=== PATIENT | female | born 1960 | race African-American/Black ===

== ENCOUNTER 2016-10-04 14:42 | Inpatient (IN) | payer MEDICARE, MEDICAID ==
--- NOTE | 2016-10-04 15:28 | ER Document Report ---
ED General - General Stated Complaint: ALTERED MENTAL STATUS Time Seen by Provider: 10/04/16 15:26 Mode of Arrival: Medic Information source: Emergency Med Personnel, [facility] Records Notes: This is a 56-year-old female with a history of CVA, obstructive sleep apnea, diabetes, rheumatoid arthritis, diabetes, CHF acute kidney injury, rhabdomyolysis. The patient is brought into the emergency room by EMS because of an altered mental status for 2 hours. EMS reports that home health was at the house and that said that the patient was at her baseline until approximately 2 hours ago when she became lethargic. EMS states that the patient is actually improved somewhat during transport from when they saw the patient. TRAVEL OUTSIDE OF THE [place] IN LAST 30 DAYS: No - HPI Onset: Just prior to arrival Onset/Duration: Sudden Quality of pain: No pain Severity: None Pain Level: Denies Associated symptoms: Nausea, Vomiting Exacerbated by: Denies Relieved by: Denies Similar symptoms previously: Yes Recently seen / treated by doctor: No - Related Data Allergies/Adverse Reactions: ibuprofen [Ibuprofen] Allergy (Severe, Verified 04/24/16 14:54) Chest pain Past Medical History - General Information source: Transfer Record - Social History Smoking Status: Never Smoker Cigarette use (# per day): No Chew tobacco use (# tins/day): No Frequency of alcohol use: None Drug Abuse: None Lives with: Alone Family History: DM, Hypertension Patient has suicidal ideation: No Patient has homicidal ideation: No - Past Medical History Cardiac Medical History: Reports: Hx Hypercholesterolemia, Hx Hypertension, Hx Heart Murmur Denies: Hx Atrial Fibrillation, Hx Congestive Heart Failure, Hx Coronary Artery Disease, Hx Heart Attack, Hx Peripheral Vascular Disease, Hx Pulmonary Embolism Pulmonary Medical History: Reports: Hx Asthma, Hx Bronchitis, Hx Pneumonia, Hx Sleep Apnea Denies: Hx COPD, Hx Respiratory Failure, Hx Tuberculosis Neurological Medical History: Reports: Hx Cerebrovascular Accident - 2004. Denies: Hx Seizures Endocrine Medical History: Reports: Hx Diabetes Mellitus Type 2. Denies: Hx Graves' Disease, Hx Hyperthyroidism, Hx Hypothyroidism Malignancy Medical History: Denies: Hx Leukemia, Hx Lung Cancer GI Medical History: Reports: Hx Crohn's Disease, Hx Hiatal Hernia. Denies: Hx Gastroesophageal Reflux Disease, Hx Irritable Bowel, Hx Liver Failure, Hx Ulcer Musculoskeltal Medical History: Reports Hx Arthritis, Reports Hx Fibromyalgia, Denies Hx Multiple Sclerosis, Denies Hx Muscular Dystrophy Psychiatric Medical History: Reports: Hx Depression Denies: Hx Bipolar Disorder, Hx Dementia, Hx Post Traumatic Stress Disorder, Hx Schizophrenia Traumatic Medical History: Denies: Hx Fractures Infectious Medical History: Denies: Hx HIV Past Surgical History: Reports: Hx Section, Hx Hysterectomy. Denies: Hx Appendectomy, Hx Bowel Surgery, Hx Cholecystectomy, Hx Colostomy, Hx Coronary Artery Bypass Graft, Hx Gastric Bypass Surgery, Hx Herniorrhaphy, Hx Mastectomy, Hx Pacemaker, Hx Tonsillectomy, Hx Tubal Ligation - Immunizations Immunizations up to date: Yes Hx Diphtheria, Pertussis, Tetanus Vaccination: Yes Hx Pneumococcal Vaccination: 01/25/08 Review of Systems - Review of Systems Constitutional: denies: Chills, Fever EENT: No symptoms reported Cardiovascular: No symptoms reported Respiratory: No symptoms reported Gastrointestinal: No symptoms reported Genitourinary: No symptoms reported Female Genitourinary: No symptoms reported Musculoskeletal: No symptoms reported Skin: No symptoms reported Hematologic/Lymphatic: No symptoms reported Neurological/Psychological: See HPI Physical Exam - Vital signs Vitals: BP 156/108 H 10/04/16 14:55 Notes: Physical exam: GENERAL: 56-year-old female lying in stretcher, appears lethargic but arousable and answering questions. Blood pressure is 158/90, pulse is 109, O2 sat is 100 % on room air, respiratory rate is 19, rectal temperature is 99.8 HEAD: Atraumatic, normocephalic. EYES: Pupils equal round and reactive to light, extraocular movements intact, sclera anicteric, conjunctiva are normal. ENT: TMs normal, nares patent, oropharynx clear without exudates. Moist mucous membranes. NECK: Normal range of motion, supple without lymphadenopathy or JVD. LUNGS: Breath sounds clear to auscultation bilaterally and equal. No wheezes rales or rhonchi. HEART: Regular rate and rhythm without murmurs, rubs or gallops. ABDOMEN: Soft, normoactive bowel sounds. No tenderness to palpation. No guarding, no rebound. No masses appreciated. Back: Clear Rectal: Brown stool, sent for study EXTREMITIES: Normal range of motion, no pitting or edema. No clubbing or cyanosis. NEUROLOGICAL: Cranial nerves II through XII grossly intact. Normal speech, moving all extremities, 2 superficial bruises on the left mid tibia. No evidence of cellulitis. PSYCH: Normal mood, normal affect. SKIN: Warm, Dry, normal turgor, no rashes or lesions noted. Course - Re-evaluation Re-evalutation: 10/04/16 18:00 Called to see patient because of worsening mental status. Patient's heart rate noted to be 145. His appear to be sinus tach on monitor. Recheck rectal temperature and is 101.2. Chest x-ray is clear, O2 sat is 100% on room air, UA is negative. 10/04/16 22:27 Note: This is a 56-year-old female with a complicated medical history who is immunosuppressed because of her medicines for rheumatoid arthritis (methotrexate , prednisone) who was brought to the emergency room with acute mental status changes. The patient was known to be tachycardic and her heart rate went up as much is 145 and was in sinus at that time. She did become febrile in the emergency room with a rectal temperature of 101.2 she wasn't cephalopathic. CT of the head was clear, chest x-ray was clear, urine analysis was negative. She did have some lesions on her lower extremities that were marked so that it take could be followed clinically for any expansion. The patient does have a history of falling, so these may just be bruises. CT of the abdomen showed no acute process. A spinal tap was performed because of concerns for meningitis and is thus far looks negative for infection. Blood cultures, urine cultures and spinal fluid cultures have been sent. Patient has been given IV fluids, IV antibiotics and antiemetics. Her mental status has improved somewhat but she is not fully at baseline. At this point, there is no obvious source of infection. She does meet criteria for SIRS. She does not meet establish criteria for sepsis at this point. 10/04/16 22:31 10/05/16 00:02 - Vital Signs Vital signs: Temp Pulse Resp BP Pulse Ox 14 133/87 H 100 10/04/16 23:00 10/04/16 22:31 10/04/16 23:00 - Laboratory Result Diagrams: 10/04/16 17:18 10/04/16 17:18 Laboratory results interpreted by me: 10/04/16 10/04/16 10/04/16 16:27 17:18 17:18 WBC 10.6 H MCV 75 L MCH 24.1 L RDW 17.7 H BUN 4 L Glucose 174 H POC Glucose Calcium 10.4 H Direct Bilirubin 0.6 H Total Protein 8.6 H Urine Protein 100 H Urine Ketones 80 H CSF Glucose 10/04/16 10/04/16 17:39 19:05 WBC MCV MCH RDW BUN Glucose POC Glucose 192 H Calcium Direct Bilirubin Total Protein Urine Protein Urine Ketones CSF Glucose 111 H - Diagnostic Test Radiology reviewed: Image reviewed, Reports reviewed - CT of the head shows no acute process. Chest x-ray shows no infiltrates. CT of the abdomen shows no acute process. - EKG Interpretation by Mo Rate: Tachycardia - EKG shows sinus tachycardia with a ventricular rate of 114, no acute ST-T wave changes Procedures - Lumbar Puncture Lumbar puncture Time completed: 20:30 Consent obtained: No - procedure was done emergently to rule out meningitis Lumbar puncture pre-procedure: Chloraprep applied Patient position: Sitting Needle size: 20 Lumbar puncture location: L4-5 Anesthetic type: 1% Lidocaine mL's of anesthetic: 4 Amount/type of drainage: 4 mL Number of attempts: 3 Complications: No Notes: Note: Given the patient's acute encephalopathy (Marked mental status changes), fever and tachycardia and lack of obvious source of infection (i.e. no pneumonia , UTI); the spinal tap was done emergently (i.e. Without written informed consent). The patient was agreeable at the time for the procedure. The fluid looks clear which is good. It is been sent for study. Critical Care Note - Critical Care Note Total time excluding time spent on procedures (mins): 90 Discharge - Discharge Clinical Impression: acute encephalopathy, SIRS, vomiting Condition: Stable Disposition: ADMITTED INPATIENT Admitting Provider: Hospitalist - Dr. Pierce Unit Admitted: Telemetry
[2016-10-04 16:47] LABS: APPEARANCE,URINE SLIGHTLY-CLOUDY; BILIRUBIN,URINE NEGATIVE (NEGATIVE); GLUCOSE, URINE NEGATIVE (NEGATIVE); KETONES,URINE 80 mg/dL (NEGATIVE); LEUKOCYTE ESTERASE,URINE NEGATIVE (NEGATIVE); NITRITE,URINE NEGATIVE (NEGATIVE); PROTEIN,URINE 100 mg/dL (NEGATIVE); URINE SPECIFIC GRAVITY 1.019; UROBILINOGEN,URINE NEGATIVE mg/dL (<2.0)
[2016-10-04 17:24] LABS: ABSOLUTE BASOPHILS # (AUTO) 0.1 10^3/uL (0.0-0.2); ABSOLUTE LYMPHOCYTES (AUTO) 2.3 10^3/uL (0.5-4.7); ABSOLUTE MONOCYTES (AUTO) 1.3 10^3/uL (0.1-1.4); BASOPHILS % (AUTO) 0.6 % (0-2); HEMATOCRIT 39.2 % (36.0-47.0); HEMOGLOBIN 12.5 g/dL (12.0-15.5); HGB HCT DIFFERENCE -1.7; MEAN CORPUSCULAR HEMOGLOBIN 24.1 pg (27.0-33.4); MEAN CORPUSCULAR VOLUME 75 fl (80-97); MONOCYTES % (AUTO) 11.8 % (3-13); RED BLOOD COUNT 5.21 10^6/uL (3.72-5.28); RED CELL DISTRIBUTION WIDTH 17.7 % (11.5-14.0); SEGMENTED NEUTROPHILS % (AUTO) 65.6 % (42-78); WHITE BLOOD COUNT 10.6 10^3/uL (4.0-10.5)
[2016-10-04] MEDS ORDERED: LORAZEPAM INJ 2 MG/1 ML VIAL IV ONE (17:33)
[2016-10-04] MEDS ORDERED: LORAZEPAM INJ 2 MG/1 ML VIAL ONE ×2 (17:36→18:43)
[2016-10-04] MEDS ORDERED: NORMAL SALINE 500 ML IV PRN (17:38)
[2016-10-04 17:45] LABS: ALANINE AMINOTRANSFERASE 30 U/L (9-52); ALBUMIN 4.6 g/dL (3.5-5.0); ALKALINE PHOSPHATASE 83 U/L (38-126); ANION GAP 18 (5-19); ASPARTATE AMINO TRANSFERASE 17 U/L (14-36); BILIRUBIN,DIRECT 0.6 mg/dL (0.0-0.4); BLOOD UREA NITROGEN 4 mg/dL (7-20); CALCIUM 10.4 mg/dL (8.4-10.2); CARBON DIOXIDE 24 mmol/L (22-30); CHLORIDE 102 mmol/L (98-107); CREATINE KINASE 54 U/L (30-135); CREATININE RESULT 0.74 mg/dL (0.52-1.25); GLUCOSE 174 mg/dL (75-110); POTASSIUM 3.6 mmol/L (3.6-5.0); SODIUM 143.7 mmol/L (137-145); TOTAL PROTEIN 8.6 g/dL (6.3-8.2)
[2016-10-04 17:56] LABS: CREATINE KINASE MB 0.28 ng/mL (<4.55)
[2016-10-04 17:58] LABS: TROPONIN I 0.043 ng/mL
[2016-10-04] MEDS ORDERED: ACETAMINOPHEN 650 MG SUPP.RECT PR ONE (17:59)
[2016-10-04] MEDS ORDERED: VANCOMYCIN HCL INJ 1000 MG VIAL IV ONE (18:00)
[2016-10-04] MEDS ORDERED: CEFTRIAXONE 2 GM/D5W RTU 50 ML IV ONE (18:00)
[2016-10-04 19:53] LABS: APPEARANCE TUBE 1 CLEAR
[2016-10-04 19:54] LABS: APPEARANCE ALL TUBES CLEAR; APPEARANCE TUBE 2 CLEAR; APPEARANCE TUBE 3 CLEAR; GLUCOSE,CSF 111 mg/dL (40-70)
[2016-10-04 19:55] LABS: RBC DILUENT USED NONE USED; RBC DILUTION FACTOR 1; RBC SIDE 1 98; RBC SIDE 2 88
[2016-10-04 19:57] LABS: TOTAL RBC SQUARES COUNTED 225
[2016-10-04 19:59] LABS: WHITE BLOOD CELL,CSF 4 /uL (0-5)
[2016-10-04 20:00] LABS: APPEARANCE ALL TUBES CLEAR; APPEARANCE TUBE 1 CLEAR; APPEARANCE TUBE 2 CLEAR; APPEARANCE TUBE 3 CLEAR
[2016-10-04 20:01] LABS: RBC DILUENT USED NONE USED; RBC DILUTION FACTOR 1; RBC SIDE 1 0; RBC SIDE 2 0; TOTAL RBC SQUARES COUNTED 225
[2016-10-04 20:02] LABS: WHITE BLOOD CELL,CSF 4 /uL (0-5)
[2016-10-04 21:53] LABS: URINE BARBITURATES SCREEN NEGATIVE; URINE METHADONE SCREEN NEGATIVE; URINE OPIATES LOW UNCONFIRMED POSITIVE; URINE PHENCYCLIDINE SCREEN NEGATIVE
[2016-10-04] MEDS ORDERED: ONDANSETRON HCL INJ/PF 4 MG/2 ML SDV IV ONE (22:04)
[2016-10-05] MEDS: MAGNESIUM SULFATE/D5W 1 GM/100 ML RTUPB IV SCH ×2 (02:39→04:09)
[2016-10-05] MEDS ORDERED: MAGNESIUM SULFATE/D5W 1 GM/100 ML RTUPB IV ONE (02:40)
[2016-10-05] MEDS ORDERED: OXYCODONE-ACETAMINOPHEN 5-325 MG TABLET PO ONE (05:01)
[2016-10-05] MEDS ORDERED: MONTELUKAST SODIUM 10 MG TABLET PO SCH (08:00)
[2016-10-05] MEDS ORDERED: PREDNISONE 5 MG TABLET PO SCH (08:00)
[2016-10-05] MEDS ORDERED: PREDNISONE 10 MG TABLET PO ONE (09:00)
[2016-10-05] MEDS ORDERED: AMLODIPINE BESYLATE 10 MG TABLET PO SCH (10:00)
[2016-10-05] MEDS: SILVER SULFADIAZINE 1% CREAM 25 GM TP SCH ×3 (10:00→19:57)
[2016-10-05] MEDS: FOLIC ACID 1 MG TABLET PO SCH (11:12)
[2016-10-05] MEDS: FUROSEMIDE 80 MG TABLET PO SCH (11:13)
[2016-10-05] MEDS: ASPIRIN 325 MG TABLET PO SCH (11:14)
[2016-10-05] MEDS: AMLODIPINE BESYLATE 5 MG TABLET PO SCH (11:14)
[2016-10-05] MEDS: CELECOXIB 200 MG CAPSULE PO SCH ×2 (11:14→18:12)
[2016-10-05] MEDS: PHENYTOIN SODIUM EXTENDED 100 MG CAPSULE PO SCH ×2 (11:15→22:25)
[2016-10-05] MEDS: SPIRONOLACTONE 25 MG TABLET PO SCH (11:15)
[2016-10-05] MEDS: LISINOPRIL 5 MG TABLET PO SCH (11:15)
[2016-10-05] MEDS: PREGABALIN 75 MG CAPSULE PO SCH ×2 (11:15→22:25)
[2016-10-05] MEDS: POTASSIUM CHLORIDE 10 MEQ TABLET.SA PO SCH (11:16)
[2016-10-05] MEDS: CLOPIDOGREL BISULFATE 75 MG TABLET PO SCH (11:16)
[2016-10-05] MEDS: PRENATAL VITAMIN W-O CA NO5/FE FUMARATE/FA CAPSULE PO SCH (11:16)
[2016-10-05] MEDS: DULOXETINE HCL 30 MG CAPSULE.DR PO SCH ×2 (11:16→22:26)
[2016-10-05] MEDS: DICYCLOMINE HCL 20 MG TABLET PO SCH ×3 (11:17→18:00)
[2016-10-05] MEDS: IPRATROPIUM/ALBUTEROL 120 PUFF/4 GM MDI IH SCH ×2 (12:00→18:14)
--- NOTE | 2016-10-05 12:16 | PDOC PROGRESS REPORT ---
Subjective Progress Note for:: 10/05/16 Subjective:: Patient seen on morning rounds. She is presently sitting in bedside chair. She states her stomach doesn't feel well. She states she's been nauseated since yesterday. She denies any vomiting, she has had several episodes of diarrhea. She denies any recent antibiotic use at home. She states she has no other family members were sick at the present time. She denies any significant abdominal pain at the present time. She denies any chest pain, shortness breath or dyspnea. She has had a low-grade fever on and off. She is back to her baseline mental status. Rest of review systems is negative. Physical Exam Vital Signs: Temp Pulse Resp BP Pulse Ox 99.3 F 136 H 26 H 157/86 H 97 10/05/16 07:53 10/05/16 07:53 10/05/16 07:53 10/05/16 07:53 10/05/16 07:53 Intake & Output 10/04/16 10/05/16 10/06/16 06:59 06:59 06:59 Intake Total 170 Balance 170 Weight 137.6 kg General appearance: PRESENT: no acute distress, morbidly obese, well-developed, well-nourished Head exam: PRESENT: atraumatic, normocephalic Eye exam: PRESENT: conjunctiva pink, EOMI, PERRLA. ABSENT: scleral icterus Ear exam: PRESENT: normal external ear exam Neck exam: ABSENT: carotid bruit, JVD, lymphadenopathy, thyromegaly Respiratory exam: PRESENT: clear to auscultation chen. ABSENT: rales, rhonchi, wheezes Cardiovascular exam: PRESENT: RRR. ABSENT: diastolic murmur, rubs, systolic murmur Vascular exam: PRESENT: normal capillary refill GI/Abdominal exam: PRESENT: normal bowel sounds, soft. ABSENT: distended, guarding, mass, organolmegaly, rebound, tenderness Rectal exam: PRESENT: deferred Extremities exam: PRESENT: full ROM. ABSENT: calf tenderness, clubbing, pedal edema Musculoskeletal exam: PRESENT: full ROM, normal inspection, tenderness Neurological exam: PRESENT: alert, awake, oriented to person, oriented to place , oriented to time, oriented to situation, CN II-XII grossly intact. ABSENT: motor sensory deficit Psychiatric exam: PRESENT: appropriate affect, normal mood. ABSENT: homicidal ideation, suicidal ideation Skin exam: PRESENT: dry, intact, warm. ABSENT: cyanosis, rash Results Impressions: Head CT 10/04/16 00:00 IMPRESSION: NORMAL BRAIN CT WITHOUT CONTRAST. Chest X-Ray 10/04/16 15:37 IMPRESSION: NO ACUTE RADIOGRAPHIC FINDING IN THE CHEST. Abdomen/Pelvis CT 10/04/16 21:06 IMPRESSION: NO ACUTE FINDINGS WITHIN THE ABDOMEN OR PELVIS. NO SIGNIFICANT CHANGE FROM PRIOR STUDY. Assessment & Plan - Diagnosis (1) Encephalopathy acute Is this a current diagnosis for this admission?: YesPlan: Since resolved. He PE secondary to infectious process versus chronic use of opioid analgesics (3) Chronic prescription opiate use Is this a current diagnosis for this admission?: YesPlan: Continue pain management prescribed analgesic dose (4) Diabetes mellitus Qualifiers: Diabetes mellitus type: type 2 Diabetes mellitus complication status: with unspecified complications Diabetes mellitus prison insulin use: unspecified adjunct faculty for medical terminology insulin use status Qualified Code(s): E11.8 - Type 2 diabetes mellitus with unspecified complications; Z79.4 - skilled nursing (current) use of insulin (5) Morbid obesity with BMI of 50.0-59.9, adult Is this a current diagnosis for this admission?: YesPlan: Counseled (6) BRAN (obstructive sleep apnea) Is this a current diagnosis for this admission?: YesPlan: CPAP at night - Time Time Spent with patient: 25-34 minutes Critical Time spent with patient: 15-24 minutes Medications reviewed and adjusted accordingly: Yes Anticipated discharge: Home with Homehealth Within: within 24 hours - Inpatient Certification Based on my medical assessment, after consideration of the patient's comorbidities, presenting symptoms, or acuity I expect that the services needed warrant INPATIENT care.: Yes I certify that my determination is in accordance with my understanding of Medicare's requirements for reasonable and necessary INPATIENT services [42 CFR 412.3e].: Yes
--- NOTE | 2016-10-05 13:19 | EKG REPORT ---
SEVERITY:- ABNORMAL ECG - SINUS TACHYCARDIA PROBABLE POSTERIOR INFARCT BORDERLINE PROLONGED QT INTERVAL : Confirmed by: Cullen Fritz 05-Oct-2016 13:18:29
[2016-10-05] MEDS: METFORMIN HCL 500 MG TABLET PO SCH (18:11)
[2016-10-05] MEDS: ATORVASTATIN CALCIUM 20 MG TABLET PO SCH (18:12)
[2016-10-05] MEDS: CETIRIZINE 10 MG TABLET PO SCH (18:12)
[2016-10-05] MEDS: MONTELUKAST SODIUM 10 MG TABLET PO SCH (18:12)
[2016-10-05] MEDS: FAMOTIDINE 20 MG TABLET PO SCH (22:25)
[2016-10-05] MEDS: METOPROLOL TARTRATE 25 MG TABLET PO SCH (22:25)
[2016-10-06] MEDS: IPRATROPIUM/ALBUTEROL 120 PUFF/4 GM MDI IH SCH ×5 (01:26→23:16)
[2016-10-06] MEDS: PRENATAL VITAMIN W-O CA NO5/FE FUMARATE/FA CAPSULE PO SCH (09:07)
[2016-10-06] MEDS: CLOPIDOGREL BISULFATE 75 MG TABLET PO SCH (09:09)
[2016-10-06] MEDS: PREGABALIN 75 MG CAPSULE PO SCH ×2 (09:10→23:16)
[2016-10-06] MEDS: PHENYTOIN SODIUM EXTENDED 100 MG CAPSULE PO SCH ×3 (09:10→23:16)
[2016-10-06] MEDS: METFORMIN HCL 500 MG TABLET PO SCH ×2 (09:10→17:27)
[2016-10-06] MEDS: FOLIC ACID 1 MG TABLET PO SCH (09:10)
[2016-10-06] MEDS: ASPIRIN 325 MG TABLET PO SCH (09:10)
[2016-10-06] MEDS: CELECOXIB 200 MG CAPSULE PO SCH (09:10)
[2016-10-06] MEDS: POTASSIUM CHLORIDE 10 MEQ TABLET.SA PO SCH (09:11)
[2016-10-06] MEDS: DULOXETINE HCL 30 MG CAPSULE.DR PO SCH ×2 (09:11→23:15)
[2016-10-06] MEDS: PREDNISONE 10 MG TABLET PO SCH (09:11)
[2016-10-06] MEDS: LISINOPRIL 5 MG TABLET PO SCH (09:12)
[2016-10-06] MEDS: SPIRONOLACTONE 25 MG TABLET PO SCH (09:12)
[2016-10-06] MEDS: DICYCLOMINE HCL 20 MG TABLET PO SCH ×3 (09:13→17:28)
[2016-10-06] MEDS: METOPROLOL TARTRATE 25 MG TABLET PO SCH (09:22)
[2016-10-06] MEDS: SILVER SULFADIAZINE 1% CREAM 25 GM TP SCH ×3 (09:24→17:23)
[2016-10-06] MEDS ORDERED: ALBUTEROL SULFATE HFA (90 MCG/PUFF) 8 GM MDI (1 MDI/ER DISP) IH PRN (09:27)
[2016-10-06] MEDS: FUROSEMIDE 80 MG TABLET PO SCH (09:27)
[2016-10-06] MEDS ORDERED: DIGOXIN INJ 0.5 MG/2 ML AMPULE IV ONE (10:00)
[2016-10-06] MEDS ORDERED: ACETAMINOPHEN 325 MG TABLET PO PRN (10:57)
[2016-10-06] MEDS ORDERED: METOPROLOL TARTRATE 25 MG TABLET PO SCH (11:18)
[2016-10-06] MEDS: ONDANSETRON HCL INJ/PF 4 MG/2 ML SDV IV PRN (11:32)
[2016-10-06] MEDS ORDERED: METOPROLOL TARTRATE 25 MG TABLET PO ONE (12:00)
--- NOTE | 2016-10-06 13:32 | PDOC PROGRESS REPORT ---
Subjective Progress Note for:: 10/06/16 Subjective:: Patient seen on morning rounds. She is sitting on the side of the bed eating breakfast. She states her stomach doesn't feel well. She states she's been nauseated since yesterday. She denies any vomiting, she states she has had several episodes of diarrhea. She denies any recent antibiotic use at home. She states she has no other family members were sick at the present time. She denies any significant abdominal pain at the present time. She denies any chest pain, shortness breath or dyspnea. She has had a low-grade fever on and off. Her heart rate has been elevated this morning in the 140's with systolic blood pressure in the 90's. She states she just does not feel well. She is back to her baseline mental status. Rest of review systems is negative. Physical Exam Vital Signs: Temp Pulse Resp BP Pulse Ox 99.4 F 132 H 18 142/86 H 96 10/06/16 03:49 10/06/16 11:51 10/06/16 11:51 10/06/16 11:51 10/06/16 11:51 Intake & Output 10/05/16 10/06/16 10/07/16 06:59 06:59 06:59 Intake Total 170 491 Output Total 630 Balance 170 -139 Weight 137.6 kg Results Impressions: Head CT 10/04/16 00:00 IMPRESSION: NORMAL BRAIN CT WITHOUT CONTRAST. Chest X-Ray 10/04/16 15:37 IMPRESSION: NO ACUTE RADIOGRAPHIC FINDING IN THE CHEST. Abdomen/Pelvis CT 10/04/16 21:06 IMPRESSION: NO ACUTE FINDINGS WITHIN THE ABDOMEN OR PELVIS. NO SIGNIFICANT CHANGE FROM PRIOR STUDY. Assessment & Plan - Diagnosis (1) SIRS (systemic inflammatory response syndrome) Is this a current diagnosis for this admission?: YesPlan: No obvious source of infection, may be viral gastroenteritis (2) Tachycardia Plan: Patient has been borderline hypotensive, blood pressure medications have been held or given in a reduced dosage, most likely secondary to dehydration from diarrhea. Gently rehydrating with IV fluids. Will check stool for Cdiff and other organisms. Patient given digoxin 0.5 mg IV and fluid bolus. Will hold other BP med but give metoprolol. (3) Encephalopathy acute Is this a current diagnosis for this admission?: YesPlan: Since resolved. This may be secondary to infectious process versus chronic use of opioid analgesics (4) Nausea Is this a current diagnosis for this admission?: YesPlan: Improved since yesterday, (5) Chronic prescription opiate use Is this a current diagnosis for this admission?: YesPlan: Continue pain management prescribed analgesic dose (6) Diabetes mellitus Qualifiers: Diabetes mellitus type: type 2 Diabetes mellitus complication status: with unspecified complications Diabetes mellitus technician terminal and repeater insulin use: unspecified custodial insulin use status Qualified Code(s): E11.8 - Type 2 diabetes mellitus with unspecified complications; 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 Is this a current diagnosis for this admission?: YesPlan: Continue current home medication and sliding scale coverage (7) Morbid obesity with BMI of 50.0-59.9, adult Is this a current diagnosis for this admission?: YesPlan: Counseled (8) BRAN (obstructive sleep apnea) Is this a current diagnosis for this admission?: YesPlan: CPAP at night (9) Diarrhea Qualifiers: Diarrhea type: unspecified type Qualified Code(s): R19.7 - Diarrhea , unspecified Is this a current diagnosis for this admission?: YesPlan: Will send stool for cdiff and culture - Time Time Spent with patient: 25-34 minutes Smoking Cessation Education: 3 to 10 minutes Medications reviewed and adjusted accordingly: Yes Anticipated discharge: Home with Homehealth
[2016-10-06] MEDS: CETIRIZINE 10 MG TABLET PO SCH (17:28)
[2016-10-06] MEDS: ATORVASTATIN CALCIUM 20 MG TABLET PO SCH (17:28)
[2016-10-06] MEDS: MONTELUKAST SODIUM 10 MG TABLET PO SCH (17:28)
[2016-10-06] MEDS: KETOROLAC TROMETHAMINE 10 MG TABLET PO PRN (17:29)
[2016-10-06] MEDS ORDERED: METOPROLOL TARTRATE 50 MG TABLET PO SCH (22:00)
[2016-10-06] MEDS: METOPROLOL SUCCINATE 50 MG TAB.SR.24H PO SCH (23:15)
[2016-10-06] MEDS: FAMOTIDINE 20 MG TABLET PO SCH (23:16)
[2016-10-07] MEDS: PHENYTOIN SODIUM EXTENDED 100 MG CAPSULE PO SCH ×3 (05:38→22:10)
[2016-10-07] MEDS: KETOROLAC TROMETHAMINE 10 MG TABLET PO PRN ×2 (05:38→20:05)
[2016-10-07] MEDS: IPRATROPIUM/ALBUTEROL 120 PUFF/4 GM MDI IH SCH ×3 (05:39→18:11)
[2016-10-07] MEDS: PRENATAL VITAMIN W-O CA NO5/FE FUMARATE/FA CAPSULE PO SCH (10:40)
[2016-10-07] MEDS: POTASSIUM CHLORIDE 10 MEQ TABLET.SA PO SCH (10:40)
[2016-10-07] MEDS: PREGABALIN 75 MG CAPSULE PO SCH ×2 (10:41→22:11)
[2016-10-07] MEDS: DULOXETINE HCL 30 MG CAPSULE.DR PO SCH ×2 (10:41→22:11)
[2016-10-07] MEDS: ASPIRIN 325 MG TABLET PO SCH (10:41)
[2016-10-07] MEDS: FOLIC ACID 1 MG TABLET PO SCH (10:41)
[2016-10-07] MEDS: METFORMIN HCL 500 MG TABLET PO SCH ×2 (10:41→15:33)
[2016-10-07] MEDS: CLOPIDOGREL BISULFATE 75 MG TABLET PO SCH (10:41)
[2016-10-07] MEDS: SPIRONOLACTONE 25 MG TABLET PO SCH (10:42)
[2016-10-07] MEDS: METOPROLOL SUCCINATE 50 MG TAB.SR.24H PO SCH ×2 (10:43→22:10)
[2016-10-07] MEDS: AMLODIPINE BESYLATE 5 MG TABLET PO SCH (10:43)
[2016-10-07] MEDS: FUROSEMIDE 80 MG TABLET PO SCH (10:44)
[2016-10-07] MEDS: PREDNISONE 10 MG TABLET PO SCH (10:44)
[2016-10-07] MEDS: DICYCLOMINE HCL 20 MG TABLET PO SCH ×3 (10:46→18:00)
[2016-10-07] MEDS: SILVER SULFADIAZINE 1% CREAM 25 GM TP SCH ×3 (10:46→18:00)
--- NOTE | 2016-10-07 13:42 | PDOC PROGRESS REPORT ---
Subjective Progress Note for:: 10/07/16 Subjective:: Patient seen on morning rounds. She is sitting in bedside chair eating breakfast. Her daughter is at the bedside as well. She states she feels better than she did yesterday. She's had no further nausea or vomiting. She has had 3 episodes of diarrhea. She has had no further tachycardia or hypotension. She states she does not think she is able to go home with home health. She thinks she needs to go to rehabilitation for further physical therapy. Rest of review systems is negative. Physical Exam Vital Signs: Temp Pulse Resp BP Pulse Ox 99.1 F 89 19 121/64 98 10/07/16 04:01 10/07/16 04:01 10/07/16 04:01 10/07/16 04:01 10/07/16 04:01 Intake & Output 10/06/16 10/07/16 10/08/16 06:59 06:59 06:59 Intake Total 1235 Balance 1235 General appearance: PRESENT: no acute distress, morbidly obese, well-developed, well-nourished Head exam: PRESENT: atraumatic, normocephalic Eye exam: PRESENT: conjunctiva pink, EOMI, PERRLA. ABSENT: scleral icterus Ear exam: PRESENT: normal external ear exam Mouth exam: PRESENT: moist, tongue midline Neck exam: ABSENT: carotid bruit, JVD, lymphadenopathy, thyromegaly Respiratory exam: PRESENT: clear to auscultation chen. ABSENT: rales, rhonchi, wheezes Cardiovascular exam: PRESENT: RRR. ABSENT: diastolic murmur, rubs, systolic murmur Pulses: PRESENT: normal dorsalis pedis pul Vascular exam: PRESENT: normal capillary refill GI/Abdominal exam: PRESENT: normal bowel sounds, soft. ABSENT: distended, guarding, mass, organolmegaly, rebound, tenderness Rectal exam: PRESENT: deferred Extremities exam: PRESENT: full ROM. ABSENT: calf tenderness, clubbing, pedal edema Musculoskeletal exam: PRESENT: ambulatory, full ROM, normal inspection Neurological exam: PRESENT: alert, awake, oriented to person, oriented to place , oriented to time, oriented to situation, CN II-XII grossly intact. ABSENT: motor sensory deficit Psychiatric exam: PRESENT: flat affect Skin exam: PRESENT: abrasion Results Impressions: Head CT 10/04/16 00:00 IMPRESSION: NORMAL BRAIN CT WITHOUT CONTRAST. Chest X-Ray 10/04/16 15:37 IMPRESSION: NO ACUTE RADIOGRAPHIC FINDING IN THE CHEST. Abdomen/Pelvis CT 10/04/16 21:06 IMPRESSION: NO ACUTE FINDINGS WITHIN THE ABDOMEN OR PELVIS. NO SIGNIFICANT CHANGE FROM PRIOR STUDY. Assessment & Plan - Diagnosis (1) SIRS (systemic inflammatory response syndrome) Is this a current diagnosis for this admission?: YesPlan: Tachycardia, low grade fever and hypotension likely secondary to viral gastroenteritis (2) Tachycardia Plan: Resolved (3) Encephalopathy acute Is this a current diagnosis for this admission?: YesPlan: Resolved (4) Nausea Is this a current diagnosis for this admission?: YesPlan: Resolved (5) Chronic prescription opiate use Is this a current diagnosis for this admission?: YesPlan: Continue pain management prescribed analgesic dose (6) Diabetes mellitus Qualifiers: Diabetes mellitus type: type 2 Diabetes mellitus complication status: with unspecified complications Diabetes mellitus [facility] insulin use: unspecified adjunct faculty for medical terminology insulin use status Qualified Code(s): E11.8 - Type 2 diabetes mellitus with unspecified complications; 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.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 (current) use of insulin Is this a current diagnosis for this admission?: YesPlan: Continue current home medication and sliding scale coverage (7) Morbid obesity with BMI of 50.0-59.9, adult Is this a current diagnosis for this admission?: YesPlan: Counseled (8) BRAN (obstructive sleep apnea) Is this a current diagnosis for this admission?: YesPlan: CPAP at night (9) Diarrhea Qualifiers: Diarrhea type: unspecified type Qualified Code(s): R19.7 - Diarrhea , unspecified Is this a current diagnosis for this admission?: YesPlan: Will send stool for cdiff and culture - Time Time Spent with patient: 25-34 minutes Critical Time spent with patient: 15-24 minutes Medications reviewed and adjusted accordingly: Yes Anticipated discharge: Home with Homehealth, Acute Rehab - Inpatient Certification Based on my medical assessment, after consideration of the patient's comorbidities, presenting symptoms, or acuity I expect that the services needed warrant INPATIENT care.: Yes
[2016-10-07] MEDS: ONDANSETRON HCL INJ/PF 4 MG/2 ML SDV IV PRN (17:59)
[2016-10-07] MEDS: CETIRIZINE 10 MG TABLET PO SCH (17:59)
[2016-10-07] MEDS: MONTELUKAST SODIUM 10 MG TABLET PO SCH (18:00)
[2016-10-07] MEDS: ATORVASTATIN CALCIUM 20 MG TABLET PO SCH (18:00)
[2016-10-07] MEDS: ALBUTEROL SULFATE HFA (90 MCG/PUFF) 200 PUFF/8.5 GM MDI IH PRN (18:06)
[2016-10-07] MEDS ORDERED: PROMETHAZINE HCL 25 MG SUPP.RECT PR PRN (20:16)
[2016-10-07] MEDS: FAMOTIDINE 20 MG TABLET PO SCH (22:11)
--- NOTE | 2016-10-07 23:55 | EKG REPORT ---
SEVERITY:- NORMAL ECG - SINUS RHYTHM : Confirmed by: Cullen Fritz 07-Oct-2016 23:54:34
[2016-10-08] MEDS: PHENYTOIN SODIUM EXTENDED 100 MG CAPSULE PO SCH ×3 (05:13→23:00)
[2016-10-08] MEDS: IPRATROPIUM/ALBUTEROL 120 PUFF/4 GM MDI IH SCH ×4 (05:14→23:18)
[2016-10-08] MEDS: PREDNISONE 10 MG TABLET PO SCH (09:27)
[2016-10-08] MEDS: CLOPIDOGREL BISULFATE 75 MG TABLET PO SCH (09:28)
[2016-10-08] MEDS: PRENATAL VITAMIN W-O CA NO5/FE FUMARATE/FA CAPSULE PO SCH (09:28)
[2016-10-08] MEDS: POTASSIUM CHLORIDE 10 MEQ TABLET.SA PO SCH (09:28)
[2016-10-08] MEDS: FUROSEMIDE 80 MG TABLET PO SCH (09:28)
[2016-10-08] MEDS: METOPROLOL SUCCINATE 50 MG TAB.SR.24H PO SCH ×2 (09:28→23:00)
[2016-10-08] MEDS: AMLODIPINE BESYLATE 5 MG TABLET PO SCH (09:28)
[2016-10-08] MEDS: DULOXETINE HCL 30 MG CAPSULE.DR PO SCH ×2 (09:28→22:59)
[2016-10-08] MEDS: METFORMIN HCL 500 MG TABLET PO SCH ×2 (09:28→17:31)
[2016-10-08] MEDS: PREGABALIN 75 MG CAPSULE PO SCH ×2 (09:28→23:00)
[2016-10-08] MEDS: ASPIRIN 325 MG TABLET PO SCH (09:28)
[2016-10-08] MEDS: FOLIC ACID 1 MG TABLET PO SCH (09:28)
[2016-10-08] MEDS: SPIRONOLACTONE 25 MG TABLET PO SCH (09:29)
[2016-10-08] MEDS: LISINOPRIL 5 MG TABLET PO SCH (09:29)
[2016-10-08] MEDS: SILVER SULFADIAZINE 1% CREAM 25 GM TP SCH ×3 (10:22→17:20)
[2016-10-08] MEDS ORDERED: TIZANIDINE HCL 4 MG TABLET PO PRN (10:30)
[2016-10-08] MEDS ORDERED: DICYCLOMINE HCL 20 MG TABLET PO PRN (10:40)
[2016-10-08] MEDS ORDERED: CLOPIDOGREL BISULFATE 75 MG TABLET PO ONE (11:00)
[2016-10-08] MEDS ORDERED: AMLODIPINE BESYLATE 10 MG TABLET PO ONE (11:00)
[2016-10-08] MEDS ORDERED: CETIRIZINE 10 MG TABLET PO ONE (11:00)
[2016-10-08] MEDS ORDERED: FOLIC ACID 1 MG TABLET PO ONE (11:15)
[2016-10-08] MEDS ORDERED: LISINOPRIL 5 MG TABLET PO ONE (11:30)
[2016-10-08] MEDS ORDERED: SPIRONOLACTONE 25 MG TABLET PO ONE (11:30)
[2016-10-08] MEDS ORDERED: FUROSEMIDE 80 MG TABLET PO ONE (12:00)
[2016-10-08] MEDS ORDERED: ERGOCALCIFEROL (VITAMIN D2) 50000 UNIT (1.25 MG) CAPSULE PO ONE (12:00)
--- NOTE | 2016-10-08 14:56 | PDOC PROGRESS REPORT ---
Subjective Progress Note for:: 10/08/16 Subjective:: The patient was seen earlier today on rounds. The patient states that she has had some pain chest pain. The patient admits to waking up short of breath. The patient denies any nausea, vomiting, diarrhea, , dizziness, heart palpitations, fevers, or chills. The patient has remained afebrile. Blood pressures have been in a good range. When prompted the patient voices no other concerns at this time. Review of systems: The rest of the review of systems is negative. Physical Exam Vital Signs: Temp Pulse Resp BP Pulse Ox 98.1 F 88 19 138/77 H 94 10/08/16 11:07 10/08/16 11:07 10/08/16 11:07 10/08/16 11:07 10/08/16 11:07 Intake & Output 10/06/16 10/07/16 10/08/16 23:59 23:59 23:59 Intake Total 1010 705 720 Output Total 200 Balance 1010 705 520 General appearance: PRESENT: no acute distress, cooperative, morbidly obese, well-developed Head exam: PRESENT: atraumatic, normocephalic Eye exam: PRESENT: conjunctiva pink, EOMI, PERRLA. ABSENT: scleral icterus Ear exam: PRESENT: normal external ear exam Mouth exam: PRESENT: moist, tongue midline Neck exam: ABSENT: carotid bruit, JVD, lymphadenopathy, thyromegaly Respiratory exam: PRESENT: clear to auscultation chen. ABSENT: rales, rhonchi, wheezes Cardiovascular exam: PRESENT: RRR. ABSENT: diastolic murmur, rubs, systolic murmur Pulses: PRESENT: normal dorsalis pedis pul Vascular exam: PRESENT: normal capillary refill GI/Abdominal exam: PRESENT: normal bowel sounds, soft. ABSENT: distended, guarding, mass, organolmegaly, rebound, tenderness Rectal exam: PRESENT: deferred Extremities exam: PRESENT: full ROM. ABSENT: calf tenderness, clubbing, pedal edema Neurological exam: PRESENT: alert, awake, oriented to person, oriented to place , oriented to time, oriented to situation, CN II-XII grossly intact. ABSENT: motor sensory deficit Psychiatric exam: PRESENT: appropriate affect, normal mood. ABSENT: homicidal ideation, suicidal ideation Skin exam: PRESENT: dry, intact, warm. ABSENT: cyanosis, rash Results Laboratory Results: 10/07/16 10/08/16 10/08/16 20:45 03:10 09:26 Troponin I 0.022 0.023 0.017 Labs- Last Values WBC 10.6 10^3/uL (4.0-10.5) H 10/04/16 17:18 RBC 5.21 10^6/uL (3.72-5.28) 10/04/16 17:18 Hgb 12.5 g/dL (12.0-15.5) 10/04/16 17:18 Hct 39.2 % (36.0-47.0) 10/04/16 17:18 MCV 75 fl (80-97) L 10/04/16 17:18 MCH 24.1 pg (27.0-33.4) L 10/04/16 17:18 MCHC 32.0 g/dL (32.0-36.0) 10/04/16 17:18 RDW 17.7 % (11.5-14.0) H 10/04/16 17:18 Plt Count 277 10^3/uL (150-450) 10/04/16 17:18 Seg Neutrophils % 65.6 % (42-78) 10/04/16 17:18 Lymphocytes % 22.0 % (13-45) 10/04/16 17:18 Monocytes % 11.8 % (3-13) 10/04/16 17:18 Eosinophils % 0.0 % (0-6) 10/04/16 17:18 Basophils % 0.6 % (0-2) 10/04/16 17:18 Absolute Neutrophils 7.0 10^3/uL (1.7-8.2) 10/04/16 17:18 Absolute Lymphocytes 2.3 10^3/uL (0.5-4.7) 10/04/16 17:18 Absolute Monocytes 1.3 10^3/uL (0.1-1.4) 10/04/16 17:18 Absolute Eosinophils 0.0 10^3/uL (0.0-0.6) 10/04/16 17:18 Absolute Basophils 0.1 10^3/uL (0.0-0.2) 10/04/16 17:18 ESR 20 mm/hr (0-30) 10/05/16 05:35 Sodium 143.7 mmol/L (137-145) 10/04/16 17:18 Potassium 3.6 mmol/L (3.6-5.0) 10/04/16 17:18 Chloride 102 mmol/L (98-107) 10/04/16 17:18 Carbon Dioxide 24 mmol/L (22-30) 10/04/16 17:18 Anion Gap 18 (5-19) 10/04/16 17:18 BUN 4 mg/dL (7-20) L 10/04/16 17:18 Creatinine 0.74 mg/dL (0.52-1.25) 10/04/16 17:18 Est GFR ( Amer) > 60 (>60) 10/04/16 17:18 Est GFR (Non-Af Amer) > 60 (>60) 10/04/16 17:18 Glucose 174 mg/dL (75-110) H 10/04/16 17:18 POC Glucose 192 mg/dL (70-110) H 10/04/16 17:39 Calcium 10.4 mg/dL (8.4-10.2) H 10/04/16 17:18 Magnesium 1.7 mg/dL (1.6-2.3) 10/04/16 19:36 Total Bilirubin 1.0 mg/dL (0.2-1.3) 10/04/16 17:18 Direct Bilirubin 0.6 mg/dL (0.0-0.4) H 10/04/16 17:18 Indirect Bilirubin Not Reportable 10/04/16 17:18 Neonat Total Bilirubin Not Reportable 10/04/16 17:18 AST 17 U/L (14-36) 10/04/16 17:18 ALT 30 U/L (9-52) 10/04/16 17:18 Alkaline Phosphatase 83 U/L (38-126) 10/04/16 17:18 Creatine Kinase 54 U/L (30-135) 10/04/16 17:18 CK-MB (CK-2) 0.28 ng/mL (<4.55) 10/04/16 17:18 Troponin I 0.017 ng/mL 10/08/16 09:26 Total Protein 8.6 g/dL (6.3-8.2) H 10/04/16 17:18 Albumin 4.6 g/dL (3.5-5.0) 10/04/16 17:18 TSH 0.48 uIU/mL (0.47-4.68) 10/04/16 19:36 Urine Color YELLOW 10/04/16 16:27 Urine Appearance SLIGHTLY-CLOUDY 10/04/16 16:27 Urine pH 5.0 (5.0-9.0) 10/04/16 16:27 Ur Specific Cornell 1.019 10/04/16 16:27 Urine Protein 100 mg/dL (NEGATIVE) H 10/04/16 16:27 Urine Glucose (UA) NEGATIVE mg/dL (NEGATIVE) 10/04/16 16:27 Urine Ketones 80 mg/dL (NEGATIVE) H 10/04/16 16:27 Urine Blood NEGATIVE (NEGATIVE) 10/04/16 16:27 Urine Nitrite NEGATIVE (NEGATIVE) 10/04/16 16:27 Urine Bilirubin NEGATIVE (NEGATIVE) 10/04/16 16:27 Urine Urobilinogen NEGATIVE mg/dL (<2.0) 10/04/16 16:27 Ur Leukocyte Esterase NEGATIVE (NEGATIVE) 10/04/16 16:27 Urine WBC (Auto) 2 /HPF 10/04/16 16:27 Squamous Epi Cells Auto 1 /HPF 10/04/16 16:27 Urine Mucus (Auto) RARE /LPF 10/04/16 16:27 Urine Ascorbic Acid NEGATIVE (NEGATIVE) 10/04/16 16:27 Fluid Tube Number 4 10/04/16 19:05 CSF Volume 4.5 CC 10/04/16 19:05 CSF Appearance CLEAR 10/04/16 19:05 CSF Color COLORLESS 10/04/16 19:05 CSF WBC 4 /uL (0-5) 10/04/16 19:05 CSF RBC 0 /uL (0-800) 10/04/16 19:05 CSF Color (1) COLORLESS 10/04/16 19:05 CSF Appearance (1) CLEAR 10/04/16 19:05 CSF Color (2) COLORLESS 10/04/16 19:05 CSF Appearance (2) CLEAR 10/04/16 19:05 CSF Color (3) COLORLESS 10/04/16 19:05 CSF Appearance (3) CLEAR 10/04/16 19:05 CSF Color (4) COLORLESS 10/04/16 19:05 CSF Appearance (4) CLEAR 10/04/16 19:05 CSF Glucose 111 mg/dL (40-70) H 10/04/16 19:05 CSF Total Protein 49 mg/dL (12-60) 10/04/16 19:05 Stool Occult Blood NEGATIVE (NEGATIVE) 10/04/16 15:55 Urine Opiates Screen UNCONFIRMED POSITIVE 10/04/16 16:27 Urine Methadone Screen NEGATIVE 10/04/16 16:27 Ur Barbiturates Screen NEGATIVE 10/04/16 16:27 Phenytoin < 3.0 ug/mL (10.0-20.0) L 10/05/16 05:35 Ur Phencyclidine Scrn NEGATIVE 10/04/16 16:27 Ur Amphetamines Screen NEGATIVE 10/04/16 16:27 U Benzodiazepines Scrn NEGATIVE 10/04/16 16:27 Urine Cocaine Screen NEGATIVE 10/04/16 16:27 U Marijuana (THC) Screen NEGATIVE 10/04/16 16:27 C. difficile Tox (PCR) NEGATIVE (NEGATIVE) 10/06/16 23:25 Impressions: Head CT 10/04/16 00:00 IMPRESSION: NORMAL BRAIN CT WITHOUT CONTRAST. Chest X-Ray 10/04/16 15:37 IMPRESSION: NO ACUTE RADIOGRAPHIC FINDING IN THE CHEST. Abdomen/Pelvis CT 10/04/16 21:06 IMPRESSION: NO ACUTE FINDINGS WITHIN THE ABDOMEN OR PELVIS. NO SIGNIFICANT CHANGE FROM PRIOR STUDY. Assessment & Plan - Diagnosis (1) Chest pain Is this a current diagnosis for this admission?: YesPlan: The patient is chest pain. Will obtain lipids and serial cardiac enzymes. Will repeat EKG. Given the patient's morbid obesity and previous history will consult Dr. Fritz with cardiology for evaluation. (2) Viral gastroenteritis Is this a current diagnosis for this admission?: YesPlan: Resolved (3) SIRS (systemic inflammatory response syndrome) Is this a current diagnosis for this admission?: YesPlan: Secondary to the above this is resolved (4) Sinus tachycardia Is this a current diagnosis for this admission?: YesPlan: Secondary to the above this is resolved (5) Encephalopathy acute Is this a current diagnosis for this admission?: YesPlan: Resolved (6) Morbid obesity with BMI of 50.0-59.9, adult Is this a current diagnosis for this admission?: Yes (7) BRAN (obstructive sleep apnea) Is this a current diagnosis for this admission?: Yes (8) Opiate dependence, continuous Is this a current diagnosis for this admission?: Yes (9) Polypharmacy Is this a current diagnosis for this admission?: Yes - Time Time Spent with patient: on this visit including assessment, plan, physical examination, specialty collaboration, and patient education is 35 minutes. Time Spent with patient: 35 or more minutes Medications reviewed and adjusted accordingly: Yes Anticipated discharge: SNF Within: when bed available
[2016-10-08 15:09] LABS: CHOLESTEROL 196.43 mg/dL (0-200); Direct HDL 36 mg/dL (>40); TRIGLYCERIDES 246 mg/dL (<150)
[2016-10-08 15:20] LABS: DIRECT LDL 112 mg/dL (<100)
[2016-10-08 15:21] LABS: VLDL CHOLESTEROL 49.2 mg/dL (10-31)
[2016-10-08] MEDS: MONTELUKAST SODIUM 10 MG TABLET PO SCH (17:30)
[2016-10-08] MEDS: ATORVASTATIN CALCIUM 20 MG TABLET PO SCH (17:31)
[2016-10-08] MEDS: FAMOTIDINE 20 MG TABLET PO SCH (23:00)
[2016-10-09] MEDS: MORPHINE SULFATE SR 100 MG TABLET PO PRN (01:55)
[2016-10-09] MEDS: PHENYTOIN SODIUM EXTENDED 100 MG CAPSULE PO SCH ×3 (06:00→22:38)
[2016-10-09] MEDS: IPRATROPIUM/ALBUTEROL 120 PUFF/4 GM MDI IH SCH ×3 (06:00→18:00)
[2016-10-09] MEDS: PREDNISONE 10 MG TABLET PO SCH (08:00)
[2016-10-09] MEDS: FUROSEMIDE 80 MG TABLET PO SCH (08:00)
[2016-10-09] MEDS: METFORMIN HCL 500 MG TABLET PO SCH ×2 (08:00→16:00)
[2016-10-09] MEDS: DULOXETINE HCL 30 MG CAPSULE.DR PO SCH ×2 (10:00→22:39)
[2016-10-09] MEDS: SILVER SULFADIAZINE 1% CREAM 25 GM TP SCH ×3 (10:00→18:00)
[2016-10-09] MEDS: CETIRIZINE 10 MG TABLET PO SCH (10:00)
[2016-10-09] MEDS ORDERED: AMLODIPINE BESYLATE 10 MG TABLET PO SCH (10:00)
[2016-10-09] MEDS: PRENATAL VITAMIN W-O CA NO5/FE FUMARATE/FA CAPSULE PO SCH (10:00)
[2016-10-09] MEDS: METOPROLOL SUCCINATE 50 MG TAB.SR.24H PO SCH ×2 (10:00→22:38)
[2016-10-09] MEDS: PREGABALIN 75 MG CAPSULE PO SCH ×2 (10:00→22:38)
[2016-10-09] MEDS: CLOPIDOGREL BISULFATE 75 MG TABLET PO SCH (10:00)
[2016-10-09] MEDS: FOLIC ACID 1 MG TABLET PO SCH (10:00)
[2016-10-09] MEDS: LISINOPRIL 5 MG TABLET PO SCH (10:00)
[2016-10-09] MEDS: POTASSIUM CHLORIDE 10 MEQ TABLET.SA PO SCH (10:00)
[2016-10-09] MEDS: ASPIRIN 325 MG TABLET PO SCH (10:00)
[2016-10-09] MEDS: VERAPAMIL HCL 120 MG TABLET PO SCH (10:00)
[2016-10-09] MEDS: SPIRONOLACTONE 25 MG TABLET PO SCH (10:00)
--- NOTE | 2016-10-09 16:38 | PROGRESS NOTE E ---
Progress Note NAME: BERT MOE : 1960 AGE: 56Y DATE: 10/09/2016 ROOM: 429 SUBJECTIVE: The patient is lying in bed. She has completed the first part of her stress test. The patient denies any vomiting, although she does admit to nausea. She denies any shortness of breath, no dizziness. The patient did have a recurrent episode of chest pain and, therefore, cardiology was consulted on the patient and has been ordered the Cardiolite stress test. The patient does have a bed offer at [facility] and does not voice any other concerns at this time. REVIEW OF SYSTEMS: Rest of review of systems is negative. MEDICATIONS: Medications have been reviewed. OBJECTIVE: GENERAL: The patient is a 56-year-old female who is awake and alert. She is oriented to person, place, time and situation. She is verbal and conversational and does to appear to be in any acute distress. VITAL SIGNS: Temperature is 98.2, pulse 91, respirations 17, blood pressure 121/76, oxygen saturation is 96% on room air. SKIN: Pale and dry. No rashes, not diaphoretic. HEENT: Pupils are equal, round, reactive to light and accommodation. Conjunctivae pink. NECK: There is no JVD. CARDIOVASCULAR: Heart is regular. There is no murmur or rub. CHEST: Diminished but clear, symmetrical. It is tender to palpation over the sternum. ABDOMEN: Obese, soft. Bowel sounds are present. EXTREMITIES: No clubbing, cyanosis or edema. PSYCHIATRIC: Appropriate affect. Pleasant mood. NEUROLOGIC: Intact. DIAGNOSTIC DATA: Lab values are as follows: Sodium is 141.9, potassium 4.65, glucose 99, carbon dioxide 36, BUN 35, creatinine 1.0. IMPRESSION AND PLAN: 1. CHEST PAIN. This may be secondary to the patient's underlying chronic pain. Regardless, the patient is awaiting Cardiolite stress test. Do appreciate cardiology's input on this. Will continue to monitor. 2. ACUTE GASTROENTERITIS. Overall this appears improved. 3. SIRS SECONDARY TO THE ABOVE. Overall this is improved. Tachycardia has resolved. 4. OPIATE DEPENDENCY, CONTINUOUS. Will continue the patient's home medications as well as cathartics. 5. MORBID OBESITY. Do appreciate Dr. Fritz's input with this. DISPOSITION: The patient is a FULL CODE. Pending the patient's symptomatology and diagnostic findings, will re-evaluate in the a.m. for possible discharge. Time spent on this followup including assessment, plan, physical examination, patient education, and specialty collaboration is 35 minutes. DICTATING PHYSICIAN: OMAR MARTINEZ NP [id number] PHY#: [id number] [id number] JOB#: [id number] ACCT: [id number] cc: >
[2016-10-09] MEDS: ATORVASTATIN CALCIUM 20 MG TABLET PO SCH (18:00)
[2016-10-09] MEDS: MONTELUKAST SODIUM 10 MG TABLET PO SCH (18:00)
[2016-10-09] MEDS ORDERED: REGADENOSON INJ 0.4 MG/5 ML DISP.SYRIN IV ONE (19:18)
[2016-10-09] MEDS ORDERED: AMINOPHYLLINE INJ/PF 250 MG/10 ML SDV IV ONE (19:18)
--- NOTE | 2016-10-09 20:36 | XCELERA REPORT ---
[address] [address] Transthoracic Echocardiogram Report Name: BERT MOE Age: 56 yrs Gender: Female : 1960 Patient Status: Inpatient Patient Location: 4S\S\429\S\A Study Date: 10/09/2016 02:04 PM Height: 61 in Weight: 303 lb BSA: 2.3 m2 Procedure: A complete two-dimensional transthoracic echocardiogram was performed (2D, M-mode, spectral and color flow Doppler). The study was technically difficult with many images being suboptimal in quality. Reason For Study: chest pain Ordering Physician: CULLEN PATRICIA Performed By: Fadumo Lutz Interpretation Summary The left ventricular ejection fraction is normal. There is mild concentric left ventricular hypertrophy. The left ventricle is grossly normal size. Doppler measurements suggest impaired left ventricular relaxation, which is associated with grade I/IV or mild diastolic dysfunction Wall motion cannot be accurately commented on, but no definite regional wall motion abnormalities noted. The right ventricular systolic function is normal. The left atrial size is normal. The right atrium is normal in size There is no mitral valve stenosis. There is a trace amount of mitral regurgitation There is no aortic valve stenosis No aortic regurgitation is present. There is a trace or physiologic amount of tricuspid regurgitation Tricuspid regurgitation jet envelope not well defined to measure RV systolic pressure accurately. The aortic root is not well visualized but is probably normal size. The inferior vena cava appeared normal and decreased > 50% with respiration (RAP 5-10 mmHg) There is no pericardial effusion. MMode/2D Measurements \T\ Calculations RVDd: 2.6 cm LVIDd: 4.4 cm FS: 28.8 % Ao root diam: 3.2 cm IVSd: 1.2 cm LVIDs: 3.2 cm EDV(Teich): 89.3 ml LVPWd: 1.2 cm ESV(Teich): 39.6 ml Ao root area: 8.0 cm2 EF(Teich): 55.6 % LA dimension: 3.6 cm LVOT diam: 2.2 cm LVOT area: 3.7 cm2 Doppler Measurements \T\ Calculations MV E max andres: MV P1/2t max andres: Ao V2 max: LV V1 max P.0 cm/sec 77.5 cm/sec 149.0 cm/sec 5.1 mmHg MV A max andres: MV P1/2t: 41.2 msec Ao max PG: LV V1 max: 98.2 cm/sec MVA(P1/2t): 5.3 cm2 8.9 mmHg 113.0 cm/sec MV E/A: 0.78 MV dec slope: SOCO(V,D): 2.8 cm2 550.5 cm/sec2 PA V2 max: TR max andres: 109.1 cm/sec 195.5 cm/sec PA max PG: TR max P.3 mmHg 4.8 mmHg Left Ventricle The left ventricle is grossly normal size. There is mild concentric left ventricular hypertrophy. The left ventricular ejection fraction is normal. Doppler measurements suggest impaired left ventricular relaxation, which is associated with grade I/IV or mild diastolic dysfunction. Wall motion cannot be accurately commented on, but no definite regional wall motion abnormalities noted. Right Ventricle The right ventricle is grossly normal size. There is normal right ventricular wall thickness. The right ventricular systolic function is normal. Atria The right atrium is normal in size. The left atrial size is normal. Interarterial septum not well visualized and not well dopplered. Cannot comment on ASD/PFO presence. Mitral Valve The mitral valve leaflets are sclerotic, but show no functional abnormalities. There is no mitral valve stenosis. There is a trace amount of mitral regurgitation. Aortic Valve The aortic valve is not well visualized secondary to technical limitations. There is no aortic valve stenosis. No aortic regurgitation is present. Tricuspid Valve The tricuspid valve is not well visualized, but is grossly normal. There is no tricuspid stenosis. There is a trace or physiologic amount of tricuspid regurgitation. Tricuspid regurgitation jet envelope not well defined to measure RV systolic pressure accurately. Pulmonic Valve The pulmonic valve is not well visualized. Great Vessels The aortic root is not well visualized but is probably normal size. The inferior vena cava appeared normal and decreased > 50% with respiration (RAP 5-10 mmHg). Effusions There is no pericardial effusion. : CULLEN PATRICIA > Cullen Patricia
[2016-10-09] MEDS: FAMOTIDINE 20 MG TABLET PO SCH (22:38)
[2016-10-09] MEDS: AMLODIPINE BESYLATE 10 MG TABLET PO SCH (22:39)
--- NOTE | 2016-10-09 22:58 | PDOC CONSULTATION ---
Consultation Consult Date: 10/08/16 Attending physician:: OMAR MARTINEZ Consult reason:: Chest pain History of Present Illness Admission Date/PCP: 10/06/16 13:22 DIANA NICHOLS PA-C Patient complains of: Chest pain History of Present Illness: BERT MOE is a 56 year old female with a complex past medical history including lupus, rheumatoid arthritis, congestive heart failure, diabetes, Morbid obesity, diabetes, hypertension, dyslipidemia, opiate dependent chronic pain, recurrent falls and medication misuse resulting in rhabdomyolysis and renal failure. Patient was brought to the emergency room after 2 hours of altered mental status noted by home health radiology practitioner assistant. In the emergency room she was oriented only 1, with fever, hypertension and tachycardia. She otherwise has an unremarkable workup including CT of the head, abdomen and pelvis, chest x-ray and lumbar puncture. Subsequently patient complained of chest pain. In the left significant cardiac risk factors, I was asked to evaluate chest pain. Patient gives history of sleep apnea on CPAP therapy. Past Medical History Cardiac Medical History: Reports: Hyperlipidema, Hypertension, Heart Murmur Denies: Atrial Fibrillation, Congestive Heart Failure, Coronary Artery Disease, Myocardial Infarction, Peripheral Vascular Disease, Pulmonary Embolism Pulmonary Medical History: Reports: Asthma, Bronchitis, Pneumonia, Sleep Apnea Denies: Chronic Obstructive Pulmonary Disease (COPD), Respiratory Failure, Tuberculosis Neurological Medical History: Denies: Seizures Endocrine Medical History: Reports: Diabetes Mellitus Type 2, Obesity - BMI 57 Denies: Hyperthyroidism, Hypothyroidism Malignancy Medical History: Denies: Leukemia, Lung Cancer GI Medical History: Reports: Crohn's Disease, Hiatal Hernia Denies: Gastroesophageal Reflux Disease Musculoskeltal Medical History: Reports: Arthritis, Fibromyalgia Psychiatric Medical History: Reports: Depression, Personality Disorder Denies: Bipolar Disorder, Dementia, Post Traumatic Stress Disorder Hematology: Reports: Anemia Denies: Hemophilia, Sickle Cell Disease Infectious Medical History: Denies: HIV Past Surgical History Past Surgical History: Reports: Section, Hysterectomy Denies: Amputation, Appendectomy, Cholecystectomy, Colostomy, Coronary Artery Bypass Graft, Gastric Bypass Surgery, Herniorrhaphy, Mastectomy, Pacemaker, Tonsillectomy, Tubal Ligation Social History Information Source: Patient Lives with: Alone Smoking Status: Never Smoker Frequency of Alcohol Use: None Hx Recreational Drug Use: No Drugs: None Hx Prescription Drug Abuse: Yes - April 2016 - Advance Directive Resuscitation Status: Full Code Family History Family History: CAD, DM, Hypertension Parental Family History Reviewed: Yes Children Family History Reviewed: Yes Sibling(s) Family History Reviewed.: Yes Medication/Allergy Home Medications: Albuterol Sulfate [Ventolin Hfa] 2 puff IH Q4 PRN 10/05/16 Amlodipine Besylate [Norvasc 10 mg Tablet] 10 mg PO DAILY 10/05/16 Atorvastatin Calcium [Lipitor 20 mg Tablet] 20 mg PO DAILY 10/05/16 Benzonatate [Tessalon Perle 100 mg Capsule] 200 mg PO Q8HP PRN 10/05/16 Celecoxib [Celebrex 200 mg Capsule] 200 mg PO Q12 10/05/16 Cetirizine HCl [Zyrtec 10 mg Tablet] 10 mg PO DAILY 10/05/16 Cevimeline HCl [Evoxac] 30 mg PO TID 10/05/16 Clopidogrel Bisulfate [Plavix 75 mg Tablet] 75 mg PO DAILY 10/05/16 Docusate Sodium [Dok] 100 mg PO BID 10/05/16 Duloxetine HCl [Cymbalta] 60 mg PO Q12 10/05/16 Ergocalciferol (Vitamin D2) [Drisdol 50,000 Unit (1.25MG) Capsule] 50,000 unit PO [id number] 10/05/16 Famotidine [Pepcid 40 mg Tablet] 40 mg PO QHS 10/05/16 Folic Acid [Folvite 1 mg Tablet] 1 mg PO DAILY 10/05/16 Furosemide [Lasix 80 mg Tablet] 80 mg PO QAM 10/05/16 Ketorolac Tromethamine [Toradol 10 mg Tablet] 10 mg PO Q6HP PRN 10/05/16 Lisinopril [Prinivil 5 mg Tablet] 5 mg PO DAILY 10/05/16 Metformin HCl [Glucophage] 1,000 mg PO BIDACBSP PRN 10/05/16 Methotrexate Sodium [Methotrexate] 15 mg PO TH@1000 10/05/16 Metoprolol Succinate [Toprol XL 100 mg Tablet] 100 mg PO Q12 10/05/16 Montelukast Sodium [Singulair 10 mg Tablet] 10 mg PO QPM 10/05/16 Mupirocin [Bactroban 2% Ointment 22 gm] 1 applic NASL PRN PRN 10/05/16 Pnv with Ca,No.72/Iron/FA [Pnv Plus Multivit Tab] 1 each PO DAILY 10/05 Potassium Chloride 20 meq PO DAILY 10/05/16 Pregabalin [Lyrica] 150 mg PO Q12 10/05/16 Spironolactone [Aldactone 25 mg Tablet] 25 mg PO DAILY 10/05/16 Sulfasalazine [Sulfazine] 500 mg PO TID 10/05/16 Tizanidine HCl [Zanaflex 4 Mg Tablet] 4 mg PO Q8HP PRN 10/05/16 Verapamil HCl [Calan 120 mg Tablet] 120 mg PO DAILY 10/05/16 Zolpidem Tartrate [Ambien] 10 mg PO HSP PRN 10/05/16 Etanercept [Enbrel] 50 mg SUBCUT 6XD 10/08/16 Allergies/Adverse Reactions: ibuprofen [Ibuprofen] Allergy (Severe, Verified 04/24/16 14:54) Chest pain Review of Systems Review of Systems: Please see history of present illness and past medical history as wall. Constitutional: No fever or chills reported. Head : No recent chronic headaches, recent head injury. Eyes: No recent eye pain, diplopia, redness, discharge, acute visual changes. Ears: No recent chronic ear pain, acute hearing loss, ear discharge. Oral cavity: No recent ulcerations, bleeding, oral cavity discomfort. Neck: No recent acute neck pain reported. Hematologic: No recent easy bruising or bleeding or hematologic malignancy reported. Lymphatic: No recent lymphatic malignancy, chronic lymphadenopathy reported yet Cardiovascular system review: See history of present illness. Respiratory system review: No recent chronic cough, hemoptysis, blood clots in the lungs reported. Mild Shortness of breath on exertion Gastrointestinal system review: Negative for any recent acute or chronic abdominal pain, hematemesis, melena, recent change in bowel habits. Genitourinary system review: No recent acute or chronic hematuria, flank pain, UTI etc. reported. Skin system review: Negative for any recent abnormal bruising, no rash, no pruritus reported. Neurologic: No prior history of strokes, mini strokes, seizure disorder. Psychologic: No history of major psychosis or major depression reported. Musculoskeletal: Minor aches and pains reported. No acute joint swelling reported. Endocrine: No recent polyuria, polydipsia, recent heat or cold intolerance. Physical Exam Vital Signs: Temp Pulse Resp BP Pulse Ox 97.5 F 102 H 19 137/84 H 100 10/08/16 15:12 10/08/16 15:12 10/08/16 15:12 10/08/16 15:12 10/08/16 15:12 Intake & Output 10/07/16 10/08/16 10/09/16 06:59 06:59 06:59 Intake Total 1235 600 620 Output Total 200 Balance 1235 600 420 Exam: GENERAL: well-nourished and in no acute distress. Alert and oriented x3 HEAD: Atraumatic, normocephalic. EYES: Pupils equal round and reactive to light, extraocular movements intact, sclera anicteric, conjunctiva are normal. ENT: TMs normal, nares patent, oropharynx clear without exudates. Moist mucous membranes. No oral ulcerations or bleeding gums noted NECK: supple without lymphadenopathy. Trachea is central. No cervical or axillary lymphadenopathy noted. Carotids are 2+, JVD WNL LUNGS: Respiration seems nonlabored, no significant accessory muscle action noted. Breath sounds clear to auscultation bilaterally and equal noted. No wheezes rales or rhonchi noted. No significant dullness noted on percussion. CHEST: Palpation of the chest wall shows no significant chest wall tenderness. No other significant abnormalities noted. 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 ABDOMEN: Soft, no significant tenderness appreciated, normoactive bowel sounds. No guarding, no rebound. No rigidity noted . No masses appreciated. EXTREMITIES: Pedal pulses are 1-2+, no calf tenderness noted. No clubbing or cyanosis.trace to 1+ pedal edema noted NEUROLOGICAL: Focused neurological exam showed no significant neurologic deficit. Normal speech, no focal weakness appreciated. PSYCH: Normal mood, normal affect. Judgment and insight within normal limits. SKIN: No significant ecchymosis, rash, ulcerations or signs of pruritus noted. MUSCULOSKELETAL EXAM: No significant joint swelling noted. Results Laboratory Results: 10/08/16 09:26 Triglycerides 246 H Cholesterol 196.43 LDL Cholesterol Direct 112 H VLDL Cholesterol 49.2 H HDL Cholesterol 36 L 10/07/16 10/08/16 10/08/16 20:45 03:10 09:26 Troponin I 0.022 0.023 0.017 EKG Comments: Sinus rhythm, no acute ST-T wave changes noted Impressions: Head CT 10/04/16 00:00 IMPRESSION: NORMAL BRAIN CT WITHOUT CONTRAST. Chest X-Ray 10/04/16 15:37 IMPRESSION: NO ACUTE RADIOGRAPHIC FINDING IN THE CHEST. Abdomen/Pelvis CT 10/04/16 21:06 IMPRESSION: NO ACUTE FINDINGS WITHIN THE ABDOMEN OR PELVIS. NO SIGNIFICANT CHANGE FROM PRIOR STUDY. Assessment & Plan - Diagnosis (1) Chest pain Qualifiers: Chest pain type: unspecified Qualified Code(s): R07.9 - Chest pain, unspecified Is this a current diagnosis for this admission?: Yes (2) Opiate dependence, continuous Is this a current diagnosis for this admission?: Yes (3) Morbid obesity with BMI of 50.0-59.9, adult Is this a current diagnosis for this admission?: Yes (4) BRAN (obstructive sleep apnea) Is this a current diagnosis for this admission?: Yes (5) Sinus tachycardia Is this a current diagnosis for this admission?: Yes - Notes Notes: Chest pain: Patient has significant cardiac risk factors. There is at least an intermediate probability that patient has significant underlying CAD. Patient therefore being scheduled for a nuclear stress test. Because of significant obesity patient will need to do protocol. Sinus tachycardia: To be evaluated further with a 2D echocardiogram. Obstructive sleep apnea: Continue with nightly CPAP therapy. Patient was advised compliance. Morbid obesity: Patient has been advised in weight loss. - Time Time Spent: 30 to 50 Minutes - CODE STATUS was discussed, patient remains full code. Surrogate decision-maker patient daughter. Multiple medical problems were addressed. More than 50% of the time spent coordinating care, discussing management plans with involved caregivers. Management plans discussed with involved personnels. Medical decision making was of moderate to high complexity , patient's has multiple severe comorbidities. Medications reviewed and adjusted accordingly: Yes
[2016-10-10] MEDS: IPRATROPIUM/ALBUTEROL 120 PUFF/4 GM MDI IH SCH ×4 (01:46→18:49)
[2016-10-10] MEDS: MORPHINE SULFATE SR 100 MG TABLET PO PRN ×2 (04:15→23:52)
[2016-10-10] MEDS: PHENYTOIN SODIUM EXTENDED 100 MG CAPSULE PO SCH ×3 (06:01→21:48)
[2016-10-10] MEDS: METFORMIN HCL 500 MG TABLET PO SCH ×2 (08:50→19:34)
[2016-10-10] MEDS: FUROSEMIDE 80 MG TABLET PO SCH (08:51)
[2016-10-10] MEDS: PREDNISONE 10 MG TABLET PO SCH (08:51)
[2016-10-10] MEDS ORDERED: METHOTREXATE SODIUM 2.5 MG TABLET PO SCH ×3 (10:00→18:00)
[2016-10-10] MEDS: ASPIRIN 325 MG TABLET PO SCH (11:22)
[2016-10-10] MEDS: PRENATAL VITAMIN W-O CA NO5/FE FUMARATE/FA CAPSULE PO SCH (11:23)
[2016-10-10] MEDS: PREGABALIN 75 MG CAPSULE PO SCH ×2 (11:26→21:47)
[2016-10-10] MEDS: METOPROLOL SUCCINATE 50 MG TAB.SR.24H PO SCH ×2 (11:26→21:48)
[2016-10-10] MEDS: DULOXETINE HCL 30 MG CAPSULE.DR PO SCH ×2 (11:26→21:48)
[2016-10-10] MEDS: POTASSIUM CHLORIDE 10 MEQ TABLET.SA PO SCH (11:27)
[2016-10-10] MEDS: SPIRONOLACTONE 25 MG TABLET PO SCH (11:27)
[2016-10-10] MEDS: FOLIC ACID 1 MG TABLET PO SCH (11:27)
[2016-10-10] MEDS: CETIRIZINE 10 MG TABLET PO SCH (11:27)
[2016-10-10] MEDS: LISINOPRIL 5 MG TABLET PO SCH (11:34)
[2016-10-10] MEDS: CLOPIDOGREL BISULFATE 75 MG TABLET PO SCH (11:34)
[2016-10-10] MEDS: VERAPAMIL HCL 120 MG TABLET PO SCH (11:37)
--- NOTE | 2016-10-10 16:56 | DRAGON STRESS TEST REPORT ---
INTRAVENOUS LEXISCAN CARDIOLITE STRESS TEST USING SINGLE PHOTON EMMISION COMPUTERIZED TOMOGRAPHIC. DATE OF PROCEDURE: October 09, 2016 INDICATION : Chest pain] CARDIAC RISK FACTORS: Diabetes, hypertension, dyslipidemia, rheumatoid arthritis and lupus RESTING EKG: Sinus rhythm, no baseline ST-T wave changes noted STRESS EKG: No significant changes noted with LexiScan bolus REASON FOR TERMINATION: Protocol. PROCEDURE REPORT: Baseline heart rate 108 beats per minute with blood pressure of 107/60. Patient had no significant complaints. Heart rate at 2 minutes post bolus 118 with a blood pressure of 121/60. 3 minutes post bolus heart rate 112 with blood pressure of 102/62. No significant EKG changes were noted. Patient had no significant complaints during the procedure or postprocedure. Patient injected with Aminophyllin 75 mg at 3 minutes or later after Lexiscan bolus. CONCLUSIONS: Normal EKG and hemodynamic response to IV LexiScan. NUCLEAR DATA: 2 day protocol used. A stress test with stress imaging on day 1 and rest images on day 2 At rest the patient was given 43.6 millicuries of technetium 99 sestamibi injected intravenously. As per protocol rest gated SPECT images were obtained. For a stress test patient was given intravenous LexiScan at a dose of 0.4 mg in 5 mL intravenously, followed by flush with normal saline. Stress imaging, the stress dose of 40.2 millicuries of technetium 99 sestamibi was injected intravenously. As per protocol stress gated images were obtained. NUCLEAR INTERPRETATION: Both raw and processed data were used for interpretation. Visual, qualitative, computer-generated quantitative data was used. There was good myocardial uptake of technetium compound. Motion artifact and soft tissue attenuations were noted. Increased visceral uptake was noted. No definitive areas of transient perfusion defect noted. No definitive areas of fixed perfusion defect or scars noted. EKG gated imaging showed LV EF at 51 %, rest and stress gated EF similar visually. T. I D. ratio was 0.96. Lung heart ratio noted to be within normal limits 0.31. Significant extracardiac and abnormal radiotracer activities were noted in the left axilla. RV free wall uptake was noted to be mildly increased. IMPRESSION: Also refer to comments under nuclear interpretation. Also test results needs to be interpreted in the context of pretest probability. 1. There is no definitive scintigraphic evidence of LexiScan induced myocardial ischemia. 2. There is no definitive scintigraphic evidence of myocardial infarction/scar. 3. EKG gated imaging shows left ejection fraction of approximately 51 %. 4. Clinical correlation requested as occasionally single vessel disease or balanced ischemia could be missed. In approximately 10% of the cases Lexiscan may not cause adequate vasodilatory stress. 5. Marked increased uptake, very localized noted on both days in the left axilla. This is consistent with either lymph node or abscess. This was reported to hospitalist. RECOMMENDATIONS: Aggressive risk factor modification, medical therapy. Clinical correlation with echocardiogram derived ejection fraction. Inability to exercise by itself can lead to increased cardiovascular event risks. Consider cardiology consultation and or follow-up if clinically indicated. I AM AVAILABLE FOR CARDIOLOGY CONSULTATION AND FOLLOWUP IF REQUESTED BY PMD Cullen Fritz M.D., [employer] Electronic Die Maker champion of sustainable design, Board certified in cardiovascular diseases, Nuclear cardiology, Echocardiography Cardiac CT and cardiac MRI Ph. [phone] [place]
[2016-10-10] MEDS: MONTELUKAST SODIUM 10 MG TABLET PO SCH (18:48)
[2016-10-10] MEDS: SILVER SULFADIAZINE 1% CREAM 25 GM TP SCH ×2 (18:49→18:51)
[2016-10-10] MEDS: ALBUTEROL SULFATE HFA (90 MCG/PUFF) 200 PUFF/8.5 GM MDI IH PRN ×2 (18:49→23:53)
[2016-10-10] MEDS: ATORVASTATIN CALCIUM 20 MG TABLET PO SCH (18:49)
--- NOTE | 2016-10-10 21:11 | PROGRESS NOTE E ---
Progress Note NAME: BERT MOE : 1960 AGE: 56Y DATE: 10/10/2016 ROOM: 429 SUBJECTIVE: Patient is lying in bed. She states that she did better overnight. She did not have any episodes of chest pain. The patient has been afebrile. Blood pressure has been in a good range. The patient's nausea has improved and vomiting has resolved. The patient does not voice any other concerns at this time. REVIEW OF SYSTEMS: Rest of the review of systems negative. MEDICATIONS: Medications have been reviewed. OBJECTIVE: GENERAL: The patient is a 56-year-old female. Is awake, alert, and oriented to person, place, time, and situation. She is verbal, conversational and does not appear to be in any acute distress. VITAL SIGNS: Are as follows: Temperature 97.7, pulse 98, respirations 18, blood pressure is 107/83, oxygen saturation is 96% on room air. SKIN: Is warm and dry. No rash. Not diaphoretic. HEENT: Pupils equal, round, reactive to light and accommodation. Conjunctivae pink. NECK: There is no JVD. CARDIOVASCULAR: Heart is regular. There is no murmur or rub. CHEST: Clear, symmetrical, unlabored. ABDOMEN: Soft, nontender, nondistended. BACK: No CVA tenderness or sacral edema. EXTREMITIES: No clubbing, cyanosis, edema. PSYCHIATRIC: Appropriate affect. Very apathetic mood. DIAGNOSTICS: Chemistry obtained on 10/08/2016: Sodium is 143, potassium 3.6, chloride is 102, carbon dioxide 24, BUN 4, creatinine 0.74, glucose 174, calcium is 10.4. IMPRESSION AND PLAN: 1. ACUTE VIRAL GASTROENTERITIS. THIS IS RESOLVED. 2. SIRS, SECONDARY TO THE ABOVE. THIS IS RESOLVED. 3. SINUS TACHYCARDIA, SECONDARY TO THE ABOVE. THIS IS RESOLVED. 4. ACUTE ENCEPHALOPATHY. THIS IS RESOLVED. 5. CHEST PAIN; MOST LIKELY DUE TO UNDERLYING RHEUMATOLOGICAL ISSUES. HOWEVER, THE PATIENT HAS UNDERGONE CARDIOLITE STRESS TEST WHICH WAS UNREMARKABLE FROM A CARDIAC STANDPOINT. 6. RIGHT AXILLARY NODE. I WAS MADE AWARE BY CARDIOLOGY THE PATIENT HAD A SIGNIFICANT AMOUNT OF UPTAKE IN THE RIGHT AXILLA AREA. Will obtain ultrasound of this area and follow. 7. MORBID OBESITY WITH A BMI OF GREATER THAN 50 BUT LESS THAN 60. Will continue to encourage weight reduction. 8. OBSTRUCTIVE SLEEP APNEA. Will continue CPAP. 9. OPIATE DEPENDENCY, CONTINUOUS. Will continue the patient's home medication. 10. POLYPHARMACY. THIS MAY HAVE SOME BEARING ON THE PATIENT'S MENTAL STATE AT TIMES. DISPOSITION: The patient is a FULL CODE. Pending patient's symptomatology and diagnostic findings the patient can be hopefully discharged to SNF in the a.m. TIME SPENT ON THIS FOLLOWUP: Including assessment, plan, physical examination, patient education, and specialty collaboration is 35 minutes. DICTATING PHYSICIAN: OMAR MARTINEZ NP [id number] PHY#: [id number] ID: [id number] JOB#: [id number] ACCT: [id number] cc: > MTDD
[2016-10-10] MEDS: FAMOTIDINE 20 MG TABLET PO SCH (21:48)
[2016-10-10] MEDS: AMLODIPINE BESYLATE 10 MG TABLET PO SCH (21:52)
[2016-10-11] MEDS: IPRATROPIUM/ALBUTEROL 120 PUFF/4 GM MDI IH SCH ×4 (00:05→19:09)
[2016-10-11] MEDS ORDERED: METHOTREXATE SODIUM 2.5 MG TABLET PO ONE (01:00)
[2016-10-11] MEDS: PHENYTOIN SODIUM EXTENDED 100 MG CAPSULE PO SCH ×3 (06:00→21:37)
--- NOTE | 2016-10-11 11:35 | TRANSFER SUMMARY E ---
Transfer Summary NAME: BERT MOE : 1960 AGE: 56Y ADMITTED: 10/06/2016 TRANSFERRED: 10/14/2016 CODE STATUS: FULL CODE. PRIMARY CARE PROVIDER: DIANA NICHOLS PA-C CONSULTING KOSHER BUTCHER: BIPIN FRITZ M.D. DISCHARGE DIAGNOSES: Includes: 1. Acute viral gastroenteritis, which is resolved. 2. SIRS secondary to the above. 3. Sinus tachycardia secondary to #2, which is resolved. 4. Acute encephalopathy secondary to the above, which is resolved. 5. Rheumatoid arthritis. 6. Lupus. 7. Chest pain secondary to RA. 8. Right axilla nodes. 9. Morbid obesity. 10. Obstructive sleep apnea. 11. Polypharmacy. 12. Dyslipidemia. 13. Hypertriglyceridemia. DISCHARGE MEDICATIONS: Include: 1. Albuterol HFA 2 puffs inhalation q. 4 hours p.r.n. 2. Norvasc 10 mg p.o. daily. 3. Lipitor 20 mg p.o. daily. 4. Tessalon Perles 300 mg p.o. q. 8 hours p.r.n. 5. Celebrex 20 mg p.o. q. 12 hours. 6. Zyrtec 10 mg p.o. daily. 7. Cevimeline 30 mg p.o. t.i.d. 8. Plavix 75 mg p.o. daily. 9. Colace 100 mg p.o. b.i.d. 10. Cymbalta 60 mg p.o. q. 12 hours. 11. Vitamin D2 of 50,000 international units p.o. q. 2 weeks. 12. Enbrel 50 mg subcutaneously weekly. 13. Prevacid 40 mg p.o. q. hour of sleep. 14. Folic acid 1 mg p.o. daily. 15. Lasix 80 mg p.o. q. morning. 16. Toradol 10 mg p.o. q. 6 hours p.r.n. 17. Lisinopril 5 mg p.o. daily. 18. Glucophage 1,000 mg p.o. b.i.d. 19. Methotrexate 15 mg p.o. every . 20. Metoprolol XL 100 mg p.o. q. 12 hours. 21. Singulair 10 mg p.o. q. hour of sleep. 22. Bactroban 2% one application nasally b.i.d. x10 days. 23. vitamin 1 tablet p.o. daily. 24. Potassium chloride 20 mEq p.o. daily. 25. Lyrica 150 mg p.o. q. 12 hours. 26. Aldactone 25 mg p.o. daily. 27. Sulfasalazine 500 mg p.o. t.i.d. 28. Zanaflex 4 mg p.o. q. 8 hours p.r.n. 29. Calan 120 mg p.o. daily. 30. Ambien 10 mg p.o. q. hour of sleep p.r.n. DIET: Heart healthy as tolerated. ACTIVITY: Per rehab center. HISTORY OF PRESENT ILLNESS: The patient is a 56-year-old female with a past medical history of rheumatoid arthritis, and lupus. The patient presented to the emergency department via EMS due to altered mental status. The patient was noted to be confused approximately 2 hours prior to presentation. The report said that home health was at the patient's house and said the patient had been at her baseline, then she became quite lethargic. EMS stated the patient actually improved in transportation when they saw the patient. The patient does give a history of having nausea with vomiting as well as some diarrhea. The patient was noted to be febrile with tachycardia. The patient did have an LP in the emergency department, which was unremarkable. Given these findings, the patient was referred to the hospitalist for admission and management. HOSPITAL COURSE: The patient was admitted to continuous telemetry unit. Serial cardiac enzymes were obtained, which were not suggestive. The patient remained afebrile after remission. The patient had no events on the electrical design technologist; however, the patient was noted to have significant chest pain. Therefore, Dr. Fritz with cardiology was consulted. The patient underwent Cardiolite stress test and findings were unremarkable for any reversible ischemia. However, the patient did have a large area of uptake in the right axilla and an ultrasound of the area was done, which revealed enlarged nodes that the radiologist noted did not appear worrisome. However, this can be followed in an outpatient setting. The patient's symptoms have improved. Symptoms of gastroenteritis have completely resolved. The patient's mentation is at her baseline and the patient is ready for discharge for rehab. DIAGNOSTIC DATA: Lab values are as follows: Hematology obtained on 10/05/2016: WBC's are 10.6, hemoglobin is 12.5, hematocrit is 39.2, platelet count is 277,000. Sed rate is 20. Chemistries obtained on 10/10/2016: Sodium is 143, potassium is 3.6, chloride is 102, carbon dioxide is 24, BUN 4, creatinine is 0.74, glucose 174, calcium is 10.4, bilirubin is 1, AST 17, ALT of 30, alk phos 83. CK 54, CK-MB is 0.28. Troponin is 0.043. Total protein is 8.6, albumin 4.6. TSH is 0.48. Triglycerides are 246, cholesterol is 196, LDL is 112, VLDL is 49, HDL is 36. Urinalysis obtained on 10/04/2016: Color yellow, appearance slightly cloudy, pH is 5.0, specific gravity is 1.019, protein 100, glucose negative, ketones 80, occult blood negative, nitrate negative, bilirubin negative, urobilinogen is negative, leukocyte esterase is negative. WBC's 2, RBC's 0, epithelial squamous cells 1, mucus rare, ascorbic acid is negative. Serology obtained on 10/06/2016: C. diff toxin is negative. Microbiology obtained on 10/06/2016: Stool culture is unremarkable. Blood cultures obtained on 10/04/2016 are unremarkable. Cerebrospinal fluid Gram stain obtained on 10/04/[address] obtained on 10/04/2016 reveals a normal brain CT without contrast. Chest x-ray obtained on 10/04/2016 reveals no acute radiographic finding of the chest. CT of the abdomen and pelvis obtained on 10/04/2016 reveals no acute findings within the abdomen and pelvis. Cardiolite stress test obtained 10/08/2016 did not reveal any area of reversible ischemia. Axilla ultrasound obtained on 10/10/2016 revealed a few lymph nodes in the left axilla, that do not have worrisome sonographic features, no evidence of an abscess on either side. PHYSICAL EXAMINATION: GENERAL: On examination, the patient is a well-developed, morbidly obese, 56-year-old female who is awake, alert, oriented to person, place, time, and situation. She is verbal, conversational, and does not appear to be in any acute distress. VITAL SIGNS: Temperature is 97.7, pulse 91, respirations 18, blood pressure is 126/72, oxygen saturation is 98% on room air. SKIN: Warm and dry. There is no rash. He is not diaphoretic. HEENT: Pupils equal, round, and reactive to light and accommodation, conjunctivae are pink. There is no JVP. CARDIOVASCULAR: Heart is regular with no murmur or rub. CHEST: Clear, symmetrical, unlabored. ABDOMEN: Soft, nontender and nondistended. Obese. BACK: No CVA tenderness or sacral edema. EXTREMITIES: No clubbing, cyanosis, or edema. PSYCHIATRIC: Appropriate affect, pleasant mood. DISCHARGE PLAN: The patient is advised to follow with a primary care provider within 1-2 weeks for hospital followup. The patient will need followup ultrasound imaging of axillary nodes. TIME SPENT: Time spent on this discharge, including assessment, plan, physical examination, patient education, and resource alignment was 40 minutes. DICTATING PHYSICIAN: OMAR MARTINEZ NP [id number] PHY#: [id number] ID: [id number] JOB#: [id number] ACCT: [id number] cc:OMAR MARTINEZ NP > MTDD
[2016-10-11] MEDS: LISINOPRIL 5 MG TABLET PO SCH (11:36)
[2016-10-11] MEDS: SPIRONOLACTONE 25 MG TABLET PO SCH (12:05)
[2016-10-11] MEDS: METOPROLOL SUCCINATE 50 MG TAB.SR.24H PO SCH ×2 (12:13→21:36)
[2016-10-11] MEDS: FUROSEMIDE 80 MG TABLET PO SCH (12:13)
[2016-10-11] MEDS: CLOPIDOGREL BISULFATE 75 MG TABLET PO SCH (12:14)
[2016-10-11] MEDS: PRENATAL VITAMIN W-O CA NO5/FE FUMARATE/FA CAPSULE PO SCH (12:14)
[2016-10-11] MEDS: POTASSIUM CHLORIDE 10 MEQ TABLET.SA PO SCH (12:14)
[2016-10-11] MEDS: PREDNISONE 10 MG TABLET PO SCH (12:15)
[2016-10-11] MEDS: METFORMIN HCL 500 MG TABLET PO SCH ×2 (12:15→15:21)
[2016-10-11] MEDS: PREGABALIN 75 MG CAPSULE PO SCH ×2 (12:15→21:37)
[2016-10-11] MEDS: FOLIC ACID 1 MG TABLET PO SCH (12:15)
[2016-10-11] MEDS: DULOXETINE HCL 30 MG CAPSULE.DR PO SCH ×2 (12:16→21:36)
[2016-10-11] MEDS: ASPIRIN 325 MG TABLET PO SCH (12:16)
[2016-10-11] MEDS: SILVER SULFADIAZINE 1% CREAM 25 GM TP SCH ×3 (12:17→19:08)
[2016-10-11] MEDS: VERAPAMIL HCL 120 MG TABLET PO SCH (12:19)
[2016-10-11] MEDS: CETIRIZINE 10 MG TABLET PO SCH (12:19)
[2016-10-11] MEDS: ALBUTEROL SULFATE HFA (90 MCG/PUFF) 200 PUFF/8.5 GM MDI IH PRN (15:21)
[2016-10-11] MEDS: MORPHINE SULFATE SR 100 MG TABLET PO PRN (19:06)
[2016-10-11] MEDS: ATORVASTATIN CALCIUM 20 MG TABLET PO SCH (19:07)
[2016-10-11] MEDS: MONTELUKAST SODIUM 10 MG TABLET PO SCH (19:07)
[2016-10-11] MEDS: AMLODIPINE BESYLATE 10 MG TABLET PO SCH (21:36)
[2016-10-11] MEDS: FAMOTIDINE 20 MG TABLET PO SCH (21:37)
[2016-10-12] MEDS: IPRATROPIUM/ALBUTEROL 120 PUFF/4 GM MDI IH SCH ×5 (00:35→23:10)
[2016-10-12] MEDS: PHENYTOIN SODIUM EXTENDED 100 MG CAPSULE PO SCH ×3 (05:28→21:43)
[2016-10-12] MEDS: FUROSEMIDE 80 MG TABLET PO SCH (08:38)
[2016-10-12] MEDS: PREDNISONE 10 MG TABLET PO SCH (08:38)
[2016-10-12] MEDS: METFORMIN HCL 500 MG TABLET PO SCH ×2 (08:38→17:01)
[2016-10-12] MEDS: CLOPIDOGREL BISULFATE 75 MG TABLET PO SCH (09:29)
[2016-10-12] MEDS: POTASSIUM CHLORIDE 10 MEQ TABLET.SA PO SCH (09:30)
[2016-10-12] MEDS: ASPIRIN 325 MG TABLET PO SCH (09:30)
[2016-10-12] MEDS: PREGABALIN 75 MG CAPSULE PO SCH ×2 (09:30→21:44)
[2016-10-12] MEDS: SPIRONOLACTONE 25 MG TABLET PO SCH (09:30)
[2016-10-12] MEDS: PRENATAL VITAMIN W-O CA NO5/FE FUMARATE/FA CAPSULE PO SCH (09:30)
[2016-10-12] MEDS: CETIRIZINE 10 MG TABLET PO SCH (09:31)
[2016-10-12] MEDS: DULOXETINE HCL 30 MG CAPSULE.DR PO SCH ×2 (09:31→21:44)
[2016-10-12] MEDS: FOLIC ACID 1 MG TABLET PO SCH (09:31)
[2016-10-12] MEDS: LISINOPRIL 5 MG TABLET PO SCH (09:36)
[2016-10-12] MEDS: METOPROLOL SUCCINATE 50 MG TAB.SR.24H PO SCH ×2 (09:36→21:44)
[2016-10-12] MEDS: SILVER SULFADIAZINE 1% CREAM 25 GM TP SCH ×3 (09:36→17:03)
[2016-10-12] MEDS: VERAPAMIL HCL 120 MG TABLET PO SCH (09:36)
[2016-10-12] MEDS ORDERED: CARBAMIDE PEROXIDE 6.5% OTIC SOLN 15 ML AS ONE (12:00)
--- NOTE | 2016-10-12 13:03 | PROGRESS NOTE E ---
Progress Note NAME: BERT MOE : 1960 AGE: 56Y DATE: 10/12/2016 ROOM: 429 SUBJECTIVE: Patient is lying in bed. She states that she is still having ear pain. This examined yesterday. I feel that this is just external tenderness. The patient denies any nausea, vomiting. No diarrhea, shortness of breath, dizziness, chest pain. No fevers, chills. The patient has been afebrile. Blood pressure has been in a good range. The patient does not voice any other concerns at this time. REVIEW OF SYSTEMS: Rest of the review of systems negative. MEDICATIONS: Medications have been reviewed. OBJECTIVE: GENERAL: The patient is a 56-year-old female who is awake, alert. She is oriented to person, place, time, and situation. She is verbal, conversational and does not appear to be in any acute distress. VITAL SIGNS FOLLOWS: Temperature 98.2, pulse 99, respirations 18, blood pressure is 105/61, oxygen saturation is 97% on room air. SKIN: Warm and dry. No rash. Not diaphoretic. HEENT: Pupils equal, round, reactive to light and accommodation. Conjunctivae pink. NECK: There is no JVP. CARDIOVASCULAR: Heart is regular. There is no murmur or rub. CHEST: Clear, symmetrical, unlabored. ABDOMEN: Soft, nontender, nondistended. BACK: No CVA tenderness or sacral edema. EXTREMITIES: No clubbing, cyanosis, edema. PSYCHIATRIC: Appropriate affect. Pleasant mood. DIAGNOSTICS: Lab values are as follows: Cholesterol obtained on 10/08/2016: Triglycerides are 246, cholesterol is 196, LDL 112, VLDL 49, HDL is 36. IMPRESSION AND PLAN: 1. ACUTE VIRAL GASTROENTERITIS. THIS IS RESOLVED. 2. SIRS, SECONDARY NUMBER ONE. THIS IS RESOLVED. 3. SINUS TACHYCARDIA, SECONDARY TO NUMBER TWO. THIS IS RESOLVED. 4. ACUTE ENCEPHALOPATHY, SECONDARY TO THE ABOVE. THIS IS RESOLVED. 5. RHEUMATOID ARTHRITIS. Will continue current medications. 5. CHEST PAIN SECONDARY TO RHEUMATOID ARTHRITIS. 6. RIGHT AXILLA NODES. Imaging appears stable. 7. MORBID OBESITY. Will encourage weight reduction. 8. OBSTRUCTIVE SLEEP APNEA. Will continue CPAP. 10. DYSLIPIDEMIA. Will continue meds. 11. POLYPHARMACY. 12. LEFT EAR PAIN. I examined this and no evidence of otitis. Does appear to have some wax. Will order Debrox. Mostly tender to external manipulation. DISPOSITION: The patient is a FULL CODE. Pending patient's symptomatology and diagnostic findings, we will reevaluate in the a.m. The patient can go to rehab when her bed is available Friday. TIME SPENT ON THIS FOLLOWUP: Including assessment, plan, physical examination, and patient education, is 25 minutes. DICTATING PHYSICIAN: OMAR MARTINEZ NP [id number] PHY#: [id number] ID: [id number] JOB#: [id number] ACCT: [id number] cc: >
[2016-10-12] MEDS: CARBAMIDE PEROXIDE 6.5% OTIC SOLN 15 ML AS SCH ×3 (13:38→21:45)
[2016-10-12] MEDS: ATORVASTATIN CALCIUM 20 MG TABLET PO SCH (17:02)
[2016-10-12] MEDS: MONTELUKAST SODIUM 10 MG TABLET PO SCH (17:02)
[2016-10-12] MEDS ORDERED: OXYCODONE HCL IR 5 MG TABLET PO PRN (20:41)
[2016-10-12] MEDS: AMLODIPINE BESYLATE 10 MG TABLET PO SCH (21:43)
[2016-10-12] MEDS: FAMOTIDINE 20 MG TABLET PO SCH (21:44)
[2016-10-13] MEDS: IPRATROPIUM/ALBUTEROL 120 PUFF/4 GM MDI IH SCH ×4 (05:43→23:33)
[2016-10-13] MEDS: PHENYTOIN SODIUM EXTENDED 100 MG CAPSULE PO SCH ×3 (05:44→21:44)
[2016-10-13] MEDS: PREDNISONE 10 MG TABLET PO SCH (08:34)
[2016-10-13] MEDS: METFORMIN HCL 500 MG TABLET PO SCH ×2 (08:34→17:15)
[2016-10-13] MEDS: FUROSEMIDE 80 MG TABLET PO SCH (08:34)
[2016-10-13] MEDS: POTASSIUM CHLORIDE 10 MEQ TABLET.SA PO SCH (10:19)
[2016-10-13] MEDS: PRENATAL VITAMIN W-O CA NO5/FE FUMARATE/FA CAPSULE PO SCH (10:19)
[2016-10-13] MEDS: ASPIRIN 325 MG TABLET PO SCH (10:19)
[2016-10-13] MEDS: CLOPIDOGREL BISULFATE 75 MG TABLET PO SCH (10:19)
[2016-10-13] MEDS: FOLIC ACID 1 MG TABLET PO SCH (10:19)
[2016-10-13] MEDS: SPIRONOLACTONE 25 MG TABLET PO SCH (10:19)
[2016-10-13] MEDS: CARBAMIDE PEROXIDE 6.5% OTIC SOLN 15 ML AS SCH ×4 (10:19→21:43)
[2016-10-13] MEDS: LISINOPRIL 5 MG TABLET PO SCH (10:20)
[2016-10-13] MEDS: SILVER SULFADIAZINE 1% CREAM 25 GM TP SCH ×3 (10:20→17:15)
[2016-10-13] MEDS: METOPROLOL SUCCINATE 50 MG TAB.SR.24H PO SCH ×2 (10:20→23:33)
[2016-10-13] MEDS: DULOXETINE HCL 30 MG CAPSULE.DR PO SCH ×2 (10:20→21:44)
[2016-10-13] MEDS: CETIRIZINE 10 MG TABLET PO SCH (10:20)
[2016-10-13] MEDS: PREGABALIN 75 MG CAPSULE PO SCH ×2 (10:20→21:44)
[2016-10-13] MEDS: VERAPAMIL HCL 120 MG TABLET PO SCH (10:22)
[2016-10-13] MEDS: ATORVASTATIN CALCIUM 20 MG TABLET PO SCH (17:16)
[2016-10-13] MEDS: MONTELUKAST SODIUM 10 MG TABLET PO SCH (17:16)
[2016-10-13] MEDS: ALBUTEROL SULFATE HFA (90 MCG/PUFF) 200 PUFF/8.5 GM MDI IH PRN (17:16)
--- NOTE | 2016-10-13 20:30 | PROGRESS NOTE E ---
Progress Note NAME: BERT MOE : 1960 AGE: 56Y DATE: 10/13/2016 ROOM: 429 SUBJECTIVE: The patient is currently lying crossways in the bed. The patient has been has been up to the bathroom. She denies any nausea, vomiting or diarrhea. No shortness of breath, dizziness or chest pain. No fever or chills. The patient has been afebrile. Blood pressures have been in a good range. The patient refused to wear a CPAP last night, stating that she fell asleep and when she woke up, she "did not want to worry with it." The patient does not voice any other concerns at this time. REVIEW OF SYSTEMS: Rest of review of systems is negative. MEDICATIONS: Medications have been reviewed. OBJECTIVE: GENERAL: The patient is a well-developed, obese, 56-year-old female who is awake and alert to person, place, time and situation. She is verbal and conversational. She does to appear to be in any acute distress. VITAL SIGNS: Temperature is 98.4, pulse 105, respirations 20, blood pressure 125/82, oxygen saturation is 99% on 2 L nasal cannula. SKIN: Warm and dry. No rash. She is not diaphoretic. HEENT: Pupils are equal, round, reactive to light and accommodation. Conjunctivae are pink. There is no JVP. CARDIOVASCULAR: Heart is regular. There is no murmur or rub. CHEST: Clear, symmetrical, unlabored. ABDOMEN: Soft, nontender, nondistended. Bowel sounds are present. No palpable organomegaly. BACK: No CVA tenderness or sacral edema. EXTREMITIES: No clubbing, cyanosis or edema. DIAGNOSTICS: Lab values are as follows: Hematology obtained on 10/05/2016: WBCs 10.6, hemoglobin 12.5, hematocrit 39.2, and platelet count is 277,000. IMPRESSION AND PLAN: 1. ACUTE VIRAL GASTROENTERITIS, RESOLVED. 2. SIRS SECONDARY TO #1, RESOLVED. 3. SINUS TACHYCARDIA SECONDARY TO #2, RESOLVED. 4. ACUTE ENCEPHALOPATHY SECONDARY TO #1, RESOLVED. 5. RHEUMATOID ARTHRITIS. Continue home medications. 6. CHEST PAIN SECONDARY TO RA. 7. RIGHT AXILLA NODE. Imaging appears stable. This can be followed up on an outpatient setting. 8. LEFT EAR PAIN. Do believe that this the way the patient is laying on her ear. This appears to have improved. 9. MORBID OBESITY. Encourage weight reduction. 10. OBSTRUCTIVE SLEEP APNEA. Encourage compliance with CPAP. 11. DYSLIPIDEMIA. Continue medications. 12. POLYPHARMACY. DISPOSITION: The patient is a FULL CODE. Pending the patient's symptomatology and diagnostic findings, will re-evaluate in the a.m. The patient can go to rehab as soon as a bed is available. TIME: Time spent on this followup including assessment, plan, physical examination and patient education is 20 minutes. DICTATING PHYSICIAN: OMAR MARTINEZ NP [id number] PHY#: [id number] ID: [id number] JOB#: [id number] ACCT: [id number] cc: >
[2016-10-13] MEDS: MORPHINE SULFATE SR 100 MG TABLET PO PRN (20:53)
[2016-10-13] MEDS: FAMOTIDINE 20 MG TABLET PO SCH (21:44)
--- NOTE | 2016-10-13 22:18 | PDOC PROGRESS REPORT ---
Subjective Progress Note for:: 10/09/16 Subjective:: Patient seems to be doing well with no complaints. Patient still having vague chest discomfort but she has discomfort all over the body. Patient still has dyspnea on exertion. Telemetry strips reviewed showed sinus rhythm. Nuclear stress test procedure was explained to the patient in detail. Risks benefits were discussed and informed consent was obtained. Alternatives were discussed. Patient informed that based on risk factors, physical exam, lab data findings and symptoms there is at least intermediate probability of underlying CAD. Nuclear stress test procedure was therefore scheduled. Physical Exam Vital Signs: Temp Pulse Resp BP Pulse Ox 97.5 F 108 H 20 136/77 H 97 10/10/16 16:46 10/10/16 16:46 10/10/16 16:46 10/10/16 16:46 10/10/16 16:46 Intake & Output 10/09/16 10/10/16 10/11/16 06:59 06:59 06:59 Intake Total 960 600 480 Output Total 600 400 Balance 360 200 480 Exam: GENERAL: well-nourished and in no acute distress. Alert and oriented x3 HEAD: Atraumatic, normocephalic. EYES: Pupils equal round and reactive to light, extraocular movements intact, sclera anicteric, conjunctiva are normal. ENT: TMs normal, nares patent, oropharynx clear without exudates. Moist mucous membranes. No oral ulcerations or bleeding gums noted NECK: supple without lymphadenopathy. Trachea is central. No cervical or axillary lymphadenopathy noted. Carotids are 2+, JVD WNL LUNGS: Respiration seems nonlabored, no significant accessory muscle action noted. Breath sounds clear to auscultation bilaterally and equal noted. No wheezes rales or rhonchi noted. No significant dullness noted on percussion. CHEST: Palpation of the chest wall shows no significant chest wall tenderness. No other significant abnormalities noted. 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 ABDOMEN: Soft, no significant tenderness appreciated, normoactive bowel sounds. No guarding, no rebound. No rigidity noted . No masses appreciated. EXTREMITIES: Pedal pulses are 1-2+, no calf tenderness noted. No clubbing or cyanosis.trace to 1+ pedal edema noted NEUROLOGICAL: Focused neurological exam showed no significant neurologic deficit. Normal speech, no focal weakness appreciated. PSYCH: Normal mood, normal affect. Judgment and insight within normal limits. SKIN: No significant ecchymosis, rash, ulcerations or signs of pruritus noted. MUSCULOSKELETAL EXAM: No significant joint swelling noted. Results Laboratory Results: 10/06/16 23:25 Stool - Stool - Final 10/06/16 23:25 Stool - Stool Stool Culture - Final NO SALMONELLA, SHIGELLA, CAMPYLOBACTER, OR E.COLI 0157 RECOVERED. NEGATIVE FOR SHIGA TOXINS 1&2. 10/07/16 10/08/16 10/08/16 20:45 03:10 09:26 Troponin I 0.022 0.023 0.017 Impressions: Head CT 10/04/16 00:00 IMPRESSION: NORMAL BRAIN CT WITHOUT CONTRAST. Chest X-Ray 10/04/16 15:37 IMPRESSION: NO ACUTE RADIOGRAPHIC FINDING IN THE CHEST. Abdomen/Pelvis CT 10/04/16 21:06 IMPRESSION: NO ACUTE FINDINGS WITHIN THE ABDOMEN OR PELVIS. NO SIGNIFICANT CHANGE FROM PRIOR STUDY. Assessment & Plan - Diagnosis (1) Chest pain Qualifiers: Chest pain type: unspecified Qualified Code(s): R07.9 - Chest pain, unspecified Is this a current diagnosis for this admission?: Yes (2) Opiate dependence, continuous Is this a current diagnosis for this admission?: Yes (3) Morbid obesity with BMI of 50.0-59.9, adult Is this a current diagnosis for this admission?: Yes (4) BRAN (obstructive sleep apnea) Is this a current diagnosis for this admission?: Yes (5) Sinus tachycardia Is this a current diagnosis for this admission?: Yes - Notes Notes: 2 D Echo results discussed. Chest pain: Patient has significant cardiac risk factors. There is at least an intermediate probability that patient has significant underlying CAD. Patient therefore being scheduled for a nuclear stress test. Because of patient's significant obesity, first part will be done today and second part tomorrow. Risk benefits of nuclear stress test were discussed.. Sinus tachycardia: 2D echo results discussed. LVEF relatively well-preserved. Diastolic dysfunction noted. No significant valvular abnormalities noted. Obstructive sleep apnea: Continue with nightly CPAP therapy. Patient was advised compliance. Morbid obesity: Patient has been advised in weight loss. Patient has significant arthritic condition which is being well managed. - Time Time with patient: Greater than 35 minutes - CODE STATUS was discussed, patient remains full code. Surrogate decision-maker unchanged. Multiple medical problems were addressed. More than 50% of the time spent coordinating care, discussing management plans with involved caregivers. Management plans discussed with involved personnels. Medical decision making was of moderate to high complexity, patient's has multiple comorbidities. Patient today was seen multiple times, before the stress test was performed to explain the procedure, during the stress test and also later on just to make sure there were no complications. There were no complications noted with the stress test. Patient informed that full results will be available tomorrow. 2D echo results were discussed. Patient questions were answered. Medications reviewed and adjusted accordingly: Yes
--- NOTE | 2016-10-13 22:19 | PDOC PROGRESS REPORT ---
Subjective Progress Note for:: 10/10/16 Subjective:: Patient seems to be doing well with no complaints. Patient had nuclear stress test yesterday without any complications. Patient completed rest imaging today. Physical Exam Vital Signs: Temp Pulse Resp BP Pulse Ox 97.5 F 108 H 20 136/77 H 97 10/10/16 16:46 10/10/16 16:46 10/10/16 16:46 10/10/16 16:46 10/10/16 16:46 Intake & Output 10/09/16 10/10/16 10/11/16 06:59 06:59 06:59 Intake Total 960 600 480 Output Total 600 400 Balance 360 200 480 Exam: GENERAL: well-nourished and in no acute distress. Alert and oriented x3 HEAD: Atraumatic, normocephalic. EYES: Pupils equal round and reactive to light, extraocular movements intact, sclera anicteric, conjunctiva are normal. ENT: TMs normal, nares patent, oropharynx clear without exudates. Moist mucous membranes. No oral ulcerations or bleeding gums noted NECK: supple without lymphadenopathy. Trachea is central. No cervical or axillary lymphadenopathy noted. Carotids are 2+, JVD WNL LUNGS: Respiration seems nonlabored, no significant accessory muscle action noted. Breath sounds clear to auscultation bilaterally and equal noted. No wheezes rales or rhonchi noted. No significant dullness noted on percussion. CHEST: Palpation of the chest wall shows no significant chest wall tenderness. No other significant abnormalities noted. 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 ABDOMEN: Soft, no significant tenderness appreciated, normoactive bowel sounds. No guarding, no rebound. No rigidity noted . No masses appreciated. EXTREMITIES: Pedal pulses are 1-2+, no calf tenderness noted. No clubbing or cyanosis.trace to 1+ pedal edema noted NEUROLOGICAL: Focused neurological exam showed no significant neurologic deficit. Normal speech, no focal weakness appreciated. PSYCH: Normal mood, normal affect. Judgment and insight within normal limits. SKIN: No significant ecchymosis, rash, ulcerations or signs of pruritus noted. MUSCULOSKELETAL EXAM: No significant joint swelling noted. Results Laboratory Results: 10/06/16 23:25 Stool - Stool - Final 10/06/16 23:25 Stool - Stool Stool Culture - Final NO SALMONELLA, SHIGELLA, CAMPYLOBACTER, OR E.COLI 0157 RECOVERED. NEGATIVE FOR SHIGA TOXINS 1&2. 10/07/16 10/08/16 10/08/16 20:45 03:10 09:26 Troponin I 0.022 0.023 0.017 Impressions: Head CT 10/04/16 00:00 IMPRESSION: NORMAL BRAIN CT WITHOUT CONTRAST. Chest X-Ray 10/04/16 15:37 IMPRESSION: NO ACUTE RADIOGRAPHIC FINDING IN THE CHEST. Abdomen/Pelvis CT 10/04/16 21:06 IMPRESSION: NO ACUTE FINDINGS WITHIN THE ABDOMEN OR PELVIS. NO SIGNIFICANT CHANGE FROM PRIOR STUDY. Assessment & Plan - Diagnosis (1) Chest pain Qualifiers: Chest pain type: unspecified Qualified Code(s): R07.9 - Chest pain, unspecified Is this a current diagnosis for this admission?: Yes (2) Opiate dependence, continuous Is this a current diagnosis for this admission?: Yes (3) Morbid obesity with BMI of 50.0-59.9, adult Is this a current diagnosis for this admission?: Yes (4) BRAN (obstructive sleep apnea) Is this a current diagnosis for this admission?: Yes (5) Sinus tachycardia Is this a current diagnosis for this admission?: Yes - Notes Notes: NST results and Echocardiogram results discussed. Chest pain: Patient had nuclear stress test yesterday but completed rest imaging today. These results were discussed. No significant areas of ischemia noted. Incidental note of increased uptake was noted in the left axilla. Hospitalist was consulted and advised evaluation of the left axilla. 2D echo results were again reviewed with the patient. Nuclear stress results were noted to be negative. Discussed that occasionally single vessel disease could be missed. Also informed that balanced ischemia can rarely be missed. Patient was told that further evaluation will become indicated if he/she develops more symptoms indicative of ischemia or ischemia equivalent symptom. At this point however would recommend aggressive risk factor modification, medical therapy. Patient advised on risk factor modification. Obstructive sleep apnea: Continue with nightly CPAP therapy. Patient was advised compliance. Morbid obesity: Patient has been advised in weight loss. - Time Time with patient: Greater than 35 minutes Medications reviewed and adjusted accordingly: Yes
--- NOTE | 2016-10-13 22:21 | PDOC PROGRESS REPORT ---
Subjective Progress Note for:: 10/11/16 Subjective:: Patient seems to be doing well with no complaints.NST results discussed. Physical Exam Vital Signs: Temp Pulse Resp BP Pulse Ox 98.3 F 96 24 H 97/65 L 98 10/11/16 08:01 10/11/16 14:00 10/11/16 08:01 10/11/16 08:01 10/11/16 08:01 Intake & Output 10/10/16 10/11/16 10/12/16 06:59 06:59 06:59 Intake Total 600 1025 240 Output Total 400 1800 Balance 200 1025 -1560 Exam: GENERAL: well-nourished and in no acute distress. Alert and oriented x3 HEAD: Atraumatic, normocephalic. EYES: Pupils equal round and reactive to light, extraocular movements intact, sclera anicteric, conjunctiva are normal. ENT: TMs normal, nares patent, oropharynx clear without exudates. Moist mucous membranes. No oral ulcerations or bleeding gums noted NECK: supple without lymphadenopathy. Trachea is central. No cervical or axillary lymphadenopathy noted. Carotids are 2+, JVD WNL . Left axilla tender. LUNGS: Respiration seems nonlabored, no significant accessory muscle action noted. Breath sounds clear to auscultation bilaterally and equal noted. No wheezes rales or rhonchi noted. No significant dullness noted on percussion. CHEST: Palpation of the chest wall shows no significant chest wall tenderness. No other significant abnormalities noted. 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 ABDOMEN: Soft, no significant tenderness appreciated, normoactive bowel sounds. No guarding, no rebound. No rigidity noted . No masses appreciated. EXTREMITIES: Pedal pulses are 1-2+, no calf tenderness noted. No clubbing or cyanosis.trace pedal edema noted NEUROLOGICAL: Focused neurological exam showed no significant neurologic deficit. Normal speech, no focal weakness appreciated. PSYCH: Normal mood, normal affect. Judgment and insight within normal limits. SKIN: No significant ecchymosis, rash, ulcerations or signs of pruritus noted. MUSCULOSKELETAL EXAM: No significant joint swelling noted. Results Laboratory Results: 10/07/16 10/08/16 10/08/16 20:45 03:10 09:26 Troponin I 0.022 0.023 0.017 Impressions: Head CT 10/04/16 00:00 IMPRESSION: NORMAL BRAIN CT WITHOUT CONTRAST. Chest X-Ray 10/04/16 15:37 IMPRESSION: NO ACUTE RADIOGRAPHIC FINDING IN THE CHEST. Abdomen/Pelvis CT 10/04/16 21:06 IMPRESSION: NO ACUTE FINDINGS WITHIN THE ABDOMEN OR PELVIS. NO SIGNIFICANT CHANGE FROM PRIOR STUDY. Extremity Ultrasound 10/10/16 14:14 IMPRESSION: A FEW LYMPH NODES IN THE LEFT AXILLA WHICH DO NOT HAVE WORRISOME SONOGRAPHIC FEATURES. NO EVIDENCE OF ABSCESS ON EITHER SIDE. Assessment & Plan - Diagnosis (1) Chest pain Qualifiers: Chest pain type: unspecified Qualified Code(s): R07.9 - Chest pain, unspecified Is this a current diagnosis for this admission?: Yes (2) Opiate dependence, continuous Is this a current diagnosis for this admission?: Yes (3) Morbid obesity with BMI of 50.0-59.9, adult Is this a current diagnosis for this admission?: Yes (4) BRAN (obstructive sleep apnea) Is this a current diagnosis for this admission?: Yes (5) Sinus tachycardia Is this a current diagnosis for this admission?: Yes - Notes Notes: NST discussed. Sleep apnea management discussed. Patient was advised on risk factor modification today. Patient advised in weight loss. Patient was encouraged to ambulate.. - Time Time with patient: 15-25 minutes Medications reviewed and adjusted accordingly: Yes
--- NOTE | 2016-10-13 22:23 | PDOC PROGRESS REPORT ---
Subjective Progress Note for:: 10/12/16 Subjective:: Patient seems to be doing well with no complaints. Complains of fatigue and tiredness. Physical Exam Vital Signs: Temp Pulse Resp BP Pulse Ox 98.8 F 123 H 24 H 119/74 96 10/12/16 16:26 10/12/16 19:00 10/12/16 16:26 10/12/16 16:26 10/12/16 16:26 Intake & Output 10/11/16 10/12/16 10/13/16 06:59 06:59 06:59 Intake Total 1025 600 820 Output Total 1800 Balance 1025 -1200 820 Exam: GENERAL: well-nourished and in no acute distress. Alert and oriented x3 HEAD: Atraumatic, normocephalic. EYES: Pupils equal round and reactive to light, extraocular movements intact, sclera anicteric, conjunctiva are normal. ENT: TMs normal, nares patent, oropharynx clear without exudates. Moist mucous membranes. No oral ulcerations or bleeding gums noted NECK: supple without lymphadenopathy. Trachea is central. No cervical or axillary lymphadenopathy noted. Carotids are 2+, JVD WNL LUNGS: Respiration seems nonlabored, no significant accessory muscle action noted. Breath sounds clear to auscultation bilaterally and equal noted. No wheezes rales or rhonchi noted. No significant dullness noted on percussion. CHEST: Palpation of the chest wall shows no significant chest wall tenderness. No other significant abnormalities noted. 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 ABDOMEN: Soft, no significant tenderness appreciated, normoactive bowel sounds. No guarding, no rebound. No rigidity noted . No masses appreciated. EXTREMITIES: Pedal pulses are 1-2+, no calf tenderness noted. No clubbing or cyanosis.trace pedal edema noted NEUROLOGICAL: Focused neurological exam showed no significant neurologic deficit. Normal speech, no focal weakness appreciated. PSYCH: Normal mood, normal affect. Judgment and insight within normal limits. SKIN: No significant ecchymosis, rash, ulcerations or signs of pruritus noted. MUSCULOSKELETAL EXAM: No significant joint swelling noted. Results Laboratory Results: 10/07/16 10/08/16 10/08/16 20:45 03:10 09:26 Troponin I 0.022 0.023 0.017 10/12/16 21:05 Troponin I < 0.012 Impressions: Head CT 10/04/16 00:00 IMPRESSION: NORMAL BRAIN CT WITHOUT CONTRAST. Chest X-Ray 10/04/16 15:37 IMPRESSION: NO ACUTE RADIOGRAPHIC FINDING IN THE CHEST. Abdomen/Pelvis CT 10/04/16 21:06 IMPRESSION: NO ACUTE FINDINGS WITHIN THE ABDOMEN OR PELVIS. NO SIGNIFICANT CHANGE FROM PRIOR STUDY. Extremity Ultrasound 10/10/16 14:14 IMPRESSION: A FEW LYMPH NODES IN THE LEFT AXILLA WHICH DO NOT HAVE WORRISOME SONOGRAPHIC FEATURES. NO EVIDENCE OF ABSCESS ON EITHER SIDE. Assessment & Plan - Diagnosis (1) Chest pain Qualifiers: Chest pain type: unspecified Qualified Code(s): R07.9 - Chest pain, unspecified Is this a current diagnosis for this admission?: Yes (2) Opiate dependence, continuous Is this a current diagnosis for this admission?: Yes (3) Morbid obesity with BMI of 50.0-59.9, adult Is this a current diagnosis for this admission?: Yes (4) BRAN (obstructive sleep apnea) Is this a current diagnosis for this admission?: Yes (5) Sinus tachycardia Is this a current diagnosis for this admission?: Yes - Notes Notes: stable. Patient was seen just to make sure she had no further questions. Patient was encouraged in compliance with CPAP therapy, weight loss, aggressive risk factor modification. Patient was offered that she could follow-up with me for cardiac care if she wished. - Time Time with patient: Less than 15 minutes - Patient informed that she could follow -up with me if she wished. Patient being transferred to rehab center. Patient has been stable from cardiac standpoint without any recurrent chest pain. We will therefore sign off. Medications reviewed and adjusted accordingly: Yes
[2016-10-13] MEDS: AMLODIPINE BESYLATE 10 MG TABLET PO SCH (23:32)
[2016-10-14] MEDS: PHENYTOIN SODIUM EXTENDED 100 MG CAPSULE PO SCH ×3 (05:40→21:58)
[2016-10-14] MEDS: IPRATROPIUM/ALBUTEROL 120 PUFF/4 GM MDI IH SCH ×4 (05:40→23:51)
[2016-10-14] MEDS: METFORMIN HCL 500 MG TABLET PO SCH ×2 (07:50→17:18)
[2016-10-14] MEDS: FUROSEMIDE 80 MG TABLET PO SCH (07:50)
[2016-10-14] MEDS: PREDNISONE 10 MG TABLET PO SCH (07:51)
[2016-10-14] MEDS: CLOPIDOGREL BISULFATE 75 MG TABLET PO SCH (10:20)
[2016-10-14] MEDS: PREGABALIN 75 MG CAPSULE PO SCH ×2 (10:20→21:57)
[2016-10-14] MEDS: POTASSIUM CHLORIDE 10 MEQ TABLET.SA PO SCH (10:20)
[2016-10-14] MEDS: PRENATAL VITAMIN W-O CA NO5/FE FUMARATE/FA CAPSULE PO SCH (10:20)
[2016-10-14] MEDS: FOLIC ACID 1 MG TABLET PO SCH (10:21)
[2016-10-14] MEDS: DULOXETINE HCL 30 MG CAPSULE.DR PO SCH ×2 (10:21→21:58)
[2016-10-14] MEDS: SPIRONOLACTONE 25 MG TABLET PO SCH (10:21)
[2016-10-14] MEDS: CETIRIZINE 10 MG TABLET PO SCH (10:21)
[2016-10-14] MEDS: ASPIRIN 325 MG TABLET PO SCH (10:22)
[2016-10-14] MEDS: CARBAMIDE PEROXIDE 6.5% OTIC SOLN 15 ML AS SCH ×4 (10:22→21:59)
[2016-10-14] MEDS: SILVER SULFADIAZINE 1% CREAM 25 GM TP SCH ×3 (10:22→17:18)
[2016-10-14] MEDS: METOPROLOL SUCCINATE 50 MG TAB.SR.24H PO SCH ×2 (10:23→21:58)
[2016-10-14] MEDS: LISINOPRIL 5 MG TABLET PO SCH (10:23)
[2016-10-14] MEDS: VERAPAMIL HCL 120 MG TABLET PO SCH (10:23)
--- NOTE | 2016-10-14 16:19 | PROGRESS NOTE E ---
Progress Note NAME: BERT MOE : 1960 AGE: 56Y DATE: 10/14/2016 ROOM: 429 SUBJECTIVE: Patient is lying in bed. She is currently awaiting placement at SNF. The patient denies any nausea, vomiting, diarrhea. No shortness of breath, dizziness, chest pain. No fevers, chills. The patient has been afebrile. Blood pressure has been in a good range. The patient does not voice any other concerns at this time. REVIEW OF SYSTEMS: Rest of the review of systems negative. MEDICATIONS: Medications have been reviewed. OBJECTIVE: GENERAL: The patient is a 56-year-old female who is awake, alert, and oriented to person, place, time, and situation. She is verbal, conversational. Does not appear to be in acute distress. VITAL SIGNS: As follows: Temperature 98.1, pulse 98, respirations 20, blood pressure is 100/64. Oxygen saturation is 97% on 2 L nasal cannula. SKIN: Is warm and dry. No rash. Not diaphoretic. HEENT: Pupils equal, round, reactive to light and accommodation. Conjunctivae pink. NECK: There is no JVP. CARDIOVASCULAR: Heart is regular. There is no murmur or rub. CHEST: Clear, symmetrical, unlabored. ABDOMEN: Obese, soft. Bowel sounds present. BACK: No CVA tenderness or sacral edema. EXTREMITIES: No clubbing, cyanosis, edema. PSYCHIATRIC: Apathetic. DIAGNOSTICS: Lab values are as follows: Chemistry obtained on 10/08/2016: Triglycerides are 246, cholesterol is 196, LDL 112, VLDL is 49, HDL is 36. IMPRESSION AND PLAN: 1. ACUTE VIRAL GASTROENTERITIS. THIS IS RESOLVED. 2. SIRS, SECONDARY NUMBER ONE. 3. SINUS TACHYCARDIA, SECONDARY TO NUMBER TWO. THIS IS RESOLVED. 4. ACUTE ENCEPHALOPATHY, SECONDARY TO #1. THIS IS RESOLVED. 5. RHEUMATOID ARTHRITIS. Continue home medications. 6. DEBILITY. THIS IS SECONDARY TO THE PATIENT'S RA. 7. CHEST PAIN; MOST LIKELY SECONDARY TO RA. 8. RIGHT AXILLA NODE; APPEARS STABLE. Can be followed in outpatient setting. 9. LEFT EAR PAIN. THIS DOES APPEAR TO HAVE IMPROVED. OTHER THAN A SIGNIFICANT AMOUNT OF WAX, THERE WAS NOTHING ABNORMAL ON OTOSCOPIC EXAM. GIVEN THAT THIS WAS EXACERBATED BY MOVEMENT, FEEL THAT THE PATIENT HAS BEEN LYING ON HER EAR WRONG. 10. MORBID OBESITY. Will encourage weight reduction. 11. OBSTRUCTIVE SLEEP APNEA. Encourage compliance with CPAP. 12. DYSLIPIDEMIA. Continue home medication. 11. POLYPHARMACY. DISPOSITION: The patient is a FULL CODE. The patient can go to rehab as soon as a bed is available. TIME SPENT ON THIS FOLLOWUP: Including assessment, plan, physical examination, and patient education, and attempt at resource alignment is 20 minutes. DICTATING PHYSICIAN: OMAR MARTINEZ NP [id number] PHY#: [id number] [id number] JOB#: [id number] ACCT: [id number] cc: >
[2016-10-14] MEDS: MONTELUKAST SODIUM 10 MG TABLET PO SCH (17:18)
[2016-10-14] MEDS: ATORVASTATIN CALCIUM 20 MG TABLET PO SCH (17:18)
[2016-10-14] MEDS: MORPHINE SULFATE SR 100 MG TABLET PO PRN (18:07)
[2016-10-14] MEDS: FAMOTIDINE 20 MG TABLET PO SCH (21:58)
[2016-10-14] MEDS: AMLODIPINE BESYLATE 10 MG TABLET PO SCH (21:58)
[2016-10-15] MEDS: MORPHINE SULFATE SR 100 MG TABLET PO PRN ×2 (04:18→16:59)
[2016-10-15] MEDS: IPRATROPIUM/ALBUTEROL 120 PUFF/4 GM MDI IH SCH ×3 (06:30→18:34)
[2016-10-15] MEDS: PHENYTOIN SODIUM EXTENDED 100 MG CAPSULE PO SCH ×3 (06:30→21:40)
[2016-10-15] MEDS: CARBAMIDE PEROXIDE 6.5% OTIC SOLN 15 ML AS SCH ×4 (11:07→21:39)
[2016-10-15] MEDS: PRENATAL VITAMIN W-O CA NO5/FE FUMARATE/FA CAPSULE PO SCH (11:08)
[2016-10-15] MEDS: ASPIRIN 325 MG TABLET PO SCH (11:08)
[2016-10-15] MEDS: PREGABALIN 75 MG CAPSULE PO SCH ×2 (11:08→21:40)
[2016-10-15] MEDS: METFORMIN HCL 500 MG TABLET PO SCH ×2 (11:09→16:55)
[2016-10-15] MEDS: PREDNISONE 10 MG TABLET PO SCH (11:09)
[2016-10-15] MEDS: LISINOPRIL 5 MG TABLET PO SCH (11:09)
[2016-10-15] MEDS: SPIRONOLACTONE 25 MG TABLET PO SCH (11:10)
[2016-10-15] MEDS: FUROSEMIDE 80 MG TABLET PO SCH (11:10)
[2016-10-15] MEDS: VERAPAMIL HCL 120 MG TABLET PO SCH (11:10)
[2016-10-15] MEDS: POTASSIUM CHLORIDE 10 MEQ TABLET.SA PO SCH (11:10)
[2016-10-15] MEDS: DULOXETINE HCL 30 MG CAPSULE.DR PO SCH ×2 (11:10→21:40)
[2016-10-15] MEDS: METOPROLOL SUCCINATE 50 MG TAB.SR.24H PO SCH ×2 (11:11→21:39)
[2016-10-15] MEDS: CLOPIDOGREL BISULFATE 75 MG TABLET PO SCH (11:11)
[2016-10-15] MEDS: CETIRIZINE 10 MG TABLET PO SCH (11:11)
[2016-10-15] MEDS: FOLIC ACID 1 MG TABLET PO SCH (11:11)
[2016-10-15] MEDS: SILVER SULFADIAZINE 1% CREAM 25 GM TP SCH ×3 (11:13→18:35)
[2016-10-15] MEDS ORDERED: ETANERCEPT SUBCUT SCH (15:00)
[2016-10-15] MEDS ORDERED: [UNRECOGNIZED DRUG - OTHER] SUBCUT SCH (15:00)
[2016-10-15] MEDS: NYSTATIN 500000 UNIT/5 ML UDCUP PO SCH ×3 (16:55→21:38)
[2016-10-15] MEDS: SULFASALAZINE 500 MG TABLET.DR PO SCH ×2 (16:56→21:39)
--- NOTE | 2016-10-15 18:06 | PDOC PROGRESS REPORT ---
Subjective Progress Note for:: 10/15/16 Subjective:: Patient reports prior to admission that she has a broken foot. She reports she is awaiting a prosthetic appliance from orthopedics. Nursing staff reports patient has no difficulty ambulating. Currently pending rehabilitation placement. Patient denies chest pain, shortness of breath, nausea, vomiting, fever, chills , constipation, diarrhea. Physical Exam Vital Signs: Temp Pulse Resp BP Pulse Ox 98.7 F 111 H 19 118/71 100 10/15/16 00:00 10/15/16 00:00 10/15/16 00:00 10/15/16 00:00 10/15/16 00:00 Intake & Output 10/14/16 10/15/16 10/16/16 06:59 06:59 06:59 Intake Total 1960 0 Balance 1960 0 Exam: General: Awake alert and oriented x3, no acute respiratory distress HEENT: AT/NC, PERRL, EOMI, oropharynx is moist, pink, no scleral icterus, no conjunctival injection Neck: No JVD, trachea midline Chest: Clear to auscultation bilaterally CV: Regular rate and rhythm, normal S1 and S2, no murmur, rub, or gallop Abdomen: Protuberant, soft, nontender to palpation, nondistended, active bowel sounds; no rebound, rigidity, or guarding Extremities: No cyanosis, clubbing; 1+ edema Neuro: Cranial nerves II through XII are grossly intact without focal deficits; awake alert and oriented x3 Psych: Normal mood and affect Results Laboratory Results: 10/07/16 10/08/16 10/08/16 20:45 03:10 09:26 Troponin I 0.022 0.023 0.017 10/12/16 21:05 Troponin I < 0.012 Impressions: Head CT 10/04/16 00:00 IMPRESSION: NORMAL BRAIN CT WITHOUT CONTRAST. Chest X-Ray 10/04/16 15:37 IMPRESSION: NO ACUTE RADIOGRAPHIC FINDING IN THE CHEST. Abdomen/Pelvis CT 10/04/16 21:06 IMPRESSION: NO ACUTE FINDINGS WITHIN THE ABDOMEN OR PELVIS. NO SIGNIFICANT CHANGE FROM PRIOR STUDY. Extremity Ultrasound 10/10/16 14:14 IMPRESSION: A FEW LYMPH NODES IN THE LEFT AXILLA WHICH DO NOT HAVE WORRISOME SONOGRAPHIC FEATURES. NO EVIDENCE OF ABSCESS ON EITHER SIDE. Assessment & Plan - Diagnosis (1) Chest pain Qualifiers: Chest pain type: unspecified Qualified Code(s): R07.9 - Chest pain, unspecified Is this a current diagnosis for this admission?: YesPlan: Patient ruled out for acute coronary syndrome. This is likely secondary to indigestion (2) Encephalopathy acute Is this a current diagnosis for this admission?: YesPlan: This has resolved and is likely secondary to polypharmacy and her CPAP. (3) Opiate dependence, continuous Is this a current diagnosis for this admission?: YesPlan: Continue home MS Contin. (4) Polypharmacy Is this a current diagnosis for this admission?: Yes (5) Viral gastroenteritis Is this a current diagnosis for this admission?: YesPlan: Improved. Likely source of the patient's chest pain. (6) Morbid obesity with BMI of 50.0-59.9, adult Is this a current diagnosis for this admission?: Yes (7) BRAN (obstructive sleep apnea) Is this a current diagnosis for this admission?: Yes (8) SIRS (systemic inflammatory response syndrome) Is this a current diagnosis for this admission?: Yes - Inpatient Certification Based on my medical assessment, after consideration of the patient's comorbidities, presenting symptoms, or acuity I expect that the services needed warrant INPATIENT care.: No I certify that my determination is in accordance with my understanding of Medicare's requirements for reasonable and necessary INPATIENT services [42 CFR 412.3e].: No Post Hospital Care: D/C Cuff Cutter Documentation - Plan Summary Plan Summary: Patient to be out of bed to chair 3 times daily. Have ordered a rolling walker for patient. She has a Rollator at home. At this time, I am hard pressed to find why patient cannot be cared for at home and will have home health established for this patient and if she is unable to attend rehabilitation tomorrow we will discharge patient home with home health.
[2016-10-15] MEDS: DOCUSATE SODIUM 100 MG CAPSULE PO SCH (18:34)
[2016-10-15] MEDS: MONTELUKAST SODIUM 10 MG TABLET PO SCH (18:34)
[2016-10-15] MEDS: ATORVASTATIN CALCIUM 20 MG TABLET PO SCH (18:34)
[2016-10-15] MEDS: AMLODIPINE BESYLATE 10 MG TABLET PO SCH (21:38)
[2016-10-15] MEDS: FAMOTIDINE 20 MG TABLET PO SCH (21:39)
[2016-10-16] MEDS: IPRATROPIUM/ALBUTEROL 120 PUFF/4 GM MDI IH SCH ×3 (00:52→11:03)
[2016-10-16] MEDS: PHENYTOIN SODIUM EXTENDED 100 MG CAPSULE PO SCH ×2 (05:48→16:04)
[2016-10-16] MEDS: SULFASALAZINE 500 MG TABLET.DR PO SCH ×2 (05:48→16:02)
--- NOTE | 2016-10-16 10:43 | PDOC TRANSFER SUMMARY ---
General - Admit/Disc Date/PCP Admission Date/Primary Care Provider: 10/06/16 13:22 DIANA NICHOLS PA-C Discharge Date: 10/16/16 - Discharge Diagnosis (1) SIRS (systemic inflammatory response syndrome) Is this a current diagnosis for this admission?: Yes (2) Polypharmacy Is this a current diagnosis for this admission?: Yes (3) Chest pain Is this a current diagnosis for this admission?: Yes (4) Encephalopathy acute Is this a current diagnosis for this admission?: Yes (5) Opiate dependence, continuous Is this a current diagnosis for this admission?: Yes (6) Viral gastroenteritis Is this a current diagnosis for this admission?: Yes (7) BRAN (obstructive sleep apnea) Is this a current diagnosis for this admission?: Yes (8) Morbid obesity with BMI of 50.0-59.9, adult Is this a current diagnosis for this admission?: Yes (9) Rheumatoid arthritis Is this a current diagnosis for this admission?: Yes (10) Sinus tachycardia Is this a current diagnosis for this admission?: Yes - Additional Information Resuscitation Status: Full Code Discharge Diet: Cardiac, Diabetic Discharge Activity: Activity As Tolerated Home Medications: Albuterol Sulfate [Ventolin Hfa] 2 puff IH Q4 PRN 10/05/16 Amlodipine Besylate [Norvasc 10 mg Tablet] 10 mg PO DAILY 10/05/16 Atorvastatin Calcium [Lipitor 20 mg Tablet] 20 mg PO DAILY 10/05/16 Celecoxib [Celebrex 200 mg Capsule] 200 mg PO Q12 10/05/16 Cetirizine HCl [Zyrtec 10 mg Tablet] 10 mg PO DAILY 10/05/16 Cevimeline HCl [Evoxac] 30 mg PO TID 10/05/16 Clopidogrel Bisulfate [Plavix 75 mg Tablet] 75 mg PO DAILY 10/05/16 Docusate Sodium [Dok] 100 mg PO BID 10/05/16 Duloxetine HCl [Cymbalta] 60 mg PO Q12 10/05/16 Ergocalciferol (Vitamin D2) [Drisdol 50,000 unit (1.25MG) Capsule] 50,000 unit PO Q4VIPSN 10/05/16 Famotidine [Pepcid 40 mg Tablet] 40 mg PO QHS 10/05/16 Folic Acid [Folvite 1 mg Tablet] 1 mg PO DAILY 10/05/16 Furosemide [Lasix 80 mg Tablet] 80 mg PO QAM 10/05/16 Ketorolac Tromethamine [Toradol 10 mg Tablet] 10 mg PO Q6HP PRN 10/05/16 Lisinopril [Prinivil 5 mg Tablet] 5 mg PO DAILY 10/05/16 Metformin HCl [Glucophage] 1,000 mg PO [id number] PRN 10/05/16 Methotrexate Sodium [Methotrexate] 15 mg PO TH@1000 10/05/16 Metoprolol Succinate [Toprol XL 100 mg Tablet] 100 mg PO Q12 10/05/16 Montelukast Sodium [Singulair 10 mg Tablet] 10 mg PO QPM 10/05/16 Mupirocin [Bactroban 2% Ointment 22 gm] 1 applic NASL PRN PRN 10/05/16 Pnv with Ca,No.72/Iron/FA [Pnv Plus Multivit Tab] 1 each PO DAILY 10/05 Potassium Chloride 20 meq PO DAILY 10/05/16 Pregabalin [Lyrica] 150 mg PO Q12 10/05/16 Spironolactone [Aldactone 25 mg Tablet] 25 mg PO DAILY 10/05/16 Sulfasalazine [Sulfazine] 500 mg PO TID 10/05/16 Tizanidine HCl [Zanaflex 4 mg Tablet] 4 mg PO Q8HP PRN 10/05/16 Verapamil HCl [Calan 120 mg Tablet] 120 mg PO DAILY 10/05/16 Etanercept [Enbrel] 50 mg SUBCUT 6XD 10/08/16 Carbamide Peroxide [Debrox 6.5 % Otic Drops 15 ml] 4 drop QID bottle Morphine Sulfate [Ms-Contin Sr 100 mg Tablet] 100 mg PO Q12HP PRN #14 tablet.sa 10/16/16 Nystatin [Mycostatin 500,000 Unit/5 ml Susp Udcup] 500,000 unit PO QID udc Prednisone [Deltasone 10 mg Tablet] 10 mg PO WBRKFST tablet 10/16/16 Silver Sulfadiazine [Silvadene 1% Cream 25 gm] 1 applic TP TID tube 10/16/16 History of Present Illness Admission Date/PCP: 10/06/16 13:22 DIANA NICHOLS PA-C History of Present Illness: BERT MOE is a 56 year old female with a complex past medical history including lupus, rheumatoid arthritis, congestive heart failure, diabetes, Morbid obesity, diabetes, hypertension, dyslipidemia, opiate dependent chronic pain, recurrent falls and medication misuse resulting in rhabdomyolysis and renal failure. Patient was brought to the emergency room after 2 hours of altered mental status noted by home health preschool teacher's assistant. In the emergency room she was oriented only 1, with fever, hypertension and tachycardia. She otherwise has an unremarkable workup including CT of the head, abdomen and pelvis, chest x-ray and lumbar puncture. Subsequently patient complained of chest pain. Hospital Course Hospital Course: Patient was admitted to a continuous telemetry unit and serial cardiac enzymes were obtained, which were not suggestive. Patient remained afebrile after admission. Patient had no events on telemetry, but was noted to have significant chest pain and sinus tachycardia. Dr. PATRICIA cardiology was consulted. Patient underwent cardiac stress test which was unremarkable for any reversible ischemia she does have a large area of uptake in her right axilla which does note a enlarged lymph node, but radiology did not feel that this was worrisome. An ultrasound was performed of this area. Patient is advised to follow this in an outpatient setting. Patient's symptoms of gastroenteritis have completely resolved. Her mentation is at baseline. And she has been ready for discharge to rehab for the past 5 days. Patient will need to use CPAP nightly and also may use her own home medications. Physical Exam Vital Signs: Temp Pulse Resp BP Pulse Ox 98.3 F 112 H 21 H 121/70 100 10/16/16 00:00 10/16/16 00:00 10/16/16 00:00 10/16/16 00:00 10/16/16 00:00 Intake & Output 10/15/16 10/16/16 10/17/16 06:59 06:59 06:59 Intake Total 2170 953 Balance 2170 953 Weight 137.8 kg Exam: General: Awake alert and oriented x3, no acute respiratory distress HEENT: AT/NC, PERRL, EOMI, oropharynx is moist, pink, no scleral icterus, no conjunctival injection Neck: No JVD, trachea midline Chest: Clear to auscultation bilaterally CV: Regular rate and rhythm, normal S1 and S2, no murmur, rub, or gallop Abdomen: Protuberant, soft, nontender to palpation, nondistended, active bowel sounds; no rebound, rigidity, or guarding Extremities: No cyanosis, clubbing; 1+ edema Neuro: Cranial nerves II through XII are grossly intact without focal deficits; awake alert and oriented x3 Psych: Normal mood and affect Results Laboratory Results: 10/07/16 10/08/16 10/08/16 20:45 03:10 09:26 Troponin I 0.022 0.023 0.017 10/12/16 21:05 Troponin I < 0.012 Impressions: Head CT 10/04/16 00:00 IMPRESSION: NORMAL BRAIN CT WITHOUT CONTRAST. Chest X-Ray 10/04/16 15:37 IMPRESSION: NO ACUTE RADIOGRAPHIC FINDING IN THE CHEST. Abdomen/Pelvis CT 10/04/16 21:06 IMPRESSION: NO ACUTE FINDINGS WITHIN THE ABDOMEN OR PELVIS. NO SIGNIFICANT CHANGE FROM PRIOR STUDY. Extremity Ultrasound 10/10/16 14:14 IMPRESSION: A FEW LYMPH NODES IN THE LEFT AXILLA WHICH DO NOT HAVE WORRISOME SONOGRAPHIC FEATURES. NO EVIDENCE OF ABSCESS ON EITHER SIDE. Transfer Plan - Time Spent with Patient Time spent with patient: Less than 30 Minutes Qualifiers PATEINT BEING DISCHARGED WITH ANY OF THE FOLLOWING DIAGNOSIS?: No Plan Time Spent: Less than 30 Minutes
[2016-10-16] MEDS: NYSTATIN 500000 UNIT/5 ML UDCUP PO SCH ×2 (10:57→16:04)
[2016-10-16] MEDS: PREDNISONE 10 MG TABLET PO SCH (10:57)
[2016-10-16] MEDS: METFORMIN HCL 500 MG TABLET PO SCH ×2 (10:57→16:03)
[2016-10-16] MEDS: POTASSIUM CHLORIDE 10 MEQ TABLET.SA PO SCH (10:57)
[2016-10-16] MEDS: DOCUSATE SODIUM 100 MG CAPSULE PO SCH (10:58)
[2016-10-16] MEDS: PRENATAL VITAMIN W-O CA NO5/FE FUMARATE/FA CAPSULE PO SCH (10:58)
[2016-10-16] MEDS: VERAPAMIL HCL 120 MG TABLET PO SCH (10:58)
[2016-10-16] MEDS: DULOXETINE HCL 30 MG CAPSULE.DR PO SCH (10:58)
[2016-10-16] MEDS: ASPIRIN 325 MG TABLET PO SCH (10:59)
[2016-10-16] MEDS: FOLIC ACID 1 MG TABLET PO SCH (10:59)
[2016-10-16] MEDS: SPIRONOLACTONE 25 MG TABLET PO SCH (10:59)
[2016-10-16] MEDS: LISINOPRIL 5 MG TABLET PO SCH (10:59)
[2016-10-16] MEDS: FUROSEMIDE 80 MG TABLET PO SCH (10:59)
[2016-10-16] MEDS: CLOPIDOGREL BISULFATE 75 MG TABLET PO SCH (10:59)
[2016-10-16] MEDS: PREGABALIN 75 MG CAPSULE PO SCH (10:59)
[2016-10-16] MEDS: CARBAMIDE PEROXIDE 6.5% OTIC SOLN 15 ML AS SCH ×2 (11:00→16:08)
[2016-10-16] MEDS: METOPROLOL SUCCINATE 50 MG TAB.SR.24H PO SCH (11:03)
[2016-10-16] MEDS: CETIRIZINE 10 MG TABLET PO SCH (11:03)
[2016-10-16] MEDS: SILVER SULFADIAZINE 1% CREAM 25 GM TP SCH ×2 (11:04→16:02)
[2016-10-16 16:15] VITALS: BP 99/59
[2016-10-17] MEDS ORDERED: METHOTREXATE SODIUM 2.5 MG TABLET PO SCH (10:00)
[2016-10-21] MEDS ORDERED: ERGOCALCIFEROL (VITAMIN D2) 50000 UNIT (1.25 MG) CAPSULE PO SCH (10:00)
--- NOTE | 2016-11-01 19:45 | PDOC H&P ---
History of Present Illness Admission Date/PCP: 10/04/16 22:47 DIANA NICHOLS PA-C Patient complains of: Altered mental status History of Present Illness: BERT MOE is a 56 year old female with a complex past medical history including lupus, rheumatoid arthritis, congestive heart failure, diabetes, Morbid obesity, diabetes, hypertension, dyslipidemia, opiate dependent chronic pain, recurrent falls and medication misuse resulting in rhabdomyolysis and renal failure. Patient was brought to the emergency room after 2 hours of altered mental status noted by home health horticultural nursery assistant. In the emergency room she is oriented only 1, with fever, hypertension and tachycardia. She otherwise has an unremarkable workup including CT of the head, abdomen and pelvis, chest x-ray and lumbar puncture. She's referred to the hospitalist for admission. Past Medical History Cardiac Medical History: Reports: Hyperlipidema, Hypertension, Heart Murmur Denies: Atrial Fibrillation, Congestive Heart Failure, Coronary Artery Disease, Myocardial Infarction, Peripheral Vascular Disease, Pulmonary Embolism Pulmonary Medical History: Reports: Asthma, Bronchitis, Pneumonia, Sleep Apnea Denies: Chronic Obstructive Pulmonary Disease (COPD), Respiratory Failure, Tuberculosis Neurological Medical History: Denies: Seizures Endocrine Medical History: Reports: Diabetes Mellitus Type 2, Obesity - BMI 57 Denies: Hyperthyroidism, Hypothyroidism Malignancy Medical History: Denies: Leukemia, Lung Cancer GI Medical History: Reports: Crohn's Disease, Hiatal Hernia Denies: Gastroesophageal Reflux Disease Musculoskeltal Medical History: Reports: Arthritis, Fibromyalgia Psychiatric Medical History: Reports: Depression, Personality Disorder Denies: Bipolar Disorder, Dementia, Post Traumatic Stress Disorder Hematology: Reports: Anemia Denies: Hemophilia, Sickle Cell Disease Infectious Medical History: Denies: HIV Past Surgical History Past Surgical History: Reports: Section, Hysterectomy Denies: Amputation, Appendectomy, Cholecystectomy, Colostomy, Coronary Artery Bypass Graft, Gastric Bypass Surgery, Herniorrhaphy, Mastectomy, Pacemaker, Tonsillectomy, Tubal Ligation Social History Information Source: [facility] Records Lives with: Alone Smoking Status: Never Smoker Frequency of Alcohol Use: None Hx Recreational Drug Use: No Drugs: None Hx Prescription Drug Abuse: Yes - April 2016 - Advance Directive Resuscitation Status: Full Code Family History Family History: DM, Hypertension Parental Family History Reviewed: Yes Children Family History Reviewed: Yes Sibling(s) Family History Reviewed.: Yes Medication/Allergy Home Medications: Aspirin [Aspirin 325 mg Tablet] 325 mg PO DAILY 05/14/16 Celecoxib 200 mg PO BIDBS 05/14/16 Cetirizine HCl [Zyrtec 10 mg Tablet] 10 mg PO QPM 05/14/16 Clopidogrel Bisulfate [Clopidogrel] 75 mg PO DAILY 05/14/16 Famotidine 40 mg PO QHS 05/14/16 Folic Acid [Folvite 1 mg Tablet] 1 mg PO DAILY 05/14/16 Furosemide 80 mg PO DAILY 05/14/16 Ipratropium/Albuterol Sulfate [Combivent Respimat Inhal [place]] 1 puff IH QID Lisinopril 5 mg PO QAM 05/14/16 Metformin HCl [Glucophage] 1,000 mg PO BIDBS 05/14/16 Methotrexate Sodium [Methotrexate] 15 mg PO ASDIR PRN 05/14/16 Metoprolol Tartrate 25 mg PO Q12 05/14/16 Montelukast Sodium 10 mg PO QAM 05/14/16 Morphine Sulfate [Morphine Sulfate ER] 100 mg PO Q12HP PRN 05/14/16 Pnv with Ca,No.72/Iron/FA [ Plus Tablet] 1 tab PO DAILY 05/14/16 Prednisone 10 mg PO WBRKFST 05/14/16 Pregabalin [Lyrica] 150 mg PO Q12 05/14/16 Spironolactone 25 mg PO QAM 05/14/16 Amlodipine Besylate [Norvasc 10 mg Tablet] 5 mg PO DAILY 10/05/16 Atorvastatin Calcium [Lipitor 20 mg Tablet] 20 mg PO QPM 10/05/16 Cevimeline HCl 1 cap PO TID 10/05/16 Dicyclomine HCl 20 mg PO TID 10/05/16 Duloxetine HCl [Cymbalta] 60 mg PO BID 10/05/16 Ergocalciferol (Vitamin D2) [Vitamin D2] 1 tab PO [id number] 10/05/16 Phenytoin Sodium Extended 100 mg PO BID 10/05/16 Potassium Chloride 20 meq PO DAILY 10/05/16 Silver Sulfadiazine [Silvadene 1% Cream 25 gm] 1 applic TP TID 10/05/16 Allergies/Adverse Reactions: ibuprofen [Ibuprofen] Allergy (Severe, Verified 04/24/16 14:54) Chest pain Review of Systems ROS unobtainable: Due to mental status - Oriented 1 only Physical Exam Vital Signs: Temp Pulse Resp BP Pulse Ox 98.8 F 131 H 21 H 171/77 H 100 10/05/16 03:51 10/05/16 03:51 10/05/16 03:51 10/05/16 03:51 10/05/16 03:51 Intake & Output 10/03/16 10/04/16 10/05/16 11:59 11:59 11:59 Weight 137.6 kg General appearance: PRESENT: no acute distress, disheveled, obese. ABSENT: mild distress, morbidly obese Head exam: PRESENT: atraumatic, normocephalic Eye exam: PRESENT: EOMI, PERRLA, other - Pupils 5 mm symmetric and sluggishly reactive. ABSENT: scleral icterus Ear exam: PRESENT: normal external ear exam Mouth exam: PRESENT: moist, neck supple, tongue midline Neck exam: ABSENT: carotid bruit, JVD, lymphadenopathy, thyromegaly Respiratory exam: PRESENT: clear to auscultation chen. ABSENT: rales, rhonchi, wheezes Cardiovascular exam: PRESENT: RRR. ABSENT: diastolic murmur, rubs, systolic murmur Pulses: PRESENT: normal dorsalis pedis pul Vascular exam: PRESENT: normal capillary refill GI/Abdominal exam: PRESENT: normal bowel sounds, soft. ABSENT: distended, guarding, mass, organolmegaly, rebound, tenderness Rectal exam: PRESENT: deferred Extremities exam: PRESENT: full ROM. ABSENT: calf tenderness, clubbing, pedal edema Neurological exam: PRESENT: altered, awake, oriented to person, CN II-XII grossly intact. ABSENT: oriented to place, oriented to time, oriented to situation, reflexes normal Psychiatric exam: PRESENT: flat affect Skin exam: PRESENT: dry, intact, warm. ABSENT: cyanosis, rash Results Impressions: Head CT 10/04/16 00:00 IMPRESSION: NORMAL BRAIN CT WITHOUT CONTRAST. Chest X-Ray 10/04/16 15:37 IMPRESSION: NO ACUTE RADIOGRAPHIC FINDING IN THE CHEST. Abdomen/Pelvis CT 10/04/16 21:06 IMPRESSION: NO ACUTE FINDINGS WITHIN THE ABDOMEN OR PELVIS. NO SIGNIFICANT CHANGE FROM PRIOR STUDY. Assessment & Plan - Diagnosis (1) Encephalopathy acute Is this a current diagnosis for this admission?: YesPlan: Acute problem unclear cause unremarkable workup for infection most likely polypharmacy follow-up CBC chemistry an ESR (2) Polypharmacy Is this a current diagnosis for this admission?: YesPlan: Recent history of polypharmacy requiring admission for rhabdomyolysis and acute renal failure. Patient is on morphine 100 twice a day, Lyrica, Bentyl, phenytoin. I'll obtain a phenytoin level and otherwise supportive care resuming reduce dose morphine to avoid asher withdrawal (3) Chronic pain Is this a current diagnosis for this admission?: YesPlan: Resume low-dose morphine to avoid withdrawal (4) Morbid obesity with BMI of 50.0-59.9, adult Is this a current diagnosis for this admission?: YesPlan: Supportive care and BiPAP obtain TSH consider dietitian consult (5) BRAN (obstructive sleep apnea) Is this a current diagnosis for this admission?: YesPlan: BiPAP support while asleep - Time Time Spent: 50 to 70 Minutes - Inpatient Certification Medical Necessity: Need Close Monitoring Due to Risk of Patient Decompensation
== END 2016-10-16 16:50 | DRG 391 ==
LOC: ER 14:42 → INTOOBSV 22:47 → EH 22:47 → 4S 10-05 02:02 → OBSVTOIN 10-06 13:22
PROVIDERS: ADMIT Internal Medicine; ATTEND Internal Medicine
PROC: 009U3ZX Drainage of Spinal Canal, Percutaneous Approach, Diagnostic (ICD-10-PCS; principal; 2016-10-04)
DX: A08.4 Viral intestinal infection, unspecified (principal); G93.40 Encephalopathy, unspecified; Z68.43 Body mass index [BMI] 50.0-59.9, adult; K50.90 Crohn's disease, unspecified, without complications; R65.10 Systemic inflammatory response syndrome (SIRS) of non-infectious origin without acute organ dysfunction; M06.9 Rheumatoid arthritis, unspecified; M32.9 Systemic lupus erythematosus, unspecified; E66.01 Morbid (severe) obesity due to excess calories; G47.33 Obstructive sleep apnea (adult) (pediatric); E78.5 Hyperlipidemia, unspecified; E78.1 Pure hyperglyceridemia; R59.0 Localized enlarged lymph nodes; E11.9 Type 2 diabetes mellitus without complications; I11.0 Hypertensive heart disease with heart failure; I50.9 Heart failure, unspecified; G89.29 Other chronic pain; H92.02 Otalgia, left ear; M79.7 Fibromyalgia; R00.0 Tachycardia, unspecified; E86.0 Dehydration; R07.9 Chest pain, unspecified; D64.9 Anemia, unspecified; F32.9 Major depressive disorder, single episode, unspecified; Z86.73 Personal history of transient ischemic attack (TIA), and cerebral infarction without residual deficits; Z92.25 Personal history of immunosuppression therapy; Z82.49 Family history of ischemic heart disease and other diseases of the circulatory system; Z79.891 Long term (current) use of opiate analgesic; Z91.81 History of falling; Z83.3 Family history of diabetes mellitus; Z79.84 Long term (current) use of oral hypoglycemic drugs; Z88.6 Allergy status to analgesic agent; Z79.02 Long term (current) use of antithrombotics/antiplatelets; Z79.899 Other long term (current) drug therapy
CPT/HCPCS: 36415; 70450; 71010; 74177; 76882; 78452; 80053; 80061; 80185; 80307; 81001; 82272; 82550; 82553; 82945; 82962; 83735; 84157; 84443; 84484; 85025; 85652; 87040; 87045; 87070; 87205; 87493; 89050; 93005; 93010; 93017; 93306; 96361; 96365; 96375; 99291; 99292; A9500; G0378; J0280; J0696; J1160; J2060; J2405; J2785; J3370; J3475; J3490; J7040; J7512; J8610; Q9969

== ENCOUNTER 2016-11-10 16:06 | Inpatient (IN) | payer MEDICARE, MEDICAID ==
[2016-11-10] MEDS ORDERED: NALOXONE HCL INJ/PF 0.4 MG/1 ML SDV ONE (16:26)
[2016-11-10] MEDS ORDERED: NORMAL SALINE 1000 ML 1,000 ML IV ONE (16:40)
[2016-11-10] MEDS ORDERED: NALOXONE HCL INJ/PF 0.4 MG/1 ML SDV IV ONE (16:41)
--- NOTE | 2016-11-10 16:41 | ER Document Report ---
ED General - General Mode of Arrival: Medic Information source: Patient, Relative - daughter TRAVEL OUTSIDE OF THE [place] IN LAST 30 DAYS: No - HPI Onset: Other - Refer to HPI note Similar symptoms previously: Yes Recently seen / treated by doctor: Yes <ADAM PALOMO - Last Filed: 11/10/16 22:55> <ROSARIO VÁSQUEZ - Last Filed: 11/10/16 23:57> - General Stated Complaint: WEAKNESS Time Seen by Provider: 11/10/16 16:18 Notes: Patient is a 56-year old female presenting to the emergency department for a fall and general weakness. Patient fell at home with her 10 year old granddaughter who was helping her get from her chair to the bathroom. Patient states she fell on her left side at approximately 12:00 today and complains of bilateral pelvic pain. Patient states she has no strength in her legs which is worse on the left. Patient has been weak and tired since this morning. Patient' s daughter states she left rehab on Friday and could walk normally; daughter has not seen her since Friday which is her last known time of wellness thus she is not a candidate for TPA. Patient is very confused and somnolent and takes 100 mg of morphine x2 per day. Proper history is obtained from the patient after narcan is administered and from the daughter. Patient is allergic to ibuprofen. (ADAM PALOMO) - Related Data Allergies/Adverse Reactions: ibuprofen [Ibuprofen] Allergy (Severe, Verified 11/10/16 19:01) Chest pain Past Medical History - General Information source: Patient - Social History Smoking Status: Never Smoker Cigarette use (# per day): No Chew tobacco use (# tins/day): No Frequency of alcohol use: None Drug Abuse: None Family History: CAD, DM, Hypertension Patient has suicidal ideation: No Patient has homicidal ideation: No - Past Medical History Cardiac Medical History: Reports: Hx Hypercholesterolemia, Hx Hypertension, Hx Heart Murmur - 05/31 systolic murmur Pulmonary Medical History: Reports: Hx Asthma, Hx Bronchitis, Hx Pneumonia, Hx Sleep Apnea Neurological Medical History: Reports: Hx Cerebrovascular Accident - 1992 Endocrine Medical History: Reports: Hx Diabetes Mellitus Type 2 GI Medical History: Reports: Hx Crohn's Disease, Hx Hiatal Hernia Musculoskeltal Medical History: Reports Hx Arthritis, Reports Hx Fibromyalgia, Reports Other - Sjogren's syndrome, Lupus Psychiatric Medical History: Reports: Hx Depression, Hx Personality Disorder Past Surgical History: Reports: Hx Section, Hx Hysterectomy - Immunizations Immunizations up to date: Yes Hx Diphtheria, Pertussis, Tetanus Vaccination: Yes Hx Pneumococcal Vaccination: 01/25/08 <ADAM PALOMO - Last Filed: 11/10/16 22:55> Review of Systems - Review of Systems Constitutional: No symptoms reported EENT: No symptoms reported Cardiovascular: No symptoms reported Respiratory: No symptoms reported Gastrointestinal: See HPI, Other - pelvic pain bilaterally Genitourinary: No symptoms reported Female Genitourinary: No symptoms reported Musculoskeletal: See HPI Skin: No symptoms reported Hematologic/Lymphatic: No symptoms reported Neurological/Psychological: See HPI, Confusion, Weakness -: Yes All other systems reviewed and negative <ADAM PALOMO - Last Filed: 11/10/16 22:55> Physical Exam <ADAM PALOMO - Last Filed: 11/10/16 22:55> <ROSARIO VÁSQUEZ - Last Filed: 11/10/16 23:57> - Vital signs Vitals: Resp Pulse Ox 12 97 11/10/16 16:19 11/10/16 16:19 - Notes Notes: GENERAL: Patient is somnolent, confused, and loses her train of thought easily. After 0.2 mg of Narcan IV was administered, the patient was more awake and alert, and less confused. HEAD: Normocephalic, atraumatic. Left sided facial droop. EYES: Pupils equal, round, and reactive to light. Extraocular movements intact. ENT: Oral mucosa moist, tongue midline. NECK: Full range of motion. Supple. Trachea midline. LUNGS: Clear to auscultation bilaterally, no wheezes, rales, or rhonchi. No respiratory distress. HEART: Regular rate and rhythm. 1/6 systolic murmur which is best heard in the RUSB. No gallops, or rubs. ABDOMEN: Obese. Soft, non-tender. Non-distended. Bowel sounds present in all 4 quadrants. EXTREMITIES: Pronator drift to the left arm, arm does not hit the bed. Patient cannot lift the left leg against gravity but is able to move her toes on the left side. Radial and dorsalis pedis pulses 2/4 bilaterally. Lower extremity edema. No cyanosis. NEUROLOGICAL: Alert and oriented x3. Normal speech. PSYCH: Flat affect. SKIN: Warm, dry, normal turgor. No rashes or lesions noted. (ADAM PALOMO) Course - Laboratory Result Diagrams: 11/10/16 18:00 11/10/16 18:00 - Consults Dr. Clark Time consulted: 20:01 <ADAM PALOMO - Last Filed: 11/10/16 22:55> - Laboratory Result Diagrams: 11/10/16 18:00 11/10/16 18:00 <ROSARIO VÁSQUEZ - Last Filed: 11/10/16 23:57> - Re-evaluation Re-evalutation: 11/10/16 19:50 Re-evaluated patient at this time. Discussed lab and radiology results with patient and patient's daughter. Patient has some increased movement to her left arm, decreased facial droop, and the exam of the left leg is unchanged. (ADAM PALOMO) 11/10/16 21:58 CBC shows anemia with hemoglobin 9.5, this is new from a month ago, platelets and white blood cells are normal, coags normal, chemistries show acute renal failure with a BUN of 15 and creatinine of 2.43, lactic acid is normal at 1.3, cardiac enzymes negative, urinalysis unremarkable, urine drug screen confirms opiates, alcohol level is less than 10. On arrival patient was hypotensive and quite somnolent, she does take 100 mg of morphine twice a day for chronic pain in addition to multiple other sedating medications. Patient was given 0.2 mg of Narcan IV, she immediately became more alert, was able to give a more accurate history and fully participate in the examination. While under the effects of the 0.2 mg of Narcan patient was able to fully cooperate with the examination and had an NIH stroke scale of 4. She was unable to move her left leg, had weakness in her left arm, had left- sided facial droop and was confused. CT scan of the head was negative. Time last known well was on Friday. Patient is obviously not a candidate for TPA as she has been abnormal for several days. Due to the patient's complaints of pain in her left hip I did perform x-ray and this was negative. Chest x-ray showed low lung volumes. Patient was hydrated with a liter of normal saline, hypotension resolved with Narcan and saline. Vazquez catheter was placed given the acute renal failure. Discussed the patient with Dr. Clark who agrees to accept the patient to his service for stroke and acute renal failure. (ROSARIO VÁSQUEZ) - Vital Signs Vital signs: Temp Pulse Resp BP Pulse Ox 97.6 F 87 14 158/86 H 98 11/10/16 23:01 11/10/16 21:00 11/10/16 23:01 11/10/16 23:01 11/10/16 23:01 - Laboratory Laboratory results interpreted by me: 11/10/16 11/10/16 11/10/16 18:00 18:00 18:00 Hgb 9.5 L Hct 30.5 L MCV 78 L MCH 24.3 L MCHC 31.1 L RDW 17.2 H Sodium 136.5 L BUN 50 H Creatinine 2.43 H Est GFR ( Amer) 25 L Est GFR (Non-Af Amer) 21 L Glucose 123 H AST 40 H Creatine Kinase 778 H Albumin 3.4 L TSH 0.19 L Urine Ascorbic Acid 11/10/16 20:54 Hgb Hct MCV MCH MCHC RDW Sodium BUN Creatinine Est GFR ( Amer) Est GFR (Non-Af Amer) Glucose AST Creatine Kinase Albumin TSH Urine Ascorbic Acid 40 H - EKG Interpretation by Me Additional EKG results interpreted by me: 11/10/16 21:59 EKG shows sinus rhythm at a rate of 91, rapid R-wave progression, normal axis, normal intervals, no ST segment elevations or depressions, there are T-wave inversions noted in lead III per my interpretation. (ROSARIO VÁSQUEZ) - Consults Dr. Clark Reason for consultation: 11/10/16 20:01 Attempted to contact emelina Wan on his line. 11/10/16 20:14 Attempted to contact emelina Wan signal on his line. 11/10/16 21:00 Attempted to contact emelina Wan on his line. 11/10/16 21:[address] Clark, he is currently with a patient and states he will call back. 11/10/16 21:[address] Clark, discussed patient with him. He will admit patient to IMCU. (ADAM PALOMO) Critical Care Note - Critical Care Note Total time excluding time spent on procedures (mins): 35 <ROSARIO VÁSQUEZ - Last Filed: 11/10/16 23:57> Discharge <ADAM PALOMO - Last Filed: 11/10/16 22:55> - Discharge Admitting Provider: [facility] Unit Admitted: IMCU <ROSARIO VÁSQUEZ - Last Filed: 11/10/16 23:57> - Discharge Clinical Impression: Acute CVA (cerebrovascular accident), Opiate dependence, continuous, Polypharmacy, Morbid obesity with BMI of 50.0-59.9, adult Acute renal failure Qualifiers: Acute renal failure type: unspecified Qualified Code(s): N17.9 - Acute kidney failure, unspecified Condition: Fair Disposition: ADMITTED INPATIENT Scribe Attestation: 11/10/16 23:57 I personally performed the services described in the documentation, reviewed and edited the documentation which was dictated to the scribe in my presence, and it accurately records my words and actions. (ROSARIO VÁSQUEZ) ED NIH Stroke Scale - NIH Stroke Scale When completed:: Protocol *: 1. NIH scale should be completed with appropriate accompanying assessment tools. *: 2. The NIH should reflect what the patient is capable of doing and should not be coached by the clinician. 1a. Level of Consciousness: 0=Alert;keenly responsive -: 1=Drowsy -: 2=Obtunded -: 3=Coma/unresponsive or reflex to noxious stimuli. 1a. Responses: 1 1b. Orientation Questions: a. What month is it? -: b. How old are you? -: 0=Answers both questions correctly. -: 1=Answers one question correctly or patient is intubated or has orotracheal trauma. -: 2=Answers neither question correctly. 1b. Responses: 0 1c. Response to commands: a. Open and close eyes? -: b. Business Practices Supervisor and release hand? -: Credit is given despite weakness. Demonstration of task is permitted. Substitute command if hands cannot be used. -: 0=Performs both tasks correctly -: 1=Performs one task correctly -: 2=Performs neither task correctly 1c. Responses: 0 2. Gaze: Establish eye contact and instruct patient to "Follow my finger" -: 0=Normal -: 1=Partial gaze palsy. Gaze is abnormal in one or both eyes, but where forced deviation or total gaze paresis is not present. -: 2=Forced deviation or total gaze paresis. 2. Responses: 0 3. Visual Dukes: Sees fingers in all four quadrants. -: 0=No visual loss. -: 1=Partial hemianopsia. -: 2=Complete hemianopsia. -: 3=Bilateral hemianopsia (including Cortical blindness) 3. Responses: 0 4. Facial Movement: Instruct patient to: -: a. Show me your teeth -: b. Raise your eyebrows -: c. Close your eyes -: d. Smile -: 0=Normal symmetrical movement -: 1=Minor paralysis (flattened nasolabial fold, asymmetry on smiling). -: 2=Partial paralysis (total or near total paralysis of lower face). -: 3=Complete paralysis of upper and lower face 4. Responses: 1 5. Motor functions (left arm): Alternate sides and extend each arm with palms down (90 degrees if sitting or 45 degrees for supine). -: 0=No drift;limb holds for full 10 seconds. -: 1=Drift; limb holds but drifts down before full 10 seconds, but does not hit bed. -: 2=Some effort against gravity; limb cannot get to or maintain position. -: 3=No effort against gravity; limb falls. -: 4=No movement. -: UN=Amputation, joint fusion, explain in comments. 5. Responses (left arm): 1 5. Motor Functions (right arm): Alternate sides and extend each arm with palms down (90 degrees if sitting or 45 degrees for supine). -: 0=No drift;limb holds for full 10 seconds. -: 1=Drift; limb holds but drifts down before full 10 seconds, but does not hit bed. -: 2=Some effort against gravity; limb cannot get to or maintain position. -: 3=No effort against gravity; limb falls. -: 4=No movement. -: UN=Amputation, joint fusion, explain in comments. 5. Responses (right arm): 0 6. Motor Functions (left leg): With patient lying supine, alternate sides and extend each leg (30 degrees always while supine). -: 0=No drift, leg holds position for full 5 seconds -: 1=Drift; leg falls before full 5 seconds but does not hit bed. -: 2=Some effort against gravity, leg falls to bed but some effort against gravity. -: 3=No effort against gravity, leg falls to bed immediately. -: 4=No movement. -: UN=Amputation, joint fusion; explain in comments. 6. Responses (left leg): 1 6. Motor Functions (right leg): With patient lying supine, alternate sides and extend each leg (30 degrees always while supine). -: 0=No drift, leg holds position for full 5 seconds -: 1=Drift; leg falls before full 5 seconds but does not hit bed. -: 2=Some effort against gravity, leg falls to bed but some effort against gravity. -: 3=No effort against gravity, leg falls to bed immediately. -: 4=No movement. -: UN=Amputation, joint fusion; explain in comments. 6. Responses (right leg): 0 7. Limb Ataxia: With eyes open instruct patient to: -: a. "Touch your finger to your nose". -: b. "Touch your heel to your richardson" -: 0=Absent -: 1=Present in one limb. -: 2=Present in two limbs. -: UN=Amputation or joint fusion; explain in comments. 7. Responses: 0 8. Sensory: Test sensation using pinprick or noxious stimuli. Test as many body parts as possible. -: 0=Normal;no sensory loss -: 1=Mile to moderate sensory loss (patient feels pin prick but is less sharp on affected side). -: 2=Severe or total sensory loss. 8. Responses: 0 9. Best Language: Instruct patient to: -: a. "Describe what you see in this picture." -: b. "Name the items in this picture." -: c. "Read these sentences." -: 0=No aphasia, normal -: 1=Mild to moderate aphasia. -: 2=Severe aphasia -: 3=Mute, global aphasia, no usable speech or auditory comprehension. 9. Responses: 0 10. Articulation, Dysarthia: Instruct patient to: -: "Read these words" or "Repeat these words" -: 0=Normal -: 1=Mild to moderate; patient may slur some words but can be understood without difficulty. -: 2=Severe; patients speech so slurred as to be unintelligible in the absence of dysphasia. -: UN=Intubated or other physical barrier, explain in comments. 10. Responses: 0 11. Extinction or inattention: 0=No abnormality -: 1= Visual, tactile, auditory, spatial, or personal inattention or extinction to bilateral simulation in one or the sensory modalities. -: 2=Profound pamela-inattention or pamela-inattention to more than one modality; does not recognize own hand. 11. Responses: 0 Total Score: 4 <ADAM PALOMO - Last Filed: 11/10/16 22:55> Scribe Documentation - Scribe Written by Scribe:: Tim Malloy 11/10/16 19:19 acting as scribe for :: Ryan <ADAM PALOMO - Last Filed: 11/10/16 22:55> ED [employer]/Exc Criteria - Date/Time patient last known well: Date/Time: 11/05/16 - Date/Time patient arrived in ED: _: 11/10/16 - Inclusion Criteria: 1: Patient presented to ED within 3 hours of acute ischemic stroke symptom onset ? -: No 2: Did baseline CT exclude intracranial hemorrhage and/or other risk factors? -: Yes 3: Is the age of the patient 18 years of age or greater? -: Yes : If any of the above questions are answered "NO" then stop, patient is not a candidate for Alteplase, : If all of the above questions are answered "YES" then continue with Exclusion Criteria. - The patient is: -: Included and is eligible to receive Alteplase. *Initiate bed placement at higher level of care* --: No Reviewd risks & benefits of thrombolytic therapy: I have reviewed the risks and benefits of thrombolytic therapy with the patient and/or his/her family. -: Excluded and not eligible to receive Alteplase for the above exclusions. --: Yes -: Excluded and not eligible to receive Alteplase for other reasons (specify in comments): <ROSARIO VÁSQUEZ - Last Filed: 11/10/16 23:57>
--- NOTE | 2016-11-10 17:16 | RADIOLOGY REPORT (SQ) ---
EXAM DESCRIPTION: CT HEAD WITHOUT COMPLETED DATE/TIME: 11/10/2016 4:44 pm REASON FOR STUDY: ams COMPARISON: 10/04/2016 TECHNIQUE: Axial images acquired through the brain without intravenous contrast. Images reviewed wi th bone, brain and subdural windows. Images stored on PACS. All CT scanners at this facility use dose modulation, iterative reconstruction, and/or weight based d osing when appropriate to reduce radiation dose to as low as reasonably achievable (ALARA). [facility]: Dose Right [facility]: CareDose [facility]: Dose Right [facility]: Teradose 4D [facility]: [employer] RADIATION DOSE: 62.95 mGy. LIMITATIONS: None. FINDINGS: VENTRICLES: Normal size and contour. CEREBRUM: No masses. No hemorrhage. No midline shift. Normal meade/white matter differentiation. N o evidence for acute infarction. CEREBELLUM: No masses. No hemorrhage. No alteration of density. No evidence for acute infarction. EXTRAAXIAL SPACES: No fluid collections. No masses. ORBITS AND GLOBE: No intra- or extraconal masses. Normal contour of globe without masses. CALVARIUM: No fracture. PARANASAL SINUSES: No fluid or mucosal thickening. SOFT TISSUES: No mass or hematoma. OTHER: No other significant finding. IMPRESSION: No acute intracranial abnormality. TECHNICAL DOCUMENTATION: JOB ID: [id number] Quality ID # [id number]: Final reports with documentation of one or more dose reduction techniques (e.g., Au tomated exposure control, adjustment of the mA and/or kV according to patient size, use of iterative reconstruction technique) 2010 [employer]- All Rights Reserved
--- NOTE | 2016-11-10 17:52 | RADIOLOGY REPORT (SQ) ---
EXAM DESCRIPTION: CHEST SINGLE VIEW COMPLETED DATE/TIME: 11/10/2016 5:34 pm REASON FOR STUDY: fatigue, possible stroke COMPARISON: 05/14/2016 EXAM PARAMETERS: NUMBER OF VIEWS: One view. TECHNIQUE: Single frontal radiographic view of the chest acquired. RADIATION DOSE: NA LIMITATIONS: None. FINDINGS: LUNGS AND PLEURA: Decreased lung volumes. No focal infiltrates. No pneumothorax. No sig nificant effusion. MEDIASTINUM AND HILAR STRUCTURES: No masses. Contour normal. HEART AND VASCULAR STRUCTURES: Cardiac size is stable. No pulmonary vascular congestion. There is s ome vascular crowding due to low lung volumes. BONES: No acute findings. HARDWARE: None in the chest. OTHER: No other significant finding. IMPRESSION: Small lung volumes with vascular crowding. No focal infiltrates. TECHNICAL DOCUMENTATION: JOB ID: [id number]
--- NOTE | 2016-11-10 17:53 | RADIOLOGY REPORT (SQ) ---
EXAM DESCRIPTION: HIP LEFT AP/LATERAL COMPLETED DATE/TIME: 11/10/2016 5:34 pm REASON FOR STUDY: fall, left leg pain, wkns COMPARISON: None. NUMBER OF VIEWS: Two views. TECHNIQUE: AP pelvis and additional frog-leg view of the left hip. LIMITATIONS: None. FINDINGS: MINERALIZATION: Normal. LEFT HIP: No fracture or dislocation. No worrisome bone lesions. RIGHT HIP: No fracture or dislocation. No worrisome bone lesions. PUBIS AND ISCHIUM: No fracture. PELVIS: No fracture. SACRUM: No fracture or dislocation. No worrisome bone lesions. LOWER LUMBAR SPINE: No fracture or dislocation. No worrisome bone lesions. No significant disc disea se. SOFT TISSUES: No findings. OTHER: No other significant finding. IMPRESSION: NEGATIVE STUDY OF THE LEFT HIP AND PELVIS. NO RADIOGRAPHIC EVIDENCE OF ACUTE INJURY. TECHNICAL DOCUMENTATION: JOB ID: [id number] [employer]- All Rights Reserved
[2016-11-10 18:30] LABS: PROTHROMBIN TIME 14.1 SEC (11.4-15.4)
[2016-11-10 18:31] LABS: PARTIAL THROMBOPLASTIN TIME 27.5 SEC (23.5-35.8)
[2016-11-10 18:34] LABS: ABSOLUTE BASOPHILS # (AUTO) 0.1 10^3/uL (0.0-0.2); ABSOLUTE EOSINOPHILS # (AUTO) 0.1 10^3/uL (0.0-0.6); ABSOLUTE LYMPHOCYTES (AUTO) 1.3 10^3/uL (0.5-4.7); ABSOLUTE MONOCYTES (AUTO) 0.7 10^3/uL (0.1-1.4); ABSOLUTE NEUT (AUTO) 7.3 10^3/uL (1.7-8.2); BASOPHILS % (AUTO) 0.6 % (0-2); EOSINOPHILS % (AUTO) 0.9 % (0-6); HEMATOCRIT 30.5 % (36.0-47.0); HEMOGLOBIN 9.5 g/dL (12.0-15.5); LYMPHOCYTES % (AUTO) 14.3 % (13-45); MEAN CORPUSCULAR HEMOGLOBIN 24.3 pg (27.0-33.4); MEAN CORPUSCULAR HGB CONC 31.1 g/dL (32.0-36.0); MEAN CORPUSCULAR VOLUME 78 fl (80-97); RED CELL DISTRIBUTION WIDTH 17.2 % (11.5-14.0); SEGMENTED NEUTROPHILS % (AUTO) 77.2 % (42-78); WHITE BLOOD COUNT 9.4 10^3/uL (4.0-10.5)
[2016-11-10 18:53] LABS: ALANINE AMINOTRANSFERASE 35 U/L (9-52); ALBUMIN 3.4 g/dL (3.5-5.0); ALKALINE PHOSPHATASE 78 U/L (38-126); ANION GAP 12 (5-19); ASPARTATE AMINO TRANSFERASE 40 U/L (14-36); BILIRUBIN,DIRECT 0.4 mg/dL (0.0-0.4); BILIRUBIN,TOTAL 0.4 mg/dL (0.2-1.3); BLOOD UREA NITROGEN 50 mg/dL (7-20); CALCIUM 8.7 mg/dL (8.4-10.2); CARBON DIOXIDE 23 mmol/L (22-30); CHLORIDE 102 mmol/L (98-107); CREATINE KINASE 778 U/L (30-135); CREATININE RESULT 2.43 mg/dL (0.52-1.25); GLUCOSE 123 mg/dL (75-110); POTASSIUM 4.5 mmol/L (3.6-5.0); SODIUM 136.5 mmol/L (137-145); TOTAL PROTEIN 6.6 g/dL (6.3-8.2)
[2016-11-10 18:54] LABS: ALCOHOL < 10 mg/dL (NONE DETECTED)
[2016-11-10 19:16] LABS: TROPONIN I < 0.012 ng/mL
[2016-11-10 21:48] LABS: APPEARANCE,URINE SLIGHTLY-CLOUDY; BILIRUBIN,URINE NEGATIVE (NEGATIVE); GLUCOSE, URINE NEGATIVE (NEGATIVE); KETONES,URINE NEGATIVE (NEGATIVE); LEUKOCYTE ESTERASE,URINE NEGATIVE (NEGATIVE); NITRITE,URINE NEGATIVE (NEGATIVE); PROTEIN,URINE NEGATIVE (NEGATIVE); URINE SPECIFIC GRAVITY 1.012; UROBILINOGEN,URINE NEGATIVE mg/dL (<2.0)
[2016-11-10 21:49] LABS: URINE BARBITURATES SCREEN NEGATIVE; URINE METHADONE SCREEN NEGATIVE; URINE OPIATES LOW UNCONFIRMED POSITIVE; URINE PHENCYCLIDINE SCREEN NEGATIVE
[2016-11-10] MEDS ORDERED: ASPIRIN 325 MG TABLET PO ONE (21:51)
[2016-11-10 22:08] LABS: ADD ON TESTING BLD IN LAB ACKNOWLEDGE
[2016-11-10 22:23] LABS: MAGNESIUM 2.1 mg/dL (1.6-2.3)
[2016-11-10 22:43] LABS: VENOUS BLOOD BASE EXCESS -2.6 mmol/L; VENOUS BLOOD HCO3 25.2 mmol/L (20-32); VENOUS BLOOD PCO2 60.4 mmHg (35-63); VENOUS BLOOD PH 7.24 (7.30-7.42)
[2016-11-10 23:35] LABS: FREE T3 3.81 pg/mL (2.77-5.27)
[2016-11-11] MEDS ORDERED: NORMAL SALINE 1000 ML 1,000 ML IV PRN (00:30)
[2016-11-11] MEDS ORDERED: ACETAMINOPHEN 650 MG SUPP.RECT PR PRN (00:30)
--- NOTE | 2016-11-11 01:11 | PDOC H&P ---
History of Present Illness Admission Date/PCP: 11/10/16 22:12 [facility] Rheum Dr. Surendra Carlos Pain t Patient complains of: weakness History of Present Illness: BERT MOE is a 56 year old morbidly obese -[place]os[place] female with multiple underlying chronic problems, including fibromyalgia, methotrexate- and steroid-dependent rheumatoid arthritis, and chronic pain syndrome, along with chronic opiate use, who presents to the emergency room for evaluation of above complaint. Patient has been discussed with emergency room physician who evaluated the patient. Patient is fairly somnolent, and while she does awaken easily and answers occasional basic questions reasonably appropriately, she is able to provide no history whatsoever in terms of acute events, and little history related to chronic events, review of systems, personal habits, family history, etc. 2 daughters and a son-in-law are present and are somewhat helpful and informative, although they had not seen her since Friday of this week until the .. Old inpatient records are reviewed. Above individuals present at patient's side with her approval. Hospitalized on our service the through the of last month with final diagnoses including systemic inflammatory response syndrome secondary to viral gastroenteritis along with polypharmacy, among other diagnoses. History and physical and discharge summary have been reviewed. transferred from our facility to [facility] for rehab, and just was discharged from there back home this past Friday. Granddaughter was helping her get out of a chair into the bathroom when patient fell on her left side approximately noon on the . Complaining of bilateral pelvic pain with little strength in her legs, which according to her daughter, has been the case for the last 3 or 4 months. Was noted to be hypotensive and poorly responsive upon arrival in the emergency room, with improvement in both with a single 0.2 mg of Narcan. According to the emergency room physician, she takes 100 mg of morphine orally twice a day. Was noted by the emergency room physician to have minimal function in her left lower extremity and decreased but improving function in her left upper extremity. Prior stroke in 1992 which affected the left side, but from which she had completely recovered, according to daughter. no fever or chills, chest or abdominal pain. However, patient does state that she has had some nausea vomiting and diarrhea off and on since arriving home. Laboratory results are listed in [facility] and are reviewed. X-ray summary results are listed below, with full report(s) reviewed. . EKG reviewed. Social history/personal habits: Single. Has children. Disabled due to multiple health problems. No use of alcohol tobacco or illicit drugs. Allergies/adverse reactions are listed in [facility] and are reviewed. Home medications initially autopopulated into [facility] may not accurately reflect patient's true medications, dosages, and/or frequencies. client technologies specialist to reconcile medications. Unfortunately, patient cannot provide any information related to medications/ dosages/frequencies. REVIEW OF SYSTEMS: See history and present illness. No further information available this point in time. PHYSICAL EXAMINATION: 5 feet 6 inches tall. 149 kg. BMI 53 kg/m. Blood pressure 158/86. Pulse 97 and regular. 100% saturation on room air. Respirations are 12 and unlabored. Temperature 97.7. Morbidly obese -[place]os[place] female appearing approximately her stated age. Somnolent, but does awaken somewhat when spoken to in a normal volume voice. Does provide occasionally reasonable answers to basic questions concerning chronic aspects of her health, but is not able to provide any information related to acute events that led her to come to the emergency room. Maintaining her airway well. Female emergency room nursing scheduler Amparo is present. 2 daughters and a son-in-law are present. Patient approves. Skin is warm and dry. No grossly obvious evidence of rash in areas of skin examined. No subcutaneous nodules palpated. ENT: Hearing grossly normal to normal conversation. Tongue midline on protrusion pink and slightly tacky. Eyes: No scleral icterus. Pupils equal and reactive to light at 4 mm. Stronach conjunctivae. No raccoon eyes. Neck is supple and nontender to gentle active range of motion and palpation. Midline trachea. No palpable thyroid nodule mass enlargement or tenderness. Lymphatic: No palpable cervical or clavicular nodes. Neck and lymphatic exams limited by patient body habitus. Psychiatric: Difficult to adequately evaluate due to her current status. See above. Lungs: Auscultation reveals clear and equal breath sounds bilaterally. No use of accessory respiratory muscles. Cardiovascular: Heart regular rate and rhythm, without gallop murmur or rub. No carotid or abdominal aortic bruits. No ankle or pedal edema. Faintly palpable dorsalis pedis pulses. Abdomen:soft prominently obese nontender with positive bowel sounds. Unable to adequately evaluate abdomen for masses or organomegaly due to body habitus. Extremities: Feet are warm and dry. No calf tenderness to compression. No grossly obvious visual evidence of calf swelling. Gentle manipulation of lower extremities fails to reveal any obvious evidence of injury or instability to knees hips or ankles although range of motion is quite limited due to combination of her weakness and body habitus. Neurologic: Cranial Nerves somewhat difficult to evaluate due to patient's somnolence and perhaps some difficulty in understanding instructions. Mild left facial droop. Tongue midline on protrusion. No nystagmus. Does not perform trapezius raise. Does not attempt extraocular movements. Light touch cannot be adequately evaluated due to her mental status. Motor function of major muscle groups right upper extremity 5/5; 4/5 right lower extremity. Handgrip on the left 4/5 versus 5/5 on the right. Biceps and triceps function on the left 4/5, versus 5/5 on the right. Left lower extremity motor function 3 /5. Patellar reflexes absent. Absent Babinski. No ankle clonus. Past Medical History Cardiac Medical History: Reports: Hyperlipidema, Hypertension, Heart Murmur - 05/31 systolic murmur Denies: Atrial Fibrillation, Congestive Heart Failure, Coronary Artery Disease, Myocardial Infarction, Peripheral Vascular Disease, Pulmonary Embolism Pulmonary Medical History: Reports: Asthma, Bronchitis, Pneumonia, Sleep Apnea Denies: Chronic Obstructive Pulmonary Disease (COPD), Respiratory Failure, Tuberculosis Neurological Medical History: Denies: Seizures Endocrine Medical History: Reports: Diabetes Mellitus Type 2 Denies: Hyperthyroidism, Hypothyroidism Malignancy Medical History: Denies: Leukemia, Lung Cancer GI Medical History: Reports: Crohn's Disease, Hiatal Hernia Denies: Gastroesophageal Reflux Disease Musculoskeltal Medical History: Reports: Arthritis, Fibromyalgia, Other - Sjogren's syndrome, Lupus Psychiatric Medical History: Reports: Depression, Personality Disorder Denies: Bipolar Disorder, Dementia, Post Traumatic Stress Disorder Hematology: Reports: Anemia Denies: Hemophilia, Sickle Cell Disease Infectious Medical History: Denies: HIV Past Surgical History Past Surgical History: Reports: Section, Hysterectomy Denies: Amputation, Appendectomy, Cholecystectomy, Colostomy, Coronary Artery Bypass Graft, Gastric Bypass Surgery, Herniorrhaphy, Mastectomy, Pacemaker, Tonsillectomy, Tubal Ligation Social History Information Source: Patient, Relative - Family, Emergency Med Personnel, [facility] Records Lives with: Family Smoking Status: Never Smoker Frequency of Alcohol Use: None Hx Recreational Drug Use: No Drugs: None Hx Prescription Drug Abuse: Yes - April 2016 - Advance Directive Resuscitation Status: Full Code Surrogate healthcare decision maker:: Alesia Moe Family History Family History: CAD, DM, Hypertension Parental Family History Reviewed: Yes - Mother of old age; father of Alzheimer's Children Family History Reviewed: Yes - Hypertension Sibling(s) Family History Reviewed.: Yes - Healthy Medication/Allergy Home Medications: Albuterol Sulfate [Ventolin HFA MDI 18 GM] 2 puff IH Q6HP PRN 11/11/16 Amlodipine Besylate [Norvasc 10 mg Tablet] 10 mg PO DAILY 11/11/16 Atorvastatin Calcium [Lipitor 40 mg Tablet] 40 mg PO QHS 11/11/16 Celecoxib [Celebrex 200 mg Capsule] 200 mg PO Q12 11/11/16 Cetirizine HCl [Zyrtec 10 mg Tablet] 10 mg PO DAILY 11/11/16 Cevimeline HCl [Evoxac] 30 mg PO TIDP PRN 11/11/16 Clopidogrel Bisulfate [Plavix 75 mg Tablet] 75 mg PO DAILY 11/11/16 Docusate Sodium [Dok] 100 mg PO BID 11/11/16 Duloxetine HCl [Cymbalta] 60 mg PO Q12 11/11/16 Ergocalciferol (Vitamin D2) [Drisdol 50,000 Unit (1.25MG) Capsule] 50,000 unit PO [id number] 11/11/16 Famotidine [Pepcid 40 mg Tablet] 40 mg PO QHS 11/11/16 Folic Acid [Folvite 1 mg Tablet] 1 mg PO DAILY 11/11/16 Furosemide [Lasix 80 mg Tablet] 80 mg PO DAILY 11/11/16 Ketorolac Tromethamine [Toradol 10 mg Tablet] 10 mg PO Q6HP PRN 11/11/16 Lisinopril [Prinivil 5 mg Tablet] 5 mg PO DAILY 11/11/16 Metformin HCl [Glucophage] 1,000 mg PO BIDACBS 11/11/16 Methotrexate Sodium [Methotrexate] 15 mg PO TH@1000 11/11/16 Metoprolol Succinate [Toprol XL 100 mg Tablet] 100 mg PO Q12 11/11/16 Montelukast Sodium [Singulair 10 mg Tablet] 10 mg PO QHS 11/11/16 Mupirocin [Bactroban 2% Ointment 22 gm] 1 applic NASL ASDIR PRN 11/11/16 Potassium Chloride [K-Tab ER] 20 meq PO DAILY 11/11/16 Pregabalin [Lyrica] 150 mg PO Q12 11/11/16 Vit/Iron Fumarate/FA [ Tablet] 1 tab PO DAILY 11/11/16 Spironolactone [Aldactone 25 mg Tablet] 25 mg PO DAILY 11/11/16 Sulfasalazine [Sulfazine] 500 mg PO Q8 11/11/16 Tizanidine HCl [Zanaflex 4 Mg Tablet] 4 mg PO Q8HP PRN MDD 3 CAPSULES 11/11/16 Verapamil HCl [Calan 120 mg Tablet] 120 mg PO DAILY 11/11/16 Zolpidem Tartrate [Ambien] 10 mg PO HSP PRN 11/11/16 Allergies/Adverse Reactions: ibuprofen [Ibuprofen] Allergy (Severe, Verified 11/11/16 00:36) Chest pain Physical Exam Vital Signs: Temp Pulse Resp BP Pulse Ox 97.7 F 99 17 145/102 H 96 11/11/16 00:32 11/11/16 00:32 11/11/16 00:32 11/11/16 00:32 11/11/16 00:32 Intake & Output 11/09/16 11/10/16 11/11/16 00:59 00:59 00:59 Weight 149 kg Results Laboratory Results: 11/10/16 22:27 VBG pH 7.24 L VBG pCO2 60.4 VBG HCO3 25.2 VBG Base Excess -2.6 Impressions: Head CT 11/10/16 00:00 IMPRESSION: No acute intracranial abnormality. Chest X-Ray 11/10/16 16:39 IMPRESSION: Small lung volumes with vascular crowding. No focal infiltrates. Hip X-Ray 11/10/16 16:40 IMPRESSION: NEGATIVE STUDY OF THE LEFT HIP AND PELVIS. NO RADIOGRAPHIC EVIDENCE OF ACUTE INJURY. Assessment & Plan - Diagnosis (1) Acute focal neurological deficit Is this a current diagnosis for this admission?: YesPlan: Patient will be admitted under CVA/TIA protocol. Multiple imaging procedures, intracranial, vascular, and cardiac. Permissive hypertension. Patient is a full code. I have strongly urged patient not to get out of bed, to avoid a fall with injury. Knee high SCDs for DVT prophylaxis, along with subcutaneous heparin. Impression and plans were discussed with patient, and family, all of whom concur. Time spent in evaluation and management of patient: 80 minutes (2) Acute renal failure Qualifiers: Acute renal failure type: unspecified Qualified Code(s): N17.9 - Acute kidney failure, unspecified Is this a current diagnosis for this admission?: YesPlan: Likely prerenal due to nausea vomiting and diarrhea, along with possibly decreased oral intake. IV fluids. Serial chemistry. (3) Anemia Qualifiers: Anemia type: unspecified type Qualified Code(s): D64.9 - Anemia, unspecified Is this a current diagnosis for this admission?: YesPlan: Follow-up CBC with differential. No need for transfusion at present time. (4) Elevated LFTs Is this a current diagnosis for this admission?: Yes (5) Facial droop Is this a current diagnosis for this admission?: Yes (6) Hypercarbia Is this a current diagnosis for this admission?: YesPlan: Normally uses CPAP at night, room air. Placed on BiPAP tonight. Follow-up venous gas. (7) Hypotension Qualifiers: Hypotension type: unspecified hypotension type Qualified Code(s): I95.9 - Hypotension, unspecified Is this a current diagnosis for this admission?: YesPlan: Likely due to combination of dehydration from her nausea vomiting and diarrhea, along with her morphine. Resolved nicely with a combination of Narcan and IV fluid. (8) Left hemiparesis Is this a current diagnosis for this admission?: Yes (9) Nausea vomiting and diarrhea Is this a current diagnosis for this admission?: YesPlan: Stool for C. difficile. (10) Chronic pain Qualifiers: Chronic pain type: chronic pain syndrome Qualified Code(s): G89.4 - Chronic pain syndrome Is this a current diagnosis for this admission?: Yes (11) Diastolic CHF Qualifiers: Congestive heart failure chronicity: chronic Qualified Code(s): I50.32 - Chronic diastolic (congestive) heart failure Is this a current diagnosis for this admission?: YesPlan: No evidence of acute exacerbation of same. Resume home medications as appropriate once these have been determined and reviewed. (12) BRAN (obstructive sleep apnea) Is this a current diagnosis for this admission?: Yes (13) Steroid dependence Is this a current diagnosis for this admission?: Yes - Inpatient Certification Based on my medical assessment, after consideration of the patient's comorbidities, presenting symptoms, or acuity I expect that the services needed warrant INPATIENT care.: Yes I certify that my determination is in accordance with my understanding of Medicare's requirements for reasonable and necessary INPATIENT services [42 CFR 412.3e].: Yes Medical Necessity: Significant Comorbidiites Make Outpatient Treatment Too Risky , Need For IV Fluids, Need For Continuous Telemetry Monitoring, Risk of Diagnosis Which Will Require Inpatient Eval/Care/Monitoring Post Hospital Care: D/C or Transfer Summary
[2016-11-11 01:35] LABS: VENOUS BLOOD BASE EXCESS -1.5 mmol/L; VENOUS BLOOD HCO3 26.3 mmol/L (20-32); VENOUS BLOOD PCO2 60.6 mmHg (35-63); VENOUS BLOOD PH 7.26 (7.30-7.42)
[2016-11-11 01:36] LABS: HEMATOCRIT 31.5 % (36.0-47.0); HEMOGLOBIN 9.8 g/dL (12.0-15.5); HGB HCT DIFFERENCE -2.1; MEAN CORPUSCULAR HEMOGLOBIN 24.2 pg (27.0-33.4); MEAN CORPUSCULAR HGB CONC 31.2 g/dL (32.0-36.0); MEAN CORPUSCULAR VOLUME 78 fl (80-97); RED BLOOD COUNT 4.05 10^6/uL (3.72-5.28); RED CELL DISTRIBUTION WIDTH 17.3 % (11.5-14.0); WHITE BLOOD COUNT 8.3 10^3/uL (4.0-10.5)
[2016-11-11 01:47] LABS: ANION GAP 9 (5-19); BLOOD UREA NITROGEN 42 mg/dL (7-20); CALCIUM 9.2 mg/dL (8.4-10.2); CARBON DIOXIDE 23 mmol/L (22-30); CHLORIDE 107 mmol/L (98-107); CREATININE RESULT 1.63 mg/dL (0.52-1.25); GLUCOSE 151 mg/dL (75-110); POTASSIUM 4.6 mmol/L (3.6-5.0); SODIUM 138.9 mmol/L (137-145)
[2016-11-11] MEDS: HEPARIN SOD (PORCINE) 5,000 UNIT/ML 1 ML SYRINGE SUBCUT SCH ×3 (05:12→21:08)
[2016-11-11 06:26] LABS: VENOUS BLOOD BASE EXCESS -2.5 mmol/L; VENOUS BLOOD HCO3 24.9 mmol/L (20-32); VENOUS BLOOD PCO2 54.4 mmHg (35-63); VENOUS BLOOD PH 7.28 (7.30-7.42)
[2016-11-11 06:50] LABS: ANION GAP 11 (5-19); BLOOD UREA NITROGEN 34 mg/dL (7-20); CARBON DIOXIDE 20 mmol/L (22-30); CHLORIDE 109 mmol/L (98-107); CREATININE RESULT 1.14 mg/dL (0.52-1.25); GLUCOSE 126 mg/dL (75-110); POTASSIUM 4.5 mmol/L (3.6-5.0); SODIUM 139.7 mmol/L (137-145)
--- NOTE | 2016-11-11 08:56 | PDOC PROGRESS REPORT ---
Subjective Progress Note for:: 11/11/16 Subjective:: Patient seen on morning rounds. She is resting in bed at the present time. She awakens easily to verbal stimuli. She is able to move all extremities 4, she has mild weakness in the left lower extremity chronically. She has no neurologic deficits at the present time. She does respond slowly to questions. She apparently went home from rehab on Friday of this week. She apparently did not take her CPAP on with her. She first said she thinks it was stolen. She has been receiving home health otherwise she lives alone. She denies any complaints at present time. She denies any shortness of breath, dyspnea or cough. She denies any chest pain, headache or dizziness. She denies any nausea , vomiting or diarrhea. She states she is hungry and thirsty. Rest of the review of systems are negative. Physical Exam Vital Signs: Temp Pulse Resp BP Pulse Ox 99.0 F 116 H 16 125/67 95 11/11/16 07:42 11/11/16 08:00 11/11/16 08:00 11/11/16 08:00 11/11/16 08:00 Intake & Output 11/10/16 11/11/16 11/12/16 06:59 06:59 06:59 Intake Total 535 Output Total 1200 Balance -665 Weight 148.6 kg General appearance: PRESENT: no acute distress, morbidly obese, well-developed, well-nourished Head exam: PRESENT: atraumatic, normocephalic Eye exam: PRESENT: conjunctiva pink, EOMI, PERRLA. ABSENT: scleral icterus Ear exam: PRESENT: normal external ear exam Mouth exam: PRESENT: dry mucosa, neck supple, tongue midline Neck exam: ABSENT: carotid bruit, JVD, lymphadenopathy, thyromegaly Respiratory exam: PRESENT: clear to auscultation chen, decreased breath sounds. ABSENT: rales, rhonchi, wheezes Cardiovascular exam: PRESENT: RRR. ABSENT: diastolic murmur, rubs, systolic murmur Pulses: PRESENT: normal dorsalis pedis pul Vascular exam: PRESENT: normal capillary refill GI/Abdominal exam: PRESENT: normal bowel sounds, soft. ABSENT: distended, guarding, mass, organolmegaly, rebound, tenderness Rectal exam: PRESENT: deferred Extremities exam: PRESENT: full ROM. ABSENT: calf tenderness, clubbing, pedal edema Musculoskeletal exam: PRESENT: full ROM - Time Neurological exam: PRESENT: alert, awake, oriented to person, oriented to place , oriented to situation, CN II-XII grossly intact, other - left leg 4/5 muscle strength Psychiatric exam: PRESENT: flat affect Skin exam: PRESENT: dry, intact, warm. ABSENT: cyanosis, rash Results Laboratory Results: 11/11/16 01:24 11/11/16 05:47 11/11/16 11/11/16 11/11/16 01:24 01:24 01:24 WBC 8.3 RBC 4.05 Hgb 9.8 L Hct 31.5 L MCV 78 L MCH 24.2 L MCHC 31.2 L RDW 17.3 H Plt Count 191 VBG pH 7.26 L VBG pCO2 60.6 VBG HCO3 26.3 VBG Base Excess -1.5 Sodium 138.9 Potassium 4.6 Chloride 107 Carbon Dioxide 23 Anion Gap 9 BUN 42 H Creatinine 1.63 H Est GFR ( Amer) 40 L Est GFR (Non-Af Amer) 33 L Glucose 151 H Calcium 9.2 11/11/16 11/11/16 05:47 05:47 WBC RBC Hgb Hct MCV MCH MCHC RDW Plt Count VBG pH 7.28 L VBG pCO2 54.4 VBG HCO3 24.9 VBG Base Excess -2.5 Sodium 139.7 Potassium 4.5 Chloride 109 H Carbon Dioxide 20 L Anion Gap 11 BUN 34 H Creatinine 1.14 Est GFR ( Amer) > 60 Est GFR (Non-Af Amer) 49 L Glucose 126 H Calcium 9.0 11/11/16 01:24 Troponin I < 0.012 Impressions: Head CT 11/10/16 00:00 IMPRESSION: No acute intracranial abnormality. Chest X-Ray 11/10/16 16:39 IMPRESSION: Small lung volumes with vascular crowding. No focal infiltrates. Hip X-Ray 11/10/16 16:40 IMPRESSION: NEGATIVE STUDY OF THE LEFT HIP AND PELVIS. NO RADIOGRAPHIC EVIDENCE OF ACUTE INJURY. Assessment & Plan - Diagnosis (1) Encephalopathy acute Is this a current diagnosis for this admission?: YesPlan: Likely secondary to hypercapnic respiratory failure, less likely transischemic attack. Her neurologic deficit and altered mental status have resolved. She has not been using CPAP for the last 4 days. She was found to have CO2 in the 60s. She was placed on BiPAP. She will continue with BiPAP at night. We will obtain MR I/MRA of her head and carotid duplex today. (2) Hypercarbia Is this a current diagnosis for this admission?: YesPlan: Patient with history of obstructive sleep apnea requiring CPAP at at bedtime. She has been noncompliant since discharge from rehab continue BiPAP at bedtime and as needed. Consult discharge planning she would be best served in an assisted living environment. (3) Acute renal failure Qualifiers: Acute renal failure type: unspecified Qualified Code(s): N17.9 - Acute kidney failure, unspecified Is this a current diagnosis for this admission?: Yes (4) Anemia Qualifiers: Anemia type: unspecified type Qualified Code(s): D64.9 - Anemia, unspecified Is this a current diagnosis for this admission?: YesPlan: Continue to monitor, presently stable (5) Diastolic CHF Qualifiers: Congestive heart failure chronicity: chronic Qualified Code(s): I50.32 - Chronic diastolic (congestive) heart failure Is this a current diagnosis for this admission?: YesPlan: Appears euvolemic (6) History of CVA (cerebrovascular accident) Is this a current diagnosis for this admission?: YesPlan: Mild left sided weakness in the left leg. No new deficits (7) Morbid obesity Qualifiers: Obesity type: due to excess calories Qualified Code(s): E66.01 - Morbid (severe) obesity due to excess calories Is this a current diagnosis for this admission?: YesPlan: Patient counseled (8) BRAN (obstructive sleep apnea) Is this a current diagnosis for this admission?: YesPlan: BIPAP at HS and prn (9) Rheumatoid arthritis Qualifiers: Laterality: unspecified laterality Is this a current diagnosis for this admission?: YesPlan: Continue home medications - Time Time Spent with patient: 25-34 minutes Critical Time spent with patient: 15-24 minutes Medications reviewed and adjusted accordingly: Yes
[2016-11-11] MEDS: ASPIRIN 325 MG TABLET PO SCH (09:38)
[2016-11-11] MEDS ORDERED: ASPIRIN 300 MG SUPP, RECTAL PR SCH (10:00)
--- NOTE | 2016-11-11 10:20 | EKG REPORT ---
SEVERITY:- NORMAL ECG - SINUS RHYTHM : Confirmed by: Shonda Payne MD 11-Nov-2016 10:18:52
--- NOTE | 2016-11-11 14:43 | RADIOLOGY REPORT (SQ) ---
EXAM DESCRIPTION: CAROTID DOPPLER COMPLETED DATE/TIME: 11/11/2016 2:15 pm REASON FOR STUDY: cva vs tia COMPARISON: None. TECHNIQUE: Grayscale ultrasound, Doppler velocity and spectra, and color Doppler images acquired of the extra-cranial carotid and vertebral arteries. Images stored on PACS. LIMITATIONS: Limited visualization due to the patient's obesity. FINDINGS: RIGHT CAROTID CCA Velocities: Within normal limits. ICA Velocities Peak systolic 1.56 m/s. End diastolic 0.29 m/s. Proximal ICA/CCA peak systolic ratio 0.9. Spectra normal. No significant plaque. LEFT CAROTID CCA Velocities: Within normal limits. ICA Velocities Peak systolic 2.24 m/s. End diastolic 0.68 m/s. Proximal ICA/CCA peak systolic ratio 1.2. Spectra normal. No significant plaque. VERTEBRAL ARTERIES: Antegrade flow. Normal waveforms. SUBCLAVIAN ARTERIES: No finding. OTHER: No other significant finding. IMPRESSION: LIMITED STUDY. VELOCITY MEASUREMENTS SUGGEST 50- 69% STENOSIS OF THE LEFT INTERNAL GARCIA TID ARTERY BUT NO SIGNIFICANT PLAQUE DEMONSTRATED ON ULTRASOUND IMAGES. THIS COULD BE DUE TO TORTUOS ITY OF THE VESSEL. NO HEMODYNAMICALLY SIGNIFICANT STENOSIS ON EITHER SIDE. COMMENT: Quality ID #[id number]: Velocity criteria are extrapolated from the diameter data as defined by t he Society of Radiologists in Ultrasound Consensus Conference. Radiology 2003: 229; 340-346. TECHNICAL DOCUMENTATION: JOB ID: [id number] [employer]- All Rights Reserved
--- NOTE | 2016-11-11 19:53 | RADIOLOGY REPORT (SQ) ---
EXAM DESCRIPTION: MRI HEAD COMBO COMPLETED DATE/TIME: 11/11/2016 7:42 pm REASON FOR STUDY: cva vs tia COMPARISON: None. TECHNIQUE: Multiplanar imaging includes noncontrasted T1, T2, FLAIR, diffusion with ADC map and post gadolinium contrast T1 sequences. Images stored on PACS. CONTRAST TYPE AND DOSE: 20 mL Multihance. RENAL FUNCTION: GFR > 60. LIMITATIONS: None. FINDINGS: ANATOMY: No anomalies. Normal vascular flow voids. Pituitary fossa normal. CSF SPACES: Normal in size and contour. No hemorrhage. CEREBRUM: Sulci and gyri normal in size and contour. Age-appropriate white matter signal on FLAIR im aging. No evidence of hemorrhage, mass, or extraaxial fluid collection. No abnormal enhancement post contrast. POSTERIOR FOSSA: No signal alteration. No hemorrhage. No edema, masses, or mass effect. Internal blu tory canals, cerebellopontine angles, mastoids normal. No enhancing lesions. No abnormal enhancement post contrast. DIFFUSION IMAGING: Negative for acute or subacute infarction. ORBITS: No masses. Globes normal. PARANASAL SINUSES: No fluid levels. Mucosa normal. OTHER: No other significant finding. IMPRESSION: Age-appropriate MRI OF THE BRAIN WITHOUT AND WITH INTRAVENOUS GADOLINIUM CONTRAST. TECHNICAL DOCUMENTATION: JOB ID: [id number] [employer]- All Rights Reserved
--- NOTE | 2016-11-11 19:55 | RADIOLOGY REPORT (SQ) ---
EXAM DESCRIPTION: MRA HEAD WITHOUT COMPLETED DATE/TIME: 11/11/2016 7:42 pm REASON FOR STUDY: cva vs tia COMPARISON: None. TECHNIQUE: Axial 3-D [id number] acquisition imaging performed through the brain in the area of t he [place] of [place]. Images reformatted using 3-D MIPS. LIMITATIONS: None. FINDINGS: SOURCE IMAGES: No unexpected findings on source images. No large masses. 3-D MIP: No aneurysm. No occlusions. No significant stenosis. OTHER: No other significant finding. IMPRESSION: NORMAL MRA OF THE [place]. TECHNICAL DOCUMENTATION: JOB ID: [id number] [employer]- All Rights Reserved
[2016-11-11] MEDS ORDERED: NORMAL SALINE 1000 ML 250 ML IV ONE (20:30)
[2016-11-11] MEDS: ATORVASTATIN CALCIUM 40 MG TABLET PO SCH (21:09)
[2016-11-11] MEDS: MONTELUKAST SODIUM 10 MG TABLET PO SCH (21:10)
[2016-11-12] MEDS ORDERED: NORMAL SALINE 1000 ML 250 ML IV ONE (00:30)
[2016-11-12] MEDS: HEPARIN SOD (PORCINE) 5,000 UNIT/ML 1 ML SYRINGE SUBCUT SCH ×3 (05:13→21:37)
[2016-11-12] MEDS: ASPIRIN 325 MG TABLET PO SCH (09:01)
[2016-11-12] MEDS: CLOPIDOGREL BISULFATE 75 MG TABLET PO SCH (09:01)
[2016-11-12] MEDS ORDERED: DEXTROSE 40% GEL 15 GM TUBE PO PRN ×2 (09:05)
[2016-11-12] MEDS ORDERED: GLUCAGON,HUMAN RECOMB 1 MG INJ IM PRN (09:05)
[2016-11-12] MEDS ORDERED: DEXTROSE 50%-WATER 25 GM/50 ML DISP.SYRIN IV PRN ×2 (09:05)
[2016-11-12] MEDS: CELECOXIB 200 MG CAPSULE PO SCH ×2 (09:55→21:38)
[2016-11-12] MEDS: FOLIC ACID 1 MG TABLET PO SCH (09:55)
[2016-11-12] MEDS: DOCUSATE SODIUM 100 MG CAPSULE PO SCH ×2 (09:56→17:42)
[2016-11-12] MEDS: FUROSEMIDE 80 MG TABLET PO SCH (09:56)
[2016-11-12] MEDS: CETIRIZINE 10 MG TABLET PO SCH (09:56)
[2016-11-12] MEDS: LISINOPRIL 5 MG TABLET PO SCH (09:56)
[2016-11-12] MEDS: SPIRONOLACTONE 25 MG TABLET PO SCH (09:56)
[2016-11-12] MEDS ORDERED: (PENDING PHARMACY ID) (Potassium Chloride [K-Tab Er] 20 MEQ) PO SCH (10:00)
[2016-11-12] MEDS ORDERED: PREGABALIN 75 MG CAPSULE PO ONE (11:00)
[2016-11-12] MEDS: VERAPAMIL HCL 120 MG TABLET PO SCH (11:02)
[2016-11-12] MEDS: INSULIN LISPRO 100 UNIT/ML 3 ML VIAL SUBCUT PRN ×2 (12:08→16:57)
--- NOTE | 2016-11-12 15:22 | PDOC PROGRESS REPORT ---
Subjective Progress Note for:: 11/12/16 Subjective:: Patient seen on morning rounds. She is resting in bed at the present time. She awakens easily to verbal stimuli. She is able to move all extremities 4, she has mild weakness in the left lower extremity chronically. She has no neurological deficits at the present time. She staates she wants to get out of bed She apparently went home from rehab on Friday of this week. She apparently did not take her CPAP on with her. She first said she thinks it was stolen. She has been receiving home health otherwise she lives alone. She denies any complaints at present time. She denies any shortness of breath, dyspnea or cough. She denies any chest pain, headache or dizziness. She denies any nausea, vomiting or diarrhea. Rest of the review of systems are negative. Physical Exam Vital Signs: Temp Pulse Resp BP Pulse Ox 99.1 F 120 H 20 157/85 H 99 11/12/16 12:00 11/12/16 12:00 11/12/16 12:00 11/12/16 12:00 11/12/16 12:00 Intake & Output 11/11/16 11/12/16 11/13/16 06:59 06:59 06:59 Intake Total 535 4730 355 Output Total 1200 4000 400 Balance -665 730 -45 Weight 148.6 kg 147.5 kg General appearance: PRESENT: no acute distress, morbidly obese, well-developed, well-nourished Head exam: PRESENT: atraumatic, normocephalic Eye exam: PRESENT: conjunctiva pink, EOMI, PERRLA. ABSENT: scleral icterus Ear exam: PRESENT: normal external ear exam Mouth exam: PRESENT: moist, tongue midline Neck exam: ABSENT: carotid bruit, JVD, lymphadenopathy, thyromegaly Respiratory exam: PRESENT: decreased breath sounds, symmetrical, unlabored. ABSENT: rales, rhonchi, wheezes Cardiovascular exam: PRESENT: RRR, +S1, +S2 Pulses: PRESENT: normal carotid pulses, normal radial pulses Vascular exam: PRESENT: normal capillary refill GI/Abdominal exam: PRESENT: normal bowel sounds, soft. ABSENT: distended, guarding, mass, organolmegaly, rebound, tenderness Rectal exam: PRESENT: deferred Extremities exam: PRESENT: full ROM, joint swelling, +1 edema - left lower leg. ABSENT: calf tenderness, clubbing, pedal edema Neurological exam: PRESENT: alert, awake, oriented to person, oriented to place , oriented to time, oriented to situation, CN II-XII grossly intact. ABSENT: motor sensory deficit Psychiatric exam: PRESENT: appropriate affect, normal mood. ABSENT: homicidal ideation, suicidal ideation Skin exam: PRESENT: dry, intact, warm. ABSENT: cyanosis, rash Results Laboratory Results: 11/11/16 01:24 11/11/16 05:47 11/11/16 01:24 Troponin I < 0.012 Impressions: Head CT 11/10/16 00:00 IMPRESSION: No acute intracranial abnormality. Chest X-Ray 11/10/16 16:39 IMPRESSION: Small lung volumes with vascular crowding. No focal infiltrates. Hip X-Ray 11/10/16 16:40 IMPRESSION: NEGATIVE STUDY OF THE LEFT HIP AND PELVIS. NO RADIOGRAPHIC EVIDENCE OF ACUTE INJURY. Head MRI 11/11/16 00:32 IMPRESSION: Age-appropriate MRI OF THE BRAIN WITHOUT AND WITH INTRAVENOUS GADOLINIUM CONTRAST. Brain MRI with MRA 11/11/16 00:33 IMPRESSION: NORMAL MRA OF THE [place]. Carotid Doppler Study 11/11/16 00:33 IMPRESSION: LIMITED STUDY. VELOCITY MEASUREMENTS SUGGEST 50- 69% STENOSIS OF THE LEFT INTERNAL CAROTID ARTERY BUT NO SIGNIFICANT PLAQUE DEMONSTRATED ON ULTRASOUND IMAGES. THIS COULD BE DUE TO TORTUOSITY OF THE VESSEL. NO HEMODYNAMICALLY SIGNIFICANT STENOSIS ON EITHER SIDE. Assessment & Plan - Diagnosis (1) Encephalopathy acute Is this a current diagnosis for this admission?: YesPlan: Likely secondary to hypercapnic respiratory failure. MRI showed no infarcts or changes Her neurologic deficit and altered mental status have resolved. She has not been using CPAP for the last 4 days. She was found to have CO2 in the 60s. She was placed on BiPAP. She will continue with BiPAP at night. Carotid duplex showed moderate stenosis on right will need vascular surgery follow up (2) Hypercarbia Is this a current diagnosis for this admission?: YesPlan: Patient with history of obstructive sleep apnea requiring CPAP at at bedtime. She has been noncompliant since discharge from rehab continue BiPAP at bedtime and as needed. Consult discharge planning she would be best served in an assisted living environment. (3) Acute renal failure Qualifiers: Acute renal failure type: unspecified Qualified Code(s): N17.9 - Acute kidney failure, unspecified Is this a current diagnosis for this admission?: YesPlan: Resolved secondary to prerenal volume depletion (4) Anemia Qualifiers: Anemia type: unspecified type Qualified Code(s): D64.9 - Anemia, unspecified Is this a current diagnosis for this admission?: YesPlan: Continue to monitor, presently stable (5) Diastolic CHF Qualifiers: Congestive heart failure chronicity: chronic Qualified Code(s): I50.32 - Chronic diastolic (congestive) heart failure Is this a current diagnosis for this admission?: Yes (6) History of CVA (cerebrovascular accident) Is this a current diagnosis for this admission?: YesPlan: Mild left sided weakness in the left leg. No new deficits (7) BRAN (obstructive sleep apnea) Is this a current diagnosis for this admission?: YesPlan: BIPAP at HS and prn (8) Rheumatoid arthritis Qualifiers: Laterality: unspecified laterality Is this a current diagnosis for this admission?: YesPlan: Continue home medications (9) Morbid obesity Qualifiers: Obesity type: due to excess calories Qualified Code(s): E66.01 - Morbid (severe) obesity due to excess calories Is this a current diagnosis for this admission?: YesPlan: Patient counseled - Time Time Spent with patient: 25-34 minutes Critical Time spent with patient: 15-24 minutes Medications reviewed and adjusted accordingly: Yes Anticipated discharge: SNF
[2016-11-12] MEDS: SULFASALAZINE 500 MG TABLET.DR PO SCH ×2 (15:23→21:38)
[2016-11-12] MEDS: METFORMIN HCL 500 MG TABLET PO SCH (15:23)
[2016-11-12] MEDS: DULOXETINE HCL 30 MG CAPSULE.DR PO SCH (21:38)
[2016-11-12] MEDS: ATORVASTATIN CALCIUM 40 MG TABLET PO SCH (21:38)
[2016-11-12] MEDS: METOPROLOL SUCCINATE 50 MG TAB.SR.24H PO SCH (21:38)
[2016-11-12] MEDS: MONTELUKAST SODIUM 10 MG TABLET PO SCH (21:38)
[2016-11-12] MEDS: PREGABALIN 75 MG CAPSULE PO SCH (21:38)
[2016-11-12] MEDS: FAMOTIDINE 20 MG TABLET PO SCH (21:38)
[2016-11-13 05:07] LABS: ABSOLUTE BASOPHILS # (AUTO) 0.1 10^3/uL (0.0-0.2); ABSOLUTE EOSINOPHILS # (AUTO) 0.2 10^3/uL (0.0-0.6); ABSOLUTE LYMPHOCYTES (AUTO) 2.3 10^3/uL (0.5-4.7); ABSOLUTE MONOCYTES (AUTO) 0.9 10^3/uL (0.1-1.4); ABSOLUTE NEUT (AUTO) 4.7 10^3/uL (1.7-8.2); BASOPHILS % (AUTO) 0.9 % (0-2); EOSINOPHILS % (AUTO) 2.7 % (0-6); HEMATOCRIT 28.9 % (36.0-47.0); HEMOGLOBIN 9.3 g/dL (12.0-15.5); LYMPHOCYTES % (AUTO) 27.8 % (13-45); MEAN CORPUSCULAR HEMOGLOBIN 24.3 pg (27.0-33.4); MEAN CORPUSCULAR HGB CONC 32.2 g/dL (32.0-36.0); MEAN CORPUSCULAR VOLUME 76 fl (80-97); MONOCYTES % (AUTO) 10.8 % (3-13); RED BLOOD COUNT 3.82 10^6/uL (3.72-5.28); RED CELL DISTRIBUTION WIDTH 17.8 % (11.5-14.0); SEGMENTED NEUTROPHILS % (AUTO) 57.8 % (42-78); WHITE BLOOD COUNT 8.1 10^3/uL (4.0-10.5)
[2016-11-13] MEDS: SULFASALAZINE 500 MG TABLET.DR PO SCH ×3 (05:13→22:13)
[2016-11-13] MEDS: HEPARIN SOD (PORCINE) 5,000 UNIT/ML 1 ML SYRINGE SUBCUT SCH ×3 (05:15→22:10)
[2016-11-13 05:37] LABS: ANION GAP 9 (5-19); BLOOD UREA NITROGEN 9 mg/dL (7-20); CALCIUM 9.1 mg/dL (8.4-10.2); CARBON DIOXIDE 25 mmol/L (22-30); CHLORIDE 110 mmol/L (98-107); CREATININE RESULT 0.77 mg/dL (0.52-1.25); GLUCOSE 111 mg/dL (75-110); SODIUM 144.4 mmol/L (137-145)
[2016-11-13] MEDS: FUROSEMIDE 80 MG TABLET PO SCH (09:13)
[2016-11-13] MEDS: POTASSIUM CHLORIDE 10 MEQ TABLET.SA PO SCH (09:14)
[2016-11-13] MEDS: CLOPIDOGREL BISULFATE 75 MG TABLET PO SCH (09:14)
[2016-11-13] MEDS: CELECOXIB 200 MG CAPSULE PO SCH ×2 (09:15→22:11)
[2016-11-13] MEDS: DOCUSATE SODIUM 100 MG CAPSULE PO SCH ×2 (09:15→17:09)
[2016-11-13] MEDS: SPIRONOLACTONE 25 MG TABLET PO SCH (09:15)
[2016-11-13] MEDS: LISINOPRIL 5 MG TABLET PO SCH (09:16)
[2016-11-13] MEDS: DULOXETINE HCL 30 MG CAPSULE.DR PO SCH ×2 (09:16→22:09)
[2016-11-13] MEDS: FOLIC ACID 1 MG TABLET PO SCH (09:16)
[2016-11-13] MEDS: CETIRIZINE 10 MG TABLET PO SCH (09:16)
[2016-11-13] MEDS: PREGABALIN 75 MG CAPSULE PO SCH ×2 (09:17→22:09)
[2016-11-13] MEDS: ASPIRIN 325 MG TABLET PO SCH (09:17)
[2016-11-13] MEDS: METFORMIN HCL 500 MG TABLET PO SCH ×2 (09:18→17:09)
[2016-11-13] MEDS: METOPROLOL SUCCINATE 50 MG TAB.SR.24H PO SCH ×2 (09:18→22:08)
[2016-11-13] MEDS: VERAPAMIL HCL 120 MG TABLET PO SCH (09:19)
--- NOTE | 2016-11-13 16:01 | PDOC PROGRESS REPORT ---
Subjective Progress Note for:: 11/13/16 Subjective:: Patient seen on morning rounds. She is resting in bed at the present time. She awakens easily to verbal stimuli. She is able to move all extremities 4, she has mild weakness in the left lower extremity chronically. She has no neurological deficits at the present time. She states she wants to get out of bed She denies any complaints at present time. She denies any shortness of breath, dyspnea or cough. She denies any chest pain, headache or dizziness. She denies any nausea, vomiting or diarrhea. Rest of the review of systems are negative. Physical Exam Vital Signs: Temp Pulse Resp BP Pulse Ox 98.8 F 95 16 139/82 H 95 11/13/16 12:17 11/13/16 14:00 11/13/16 12:17 11/13/16 12:17 11/13/16 12:17 Intake & Output 11/12/16 11/13/16 11/14/16 06:59 06:59 06:59 Intake Total 4730 2025 Output Total 4000 3500 Balance 730 -1475 Weight 147.5 kg 142.7 kg General appearance: PRESENT: no acute distress, morbidly obese, well-developed, well-nourished Head exam: PRESENT: atraumatic, normocephalic Eye exam: PRESENT: conjunctiva pink, EOMI, PERRLA. ABSENT: scleral icterus Ear exam: PRESENT: normal external ear exam Mouth exam: PRESENT: moist, tongue midline Neck exam: ABSENT: carotid bruit, JVD, lymphadenopathy, thyromegaly Respiratory exam: PRESENT: clear to auscultation chen. ABSENT: rales, rhonchi, wheezes Cardiovascular exam: PRESENT: RRR, +S1, +S2. ABSENT: diastolic murmur, rubs, systolic murmur Pulses: PRESENT: normal carotid pulses, normal radial pulses Vascular exam: PRESENT: normal capillary refill GI/Abdominal exam: PRESENT: normal bowel sounds, soft. ABSENT: distended, guarding, mass, organolmegaly, rebound, tenderness Rectal exam: PRESENT: deferred Extremities exam: PRESENT: full ROM. ABSENT: calf tenderness, clubbing, pedal edema Neurological exam: PRESENT: alert, awake, oriented to person, oriented to place , oriented to time, oriented to situation, CN II-XII grossly intact. ABSENT: motor sensory deficit Psychiatric exam: PRESENT: appropriate affect, normal mood. ABSENT: homicidal ideation, suicidal ideation Skin exam: PRESENT: dry, intact, warm. ABSENT: cyanosis, rash Results Laboratory Results: 11/13/16 04:51 11/13/16 04:51 11/13/16 11/13/16 04:51 04:51 WBC 8.1 RBC 3.82 Hgb 9.3 L Hct 28.9 L MCV 76 L MCH 24.3 L MCHC 32.2 RDW 17.8 H Plt Count 181 Seg Neutrophils % 57.8 Lymphocytes % 27.8 Monocytes % 10.8 Eosinophils % 2.7 Basophils % 0.9 Absolute Neutrophils 4.7 Absolute Lymphocytes 2.3 Absolute Monocytes 0.9 Absolute Eosinophils 0.2 Absolute Basophils 0.1 Sodium 144.4 Potassium 4.0 Chloride 110 H Carbon Dioxide 25 Anion Gap 9 BUN 9 Creatinine 0.77 Est GFR ( Amer) > 60 Est GFR (Non-Af Amer) > 60 Glucose 111 H Calcium 9.1 11/11/16 01:24 Troponin I < 0.012 Impressions: Head CT 11/10/16 00:00 IMPRESSION: No acute intracranial abnormality. Chest X-Ray 11/10/16 16:39 IMPRESSION: Small lung volumes with vascular crowding. No focal infiltrates. Hip X-Ray 11/10/16 16:40 IMPRESSION: NEGATIVE STUDY OF THE LEFT HIP AND PELVIS. NO RADIOGRAPHIC EVIDENCE OF ACUTE INJURY. Head MRI 11/11/16 00:32 IMPRESSION: Age-appropriate MRI OF THE BRAIN WITHOUT AND WITH INTRAVENOUS GADOLINIUM CONTRAST. Brain MRI with MRA 11/11/16 00:33 IMPRESSION: NORMAL MRA OF THE [place]. Carotid Doppler Study 11/11/16 00:33 IMPRESSION: LIMITED STUDY. VELOCITY MEASUREMENTS SUGGEST 50- 69% STENOSIS OF THE LEFT INTERNAL CAROTID ARTERY BUT NO SIGNIFICANT PLAQUE DEMONSTRATED ON ULTRASOUND IMAGES. THIS COULD BE DUE TO TORTUOSITY OF THE VESSEL. NO HEMODYNAMICALLY SIGNIFICANT STENOSIS ON EITHER SIDE. Assessment & Plan - Diagnosis (1) Encephalopathy acute Is this a current diagnosis for this admission?: YesPlan: Likely secondary to hypercapnic respiratory failure. MRI showed no infarcts or changes Her neurologic deficit and altered mental status have resolved. She has not been using CPAP for the last 4 days. She was found to have CO2 in the 60s. She was placed on BiPAP. She will continue with BiPAP at night. Carotid duplex showed moderate stenosis on right will need vascular surgery follow up (2) Hypercarbia Is this a current diagnosis for this admission?: YesPlan: Patient with history of obstructive sleep apnea requiring CPAP at at bedtime. She has been noncompliant since discharge from rehab continue CPAP at bedtime and as needed. Consult discharge planning she would be best served in an assisted living environment or residential facility. (3) Acute renal failure Qualifiers: Acute renal failure type: unspecified Qualified Code(s): N17.9 - Acute kidney failure, unspecified Is this a current diagnosis for this admission?: YesPlan: Resolved secondary to prerenal volume depletion (4) Anemia Qualifiers: Anemia type: unspecified type Qualified Code(s): D64.9 - Anemia, unspecified Is this a current diagnosis for this admission?: YesPlan: Continue to monitor, presently stable (5) Diastolic CHF Qualifiers: Congestive heart failure chronicity: chronic Qualified Code(s): I50.32 - Chronic diastolic (congestive) heart failure Is this a current diagnosis for this admission?: YesPlan: Appears euvolemic (6) History of CVA (cerebrovascular accident) Is this a current diagnosis for this admission?: YesPlan: Mild left sided weakness in the left leg. No new deficits (7) BRAN (obstructive sleep apnea) Is this a current diagnosis for this admission?: YesPlan: BIPAP at HS and prn (8) Rheumatoid arthritis Qualifiers: Laterality: unspecified laterality Is this a current diagnosis for this admission?: YesPlan: Continue home medications (9) Morbid obesity Qualifiers: Obesity type: due to excess calories Qualified Code(s): E66.01 - Morbid (severe) obesity due to excess calories Is this a current diagnosis for this admission?: YesPlan: Patient counseled - Time Time Spent with patient: 25-34 minutes Critical Time spent with patient: 15-24 minutes Medications reviewed and adjusted accordingly: Yes Anticipated discharge: SNF Within: when bed available
[2016-11-13] MEDS: MONTELUKAST SODIUM 10 MG TABLET PO SCH (22:09)
[2016-11-13] MEDS: ACETAMINOPHEN 325 MG TABLET PO PRN (22:10)
[2016-11-13] MEDS: ATORVASTATIN CALCIUM 40 MG TABLET PO SCH (22:10)
[2016-11-13] MEDS: FAMOTIDINE 20 MG TABLET PO SCH (22:10)
[2016-11-14] MEDS: ACETAMINOPHEN 325 MG TABLET PO PRN (07:04)
[2016-11-14] MEDS: SULFASALAZINE 500 MG TABLET.DR PO SCH ×3 (07:04→22:40)
[2016-11-14] MEDS: HEPARIN SOD (PORCINE) 5,000 UNIT/ML 1 ML SYRINGE SUBCUT SCH ×3 (07:04→22:39)
[2016-11-14] MEDS: METFORMIN HCL 500 MG TABLET PO SCH ×2 (09:17→15:56)
[2016-11-14] MEDS: ASPIRIN 325 MG TABLET PO SCH (09:18)
[2016-11-14] MEDS: CELECOXIB 200 MG CAPSULE PO SCH ×2 (09:18→22:39)
[2016-11-14] MEDS: FUROSEMIDE 80 MG TABLET PO SCH (09:19)
[2016-11-14] MEDS: SPIRONOLACTONE 25 MG TABLET PO SCH (09:20)
[2016-11-14] MEDS: PREGABALIN 75 MG CAPSULE PO SCH ×2 (09:20→22:38)
[2016-11-14] MEDS: POTASSIUM CHLORIDE 10 MEQ TABLET.SA PO SCH (09:20)
[2016-11-14] MEDS: DULOXETINE HCL 30 MG CAPSULE.DR PO SCH ×2 (09:21→22:38)
[2016-11-14] MEDS: FOLIC ACID 1 MG TABLET PO SCH (09:29)
[2016-11-14] MEDS: LISINOPRIL 5 MG TABLET PO SCH (09:29)
[2016-11-14] MEDS: CLOPIDOGREL BISULFATE 75 MG TABLET PO SCH (09:29)
[2016-11-14] MEDS: METOPROLOL SUCCINATE 50 MG TAB.SR.24H PO SCH ×2 (09:30→22:38)
[2016-11-14] MEDS: DOCUSATE SODIUM 100 MG CAPSULE PO SCH ×2 (09:31→17:24)
[2016-11-14] MEDS: CETIRIZINE 10 MG TABLET PO SCH (09:31)
[2016-11-14] MEDS: VERAPAMIL HCL 120 MG TABLET PO SCH (09:31)
[2016-11-14] MEDS ORDERED: METHOTREXATE SODIUM 2.5 MG TABLET PO SCH (10:00)
--- NOTE | 2016-11-14 12:48 | PDOC PROGRESS REPORT ---
Subjective Progress Note for:: 11/14/16 Subjective:: Patient seen on morning rounds. She is resting in bed at the present time. She awakens easily to verbal stimuli. She is able to move all extremities 4, she has mild weakness in the left lower extremity chronically. She has no neurological deficits at the present time. She states she wants to get out of bed She denies any complaints at present time. She denies any shortness of breath, dyspnea or cough. She denies any chest pain, headache or dizziness. She denies any nausea, vomiting or diarrhea. Rest of the review of systems are negative. Physical Exam Vital Signs: Temp Pulse Resp BP Pulse Ox 98.4 F 88 16 116/84 96 11/14/16 07:32 11/14/16 08:49 11/14/16 07:32 11/14/16 07:32 11/14/16 07:32 Intake & Output 11/13/16 11/14/16 11/15/16 06:59 06:59 06:59 Intake Total 2024 1770 Output Total 3500 2800 Balance -1475 -1030 Weight 142.7 kg 140.4 kg General appearance: PRESENT: no acute distress, morbidly obese, well-developed, well-nourished Head exam: PRESENT: atraumatic, normocephalic Eye exam: PRESENT: conjunctiva pink, EOMI, PERRLA. ABSENT: scleral icterus Ear exam: PRESENT: normal external ear exam Mouth exam: PRESENT: moist, tongue midline Teeth exam: PRESENT: edentulous Neck exam: ABSENT: carotid bruit, JVD, lymphadenopathy, thyromegaly Respiratory exam: PRESENT: clear to auscultation chen. ABSENT: rales, rhonchi, wheezes Cardiovascular exam: PRESENT: RRR. ABSENT: diastolic murmur, rubs, systolic murmur Pulses: PRESENT: normal dorsalis pedis pul Vascular exam: PRESENT: normal capillary refill GI/Abdominal exam: PRESENT: normal bowel sounds, soft. ABSENT: distended, guarding, mass, organolmegaly, rebound, tenderness Rectal exam: PRESENT: deferred Extremities exam: PRESENT: full ROM. ABSENT: calf tenderness, clubbing, pedal edema Musculoskeletal exam: PRESENT: full ROM, normal inspection Neurological exam: PRESENT: alert, awake, oriented to person, oriented to place , oriented to time, oriented to situation, CN II-XII grossly intact. ABSENT: motor sensory deficit Psychiatric exam: PRESENT: appropriate affect, normal mood. ABSENT: homicidal ideation, suicidal ideation Skin exam: PRESENT: dry, intact, warm. ABSENT: cyanosis, rash Results Laboratory Results: 11/13/16 04:51 11/13/16 04:51 11/11/16 01:24 Troponin I < 0.012 Impressions: Head CT 11/10/16 00:00 IMPRESSION: No acute intracranial abnormality. Chest X-Ray 11/10/16 16:39 IMPRESSION: Small lung volumes with vascular crowding. No focal infiltrates. Hip X-Ray 11/10/16 16:40 IMPRESSION: NEGATIVE STUDY OF THE LEFT HIP AND PELVIS. NO RADIOGRAPHIC EVIDENCE OF ACUTE INJURY. Head MRI 11/11/16 00:32 IMPRESSION: Age-appropriate MRI OF THE BRAIN WITHOUT AND WITH INTRAVENOUS GADOLINIUM CONTRAST. Brain MRI with MRA 11/11/16 00:33 IMPRESSION: NORMAL MRA OF THE [place]. Carotid Doppler Study 11/11/16 00:33 IMPRESSION: LIMITED STUDY. VELOCITY MEASUREMENTS SUGGEST 50- 69% STENOSIS OF THE LEFT INTERNAL CAROTID ARTERY BUT NO SIGNIFICANT PLAQUE DEMONSTRATED ON ULTRASOUND IMAGES. THIS COULD BE DUE TO TORTUOSITY OF THE VESSEL. NO HEMODYNAMICALLY SIGNIFICANT STENOSIS ON EITHER SIDE. Assessment & Plan - Diagnosis (1) Hypercarbia Is this a current diagnosis for this admission?: YesPlan: Patient with history of obstructive sleep apnea requiring CPAP at at bedtime. She has been noncompliant since discharge from rehab continue CPAP at bedtime and as needed. Consult discharge planning she would be best served in an assisted living environment or [facility] facility. (2) Anemia Qualifiers: Anemia type: unspecified type Qualified Code(s): D64.9 - Anemia, unspecified Is this a current diagnosis for this admission?: YesPlan: Continue to monitor, presently stable (3) Diastolic CHF Qualifiers: Congestive heart failure chronicity: chronic Qualified Code(s): I50.32 - Chronic diastolic (congestive) heart failure Is this a current diagnosis for this admission?: YesPlan: Appears euvolemic (4) History of CVA (cerebrovascular accident) Is this a current diagnosis for this admission?: YesPlan: Mild left sided weakness in the left leg. No new deficits (5) BRAN (obstructive sleep apnea) Is this a current diagnosis for this admission?: YesPlan: BIPAP at HS and prn (6) Rheumatoid arthritis Qualifiers: Laterality: unspecified laterality Is this a current diagnosis for this admission?: YesPlan: Continue home medications (7) Morbid obesity Qualifiers: Obesity type: due to excess calories Qualified Code(s): E66.01 - Morbid (severe) obesity due to excess calories Is this a current diagnosis for this admission?: YesPlan: Patient counseled (8) Encephalopathy acute Is this a current diagnosis for this admission?: YesPlan: Resolved, likely secondary to hypercapnea and opiod pain medication (9) Acute renal failure Qualifiers: Acute renal failure type: unspecified Qualified Code(s): N17.9 - Acute kidney failure, unspecified Is this a current diagnosis for this admission?: YesPlan: Resolved secondary to prerenal volume depletion - Time Time Spent with patient: 25-34 minutes Critical Time spent with patient: 25-34 minutes Medications reviewed and adjusted accordingly: Yes Anticipated discharge: SNF
[2016-11-14] MEDS: POLYETHYLENE GLYCOL 3350 POWDER 17 GM/1 PACKET PO SCH (13:19)
[2016-11-14] MEDS: ATORVASTATIN CALCIUM 40 MG TABLET PO SCH (22:38)
[2016-11-14] MEDS: MONTELUKAST SODIUM 10 MG TABLET PO SCH (22:38)
[2016-11-14] MEDS: FAMOTIDINE 20 MG TABLET PO SCH (22:38)
[2016-11-15] MEDS: ACETAMINOPHEN 325 MG TABLET PO PRN (02:08)
[2016-11-15] MEDS: HEPARIN SOD (PORCINE) 5,000 UNIT/ML 1 ML SYRINGE SUBCUT SCH ×3 (06:23→21:30)
[2016-11-15] MEDS: SULFASALAZINE 500 MG TABLET.DR PO SCH ×3 (06:23→21:31)
[2016-11-15] MEDS: METFORMIN HCL 500 MG TABLET PO SCH ×2 (10:07→17:27)
[2016-11-15] MEDS: POTASSIUM CHLORIDE 10 MEQ TABLET.SA PO SCH (10:08)
[2016-11-15] MEDS: CELECOXIB 200 MG CAPSULE PO SCH ×2 (10:08→21:32)
[2016-11-15] MEDS: FUROSEMIDE 80 MG TABLET PO SCH (10:08)
[2016-11-15] MEDS: DULOXETINE HCL 30 MG CAPSULE.DR PO SCH ×2 (10:09→21:31)
[2016-11-15] MEDS: CLOPIDOGREL BISULFATE 75 MG TABLET PO SCH (10:09)
[2016-11-15] MEDS: SPIRONOLACTONE 25 MG TABLET PO SCH (10:09)
[2016-11-15] MEDS: PREGABALIN 75 MG CAPSULE PO SCH ×2 (10:10→21:32)
[2016-11-15] MEDS: DOCUSATE SODIUM 100 MG CAPSULE PO SCH ×2 (10:10→17:28)
[2016-11-15] MEDS: METOPROLOL SUCCINATE 50 MG TAB.SR.24H PO SCH ×2 (10:11→21:30)
[2016-11-15] MEDS: FOLIC ACID 1 MG TABLET PO SCH (10:11)
[2016-11-15] MEDS: ASPIRIN 325 MG TABLET PO SCH (10:11)
[2016-11-15] MEDS: LISINOPRIL 5 MG TABLET PO SCH (10:12)
[2016-11-15] MEDS: CETIRIZINE 10 MG TABLET PO SCH (10:12)
[2016-11-15] MEDS: VERAPAMIL HCL 120 MG TABLET PO SCH (10:13)
[2016-11-15] MEDS: POLYETHYLENE GLYCOL 3350 POWDER 17 GM/1 PACKET PO SCH (10:13)
[2016-11-15] MEDS ORDERED: LORAZEPAM INJ 2 MG/1 ML VIAL IV ONE (14:00)
--- NOTE | 2016-11-15 15:40 | PDOC PROGRESS REPORT ---
Subjective Progress Note for:: 11/15/16 Subjective:: Patient seen on morning rounds. She is resting in bed at the present time. She awakens easily to verbal stimuli. She is able to move all extremities 4, she has mild weakness in the left lower extremity chronically. She has no neurological deficits at the present time. She states she wants to get out of bed She denies any complaints at present time. She denies any shortness of breath, dyspnea or cough. She denies any chest pain, headache or dizziness. She denies any nausea, vomiting or diarrhea. She was constipated. She had a bowel movement last night that was tested positive for c diff. Patient is asymptomatic Rest of the review of systems are negative. Physical Exam Vital Signs: Temp Pulse Resp BP Pulse Ox 98.5 F 93 16 129/79 H 100 11/15/16 11:33 11/15/16 11:33 11/15/16 11:33 11/15/16 11:33 11/15/16 11:33 Intake & Output 11/14/16 11/15/16 11/16/16 06:59 06:59 06:59 Intake Total 1770 640 600 Output Total 2800 250 700 Balance -1030 390 -100 Weight 140.4 kg 139.3 kg General appearance: PRESENT: no acute distress, morbidly obese, well-developed, well-nourished Head exam: PRESENT: atraumatic, normocephalic Eye exam: PRESENT: conjunctiva pink, EOMI, PERRLA. ABSENT: scleral icterus Ear exam: PRESENT: normal external ear exam Mouth exam: PRESENT: moist, tongue midline Neck exam: ABSENT: carotid bruit, JVD, lymphadenopathy, thyromegaly Cardiovascular exam: PRESENT: RRR. ABSENT: diastolic murmur, rubs, systolic murmur Pulses: PRESENT: normal carotid pulses, normal radial pulses Vascular exam: PRESENT: normal capillary refill GI/Abdominal exam: PRESENT: normal bowel sounds, soft. ABSENT: distended, guarding, mass, organolmegaly, rebound, tenderness Rectal exam: PRESENT: deferred Extremities exam: PRESENT: full ROM. ABSENT: calf tenderness, clubbing, pedal edema Musculoskeletal exam: PRESENT: ambulatory, full ROM, normal inspection - 4/5 left lower leg right 5/5, other Neurological exam: PRESENT: alert, awake, oriented to person, oriented to place , oriented to time, oriented to situation, CN II-XII grossly intact. ABSENT: motor sensory deficit Psychiatric exam: PRESENT: appropriate affect, normal mood. ABSENT: homicidal ideation, suicidal ideation Skin exam: PRESENT: dry, intact, warm. ABSENT: cyanosis, rash Results Laboratory Results: 11/13/16 04:51 11/13/16 04:51 11/11/16 01:24 Troponin I < 0.012 Impressions: Head CT 11/10/16 00:00 IMPRESSION: No acute intracranial abnormality. Chest X-Ray 11/10/16 16:39 IMPRESSION: Small lung volumes with vascular crowding. No focal infiltrates. Hip X-Ray 11/10/16 16:40 IMPRESSION: NEGATIVE STUDY OF THE LEFT HIP AND PELVIS. NO RADIOGRAPHIC EVIDENCE OF ACUTE INJURY. Head MRI 11/11/16 00:32 IMPRESSION: Age-appropriate MRI OF THE BRAIN WITHOUT AND WITH INTRAVENOUS GADOLINIUM CONTRAST. Brain MRI with MRA 11/11/16 00:33 IMPRESSION: NORMAL MRA OF THE [place]. Carotid Doppler Study 11/11/16 00:33 IMPRESSION: LIMITED STUDY. VELOCITY MEASUREMENTS SUGGEST 50- 69% STENOSIS OF THE LEFT INTERNAL CAROTID ARTERY BUT NO SIGNIFICANT PLAQUE DEMONSTRATED ON ULTRASOUND IMAGES. THIS COULD BE DUE TO TORTUOSITY OF THE VESSEL. NO HEMODYNAMICALLY SIGNIFICANT STENOSIS ON EITHER SIDE. Assessment & Plan - Diagnosis (1) Hypercarbia Is this a current diagnosis for this admission?: YesPlan: Patient with history of obstructive sleep apnea requiring CPAP at at bedtime. She has been noncompliant since discharge from rehab continue CPAP at bedtime and as needed. Consult discharge planning she would be best served in an assisted living environment or long-term facility. (2) Anemia Qualifiers: Anemia type: unspecified type Qualified Code(s): D64.9 - Anemia, unspecified Is this a current diagnosis for this admission?: YesPlan: Continue to monitor, presently stable (3) Diastolic CHF Qualifiers: Congestive heart failure chronicity: chronic Qualified Code(s): I50.32 - Chronic diastolic (congestive) heart failure Is this a current diagnosis for this admission?: YesPlan: Appears euvolemic (4) History of CVA (cerebrovascular accident) Is this a current diagnosis for this admission?: YesPlan: Mild left sided weakness in the left leg. No new deficits (5) BRAN (obstructive sleep apnea) Is this a current diagnosis for this admission?: YesPlan: BIPAP at HS and prn (6) Rheumatoid arthritis Qualifiers: Laterality: unspecified laterality Is this a current diagnosis for this admission?: YesPlan: Continue home medications (7) Morbid obesity Qualifiers: Obesity type: due to excess calories Qualified Code(s): E66.01 - Morbid (severe) obesity due to excess calories Is this a current diagnosis for this admission?: YesPlan: Patient counseled (8) Encephalopathy acute Is this a current diagnosis for this admission?: YesPlan: Resolved. Likely secondary to hypercapnea (9) Acute renal failure Qualifiers: Acute renal failure type: unspecified Qualified Code(s): N17.9 - Acute kidney failure, unspecified Is this a current diagnosis for this admission?: YesPlan: Resolved secondary to prerenal volume depletion - Time Time Spent with patient: 25-34 minutes Critical Time spent with patient: 15-24 minutes Medications reviewed and adjusted accordingly: Yes Anticipated discharge: SNF Within: when bed available
[2016-11-15] MEDS: ATORVASTATIN CALCIUM 40 MG TABLET PO SCH (21:31)
[2016-11-15] MEDS: FAMOTIDINE 20 MG TABLET PO SCH (21:31)
[2016-11-15] MEDS: MONTELUKAST SODIUM 10 MG TABLET PO SCH (21:32)
[2016-11-16] MEDS: HEPARIN SOD (PORCINE) 5,000 UNIT/ML 1 ML SYRINGE SUBCUT SCH ×3 (07:14→21:19)
[2016-11-16] MEDS: SULFASALAZINE 500 MG TABLET.DR PO SCH ×3 (07:14→21:19)
[2016-11-16] MEDS: DULOXETINE HCL 30 MG CAPSULE.DR PO SCH ×2 (09:06→21:20)
[2016-11-16] MEDS: METOPROLOL SUCCINATE 50 MG TAB.SR.24H PO SCH ×2 (09:07→21:21)
[2016-11-16] MEDS: ASPIRIN 325 MG TABLET PO SCH (09:07)
[2016-11-16] MEDS: CLOPIDOGREL BISULFATE 75 MG TABLET PO SCH (09:07)
[2016-11-16] MEDS: VERAPAMIL HCL 120 MG TABLET PO SCH (09:07)
[2016-11-16] MEDS: POTASSIUM CHLORIDE 10 MEQ TABLET.SA PO SCH (09:07)
[2016-11-16] MEDS: PREGABALIN 75 MG CAPSULE PO SCH ×2 (09:07→21:20)
[2016-11-16] MEDS: LISINOPRIL 5 MG TABLET PO SCH (09:07)
[2016-11-16] MEDS: SPIRONOLACTONE 25 MG TABLET PO SCH (09:08)
[2016-11-16] MEDS: CETIRIZINE 10 MG TABLET PO SCH (09:08)
[2016-11-16] MEDS: FOLIC ACID 1 MG TABLET PO SCH (09:08)
[2016-11-16] MEDS: FUROSEMIDE 80 MG TABLET PO SCH (09:08)
[2016-11-16] MEDS: METFORMIN HCL 500 MG TABLET PO SCH ×2 (09:08→16:36)
[2016-11-16] MEDS: CELECOXIB 200 MG CAPSULE PO SCH ×2 (09:08→21:21)
[2016-11-16] MEDS: DOCUSATE SODIUM 100 MG CAPSULE PO SCH ×2 (09:09→16:36)
[2016-11-16] MEDS: POLYETHYLENE GLYCOL 3350 POWDER 17 GM/1 PACKET PO SCH (09:09)
--- NOTE | 2016-11-16 10:33 | PDOC PROGRESS REPORT ---
Subjective Progress Note for:: 11/16/16 Subjective:: Patient seen on morning rounds. She is resting in bed at the present time. She awakens easily to verbal stimuli. She is able to move all extremities 4, she has mild weakness in the left lower extremity chronically. She has no neurological deficits at the present time. She states she wants to get out of bed She denies any complaints at present time. She denies any shortness of breath, dyspnea or cough. She denies any chest pain, headache or dizziness. She states last evening she began having diarrhea. She tested positive for c diff last night and is on flagyl. She has not been on any recent antibiotics. Rest of the review of systems are negative. Physical Exam Vital Signs: Temp Pulse Resp BP Pulse Ox 97.9 F 92 20 123/78 96 11/16/16 07:39 11/16/16 07:39 11/16/16 07:39 11/16/16 07:39 11/16/16 07:39 Intake & Output 11/15/16 11/16/16 11/17/16 06:59 06:59 06:59 Intake Total 640 1175 Output Total 250 1200 Balance 390 -25 Weight 139.3 kg 139.2 kg General appearance: PRESENT: no acute distress, morbidly obese, well-developed, well-nourished Head exam: PRESENT: atraumatic, normocephalic Eye exam: PRESENT: conjunctiva pink, EOMI, PERRLA. ABSENT: scleral icterus Ear exam: PRESENT: normal external ear exam Mouth exam: PRESENT: moist, tongue midline Respiratory exam: PRESENT: clear to auscultation chen. ABSENT: rales, rhonchi, wheezes Cardiovascular exam: PRESENT: RRR. ABSENT: diastolic murmur, rubs, systolic murmur Pulses: PRESENT: normal carotid pulses, normal radial pulses Vascular exam: PRESENT: normal capillary refill GI/Abdominal exam: PRESENT: hyperactive bowel sounds, soft Rectal exam: PRESENT: deferred Extremities exam: PRESENT: +1 edema - left lower leg Musculoskeletal exam: PRESENT: ambulatory, full ROM, normal inspection Neurological exam: PRESENT: alert, awake, oriented to person, oriented to place , oriented to time, oriented to situation, abnormal gait, CN II-XII grossly intact - left lower extremity 4/5 muscle strength Psychiatric exam: PRESENT: appropriate affect, normal mood. ABSENT: homicidal ideation, suicidal ideation Skin exam: PRESENT: dry, intact, warm. ABSENT: cyanosis, rash Results Laboratory Results: 11/13/16 04:51 11/13/16 04:51 11/11/16 01:24 Troponin I < 0.012 Impressions: Head CT 11/10/16 00:00 IMPRESSION: No acute intracranial abnormality. Chest X-Ray 11/10/16 16:39 IMPRESSION: Small lung volumes with vascular crowding. No focal infiltrates. Hip X-Ray 11/10/16 16:40 IMPRESSION: NEGATIVE STUDY OF THE LEFT HIP AND PELVIS. NO RADIOGRAPHIC EVIDENCE OF ACUTE INJURY. Head MRI 11/11/16 00:32 IMPRESSION: Age-appropriate MRI OF THE BRAIN WITHOUT AND WITH INTRAVENOUS GADOLINIUM CONTRAST. Brain MRI with MRA 11/11/16 00:33 IMPRESSION: NORMAL MRA OF THE [place] OF [place]. Carotid Doppler Study 11/11/16 00:33 IMPRESSION: LIMITED STUDY. VELOCITY MEASUREMENTS SUGGEST 50- 69% STENOSIS OF THE LEFT INTERNAL CAROTID ARTERY BUT NO SIGNIFICANT PLAQUE DEMONSTRATED ON ULTRASOUND IMAGES. THIS COULD BE DUE TO TORTUOSITY OF THE VESSEL. NO HEMODYNAMICALLY SIGNIFICANT STENOSIS ON EITHER SIDE. Assessment & Plan - Diagnosis (1) Hypercarbia Is this a current diagnosis for this admission?: YesPlan: Patient with history of obstructive sleep apnea requiring CPAP at at bedtime. She has been noncompliant since discharge from rehab continue CPAP at bedtime and as needed. Consult discharge planning she would be best served in an assisted living environment or detention facility. (2) Anemia Qualifiers: Anemia type: unspecified type Qualified Code(s): D64.9 - Anemia, unspecified Is this a current diagnosis for this admission?: YesPlan: Continue to monitor, presently stable (3) C. difficile diarrhea Is this a current diagnosis for this admission?: No (4) Diastolic CHF Qualifiers: Congestive heart failure chronicity: chronic Qualified Code(s): I50.32 - Chronic diastolic (congestive) heart failure Is this a current diagnosis for this admission?: YesPlan: Appears euvolemic (5) BRAN (obstructive sleep apnea) Is this a current diagnosis for this admission?: YesPlan: BIPAP at HS and prn (6) History of CVA (cerebrovascular accident) Is this a current diagnosis for this admission?: Yes (7) Rheumatoid arthritis Qualifiers: Laterality: unspecified laterality Is this a current diagnosis for this admission?: Yes (8) Morbid obesity Qualifiers: Obesity type: due to excess calories Qualified Code(s): E66.01 - Morbid (severe) obesity due to excess calories Is this a current diagnosis for this admission?: YesPlan: Patient counseled (9) Encephalopathy acute Is this a current diagnosis for this admission?: YesPlan: Resolved. Likely secondary to hypercapnea (10) Acute renal failure Qualifiers: Acute renal failure type: unspecified Qualified Code(s): N17.9 - Acute kidney failure, unspecified Is this a current diagnosis for this admission?: YesPlan: Resolved secondary to prerenal volume depletion - Time Time Spent with patient: 25-34 minutes Critical Time spent with patient: 15-24 minutes Medications reviewed and adjusted accordingly: Yes Anticipated discharge: SNF Within: when bed available
[2016-11-16] MEDS: ACETAMINOPHEN 325 MG TABLET PO PRN (19:52)
[2016-11-16] MEDS: FAMOTIDINE 20 MG TABLET PO SCH (21:20)
[2016-11-16] MEDS: MONTELUKAST SODIUM 10 MG TABLET PO SCH (21:21)
[2016-11-16] MEDS: ATORVASTATIN CALCIUM 40 MG TABLET PO SCH (21:21)
[2016-11-16] MEDS ORDERED: ONDANSETRON HCL INJ/PF 4 MG/2 ML SDV IV PRN (21:38)
[2016-11-16] MEDS ORDERED: ONDANSETRON HCL INJ/PF 4 MG/2 ML SDV ONE (21:41)
[2016-11-16 22:12] LABS: ABSOLUTE EOSINOPHILS # (AUTO) 0.1 10^3/uL (0.0-0.6); ABSOLUTE LYMPHOCYTES (AUTO) 2.5 10^3/uL (0.5-4.7); ABSOLUTE MONOCYTES (AUTO) 0.7 10^3/uL (0.1-1.4); ABSOLUTE NEUT (AUTO) 3.5 10^3/uL (1.7-8.2); BASOPHILS % (AUTO) 0.7 % (0-2); EOSINOPHILS % (AUTO) 1.7 % (0-6); HEMATOCRIT 37.8 % (36.0-47.0); HEMOGLOBIN 11.9 g/dL (12.0-15.5); HGB HCT DIFFERENCE -2.1; LYMPHOCYTES % (AUTO) 36.3 % (13-45); MEAN CORPUSCULAR HGB CONC 31.5 g/dL (32.0-36.0); MEAN CORPUSCULAR VOLUME 76 fl (80-97); MONOCYTES % (AUTO) 10.2 % (3-13); RED BLOOD COUNT 4.95 10^6/uL (3.72-5.28); RED CELL DISTRIBUTION WIDTH 17.5 % (11.5-14.0); SEGMENTED NEUTROPHILS % (AUTO) 51.1 % (42-78); WHITE BLOOD COUNT 6.8 10^3/uL (4.0-10.5)
[2016-11-16 22:22] LABS: ANION GAP 13 (5-19); BLOOD UREA NITROGEN 21 mg/dL (7-20); CALCIUM 9.2 mg/dL (8.4-10.2); CARBON DIOXIDE 29 mmol/L (22-30); CHLORIDE 97 mmol/L (98-107); CREATINE KINASE 353 U/L (30-135); CREATININE RESULT 1.07 mg/dL (0.52-1.25); GLUCOSE 155 mg/dL (75-110); POTASSIUM 4.9 mmol/L (3.6-5.0); SODIUM 139.2 mmol/L (137-145)
[2016-11-16 23:00] LABS: CREATINE KINASE MB < 0.22 ng/mL (<4.55); TROPONIN I < 0.012 ng/mL
[2016-11-17 05:38] LABS: CREATINE KINASE MB < 0.22 ng/mL (<4.55); TROPONIN I < 0.012 ng/mL
[2016-11-17] MEDS: SULFASALAZINE 500 MG TABLET.DR PO SCH ×3 (05:44→21:55)
[2016-11-17] MEDS: HEPARIN SOD (PORCINE) 5,000 UNIT/ML 1 ML SYRINGE SUBCUT SCH ×3 (05:44→22:01)
[2016-11-17] MEDS ORDERED: (PENDING PHARMACY ID) (Zolpidem Tartrate [Ambien] 10 MG) PO PRN (08:29)
[2016-11-17] MEDS ORDERED: ZOLPIDEM TARTRATE 5 MG TABLET PO PRN (08:40)
[2016-11-17] MEDS: POTASSIUM CHLORIDE 10 MEQ TABLET.SA PO SCH (08:41)
[2016-11-17] MEDS: PREGABALIN 75 MG CAPSULE PO SCH ×2 (08:42→21:55)
[2016-11-17] MEDS: ASPIRIN 325 MG TABLET PO SCH (08:42)
[2016-11-17] MEDS: METOPROLOL SUCCINATE 50 MG TAB.SR.24H PO SCH ×2 (08:43→21:54)
[2016-11-17] MEDS: CELECOXIB 200 MG CAPSULE PO SCH ×2 (08:44→21:56)
[2016-11-17] MEDS: METFORMIN HCL 500 MG TABLET PO SCH ×2 (08:44→17:23)
[2016-11-17] MEDS: CETIRIZINE 10 MG TABLET PO SCH (08:45)
[2016-11-17] MEDS: DULOXETINE HCL 30 MG CAPSULE.DR PO SCH ×2 (08:45→21:55)
[2016-11-17] MEDS: LISINOPRIL 5 MG TABLET PO SCH (08:45)
[2016-11-17] MEDS: VERAPAMIL HCL 120 MG TABLET PO SCH (08:46)
[2016-11-17] MEDS: FOLIC ACID 1 MG TABLET PO SCH (08:46)
[2016-11-17] MEDS: CLOPIDOGREL BISULFATE 75 MG TABLET PO SCH (08:46)
[2016-11-17] MEDS: SPIRONOLACTONE 25 MG TABLET PO SCH (08:46)
[2016-11-17] MEDS: POLYETHYLENE GLYCOL 3350 POWDER 17 GM/1 PACKET PO SCH (08:47)
--- NOTE | 2016-11-17 11:12 | PDOC PROGRESS REPORT ---
Subjective Progress Note for:: 11/17/16 Subjective:: Patient seen on morning rounds. She is resting in bed at the present time. She had several episodes of nausea and vomiting last night. Her nurse states it began after she was given her evening dose of flagyl. She is still having some diarrhea, but it is improved. She is able to move all extremities 4, she has mild weakness in the left lower extremity chronically. She has no neurological deficits at the present time. She states she wants to get out of bed She denies any complaints at present time. She denies any shortness of breath, dyspnea or cough. She denies any chest pain, headache or dizziness. She has not been on any recent antibiotics. Rest of the review of systems are negative. Physical Exam Vital Signs: Temp Pulse Resp BP Pulse Ox 98.2 F 115 H 19 129/82 H 93 11/17/16 08:05 11/17/16 08:05 11/17/16 08:05 11/17/16 08:05 11/17/16 08:05 Intake & Output 11/16/16 11/17/16 11/18/16 06:59 06:59 06:59 Intake Total 1175 1272 Output Total 1200 Balance -25 1272 Weight 139.2 kg 139 kg General appearance: PRESENT: no acute distress, morbidly obese, well-developed, well-nourished Head exam: PRESENT: atraumatic, normocephalic Eye exam: PRESENT: conjunctiva pink, EOMI, PERRLA. ABSENT: scleral icterus Ear exam: PRESENT: normal external ear exam Mouth exam: PRESENT: moist, tongue midline Neck exam: ABSENT: carotid bruit, JVD, lymphadenopathy, thyromegaly Respiratory exam: PRESENT: clear to auscultation chen. ABSENT: rales, rhonchi, wheezes Cardiovascular exam: PRESENT: RRR. ABSENT: diastolic murmur, rubs, systolic murmur Pulses: PRESENT: normal dorsalis pedis pul Vascular exam: PRESENT: normal capillary refill GI/Abdominal exam: PRESENT: hyperactive bowel sounds, soft. ABSENT: distended, guarding, mass, organolmegaly, rebound, tenderness Rectal exam: PRESENT: deferred Extremities exam: PRESENT: full ROM. ABSENT: calf tenderness, clubbing, pedal edema Musculoskeletal exam: PRESENT: ambulatory, full ROM, normal inspection Neurological exam: PRESENT: alert, awake, oriented to person, oriented to place , oriented to time, oriented to situation, CN II-XII grossly intact. ABSENT: motor sensory deficit Psychiatric exam: PRESENT: appropriate affect, normal mood. ABSENT: homicidal ideation, suicidal ideation Skin exam: PRESENT: dry, intact, warm. ABSENT: cyanosis, rash Results Laboratory Results: 11/16/16 22:00 11/16/16 22:00 11/16/16 11/16/16 22:00 22:00 WBC 6.8 RBC 4.95 Hgb 11.9 L Hct 37.8 MCV 76 L MCH 24.0 L MCHC 31.5 L RDW 17.5 H Plt Count 265 Seg Neutrophils % 51.1 Lymphocytes % 36.3 Monocytes % 10.2 Eosinophils % 1.7 Basophils % 0.7 Absolute Neutrophils 3.5 Absolute Lymphocytes 2.5 Absolute Monocytes 0.7 Absolute Eosinophils 0.1 Absolute Basophils 0.0 Sodium 139.2 Potassium 4.9 Chloride 97 L Carbon Dioxide 29 Anion Gap 13 BUN 21 H Creatinine 1.07 Est GFR ( Amer) > 60 Est GFR (Non-Af Amer) 53 L Glucose 155 H Calcium 9.2 11/11/16 11/16/16 11/16/16 01:24 22:00 22:15 Creatine Kinase 353 H CK-MB (CK-2) < 0.22 Troponin I < 0.012 < 0.012 11/17/16 11/17/16 04:16 04:16 Creatine Kinase 261 H CK-MB (CK-2) < 0.22 Troponin I < 0.012 Impressions: Head CT 11/10/16 00:00 IMPRESSION: No acute intracranial abnormality. Chest X-Ray 11/10/16 16:39 IMPRESSION: Small lung volumes with vascular crowding. No focal infiltrates. Hip X-Ray 11/10/16 16:40 IMPRESSION: NEGATIVE STUDY OF THE LEFT HIP AND PELVIS. NO RADIOGRAPHIC EVIDENCE OF ACUTE INJURY. Head MRI 11/11/16 00:32 IMPRESSION: Age-appropriate MRI OF THE BRAIN WITHOUT AND WITH INTRAVENOUS GADOLINIUM CONTRAST. Brain MRI with MRA 11/11/16 00:33 IMPRESSION: NORMAL MRA OF THE [place] OF [place]. Carotid Doppler Study 11/11/16 00:33 IMPRESSION: LIMITED STUDY. VELOCITY MEASUREMENTS SUGGEST 50- 69% STENOSIS OF THE LEFT INTERNAL CAROTID ARTERY BUT NO SIGNIFICANT PLAQUE DEMONSTRATED ON ULTRASOUND IMAGES. THIS COULD BE DUE TO TORTUOSITY OF THE VESSEL. NO HEMODYNAMICALLY SIGNIFICANT STENOSIS ON EITHER SIDE. Assessment & Plan - Diagnosis (1) C. difficile diarrhea Is this a current diagnosis for this admission?: YesPlan: Patient became nauseated and vomited after taking flagyl yesteday. Will change to oral vancomycin. Zofran prn (2) Hypercarbia Is this a current diagnosis for this admission?: YesPlan: Patient with history of obstructive sleep apnea requiring CPAP at at bedtime. She has been noncompliant since discharge from rehab continue CPAP at bedtime and as needed. Consult discharge planning she would be best served in an assisted living environment or halfway facility. (3) Anemia Qualifiers: Anemia type: unspecified type Qualified Code(s): D64.9 - Anemia, unspecified Is this a current diagnosis for this admission?: YesPlan: Continue to monitor, presently stable (4) Diastolic CHF Qualifiers: Congestive heart failure chronicity: chronic Qualified Code(s): I50.32 - Chronic diastolic (congestive) heart failure Is this a current diagnosis for this admission?: YesPlan: Appears euvolemic (5) BRAN (obstructive sleep apnea) Is this a current diagnosis for this admission?: YesPlan: BIPAP at HS and prn (6) History of CVA (cerebrovascular accident) Is this a current diagnosis for this admission?: YesPlan: Mild left sided weakness in the left leg. No new deficits (7) Rheumatoid arthritis Qualifiers: Laterality: unspecified laterality Is this a current diagnosis for this admission?: YesPlan: Continue home medications (8) Morbid obesity Qualifiers: Obesity type: due to excess calories Qualified Code(s): E66.01 - Morbid (severe) obesity due to excess calories Is this a current diagnosis for this admission?: YesPlan: Patient counseled (9) Encephalopathy acute Is this a current diagnosis for this admission?: YesPlan: Resolved. Likely secondary to hypercapnea (10) Acute renal failure Qualifiers: Acute renal failure type: unspecified Qualified Code(s): N17.9 - Acute kidney failure, unspecified Is this a current diagnosis for this admission?: YesPlan: Resolved secondary to prerenal volume depletion - Time Time Spent with patient: 25-34 minutes Critical Time spent with patient: 15-24 minutes Medications reviewed and adjusted accordingly: Yes Anticipated discharge: SNF Within: when bed available
[2016-11-17 11:32] LABS: CREATINE KINASE MB < 0.22 ng/mL (<4.55); TROPONIN I < 0.012 ng/mL
[2016-11-17] MEDS: VANCOMYCIN HCL INJ 500 MG VIAL PO SCH ×2 (12:04→17:24)
[2016-11-17] MEDS: ONDANSETRON HCL INJ/PF 4 MG/2 ML SDV IV PRN (13:28)
[2016-11-17] MEDS: LACTOBACILLUS ACIDOPHILUS 250 MG TAB PO SCH (17:23)
[2016-11-17] MEDS: FAMOTIDINE 20 MG TABLET PO SCH (21:55)
[2016-11-17] MEDS: ATORVASTATIN CALCIUM 40 MG TABLET PO SCH (21:56)
[2016-11-17] MEDS: MONTELUKAST SODIUM 10 MG TABLET PO SCH (21:56)
[2016-11-18] MEDS: VANCOMYCIN HCL INJ 500 MG VIAL PO SCH ×4 (00:12→17:16)
[2016-11-18 05:33] LABS: ANION GAP 10 (5-19); BLOOD UREA NITROGEN 19 mg/dL (7-20); CALCIUM 9.2 mg/dL (8.4-10.2); CARBON DIOXIDE 29 mmol/L (22-30); CHLORIDE 101 mmol/L (98-107); CREATININE RESULT 1.17 mg/dL (0.52-1.25); GLUCOSE 150 mg/dL (75-110); POTASSIUM 4.2 mmol/L (3.6-5.0); SODIUM 140.4 mmol/L (137-145)
[2016-11-18] MEDS: SULFASALAZINE 500 MG TABLET.DR PO SCH ×2 (06:34→14:49)
[2016-11-18] MEDS: HEPARIN SOD (PORCINE) 5,000 UNIT/ML 1 ML SYRINGE SUBCUT SCH ×2 (06:34→14:49)
[2016-11-18] MEDS: METFORMIN HCL 500 MG TABLET PO SCH ×2 (08:25→17:16)
--- NOTE | 2016-11-18 08:46 | PDOC TRANSFER SUMMARY ---
General - Admit/Disc Date/PCP Admission Date/Primary Care Provider: 11/10/16 23:45 ADELAIDA GARZA MD Discharge Date: 11/18/16 - Discharge Diagnosis (1) C. difficile diarrhea Is this a current diagnosis for this admission?: YesSummary: Diarrhe has resolved. Did not tolerate Flagyl due to vomiting. Day #2 oral vancomycin therapy (2) Hypercarbia Is this a current diagnosis for this admission?: YesSummary: Resolved with CPAP. Patient did not have CPAP [facility] (3) Anemia Is this a current diagnosis for this admission?: YesSummary: Stable (4) Diastolic CHF Is this a current diagnosis for this admission?: YesSummary: Patient is presently euvolemic. Continue current medications (5) BRAN (obstructive sleep apnea) Is this a current diagnosis for this admission?: YesSummary: CPAP at HS and prn (6) History of CVA (cerebrovascular accident) Is this a current diagnosis for this admission?: YesSummary: Left sided residual weakness (7) Rheumatoid arthritis Is this a current diagnosis for this admission?: YesSummary: Continue current medications (8) Morbid obesity Is this a current diagnosis for this admission?: YesSummary: Counseled (9) Encephalopathy acute Is this a current diagnosis for this admission?: YesSummary: Resolved (10) Acute renal failure Is this a current diagnosis for this admission?: YesSummary: Resolved - Additional Information Resuscitation Status: Full Code Discharge Diet: Diabetic Discharge Activity: Activity As Tolerated, Balance Activity w/Rest Home Medications: Albuterol Sulfate [Ventolin HFA MDI 18 GM] 2 puff IH Q6HP PRN 11/11/16 Atorvastatin Calcium [Lipitor 40 mg Tablet] 40 mg PO QHS 11/11/16 Celecoxib [Celebrex 200 mg Capsule] 200 mg PO Q12 11/11/16 Cetirizine HCl [Zyrtec 10 mg Tablet] 10 mg PO DAILY 11/11/16 Cevimeline HCl [Evoxac] 30 mg PO TIDP PRN 11/11/16 Clopidogrel Bisulfate [Plavix 75 mg Tablet] 75 mg PO DAILY 11/11/16 Docusate Sodium [Dok] 100 mg PO BID 11/11/16 Duloxetine HCl [Cymbalta] 60 mg PO Q12 11/11/16 Ergocalciferol (Vitamin D2) [Drisdol 50,000 unit (1.25MG) Capsule] 50,000 unit PO [id number] 11/11/16 Famotidine [Pepcid 40 mg Tablet] 40 mg PO QHS 11/11/16 Folic Acid [Folvite 1 mg Tablet] 1 mg PO DAILY 11/11/16 Furosemide [Lasix 80 mg Tablet] 80 mg PO DAILY 11/11/16 Lisinopril [Prinivil 5 mg Tablet] 5 mg PO DAILY 11/11/16 Metformin HCl [Glucophage] 1,000 mg PO BIDACBS 11/11/16 Methotrexate Sodium [Methotrexate] 15 mg PO TH@1000 11/11/16 Metoprolol Succinate [Toprol XL 100 mg Tablet] 100 mg PO Q12 11/11/16 Montelukast Sodium [Singulair 10 mg Tablet] 10 mg PO QHS 11/11/16 Potassium Chloride [K-Tab ER] 20 meq PO DAILY 11/11/16 Pregabalin [Lyrica] 150 mg PO Q12 11/11/16 Vit/Iron Fumarate/FA [ Tablet] 1 tab PO DAILY 11/11/16 Spironolactone [Aldactone 25 mg Tablet] 25 mg PO DAILY 11/11/16 Sulfasalazine [Sulfazine] 500 mg PO Q8 11/11/16 Tizanidine HCl [Zanaflex 4 mg Tablet] 4 mg PO Q8HP PRN MDD 3 CAPSULES 11/11/16 Verapamil HCl [Calan 120 mg Tablet] 120 mg PO DAILY 11/11/16 Acetaminophen [Tylenol 325 mg Tablet] 650 mg PO Q8HP PRN tablet 11/18/16 Aspirin [Ecotrin 81 mg EC Tablet] 81 mg PO DAILY #30 tabec 11/18/16 Insulin Lispro [Humalog Insulin (Lispro) 100 unit/mL] 0 - 12 unit SUBCUT ACHSP PRN unit 11/18/16 Polyethylene Glycol 3350 [Miralax Powder 17 gm/Packet] 17 gm PO DAILY PRN powd.pack 11/18/16 Vancomycin HCl 250 mg PO Q6H #36 capsule 11/18/16 Zolpidem Tartrate [Ambien] 10 mg PO HSP PRN #5 tablet 11/18/16 History of Present Illness Admission Date/PCP: 11/10/16 23:45 ADELAIDA GARZA MD Patient complains of: Altered mental status and weakness History of Present Illness: BERT MOE is a 56 year old morbidly obese -[place] female with multiple underlying chronic problems, including fibromyalgia, methotrexate- and steroid-dependent rheumatoid arthritis, and chronic pain syndrome, along with chronic opiate use, who presents to the emergency room for evaluation of above complaint. Patient has been discussed with emergency room physician who evaluated the patient. Patient is fairly somnolent, and while she does awaken easily and answers occasional basic questions reasonably appropriately, she is able to provide no history whatsoever in terms of acute events, and little history related to chronic events, review of systems, personal habits, family history, etc. 2 daughters and a son-in-law are present and are somewhat helpful and informative, although they had not seen her since Friday of this week until the .. Old inpatient records are reviewed. Above individuals present at patient's side with her approval. Hospitalized on our service the through the of last month with final diagnoses including systemic inflammatory response syndrome secondary to viral gastroenteritis along with polypharmacy, among other diagnoses. History and physical and discharge summary have been reviewed. transferred from our facility to [facility] for rehab, and just was discharged from there back home this past Friday. Granddaughter was helping her get out of a chair into the bathroom when patient fell on her left side approximately noon on the . Complaining of bilateral pelvic pain with little strength in her legs, which according to her daughter, has been the case for the last 3 or 4 months. Was noted to be hypotensive and poorly responsive upon arrival in the emergency room, with improvement in both with a single 0.2 mg of Narcan. According to the emergency room physician, she takes 100 mg of morphine orally twice a day. Was noted by the emergency room physician to have minimal function in her left lower extremity and decreased but improving function in her left upper extremity. Prior stroke in 1992 which affected the left side, but from which she had completely recovered, according to daughter. no fever or chills, chest or abdominal pain. However, patient does state that she has had some nausea vomiting and diarrhea off and on since arriving home. Laboratory results are listed in [employer] and are reviewed. X-ray summary results are listed below, with full report(s) reviewed. . EKG reviewed. Social history/personal habits: Single. Has children. Disabled due to multiple health problems. No use of alcohol tobacco or illicit drugs. Allergies/adverse reactions are listed in [employer] and are reviewed. Home medications initially autopopulated into [employer] may not accurately reflect patient's true medications, dosages, and/or frequencies. manufacturing quality technician to reconcile medications. Unfortunately, patient cannot provide any information related to medications/ dosages/frequencies. REVIEW OF SYSTEMS: See history and present illness. No further information available this point in time. PHYSICAL EXAMINATION: 5 feet 6 inches tall. 149 kg. BMI 53 kg/m. Blood pressure 158/86. Pulse 97 and regular. 100% saturation on room air. Respirations are 12 and unlabored. Temperature 97.7. Morbidly obese -[place] female appearing approximately her stated age. Somnolent, but does awaken somewhat when spoken to in a normal volume voice. Does provide occasionally reasonable answers to basic questions concerning chronic aspects of her health, but is not able to provide any information related to acute events that led her to come to the emergency room. Maintaining her airway well. Female emergency room skilled nursing case manager Amparo is present. 2 daughters and a son-in-law are present. Patient approves. Skin is warm and dry. No grossly obvious evidence of rash in areas of skin examined. No subcutaneous nodules palpated. ENT: Hearing grossly normal to normal conversation. Tongue midline on protrusion pink and slightly tacky. Eyes: No scleral icterus. Pupils equal and reactive to light at 4 mm. [place] conjunctivae. No raccoon eyes. Neck is supple and nontender to gentle active range of motion and palpation. Midline trachea. No palpable thyroid nodule mass enlargement or tenderness. Lymphatic: No palpable cervical or clavicular nodes. Neck and lymphatic exams limited by patient body habitus. Psychiatric: Difficult to adequately evaluate due to her current status. See above. Lungs: Auscultation reveals clear and equal breath sounds bilaterally. No use of accessory respiratory muscles. Cardiovascular: Heart regular rate and rhythm, without gallop murmur or rub. No carotid or abdominal aortic bruits. No ankle or pedal edema. Faintly palpable dorsalis pedis pulses. Abdomen:soft prominently obese nontender with positive bowel sounds. Unable to adequately evaluate abdomen for masses or organomegaly due to body habitus. Extremities: Feet are warm and dry. No calf tenderness to compression. No grossly obvious visual evidence of calf swelling. Gentle manipulation of lower extremities fails to reveal any obvious evidence of injury or instability to knees hips or ankles although range of motion is quite limited due to combination of her weakness and body habitus. Neurologic: Cranial Nerves somewhat difficult to evaluate due to patient's somnolence and perhaps some difficulty in understanding instructions. Mild left facial droop. Tongue midline on protrusion. No nystagmus. Does not perform trapezius raise. Does not attempt extraocular movements. Light touch cannot be adequately evaluated due to her mental status. Motor function of major muscle groups right upper extremity 5/5; 4/5 right lower extremity. Handgrip on the left 4/5 versus 5/5 on the right. Biceps and triceps function on the left 4/5, versus 5/5 on the right. Left lower extremity motor function 3 /5. Patellar reflexes absent. Absent Babinski. No ankle clonus. Hospital Course Hospital Course: Patient was admitted to [facility] on telemetry. She was placed on BiPAP and had resolution of her hypercarbia and improved mentation back to baseline. MRI showed no new infarcts. Carotid dopplers were obtained which showed no significant stenosis. PT was consulted. Patient required 2 assistants to be OOB. PT recommended short term rehab. Discharge planning was consulted. Patient had a bed offer from [facility]. Patient developed diarrhea over the weekend, which tested positive for c diff. She has had no recent antibiotic therapy. She was placed on Flagyl which after 2 doses caused vomiting . This was discontinued. She was started on oral vancomyin which she tolerated. Her diarrhea has stopped. She has been compliant with CPAP at night. Physical Exam Vital Signs: Temp Pulse Resp BP Pulse Ox 98.4 F 92 19 106/69 98 11/18/16 07:51 11/18/16 07:51 11/18/16 07:51 11/18/16 07:51 11/18/16 07:51 Intake & Output 11/17/16 11/18/16 11/19/16 06:59 06:59 06:59 Intake Total 1272 958 Balance 1272 958 Weight 139 kg 139.2 kg General appearance: PRESENT: no acute distress, morbidly obese, well-developed, well-nourished Head exam: PRESENT: atraumatic, normocephalic Eye exam: PRESENT: conjunctiva pink, EOMI, PERRLA. ABSENT: scleral icterus Ear exam: PRESENT: normal external ear exam Mouth exam: PRESENT: moist, tongue midline Neck exam: ABSENT: carotid bruit, JVD, lymphadenopathy, thyromegaly Respiratory exam: PRESENT: clear to auscultation chen. ABSENT: rales, rhonchi, wheezes Cardiovascular exam: PRESENT: RRR, +S1, +S2. ABSENT: diastolic murmur, rubs, systolic murmur Pulses: PRESENT: normal carotid pulses, normal radial pulses GI/Abdominal exam: PRESENT: normal bowel sounds, soft. ABSENT: distended, guarding, mass, organolmegaly, rebound, tenderness Rectal exam: PRESENT: deferred Extremities exam: PRESENT: full ROM, pedal edema - left lower extremity, +1 edema Musculoskeletal exam: PRESENT: ambulatory, full ROM Neurological exam: PRESENT: alert, awake, oriented to person, oriented to place , oriented to time, oriented to situation, CN II-XII grossly intact. ABSENT: motor sensory deficit Psychiatric exam: PRESENT: appropriate affect, normal mood. ABSENT: homicidal ideation, suicidal ideation Skin exam: PRESENT: dry, intact, warm. ABSENT: cyanosis, rash Results Laboratory Results: 11/16/16 22:00 11/18/16 04:29 11/18/16 04:29 Sodium 140.4 Potassium 4.2 Chloride 101 Carbon Dioxide 29 Anion Gap 10 BUN 19 Creatinine 1.17 Est GFR ( Amer) 58 L Est GFR (Non-Af Amer) 48 L Glucose 150 H Calcium 9.2 11/11/16 11/16/16 11/16/16 01:24 22:00 22:15 Creatine Kinase 353 H CK-MB (CK-2) < 0.22 Troponin I < 0.012 < 0.012 11/17/16 11/17/16 11/17/16 04:16 04:16 10:50 Creatine Kinase 261 H 192 H CK-MB (CK-2) < 0.22 Troponin I < 0.012 11/17/16 10:50 Creatine Kinase CK-MB (CK-2) < 0.22 Troponin I < 0.012 Impressions: Head CT 11/10/16 00:00 IMPRESSION: No acute intracranial abnormality. Chest X-Ray 11/10/16 16:39 IMPRESSION: Small lung volumes with vascular crowding. No focal infiltrates. Hip X-Ray 11/10/16 16:40 IMPRESSION: NEGATIVE STUDY OF THE LEFT HIP AND PELVIS. NO RADIOGRAPHIC EVIDENCE OF ACUTE INJURY. Head MRI 11/11/16 00:32 IMPRESSION: Age-appropriate MRI OF THE BRAIN WITHOUT AND WITH INTRAVENOUS GADOLINIUM CONTRAST. Brain MRI with MRA 11/11/16 00:33 IMPRESSION: NORMAL MRA OF THE [place]. Carotid Doppler Study 11/11/16 00:33 IMPRESSION: LIMITED STUDY. VELOCITY MEASUREMENTS SUGGEST 50- 69% STENOSIS OF THE LEFT INTERNAL CAROTID ARTERY BUT NO SIGNIFICANT PLAQUE DEMONSTRATED ON ULTRASOUND IMAGES. THIS COULD BE DUE TO TORTUOSITY OF THE VESSEL. NO HEMODYNAMICALLY SIGNIFICANT STENOSIS ON EITHER SIDE. Transfer Plan - Disposition Transfer Plan: Transfer to [facility] - Time Spent with Patient Time spent with patient: Less than 30 Minutes Qualifiers PATEINT BEING DISCHARGED WITH ANY OF THE FOLLOWING DIAGNOSIS?: No Plan Time Spent: Less than 30 Minutes
[2016-11-18] MEDS: POTASSIUM CHLORIDE 10 MEQ TABLET.SA PO SCH (10:38)
[2016-11-18] MEDS: FOLIC ACID 1 MG TABLET PO SCH (10:38)
[2016-11-18] MEDS: FUROSEMIDE 80 MG TABLET PO SCH (10:38)
[2016-11-18] MEDS: LACTOBACILLUS ACIDOPHILUS 250 MG TAB PO SCH ×2 (10:47→17:16)
[2016-11-18] MEDS: PREGABALIN 75 MG CAPSULE PO SCH (10:48)
[2016-11-18] MEDS: ASPIRIN 325 MG TABLET PO SCH (10:48)
[2016-11-18] MEDS: DULOXETINE HCL 30 MG CAPSULE.DR PO SCH (10:48)
[2016-11-18] MEDS: CETIRIZINE 10 MG TABLET PO SCH (10:49)
[2016-11-18] MEDS: CELECOXIB 200 MG CAPSULE PO SCH (10:49)
[2016-11-18] MEDS: CLOPIDOGREL BISULFATE 75 MG TABLET PO SCH (11:02)
[2016-11-18] MEDS: VERAPAMIL HCL 120 MG TABLET PO SCH (11:39)
[2016-11-18] MEDS: POLYETHYLENE GLYCOL 3350 POWDER 17 GM/1 PACKET PO SCH (11:39)
[2016-11-18] MEDS: METOPROLOL SUCCINATE 50 MG TAB.SR.24H PO SCH (11:39)
[2016-11-18] MEDS: SPIRONOLACTONE 25 MG TABLET PO SCH (11:39)
[2016-11-18] MEDS: LISINOPRIL 5 MG TABLET PO SCH (11:39)
--- NOTE | 2016-11-18 12:26 | RADIOLOGY REPORT (SQ) ---
EXAM DESCRIPTION: KNEE LEFT 2 VIEWS COMPLETED DATE/TIME: 11/18/2016 12:10 pm REASON FOR STUDY: Increasing left knee pain COMPARISON: None. NUMBER OF VIEWS: Four views. TECHNIQUE: AP, lateral, and both oblique radiographic images acquired of the left knee. LIMITATIONS: None. FINDINGS: MINERALIZATION: Normal. BONES: No acute fracture or dislocation. No worrisome bone lesions. JOINT: 3 compartment degenerative joint changes are present. There is narrowing of the medial and la teral joint compartments with small marginal osteophytes. There are very prominent posterior patella r and trochlear osteophytes. SOFT TISSUES: No soft tissue swelling. No radio-opaque foreign body. OTHER: No other significant finding. IMPRESSION: 3 compartment degenerative joint disease, most prominently in the patellofemoral joint. TECHNICAL DOCUMENTATION: JOB ID: [id number] [employer]- All Rights Reserved
[2016-11-18 16:54] VITALS: BP 115/85
[2016-11-18] MEDS: ONDANSETRON HCL INJ/PF 4 MG/2 ML SDV IV PRN (18:29)
== END 2016-11-18 20:13 | DRG 371 ==
LOC: ER 16:06 → EH 22:12 → UNDOADMIN 22:12 → 3W 23:45 → EH 11-11 00:58
PROVIDERS: ADMIT Family Medicine; ATTEND Family Medicine
DX: A04.7 Enterocolitis due to Clostridium difficile (principal); G93.40 Encephalopathy, unspecified; N17.9 Acute kidney failure, unspecified; I50.32 Chronic diastolic (congestive) heart failure; I69.354 Hemiplegia and hemiparesis following cerebral infarction affecting left non-dominant side; Z68.43 Body mass index [BMI] 50.0-59.9, adult; D64.9 Anemia, unspecified; G47.33 Obstructive sleep apnea (adult) (pediatric); I95.9 Hypotension, unspecified; R10.2 Pelvic and perineal pain; W19.XXXA Unspecified fall, initial encounter; Y93.89 Activity, other specified; Y92.002 Bathroom of unspecified non-institutional (private) residence as the place of occurrence of the external cause; Y99.9 Unspecified external cause status; M06.9 Rheumatoid arthritis, unspecified; G89.4 Chronic pain syndrome; E78.5 Hyperlipidemia, unspecified; I10 Essential (primary) hypertension; E11.9 Type 2 diabetes mellitus without complications; R29.810 Facial weakness; M19.90 Unspecified osteoarthritis, unspecified site; M79.7 Fibromyalgia; F32.9 Major depressive disorder, single episode, unspecified; Z90.710 Acquired absence of both cervix and uterus; Z79.899 Other long term (current) drug therapy; Z79.4 Long term (current) use of insulin; Z88.6 Allergy status to analgesic agent
CPT/HCPCS: 36415; 51702; 70450; 70544; 70553; 71010; 80048; 80053; 80307; 81001; 82550; 82553; 82803; 82962; 83605; 83735; 84439; 84443; 84481; 84484; 85025; 85027; 85610; 85730; 87493; 93005; 93010; 93880; 94660; 94799; 96374; 99291; A9577; G8978-GP; G8979-GP; G8987-GO; G8988-GO; J1644; J1815; J2060; J2310; J2405; J3370; J3490; J7030; J8610

== ENCOUNTER 2016-12-06 14:28 | Inpatient (IN) | payer MEDICARE, MEDICAID ==
[2016-12-06] MEDS ORDERED: NORMAL SALINE 1000 ML 1,000 ML IV ONE ×2 (14:35→15:50)
--- NOTE | 2016-12-06 15:05 | ER Document Report ---
ED General - General Chief Complaint: Other Stated Complaint: ALTERED MENTAL STATUS Time Seen by Provider: 12/06/16 14:34 Notes: The patient is a 56-year-old female, past medical history fibromyalgia, rheumatoid arthritis (on Morphine 100 mg bid), hypertension, COPD, BRAN (on home CPAP), presents by EMS after she was found tired after she took her 100 mg morphine earlier today at 13:00 by her home health nurse. Patient was discharged from [facility] 3 days ago after an extended stay at [facility] for polypharmacy, possible TIA/CVA and C. diff infection. Patient is somnolent, but will wake up to voice and interact. Patient has no complaints at this time. TRAVEL OUTSIDE OF THE [place] IN LAST 30 DAYS: No - Related Data Allergies/Adverse Reactions: ibuprofen [Ibuprofen] Allergy (Severe, Verified 11/11/16 00:36) Chest pain Past Medical History - General Information source: Patient, Emergency Med Personnel - Social History Smoking Status: Former Smoker Family History: CAD, DM, Hypertension - Past Medical History Cardiac Medical History: Reports: Hx Hypercholesterolemia, Hx Hypertension, Hx Heart Murmur - 05/31 systolic murmur Denies: Hx Atrial Fibrillation, Hx Congestive Heart Failure, Hx Coronary Artery Disease, Hx Heart Attack, Hx Peripheral Vascular Disease, Hx Pulmonary Embolism Pulmonary Medical History: Reports: Hx Asthma, Hx Bronchitis, Hx Pneumonia, Hx Sleep Apnea Denies: Hx COPD, Hx Respiratory Failure, Hx Tuberculosis Neurological Medical History: Reports: Hx Cerebrovascular Accident - 1992. Denies: Hx Seizures Endocrine Medical History: Reports: Hx Diabetes Mellitus Type 2. Denies: Hx Graves' Disease, Hx Hyperthyroidism, Hx Hypothyroidism Malignancy Medical History: Denies: Hx Leukemia, Hx Lung Cancer GI Medical History: Reports: Hx Crohn's Disease, Hx Hiatal Hernia. Denies: Hx Gastroesophageal Reflux Disease, Hx Irritable Bowel, Hx Liver Failure, Hx Ulcer Musculoskeltal Medical History: Reports Hx Arthritis, Reports Hx Fibromyalgia, Denies Hx Multiple Sclerosis, Denies Hx Muscular Dystrophy Psychiatric Medical History: Reports: Hx Depression, Hx Personality Disorder Denies: Hx Bipolar Disorder, Hx Dementia, Hx Post Traumatic Stress Disorder, Hx Schizophrenia Traumatic Medical History: Denies: Hx Fractures Infectious Medical History: Denies: Hx HIV Past Surgical History: Reports: Hx Section, Hx Hysterectomy. Denies: Hx Appendectomy, Hx Bowel Surgery, Hx Cholecystectomy, Hx Colostomy, Hx Coronary Artery Bypass Graft, Hx Gastric Bypass Surgery, Hx Herniorrhaphy, Hx Mastectomy, Hx Pacemaker, Hx Tonsillectomy, Hx Tubal Ligation - Immunizations Immunizations up to date: Yes Hx Diphtheria, Pertussis, Tetanus Vaccination: Yes Hx Pneumococcal Vaccination: 01/25/08 Review of Systems - Review of Systems Notes: REVIEW OF SYSTEMS: CONSTITUTIONAL: -fevers, -chills EENT: -eye pain, -difficulty swallowing, -nasal congestion CARDIOVASCULAR:-chest pain, -syncope. RESPIRATORY: -cough, -SOB GASTROINTESTINAL: -abdominal pain, - nausea, -vomiting, -diarrhea GENITOURINARY: -dysuria, -hematuria MUSCULOSKELETAL: -back pain, -neck pain SKIN: -rash or skin lesions. HEMATOLOGIC: -easy bruising or bleeding. LYMPHATIC: -swollen, enlarged glands. NEUROLOGICAL: -altered mental status or loss of consciousness, -headache, - neurologic symptoms PSYCHIATRIC: -anxiety, -depression. ALL OTHER SYSTEMS REVIEWED AND NEGATIVE. Physical Exam - Vital signs Vitals: Resp BP Pulse Ox 10 L 98/74 L 93 12/06/16 14:41 12/06/16 14:41 12/06/16 14:41 - Notes Notes: PHYSICAL EXAMINATION: GENERAL: In no acute distress. Somnolent but will wake up to voice and interact. HEAD: Atraumatic, normocephalic. EYES: Pupils pinpoint, extraocular movements intact, sclera anicteric, conjunctiva are normal. ENT: nares patent, oropharynx clear without exudates. Moist mucous membranes. NECK: Normal range of motion, supple without lymphadenopathy LUNGS: Bradypneic. Breath sounds clear to auscultation bilaterally and equal. No wheezes rales or rhonchi. HEART: Regular rate and rhythm without murmurs ABDOMEN: Soft, nontender, normoactive bowel sounds. No guarding, no rebound. No masses appreciated. EXTREMITIES: Normal range of motion, no pitting or edema. No cyanosis. NEUROLOGICAL: Cranial nerves grossly intact. Normal speech. Normal sensory and motor exams. SKIN: Warm, Dry, normal turgor, no rashes or lesions noted. Course - Re-evaluation Re-evalutation: Patient is somnolent and has evidence of acute hypercarbic respiratory acidosis. Narcan provided with some movement in her mental status. Patient placed on BiPAP. Patient also has evidence of acute renal failure with hyperkalemia, but no EKG changes. Patient provided with 2 L of IV fluids, calcium, insulin, dextrose and albuterol. Patient says that her C. difficile has cleared up, but she still appears to be volume depleted. Patient requires inpatient admission for further evaluation and treatment. Her primary care physician is Diana Nichols. 12/06/16 17:[address] Gilman and will admit patient to ICU overnight for close monitoring and treatment. - Vital Signs Vital signs: Temp Pulse Resp BP Pulse Ox 97.9 F 13 117/69 94 12/06/16 14:51 12/06/16 16:00 12/06/16 16:00 12/06/16 16:00 - Laboratory Result Diagrams: 12/06/16 15:10 12/06/16 15:10 Laboratory results interpreted by me: 12/06/16 12/06/16 12/06/16 15:10 15:10 15:10 RBC 3.67 L Hgb 8.8 L Hct 28.4 L MCV 77 L MCH 23.9 L MCHC 30.9 L RDW 16.7 H Seg Neutrophils % 79.9 H Lymphocytes % 12.6 L VBG pH 7.14 L* VBG pCO2 67.6 H* Potassium 6.0 H* Carbon Dioxide 21 L BUN 39 H Creatinine 2.94 H Est GFR ( Amer) 20 L Est GFR (Non-Af Amer) 17 L Glucose 139 H - Diagnostic Test Radiology reviewed: Image reviewed, Reports reviewed Radiology results interpreted by me: CXR: NAD - EKG Interpretation by Me EKG shows normal: Sinus rhythm, [place], Intervals, QRS Complexes, ST-T Waves Rate: Normal Critical Care Note - Critical Care Note Total time excluding time spent on procedures (mins): 35 Discharge - Discharge Clinical Impression: NICKI (acute kidney injury), Acute respiratory failure with hypercapnia, Hyperkalemia Condition: Serious Disposition: ADMITTED INPATIENT Admitting Provider: Fransiscaist Miles Gilman Unit Admitted: ICU Referrals: DIANA NICHOLS PA-C [Primary Care Provider] - Follow up as needed
[2016-12-06 15:28] LABS: VENOUS BLOOD BASE EXCESS -7.5 mmol/L; VENOUS BLOOD HCO3 22.7 mmol/L (20-32)
[2016-12-06 15:31] LABS: ABSOLUTE LYMPHOCYTES (AUTO) 1.2 10^3/uL (0.5-4.7); ABSOLUTE MONOCYTES (AUTO) 0.7 10^3/uL (0.1-1.4); ABSOLUTE NEUT (AUTO) 7.6 10^3/uL (1.7-8.2); BASOPHILS % (AUTO) 0.4 % (0-2); EOSINOPHILS % (AUTO) 0.2 % (0-6); HEMATOCRIT 28.4 % (36.0-47.0); HEMOGLOBIN 8.8 g/dL (12.0-15.5); LYMPHOCYTES % (AUTO) 12.6 % (13-45); MEAN CORPUSCULAR HEMOGLOBIN 23.9 pg (27.0-33.4); MEAN CORPUSCULAR HGB CONC 30.9 g/dL (32.0-36.0); MEAN CORPUSCULAR VOLUME 77 fl (80-97); MONOCYTES % (AUTO) 6.9 % (3-13); RED BLOOD COUNT 3.67 10^6/uL (3.72-5.28); RED CELL DISTRIBUTION WIDTH 16.7 % (11.5-14.0); SEGMENTED NEUTROPHILS % (AUTO) 79.9 % (42-78); WHITE BLOOD COUNT 9.6 10^3/uL (4.0-10.5)
[2016-12-06 15:41] LABS: ALANINE AMINOTRANSFERASE 24 U/L (9-52); ALBUMIN 4.1 g/dL (3.5-5.0); ALKALINE PHOSPHATASE 69 U/L (38-126); ANION GAP 14 (5-19); ASPARTATE AMINO TRANSFERASE 15 U/L (14-36); BILIRUBIN,TOTAL 0.4 mg/dL (0.2-1.3); BLOOD UREA NITROGEN 39 mg/dL (7-20); CALCIUM 9.3 mg/dL (8.4-10.2); CARBON DIOXIDE 21 mmol/L (22-30); CHLORIDE 106 mmol/L (98-107); CREATININE RESULT 2.94 mg/dL (0.52-1.25); GLUCOSE 139 mg/dL (75-110); SODIUM 140.6 mmol/L (137-145); TOTAL PROTEIN 7.6 g/dL (6.3-8.2)
[2016-12-06] MEDS ORDERED: CALCIUM GLUCONATE 1000 MG/10 ML INJ IV ONE (15:51)
[2016-12-06] MEDS ORDERED: INSULIN REG, HUMAN 100 UNIT/ML 3 ML VIAL (PYX) IV ONE (15:51)
[2016-12-06] MEDS ORDERED: ALBUTEROL SULFATE 0.083% NEB 2.5 MG/3 ML AMPUL NEB ONE (15:51)
[2016-12-06 15:52] LABS: VENOUS BLOOD PCO2 67.6 mmHg (35-63); VENOUS BLOOD PH 7.14 (7.30-7.42)
[2016-12-06] MEDS ORDERED: DEXTROSE 50%-WATER 25 GM/50 ML DISP.SYRIN IV ONE (15:54)
[2016-12-06] MEDS ORDERED: NALOXONE HCL INJ/PF 0.4 MG/1 ML SDV IV ONE (15:57)
[2016-12-06] MEDS ORDERED: ONDANSETRON HCL INJ/PF 4 MG/2 ML SDV IV ONE (15:58)
--- NOTE | 2016-12-06 17:59 | RADIOLOGY REPORT (SQ) ---
EXAM DESCRIPTION: CHEST SINGLE VIEW COMPLETED DATE/TIME: 12/06/2016 5:52 pm REASON FOR STUDY: SOB COMPARISON: 11/10/2016. EXAM PARAMETERS: NUMBER OF VIEWS: One view. TECHNIQUE: Single frontal radiographic view of the chest acquired. RADIATION DOSE: NA LIMITATIONS: None. FINDINGS: LUNGS AND PLEURA: No opacities, masses or pneumothorax. No pleural effusion. MEDIASTINUM AND HILAR STRUCTURES: No masses. Contour normal. HEART AND VASCULAR STRUCTURES: Heart upper limits of normal in size. Normal vasculature. BONES: No acute findings. HARDWARE: None in the chest. OTHER: No other significant finding. IMPRESSION: NO ACUTE RADIOGRAPHIC FINDING IN THE CHEST. TECHNICAL DOCUMENTATION: JOB ID: [id number]
[2016-12-06 18:01] LABS: APPEARANCE,URINE SLIGHTLY-CLOUDY; BILIRUBIN,URINE NEGATIVE (NEGATIVE); GLUCOSE, URINE 150 mg/dL (NEGATIVE); KETONES,URINE NEGATIVE (NEGATIVE); LEUKOCYTE ESTERASE,URINE NEGATIVE (NEGATIVE); NITRITE,URINE NEGATIVE (NEGATIVE); PROTEIN,URINE NEGATIVE (NEGATIVE); URINE SPECIFIC GRAVITY 1.014; UROBILINOGEN,URINE NEGATIVE mg/dL (<2.0)
[2016-12-06] MEDS ORDERED: NORMAL SALINE 1000 ML 1,000 ML IV PRN (18:02)
[2016-12-06] MEDS ORDERED: GLUCAGON,HUMAN RECOMB 1 MG INJ IM PRN (18:02)
[2016-12-06] MEDS ORDERED: INSULIN LISPRO 100 UNIT/ML 3 ML VIAL SUBCUT PRN (18:02)
[2016-12-06] MEDS ORDERED: DEXTROSE 40% GEL 15 GM TUBE PO PRN ×2 (18:02)
[2016-12-06] MEDS ORDERED: DEXTROSE 50%-WATER 25 GM/50 ML DISP.SYRIN IV PRN ×2 (18:02)
[2016-12-06] MEDS ORDERED: ALBUTEROL SULFATE 0.083% NEB 2.5 MG/3 ML AMPUL NEB PRN (18:05)
[2016-12-06] MEDS ORDERED: ONDANSETRON HCL INJ/PF 4 MG/2 ML SDV IV PRN (18:05)
[2016-12-06] MEDS ORDERED: ACETAMINOPHEN 650 MG SUPP.RECT PR PRN (18:05)
[2016-12-06] MEDS ORDERED: HYDRALAZINE HCL INJ/PF 20 MG/1 ML SDV IV PRN (18:10)
--- NOTE | 2016-12-06 18:26 | PDOC H&P ---
History of Present Illness Admission Date/PCP: 12/06/16 18:08 DIANA NICHOLS PA-C Patient complains of: Altered mental status History of Present Illness: The patient is a 56-year-old female, past medical history fibromyalgia, rheumatoid arthritis (on Morphine 100 mg bid), hypertension, COPD, BRAN (on home CPAP), presents by EMS after she was found tired after she took her 100 mg morphine earlier today at 13:00 by her home health nurse. Patient was discharged from [facility] 3 days ago after an extended stay at [facility] for polypharmacy, possible TIA/CVA and C. diff infection. Patient is somnolent, but will wake up to voice and interact. Patient has no complaints at this time. Medications have not been verified. Past Medical History Cardiac Medical History: Reports: Hyperlipidema, Hypertension, Heart Murmur - 05/31 systolic murmur Denies: Atrial Fibrillation, Congestive Heart Failure, Coronary Artery Disease, Myocardial Infarction, Peripheral Vascular Disease, Pulmonary Embolism Pulmonary Medical History: Reports: Asthma, Bronchitis, Pneumonia, Sleep Apnea Denies: Chronic Obstructive Pulmonary Disease (COPD), Respiratory Failure, Tuberculosis Neurological Medical History: Denies: Seizures Endocrine Medical History: Reports: Diabetes Mellitus Type 2 Denies: Hyperthyroidism, Hypothyroidism Malignancy Medical History: Denies: Leukemia, Lung Cancer GI Medical History: Reports: Crohn's Disease, Hiatal Hernia Denies: Gastroesophageal Reflux Disease Musculoskeltal Medical History: Reports: Arthritis, Fibromyalgia Psychiatric Medical History: Reports: Depression, Personality Disorder Denies: Bipolar Disorder, Dementia, Post Traumatic Stress Disorder Hematology: Reports: Anemia Denies: Hemophilia, Sickle Cell Disease Infectious Medical History: Denies: HIV Past Surgical History Past Surgical History: Reports: Section, Hysterectomy Denies: Amputation, Appendectomy, Cholecystectomy, Colostomy, Coronary Artery Bypass Graft, Gastric Bypass Surgery, Herniorrhaphy, Mastectomy, Pacemaker, Tonsillectomy, Tubal Ligation Social History Information Source: Patient, Emergency Med Personnel Lives with: Family Smoking Status: Former Smoker Frequency of Alcohol Use: None Hx Recreational Drug Use: No Drugs: None Hx Prescription Drug Abuse: Yes - April 2016 - Advance Directive Resuscitation Status: Full Code Family History Family History: CAD, DM, Hypertension Parental Family History Reviewed: Yes Children Family History Reviewed: Yes Sibling(s) Family History Reviewed.: Yes Medication/Allergy Allergies/Adverse Reactions: ibuprofen [Ibuprofen] Allergy (Severe, Verified 11/11/16 00:36) Chest pain Review of Systems ROS unobtainable: Due to mental status Physical Exam Vital Signs: Temp Pulse Resp BP Pulse Ox 97.9 F 10 L 129/77 H 100 12/06/16 14:51 12/06/16 18:01 12/06/16 18:01 12/06/16 18:01 PHYSICAL EXAM: GENERAL: HEENT: Normocephalic, no scleral icterus, conjunctiva clear, EOEM intact, PERRLA , moist mucous membranes NECK: trachea midline, no thyromegally RESPIRATORY: Clear to auscultation, no wheezes/rhonchi CARDIAC: Regular rate and rhythm, no murmur/edyta/rub ABDOMEN: Soft, no distension, no tenderness, no guarding, normal bowel sounds, negative Luna sign RECTAL: deferred : deferred EXTREMITIES: No edema, cyanosis, clubbing MUSCULOSKELETAL: No joint swelling or deformity VASCULAR: normal peripheral pulses NEUROLOGIC: Somnolent but arousable, oriented to person only, normal speech, cranial nerves grossly intact, 5/5 strength in all extremities, tactile sensation intact in all extremities SKIN: No rash, no wounds, no worrisome skin lesions Results Laboratory Results: Labs- All tests 24 hr 12/06/16 12/06/16 12/06/16 15:10 15:10 15:10 WBC 9.6 RBC 3.67 L Hgb 8.8 L Hct 28.4 L MCV 77 L MCH 23.9 L MCHC 30.9 L RDW 16.7 H Plt Count 216 Seg Neutrophils % 79.9 H Lymphocytes % 12.6 L Monocytes % 6.9 Eosinophils % 0.2 Basophils % 0.4 Absolute Neutrophils 7.6 Absolute Lymphocytes 1.2 Absolute Monocytes 0.7 Absolute Eosinophils 0.0 Absolute Basophils 0.0 VBG pH 7.14 L* VBG pCO2 67.6 H* VBG HCO3 22.7 VBG Base Excess -7.5 Sodium 140.6 Potassium 6.0 H* Chloride 106 Carbon Dioxide 21 L Anion Gap 14 BUN 39 H Creatinine 2.94 H Est GFR ( Amer) 20 L Est GFR (Non-Af Amer) 17 L Glucose 139 H Calcium 9.3 Total Bilirubin 0.4 Direct Bilirubin Indirect Bilirubin Not Reportable Neonat Total Bilirubin Not Reportable AST 15 ALT 24 Alkaline Phosphatase 69 Total Protein 7.6 Albumin 4.1 Urine Color Urine Appearance Urine pH Ur Specific [place] Urine Protein Urine Glucose (UA) Urine Ketones Urine Blood Urine Nitrite Urine Bilirubin Urine Urobilinogen Ur Leukocyte Esterase Urine WBC (Auto) Urine RBC (Auto) U Hyaline Cast (Auto) Urine Bacteria (Auto) Urine Mucus (Auto) Urine Ascorbic Acid 12/06/16 17:25 WBC RBC Hgb Hct MCV MCH MCHC RDW Plt Count Seg Neutrophils % Lymphocytes % Monocytes % Eosinophils % Basophils % Absolute Neutrophils Absolute Lymphocytes Absolute Monocytes Absolute Eosinophils Absolute Basophils VBG pH VBG pCO2 VBG HCO3 VBG Base Excess Sodium Potassium Chloride Carbon Dioxide Anion Gap BUN Creatinine Est GFR ( Amer) Est GFR (Non-Af Amer) Glucose Calcium Total Bilirubin Direct Bilirubin Indirect Bilirubin Neonat Total Bilirubin AST ALT Alkaline Phosphatase Total Protein Albumin Urine Color YELLOW Urine Appearance SLIGHTLY-CLOUDY Urine pH 5.0 Ur Specific [place] 1.014 Urine Protein NEGATIVE Urine Glucose (UA) 150 H Urine Ketones NEGATIVE Urine Blood NEGATIVE Urine Nitrite NEGATIVE Urine Bilirubin NEGATIVE Urine Urobilinogen NEGATIVE Ur Leukocyte Esterase NEGATIVE Urine WBC (Auto) 2 Urine RBC (Auto) 1 U Hyaline Cast (Auto) 4 Urine Bacteria (Auto) TRACE Urine Mucus (Auto) RARE Urine Ascorbic Acid 20 H EKG Comments: Sinus rhythm, first-degree AV block, no peaked T waves noted Impressions: Chest X-Ray 12/06/16 17:38 IMPRESSION: NO ACUTE RADIOGRAPHIC FINDING IN THE CHEST. Assessment & Plan - Diagnosis (1) Acute respiratory failure with hypercapnia Is this a current diagnosis for this admission?: YesPlan: Admit to intensive care unit for close monitoring. Likely secondary to oversedation from high-dose opiate analgesics. Hold narcotics. Patient did respond to initial dose of Narcan in the emergency department. We will repeat ABG in 1 hour on BiPAP. (2) BRAN (obstructive sleep apnea) Is this a current diagnosis for this admission?: YesPlan: Contributing to respiratory failure in conjunction with opiate analgesics. (3) Encephalopathy acute Is this a current diagnosis for this admission?: YesPlan: Likely secondary to polypharmacy and hypercapnic respiratory failure. (4) Polypharmacy Is this a current diagnosis for this admission?: Yes (5) NICKI (acute kidney injury) Is this a current diagnosis for this admission?: YesPlan: Likely secondary to over diuresis and MARISA inhibitor. Hold these medications for now. IV fluids. Repeat labs in a.m. (6) HTN (hypertension) Is this a current diagnosis for this admission?: YesPlan: As needed IV hydralazine. Verify home medications and resume as indicated. (7) Diabetes Is this a current diagnosis for this admission?: YesPlan: Hold patient's metformin secondary to acute kidney injury. Sliding scale insulin coverage. (8) Anemia Qualifiers: Anemia type: unspecified type Qualified Code(s): D64.9 - Anemia, unspecified Is this a current diagnosis for this admission?: YesPlan: Recently Hemoccult negative. Check anemia panel. Monitor H&H for stability. Possibly secondary to chronic disease as patient has history of rheumatoid arthritis. (9) C. difficile diarrhea Is this a current diagnosis for this admission?: YesPlan: Patient completed treatment for this condition. (10) Morbid obesity with BMI of 50.0-59.9, adult Is this a current diagnosis for this admission?: Yes (11) Diastolic CHF Qualifiers: Congestive heart failure chronicity: chronic Qualified Code(s): I50.32 - Chronic diastolic (congestive) heart failure Is this a current diagnosis for this admission?: YesPlan: Patient is compensated from the standpoint and if anything a little over diuresed. Hold medications for now. (12) Rheumatoid arthritis Qualifiers: Laterality: unspecified laterality Is this a current diagnosis for this admission?: YesPlan: Verify home medication (13) Chronic pain Qualifiers: Chronic pain type: chronic pain syndrome Qualified Code(s): G89.4 - Chronic pain syndrome Is this a current diagnosis for this admission?: YesPlan: Chronic opiate dependence. Hold opiate medications for now secondary to encephalopathy and hypercapnic respiratory failure. (14) Hyperkalemia Is this a current diagnosis for this admission?: YesPlan: Secondary to acute kidney injury and medication side effects. Hold patient's MARISA inhibitor and Aldactone. Administer IV fluids. Repeat labs in a.m. - Time Critical Time spent with patient: 35 or more minutes
[2016-12-06 19:58] LABS: FOLATE > 20.00 ng/mL (>2.76)
--- NOTE | 2016-12-06 20:16 | EKG REPORT ---
SEVERITY:- ABNORMAL ECG - SINUS RHYTHM FIRST DEGREE AV BLOCK : Confirmed by: Kolton Quinonez MD 06-Dec-2016 20:15:21
[2016-12-06 21:57] LABS: ARTERIAL BLOOD BASE EXCESS -4.9 mmol/L; ARTERIAL BLOOD O2 SATURATION 95.3 % (94-98)
[2016-12-06] MEDS: HEPARIN SOD (PORCINE) 5,000 UNIT/ML 1 ML SYRINGE SUBCUT SCH (22:26)
[2016-12-07] MEDS ORDERED: ACETAMINOPHEN 650 MG SUPP.RECT PR PRN (00:04)
[2016-12-07 04:07] LABS: VENOUS BLOOD BASE EXCESS -7.2 mmol/L; VENOUS BLOOD PCO2 62.6 mmHg (35-63)
[2016-12-07 04:08] LABS: VENOUS BLOOD PH 7.16 (7.30-7.42)
[2016-12-07 06:14] LABS: ABSOLUTE EOSINOPHILS # (AUTO) 0.1 10^3/uL (0.0-0.6); ABSOLUTE LYMPHOCYTES (AUTO) 1.9 10^3/uL (0.5-4.7); ABSOLUTE MONOCYTES (AUTO) 0.4 10^3/uL (0.1-1.4); BASOPHILS % (AUTO) 0.6 % (0-2); HEMATOCRIT 27.7 % (36.0-47.0); HEMOGLOBIN 8.7 g/dL (12.0-15.5); HGB HCT DIFFERENCE -1.6; LYMPHOCYTES % (AUTO) 25.4 % (13-45); MEAN CORPUSCULAR HEMOGLOBIN 24.3 pg (27.0-33.4); MEAN CORPUSCULAR HGB CONC 31.3 g/dL (32.0-36.0); MEAN CORPUSCULAR VOLUME 78 fl (80-97); RED BLOOD COUNT 3.56 10^6/uL (3.72-5.28); RED CELL DISTRIBUTION WIDTH 16.9 % (11.5-14.0); WHITE BLOOD COUNT 7.3 10^3/uL (4.0-10.5)
[2016-12-07 07:25] LABS: ANION GAP 10 (5-19); BLOOD UREA NITROGEN 36 mg/dL (7-20); CALCIUM 9.4 mg/dL (8.4-10.2); CARBON DIOXIDE 22 mmol/L (22-30); CHLORIDE 111 mmol/L (98-107); GLUCOSE 95 mg/dL (75-110); MAGNESIUM 1.7 mg/dL (1.6-2.3); SODIUM 142.7 mmol/L (137-145)
[2016-12-07] MEDS: HEPARIN SOD (PORCINE) 5,000 UNIT/ML 1 ML SYRINGE SUBCUT SCH ×3 (07:27→21:21)
[2016-12-07 07:36] LABS: POTASSIUM 6.9 mmol/L (3.6-5.0)
--- NOTE | 2016-12-07 07:44 | RADIOLOGY REPORT (SQ) ---
EXAM DESCRIPTION: CHEST SINGLE VIEW COMPLETED DATE/TIME: 12/07/2016 7:29 am REASON FOR STUDY: resp failure COMPARISON: Chest x-ray 12/06/2016. EXAM PARAMETERS: NUMBER OF VIEWS: One view. TECHNIQUE: Single frontal radiographic view of the chest acquired. RADIATION DOSE: NA LIMITATIONS: None. FINDINGS: LUNGS AND PLEURA: No consolidation, pneumothorax or pleural effusion. MEDIASTINUM AND HILAR STRUCTURES: No masses. Contour normal. HEART AND VASCULAR STRUCTURES: Heart upper normal limit in size. No overt vascular congestion. BONES: No acute findings. HARDWARE: None in the chest. IMPRESSION: NO ACUTE RADIOGRAPHIC FINDING IN THE CHEST. TECHNICAL DOCUMENTATION: JOB ID: [id number]
[2016-12-07] MEDS ORDERED: DEXTROSE 5%-1/2 NORMAL SALINE 1,000 ML IV PRN (08:36)
[2016-12-07] MEDS ORDERED: SODIUM POLYSTYRENE SULFONATE 15 GM/60 ML PO ONE (09:00)
[2016-12-07 09:11] LABS: ARTERIAL BLOOD BASE EXCESS -3.5 mmol/L; ARTERIAL BLOOD O2 SATURATION 98.1 % (94-98)
[2016-12-07] MEDS: NORMAL SALINE 1000 ML 1,000 ML IV PRN (14:44)
[2016-12-07] MEDS: INSULIN LISPRO 100 UNIT/ML 3 ML VIAL SUBCUT SCH ×2 (14:48→17:42)
--- NOTE | 2016-12-07 14:57 | PDOC PROGRESS REPORT ---
Subjective Progress Note for:: 12/07/16 Subjective:: Patient is less somnolent and she was yesterday. She still slightly drowsy and does not recall the events of yesterday. She does not remember our conversation regarding her admission yesterday evening. She denies chest pain or shortness of breath. Her only concern is that she would like to have a phone to call her family members and let them know where she is. Physical Exam Vital Signs: Temp Pulse Resp BP Pulse Ox 97.4 F 90 20 130/79 H 100 12/07/16 12:12 12/07/16 14:00 12/07/16 12:12 12/07/16 12:12 12/07/16 12:12 Intake & Output 12/06/16 12/07/16 12/08/16 06:59 06:59 06:59 Output Total 900 Balance -900 Weight 131.995 kg 143.1 kg GENERAL: No acute distress, morbidly obese HEENT: Conjunctiva clear, nonicteric, moist mucous membranes, no JVD, midline trachea RESPIRATORY: Clear to auscultation bilaterally, no wheezes, no rhonchi CARDIAC: Regular rate and rhythm, no murmurs/gallops/rubs ABDOMEN: Soft, nondistended, nontender, positive bowel sounds, no rebound, no guarding EXTREMETIES: No edema, cyanosis, clubbing NEUROLOGIC: Drowsy, oriented to person/place/time, CN's grossly intact, no focal deficits SKIN: No rash, wounds PSYCH: Flat affect Results Laboratory Results: 12/07/16 05:55 12/07/16 05:55 12/06/16 12/07/16 12/07/16 21:51 03:34 05:55 WBC 7.3 RBC 3.56 L Hgb 8.7 L Hct 27.7 L MCV 78 L MCH 24.3 L MCHC 31.3 L RDW 16.9 H Plt Count 192 Seg Neutrophils % 68.0 Lymphocytes % 25.4 Monocytes % 5.0 Eosinophils % 1.0 Basophils % 0.6 Absolute Neutrophils 5.0 Absolute Lymphocytes 1.9 Absolute Monocytes 0.4 Absolute Eosinophils 0.1 Absolute Basophils 0.0 Carbonic Acid 1.86 H HCO3/H2CO3 Ratio 12:1 ABG pH 7.20 L* ABG pCO2 61.8 H ABG pO2 94.4 ABG HCO3 23.5 ABG O2 Saturation 95.3 ABG Base Excess -4.9 VBG pH 7.16 L* VBG pCO2 62.6 VBG HCO3 22.0 VBG Base Excess -7.2 FiO2 30% Sodium Potassium Chloride Carbon Dioxide Anion Gap BUN Creatinine Est GFR ( Amer) Est GFR (Non-Af Amer) Glucose Calcium Magnesium 12/07/16 12/07/16 12/07/16 05:55 05:55 08:19 WBC RBC Hgb Hct MCV MCH MCHC RDW Plt Count Seg Neutrophils % Lymphocytes % Monocytes % Eosinophils % Basophils % Absolute Neutrophils Absolute Lymphocytes Absolute Monocytes Absolute Eosinophils Absolute Basophils Carbonic Acid 1.69 H HCO3/H2CO3 Ratio 14:1 ABG pH 7.25 L ABG pCO2 56.2 H ABG pO2 132.0 H ABG HCO3 23.9 ABG O2 Saturation 98.1 H ABG Base Excess -3.5 VBG pH VBG pCO2 VBG HCO3 VBG Base Excess FiO2 30% Sodium Cancelled 142.7 Potassium Cancelled 6.9 H* Chloride Cancelled 111 H Carbon Dioxide Cancelled 22 Anion Gap Cancelled 10 BUN Cancelled 36 H Creatinine Cancelled 2.10 H Est GFR ( Amer) Cancelled 30 L Est GFR (Non-Af Amer) Cancelled 24 L Glucose Cancelled 95 Calcium Cancelled 9.4 Magnesium Cancelled 1.7 Impressions: Chest X-Ray 12/07/16 06:00 IMPRESSION: NO ACUTE RADIOGRAPHIC FINDING IN THE CHEST. Assessment & Plan - Diagnosis (1) Acute respiratory failure with hypercapnia Is this a current diagnosis for this admission?: YesPlan: Likely secondary to oversedation from high-dose opiate analgesics. Holding narcotics. Respiratory acidosis is slowly correcting and mental status is improving. Continue BiPAP for now until patient is more alert and respiratory acidosis is resolved. (2) BRAN (obstructive sleep apnea) Is this a current diagnosis for this admission?: YesPlan: Contributing to respiratory failure in conjunction with opiate analgesics. (3) Encephalopathy acute Is this a current diagnosis for this admission?: YesPlan: Likely secondary to polypharmacy and hypercapnic respiratory failure. Improving as compared to admission. Continue to hold neuroactive medications. (4) Polypharmacy Is this a current diagnosis for this admission?: YesPlan: We will need to take a serious look at medications, particularly respiratory depressant medication might of patient's morbid obesity, obstructive sleep apnea , respiratory failure, encephalopathy. (5) NICKI (acute kidney injury) Is this a current diagnosis for this admission?: YesPlan: Improving. Continue to hold diuretics, lisinopril, Celebrex. (6) HTN (hypertension) Is this a current diagnosis for this admission?: YesPlan: Patient remains hypotensive. Continue to hold blood pressure medicines and diuretics. Continue IV fluids. (7) Diabetes Is this a current diagnosis for this admission?: YesPlan: Holding patient's metformin secondary to acute kidney injury. Sliding scale insulin coverage. (8) Anemia Qualifiers: Anemia type: unspecified type Qualified Code(s): D64.9 - Anemia, unspecified Is this a current diagnosis for this admission?: YesPlan: Monitor H&H for stability. Possibly secondary to chronic disease as patient has history of rheumatoid arthritis. (9) C. difficile diarrhea Is this a current diagnosis for this admission?: Yes (10) Morbid obesity with BMI of 50.0-59.9, adult Is this a current diagnosis for this admission?: Yes (11) Diastolic CHF Qualifiers: Congestive heart failure chronicity: chronic Qualified Code(s): I50.32 - Chronic diastolic (congestive) heart failure Is this a current diagnosis for this admission?: YesPlan: Patient is compensated from the standpoint and if anything a little over diuresed. Hold medications for now. (12) Rheumatoid arthritis Qualifiers: Laterality: unspecified laterality Is this a current diagnosis for this admission?: Yes (13) Chronic pain Qualifiers: Chronic pain type: chronic pain syndrome Qualified Code(s): G89.4 - Chronic pain syndrome Is this a current diagnosis for this admission?: Yes (14) Hyperkalemia Is this a current diagnosis for this admission?: Yes - Time Time Spent with patient: 35 or more minutes
[2016-12-07 15:23] LABS: VENOUS BLOOD BASE EXCESS -3.9 mmol/L; VENOUS BLOOD HCO3 24.1 mmol/L (20-32); VENOUS BLOOD PCO2 60.3 mmHg (35-63); VENOUS BLOOD PH 7.22 (7.30-7.42)
[2016-12-07] MEDS: SULFASALAZINE 500 MG TABLET.DR PO SCH (17:42)
[2016-12-07] MEDS: MONTELUKAST SODIUM 10 MG TABLET PO SCH (17:42)
[2016-12-07] MEDS: DOCUSATE SODIUM 100 MG CAPSULE PO SCH (21:17)
[2016-12-07] MEDS: DULOXETINE HCL 30 MG CAPSULE.DR PO SCH (21:22)
[2016-12-07] MEDS: PREGABALIN 75 MG CAPSULE PO SCH (21:22)
[2016-12-07] MEDS: FAMOTIDINE 20 MG TABLET PO SCH (21:22)
[2016-12-07] MEDS: FLUTICASONE/SALMETEROL DISKUS 250-50 MCG/DOSE IH SCH (21:22)
[2016-12-07] MEDS: ATORVASTATIN CALCIUM 20 MG TABLET PO SCH (21:22)
[2016-12-07] MEDS: FLUTICASONE NASAL SPRAY 50 MCG/SPRY 120 SPRAY/16 GM NASL SCH (21:24)
[2016-12-08] MEDS: NORMAL SALINE 1000 ML 1,000 ML IV PRN ×2 (05:22→09:34)
[2016-12-08] MEDS: HEPARIN SOD (PORCINE) 5,000 UNIT/ML 1 ML SYRINGE SUBCUT SCH ×3 (05:22→21:05)
[2016-12-08 05:58] LABS: ABSOLUTE BASOPHILS # (AUTO) 0.1 10^3/uL (0.0-0.2); ABSOLUTE EOSINOPHILS # (AUTO) 0.2 10^3/uL (0.0-0.6); ABSOLUTE LYMPHOCYTES (AUTO) 1.6 10^3/uL (0.5-4.7); ABSOLUTE MONOCYTES (AUTO) 0.2 10^3/uL (0.1-1.4); ABSOLUTE NEUT (AUTO) 2.4 10^3/uL (1.7-8.2); BASOPHILS % (AUTO) 1.9 % (0-2); EOSINOPHILS % (AUTO) 4.2 % (0-6); HEMATOCRIT 26.1 % (36.0-47.0); HEMOGLOBIN 8.1 g/dL (12.0-15.5); HGB HCT DIFFERENCE -1.8; MEAN CORPUSCULAR HEMOGLOBIN 24.1 pg (27.0-33.4); MEAN CORPUSCULAR HGB CONC 31.1 g/dL (32.0-36.0); MEAN CORPUSCULAR VOLUME 77 fl (80-97); RED BLOOD COUNT 3.38 10^6/uL (3.72-5.28); RED CELL DISTRIBUTION WIDTH 16.5 % (11.5-14.0); SEGMENTED NEUTROPHILS % (AUTO) 53.9 % (42-78); WHITE BLOOD COUNT 4.4 10^3/uL (4.0-10.5)
[2016-12-08 06:12] LABS: ANION GAP 7 (5-19); BLOOD UREA NITROGEN 26 mg/dL (7-20); CALCIUM 9.2 mg/dL (8.4-10.2); CARBON DIOXIDE 24 mmol/L (22-30); CHLORIDE 113 mmol/L (98-107); CREATININE RESULT 1.27 mg/dL (0.52-1.25); GLUCOSE 142 mg/dL (75-110); SODIUM 143.6 mmol/L (137-145)
[2016-12-08 06:19] LABS: POTASSIUM 5.4 mmol/L (3.6-5.0)
[2016-12-08 07:07] LABS: ARTERIAL BLOOD BASE EXCESS -0.7 mmol/L; ARTERIAL BLOOD O2 SATURATION 97.5 % (94-98)
[2016-12-08] MEDS: PRENATAL VITAMIN W-O CA NO5/FE FUMARATE/FA CAPSULE PO SCH (09:32)
[2016-12-08] MEDS: CLOPIDOGREL BISULFATE 75 MG TABLET PO SCH (09:32)
[2016-12-08] MEDS: DULOXETINE HCL 30 MG CAPSULE.DR PO SCH ×2 (09:32→21:05)
[2016-12-08] MEDS: DOCUSATE SODIUM 100 MG CAPSULE PO SCH ×2 (09:32→21:06)
[2016-12-08] MEDS: CETIRIZINE 10 MG TABLET PO SCH (09:32)
[2016-12-08] MEDS: SULFASALAZINE 500 MG TABLET.DR PO SCH ×3 (09:32→16:00)
[2016-12-08] MEDS: PREGABALIN 75 MG CAPSULE PO SCH ×2 (09:32→21:05)
[2016-12-08] MEDS: FLUTICASONE/SALMETEROL DISKUS 250-50 MCG/DOSE IH SCH ×2 (09:33→21:06)
[2016-12-08] MEDS: FLUTICASONE NASAL SPRAY 50 MCG/SPRY 120 SPRAY/16 GM NASL SCH ×2 (09:33→21:06)
[2016-12-08] MEDS: FOLIC ACID 1 MG TABLET PO SCH (09:34)
[2016-12-08] MEDS: INSULIN LISPRO 100 UNIT/ML 3 ML VIAL SUBCUT SCH ×3 (09:34→18:08)
[2016-12-08] MEDS ORDERED: NORMAL SALINE 1000 ML 1,000 ML IV PRN (10:22)
--- NOTE | 2016-12-08 10:35 | PDOC PROGRESS REPORT ---
Subjective Progress Note for:: 12/08/16 Subjective:: Patient remains somnolent but easily arousable and has a normal conversation. She states she feels much better in general but is not back to her baseline with regards to generalized weakness and level of consciousness. She denies fever, chills, headache, chest pain, shortness of breath, abdominal pain, nausea , vomiting. She does not complain of somatic pain. Physical Exam Vital Signs: Temp Pulse Resp BP Pulse Ox 98.0 F 91 20 124/62 100 12/08/16 07:49 12/08/16 07:49 12/08/16 07:49 12/08/16 07:49 12/08/16 07:49 Intake & Output 12/07/16 12/08/16 12/09/16 06:59 06:59 06:59 Intake Total 3102 Output Total 900 2775 Balance -900 327 Weight 131.995 kg 142.1 kg GENERAL: No acute distress, morbidly obese HEENT: Conjunctiva clear, nonicteric, moist mucous membranes, no JVD, midline trachea RESPIRATORY: Clear to auscultation bilaterally, no wheezes, no rhonchi CARDIAC: Regular rate and rhythm, no murmurs/gallops/rubs ABDOMEN: Soft, nondistended, nontender, positive bowel sounds, no rebound, no guarding EXTREMETIES: No edema, cyanosis, clubbing NEUROLOGIC: Drowsy, oriented to person/place/time, CN's grossly intact, no focal deficits SKIN: No rash, wounds PSYCH: Flat affect Results Laboratory Results: 12/08/16 05:30 12/08/16 05:30 12/07/16 12/07/16 12/08/16 15:10 18:10 05:30 WBC 4.4 RBC 3.38 L Hgb 8.1 L Hct 26.1 L MCV 77 L MCH 24.1 L MCHC 31.1 L RDW 16.5 H Plt Count 178 Seg Neutrophils % 53.9 Lymphocytes % 36.0 Monocytes % 4.0 Eosinophils % 4.2 Basophils % 1.9 Absolute Neutrophils 2.4 Absolute Lymphocytes 1.6 Absolute Monocytes 0.2 Absolute Eosinophils 0.2 Absolute Basophils 0.1 Carbonic Acid HCO3/H2CO3 Ratio ABG pH ABG pCO2 ABG pO2 ABG HCO3 ABG O2 Saturation ABG Base Excess VBG pH 7.22 L VBG pCO2 60.3 VBG HCO3 24.1 VBG Base Excess -3.9 FiO2 Sodium Potassium Chloride Carbon Dioxide Anion Gap BUN Creatinine Est GFR ( Amer) Est GFR (Non-Af Amer) Glucose Lactic Acid 1.8 Calcium 12/08/16 12/08/16 05:30 06:50 WBC RBC Hgb Hct MCV MCH MCHC RDW Plt Count Seg Neutrophils % Lymphocytes % Monocytes % Eosinophils % Basophils % Absolute Neutrophils Absolute Lymphocytes Absolute Monocytes Absolute Eosinophils Absolute Basophils Carbonic Acid 1.60 H HCO3/H2CO3 Ratio 16:1 ABG pH 7.31 L ABG pCO2 53.0 H ABG pO2 108.7 H ABG HCO3 25.8 ABG O2 Saturation 97.5 ABG Base Excess -0.7 VBG pH VBG pCO2 VBG HCO3 VBG Base Excess FiO2 2.5LITERS Sodium 143.6 Potassium 5.4 H D Chloride 113 H Carbon Dioxide 24 Anion Gap 7 BUN 26 H Creatinine 1.27 H Est GFR ( Amer) 53 L Est GFR (Non-Af Amer) 44 L Glucose 142 H Lactic Acid Calcium 9.2 Impressions: Chest X-Ray 12/07/16 06:00 IMPRESSION: NO ACUTE RADIOGRAPHIC FINDING IN THE CHEST. Assessment & Plan - Diagnosis (1) Acute respiratory failure with hypercapnia Is this a current diagnosis for this admission?: YesPlan: Likely secondary to oversedation from high-dose opiate analgesics. Continue holding narcotics. Respiratory acidosis is slowly correcting and mental status is improving. Continue BiPAP while sleeping. Nasal cannula oxygen while awake to maintain O2 sat 88-92%. (2) BRAN (obstructive sleep apnea) Is this a current diagnosis for this admission?: YesPlan: Contributing to respiratory failure in conjunction with opiate analgesics. (3) Encephalopathy acute Is this a current diagnosis for this admission?: YesPlan: Likely secondary to polypharmacy and hypercapnic respiratory failure. Improving as compared to admission. Continue to hold neuroactive medications. (4) Polypharmacy Is this a current diagnosis for this admission?: YesPlan: We will need to take a serious look at medications, particularly respiratory depressant medication might of patient's morbid obesity, obstructive sleep apnea , respiratory failure, encephalopathy. (5) NICKI (acute kidney injury) Is this a current diagnosis for this admission?: YesPlan: Improving. Continue to hold diuretics, lisinopril, Celebrex. Continue IV fluids for another 24 hours. (6) HTN (hypertension) Is this a current diagnosis for this admission?: YesPlan: Hypotension has resolved. Patient's blood pressure is in the low normal range. I will restart Toprol-XL at 100 mg daily (usual home dose is 100 mg twice daily). Continue to hold Norvasc, verapamil, lisinopril, Lasix, spironolactone. (7) Diabetes Is this a current diagnosis for this admission?: YesPlan: Holding patient's metformin secondary to acute kidney injury. Sliding scale insulin coverage. (8) Anemia Qualifiers: Anemia type: unspecified type Qualified Code(s): D64.9 - Anemia, unspecified Is this a current diagnosis for this admission?: YesPlan: Declining H&H likely secondary to hemodilution artifact. We will need to transfuse if hemoglobin less than 8.0. Possibly secondary to chronic disease as patient has history of rheumatoid arthritis. (9) C. difficile diarrhea Is this a current diagnosis for this admission?: YesPlan: Patient completed treatment for this condition. (10) Morbid obesity with BMI of 50.0-59.9, adult Is this a current diagnosis for this admission?: Yes (11) Diastolic CHF Qualifiers: Congestive heart failure chronicity: chronic Qualified Code(s): I50.32 - Chronic diastolic (congestive) heart failure Is this a current diagnosis for this admission?: YesPlan: Patient is compensated from the standpoint and if anything a little over diuresed. Restart Toprol-XL at lower dose secondary to hypotension. Continue to hold diuretics for now secondary to overdiuresis. Monitor closely with gentle rehydration. (12) Rheumatoid arthritis Qualifiers: Laterality: unspecified laterality Is this a current diagnosis for this admission?: YesPlan: Patient is on methotrexate weekly. (13) Chronic pain Qualifiers: Chronic pain type: chronic pain syndrome Qualified Code(s): G89.4 - Chronic pain syndrome Is this a current diagnosis for this admission?: YesPlan: Chronic opiate dependence. Hold opiate medications for now secondary to encephalopathy and hypercapnic respiratory failure. (14) Hyperkalemia Is this a current diagnosis for this admission?: YesPlan: Secondary to acute kidney injury and medication side effects. Hold patient's MARISA inhibitor and Aldactone. Administer IV fluids. Repeat labs in a.m. - Time Time Spent with patient: 35 or more minutes Anticipated discharge: Home Within: within 48 hours
[2016-12-08] MEDS: MONTELUKAST SODIUM 10 MG TABLET PO SCH (16:00)
[2016-12-08] MEDS: ATORVASTATIN CALCIUM 20 MG TABLET PO SCH (21:06)
[2016-12-08] MEDS: FAMOTIDINE 20 MG TABLET PO SCH (21:06)
[2016-12-09] MEDS: HEPARIN SOD (PORCINE) 5,000 UNIT/ML 1 ML SYRINGE SUBCUT SCH ×3 (05:19→21:09)
[2016-12-09 05:35] LABS: ABSOLUTE EOSINOPHILS # (AUTO) 0.1 10^3/uL (0.0-0.6); ABSOLUTE LYMPHOCYTES (AUTO) 1.5 10^3/uL (0.5-4.7); ABSOLUTE MONOCYTES (AUTO) 0.1 10^3/uL (0.1-1.4); ABSOLUTE NEUT (AUTO) 1.7 10^3/uL (1.7-8.2); BASOPHILS % (AUTO) 1.4 % (0-2); HEMOGLOBIN 8.1 g/dL (12.0-15.5); HGB HCT DIFFERENCE -1.7; LYMPHOCYTES % (AUTO) 42.1 % (13-45); MEAN CORPUSCULAR HEMOGLOBIN 23.9 pg (27.0-33.4); MEAN CORPUSCULAR VOLUME 77 fl (80-97); MONOCYTES % (AUTO) 3.3 % (3-13); RED BLOOD COUNT 3.38 10^6/uL (3.72-5.28); RED CELL DISTRIBUTION WIDTH 16.3 % (11.5-14.0); SEGMENTED NEUTROPHILS % (AUTO) 49.2 % (42-78); WHITE BLOOD COUNT 3.5 10^3/uL (4.0-10.5)
[2016-12-09 05:42] LABS: ANION GAP 7 (5-19); BLOOD UREA NITROGEN 15 mg/dL (7-20); CALCIUM 9.7 mg/dL (8.4-10.2); CARBON DIOXIDE 24 mmol/L (22-30); CHLORIDE 115 mmol/L (98-107); CREATININE RESULT 0.87 mg/dL (0.52-1.25); GLUCOSE 111 mg/dL (75-110); POTASSIUM 4.5 mmol/L (3.6-5.0); SODIUM 145.8 mmol/L (137-145)
[2016-12-09] MEDS: CETIRIZINE 10 MG TABLET PO SCH (09:37)
[2016-12-09] MEDS: PRENATAL VITAMIN W-O CA NO5/FE FUMARATE/FA CAPSULE PO SCH (09:37)
[2016-12-09] MEDS: SULFASALAZINE 500 MG TABLET.DR PO SCH ×3 (09:37→19:11)
[2016-12-09] MEDS: CLOPIDOGREL BISULFATE 75 MG TABLET PO SCH (09:37)
[2016-12-09] MEDS: FLUTICASONE/SALMETEROL DISKUS 250-50 MCG/DOSE IH SCH ×2 (09:38→21:00)
[2016-12-09] MEDS: FLUTICASONE NASAL SPRAY 50 MCG/SPRY 120 SPRAY/16 GM NASL SCH ×2 (09:38→21:02)
[2016-12-09] MEDS: PREGABALIN 75 MG CAPSULE PO SCH ×2 (09:38→21:01)
[2016-12-09] MEDS: FOLIC ACID 1 MG TABLET PO SCH (09:38)
[2016-12-09] MEDS: DULOXETINE HCL 30 MG CAPSULE.DR PO SCH ×2 (09:38→21:01)
[2016-12-09] MEDS: DOCUSATE SODIUM 100 MG CAPSULE PO SCH ×2 (09:38→21:03)
[2016-12-09] MEDS: INSULIN LISPRO 100 UNIT/ML 3 ML VIAL SUBCUT SCH ×3 (09:39→19:11)
[2016-12-09] MEDS ORDERED: ERGOCALCIFEROL (VITAMIN D2) 50000 UNIT (1.25 MG) CAPSULE PO SCH (10:00)
[2016-12-09] MEDS ORDERED: METOPROLOL SUCCINATE 50 MG TAB.SR.24H PO SCH (12:00)
[2016-12-09] MEDS ORDERED: HYDRALAZINE HCL INJ/PF 20 MG/1 ML SDV IV PRN (12:12)
[2016-12-09] MEDS ORDERED: ONDANSETRON HCL INJ/PF 4 MG/2 ML SDV IV PRN (12:16)
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
[2016-12-09] MEDS: METOPROLOL SUCCINATE 50 MG TAB.SR.24H PO SCH (13:05)
[2016-12-09 15:13] LABS: ARTERIAL BLOOD BASE EXCESS 2.2 mmol/L; ARTERIAL BLOOD O2 SATURATION 95.1 % (94-98)
[2016-12-09] MEDS: MONTELUKAST SODIUM 10 MG TABLET PO SCH (19:10)
[2016-12-09] MEDS: ATORVASTATIN CALCIUM 20 MG TABLET PO SCH (21:00)
[2016-12-09] MEDS: FAMOTIDINE 20 MG TABLET PO SCH (21:01)
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
[2016-12-09] MEDS ORDERED: ACETAMINOPHEN 325 MG TABLET PO PRN ×2 (22:34→23:31)
[2016-12-10] MEDS: HEPARIN SOD (PORCINE) 5,000 UNIT/ML 1 ML SYRINGE SUBCUT SCH ×3 (05:41→22:19)
[2016-12-10] MEDS: FLUTICASONE/SALMETEROL DISKUS 250-50 MCG/DOSE IH SCH ×2 (09:05→22:22)
[2016-12-10] MEDS: INSULIN LISPRO 100 UNIT/ML 3 ML VIAL SUBCUT SCH ×3 (09:05→17:43)
[2016-12-10] MEDS: FLUTICASONE NASAL SPRAY 50 MCG/SPRY 120 SPRAY/16 GM NASL SCH ×2 (09:06→22:22)
[2016-12-10] MEDS: SULFASALAZINE 500 MG TABLET.DR PO SCH ×3 (09:07→18:05)
[2016-12-10] MEDS: DULOXETINE HCL 30 MG CAPSULE.DR PO SCH ×2 (09:07→22:18)
[2016-12-10] MEDS: AMLODIPINE BESYLATE 10 MG TABLET PO SCH (09:08)
[2016-12-10] MEDS: CLOPIDOGREL BISULFATE 75 MG TABLET PO SCH (09:09)
[2016-12-10] MEDS: FOLIC ACID 1 MG TABLET PO SCH (09:09)
[2016-12-10] MEDS: PREGABALIN 75 MG CAPSULE PO SCH ×2 (09:10→22:18)
[2016-12-10] MEDS: CETIRIZINE 10 MG TABLET PO SCH (09:10)
[2016-12-10] MEDS: PRENATAL VITAMIN W-O CA NO5/FE FUMARATE/FA CAPSULE PO SCH (09:14)
[2016-12-10] MEDS: DOCUSATE SODIUM 100 MG CAPSULE PO SCH ×2 (09:20→22:19)
[2016-12-10] MEDS ORDERED: MORPHINE SULFATE SR 15 MG TABLET PO ONE (11:30)
[2016-12-10] MEDS: METOPROLOL SUCCINATE 50 MG TAB.SR.24H PO SCH (13:32)
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
[2016-12-10] MEDS: MONTELUKAST SODIUM 10 MG TABLET PO SCH (18:05)
[2016-12-10] MEDS ORDERED: SENNOSIDES/DOCUSATE 8.6-50 MG 1 EACH TABLET PO SCH (22:00)
[2016-12-10] MEDS: FAMOTIDINE 20 MG TABLET PO SCH (22:18)
[2016-12-10] MEDS: MORPHINE SULFATE SR 15 MG TABLET PO SCH (22:18)
[2016-12-10] MEDS: ATORVASTATIN CALCIUM 20 MG TABLET PO SCH (22:19)
[2016-12-11] MEDS: HEPARIN SOD (PORCINE) 5,000 UNIT/ML 1 ML SYRINGE SUBCUT SCH ×2 (06:22→13:05)
[2016-12-11] MEDS: DULOXETINE HCL 30 MG CAPSULE.DR PO SCH (10:23)
[2016-12-11] MEDS: PRENATAL VITAMIN W-O CA NO5/FE FUMARATE/FA CAPSULE PO SCH (10:23)
[2016-12-11] MEDS: FOLIC ACID 1 MG TABLET PO SCH (10:24)
[2016-12-11] MEDS: PREGABALIN 75 MG CAPSULE PO SCH (10:24)
[2016-12-11] MEDS: MORPHINE SULFATE SR 15 MG TABLET PO SCH (10:24)
[2016-12-11] MEDS: FLUTICASONE/SALMETEROL DISKUS 250-50 MCG/DOSE IH SCH (10:24)
[2016-12-11] MEDS: DOCUSATE SODIUM 100 MG CAPSULE PO SCH (10:24)
[2016-12-11] MEDS: CLOPIDOGREL BISULFATE 75 MG TABLET PO SCH (10:24)
[2016-12-11] MEDS: CETIRIZINE 10 MG TABLET PO SCH (10:24)
[2016-12-11] MEDS: AMLODIPINE BESYLATE 10 MG TABLET PO SCH (10:24)
[2016-12-11] MEDS: SULFASALAZINE 500 MG TABLET.DR PO SCH ×2 (10:24→12:46)
[2016-12-11] MEDS: INSULIN LISPRO 100 UNIT/ML 3 ML VIAL SUBCUT SCH ×3 (10:25→15:33)
[2016-12-11] MEDS: FLUTICASONE NASAL SPRAY 50 MCG/SPRY 120 SPRAY/16 GM NASL SCH (10:25)
[2016-12-11] MEDS: METOPROLOL SUCCINATE 50 MG TAB.SR.24H PO SCH (12:46)
[2016-12-11 13:11] VITALS: BP 163/67
--- NOTE | 2016-12-11 17:05 | PDOC DISCHARGE SUMMARY ---
General - Admit/Disc Date/PCP Admission Date/Primary Care Provider: 12/06/16 18:05 DIANA NICHOLS PA-C Discharge Date: 12/11/16 - Discharge Diagnosis (1) NICKI (acute kidney injury) Is this a current diagnosis for this admission?: Yes (2) Acute respiratory failure with hypercapnia Is this a current diagnosis for this admission?: Yes (3) Anemia Is this a current diagnosis for this admission?: Yes (4) Diabetes Is this a current diagnosis for this admission?: Yes (5) Encephalopathy acute Is this a current diagnosis for this admission?: Yes (6) HTN (hypertension) Is this a current diagnosis for this admission?: Yes (7) Obesity hypoventilation syndrome Is this a current diagnosis for this admission?: Yes (8) Morbid obesity with BMI of 50.0-59.9, adult Is this a current diagnosis for this admission?: Yes (9) Polypharmacy Is this a current diagnosis for this admission?: Yes (10) Diastolic CHF Is this a current diagnosis for this admission?: Yes (11) BRAN (obstructive sleep apnea) Is this a current diagnosis for this admission?: Yes (12) Opiate dependence, continuous Is this a current diagnosis for this admission?: Yes (13) Rheumatoid arthritis Is this a current diagnosis for this admission?: Yes (14) Non compliance with medical treatment Is this a current diagnosis for this admission?: Yes - Additional Information Resuscitation Status: Full Code Discharge Diet: Cardiac, Diabetic Discharge Activity: Activity As Tolerated, Slowly Increase Activity, Supervised Activity, Walk Frequently, Weigh Daily Home Medications: Albuterol Sulfate [Ventolin Hfa] 2 puff IH Q6 12/06/16 Amlodipine Besylate [Norvasc 10 mg Tablet] 10 mg PO DAILY 12/06/16 Atorvastatin Calcium [Lipitor 20 mg Tablet] 20 mg PO QHS 12/06/16 Celecoxib [Celebrex 200 mg Capsule] 200 mg PO BIDPCBS 12/06/16 Cetirizine HCl [Zyrtec 10 mg Tablet] 10 mg PO DAILY 12/06/16 Cevimeline HCl [Evoxac] 30 mg PO Q8 12/06/16 Clopidogrel Bisulfate [Plavix 75 mg Tablet] 75 mg PO DAILY 12/06/16 Docusate Sodium [Dok] 100 mg PO Q12 12/06/16 Duloxetine HCl [Cymbalta] 60 mg PO Q12 12/06/16 Ergocalciferol (Vitamin D2) [Vitamin D2] 50,000 unit PO MO@1000 12/06/16 Famotidine [Pepcid 40 mg Tablet] 40 mg PO QHS 12/06/16 Fluticasone Propionate [Flonase Nasal Charlotte 50 Mcg/[place] 16 gm] 1 spray NASL Q12 12/06/16 Fluticasone/Salmeterol [Advair 250-50 Diskus 28 dose] 1 puff IH Q12 12/06/16 Folic Acid [Folvite 1 mg Tablet] 1 mg PO DAILY 12/06/16 Lisinopril [Zestril] 5 mg PO DAILY 12/06/16 Metformin HCl [Glucophage] 1,000 mg PO BIDBS 12/06/16 Methotrexate Sodium [Methotrexate] 15 mg PO TH@1000 12/06/16 Metoprolol Succinate [Toprol XL 100 mg Tablet] 100 mg PO Q12 12/06/16 Montelukast Sodium [Singulair 10 mg Tablet] 10 mg PO QPM 12/06/16 Morphine Sulfate [Morphine Ir 15 mg Tablet] 15 mg PO Q6HP PRN 12/06/16 Mupirocin 1 applic NASL ASDIR PRN 12/06/16 Pnv with Ca,No.72/Iron/FA [Pnv Plus Multivit Tab] 1 tab PO DAILY Pregabalin [Lyrica] 150 mg PO Q12 12/06/16 Spironolactone [Aldactone 25 mg Tablet] 25 mg PO DAILY 12/06/16 Sulfasalazine [Sulfazine] 500 mg PO MEALS 12/06/16 Furosemide [Lasix 80 mg Tablet] 40 mg PO DAILY #30 tablet 12/11/16 History of Present Illness History of Present Illness: BERT MOE is a 56 year old female past medical history fibromyalgia, rheumatoid arthritis (on Morphine 100 mg bid), hypertension, COPD, BRAN (on home CPAP), presents by EMS after she was found tired after she took her 100 mg morphine earlier today at 13:00 by her home health nurse. Patient was discharged from [facility] 3 days ago after an extended stay at [facility] for polypharmacy, possible TIA/CVA and C. diff infection. Patient is somnolent, but will wake up to voice and interact. Patient has no complaints at this time. Hospital Course Hospital Course: Initially admitted to the ICU for close monitoring and her overall encephalopathy was felt to be secondary to her high-dose opiate analgesics as well as failure to use her CPAP. Patient did respond to Narcan in the emergency department. Patient was found to have an acute kidney injury with a creatinine of 2.94 which was back to 0.87 by discharge. This was felt to be secondary to over-diuresis. Her diuretics and MARISA inhibitor were held at that time. Patient gradually recovered back to baseline. On day of discharge patient was awake, alert, and oriented 3. Restarted on a small amount of morphine sulfate with improvement of her overall symptomatology. I personally called her pain management physician Dr. Redding, and discussed with him my concerns as this is the second time I have cared for this patient with a very similar presentation. Advised patient that she is to follow-up with Dr. Redding, and her primary care physician within the coming week to discuss her pain management regimen. Patient is overall doing well and requesting discharge. [facility] was able to establish a CPAP at home for patient prior to discharge. Physical Exam Vital Signs: Temp Pulse Resp BP Pulse Ox 98.3 F 81 18 163/67 H 98 12/11/16 11:29 12/11/16 11:29 12/11/16 11:29 12/11/16 11:29 12/11/16 11:29 Intake & Output 12/10/16 12/11/16 12/12/16 06:59 06:59 06:59 Intake Total 860 747 200 Output Total 1150 Balance -290 747 200 Weight 140.6 kg 141.8 kg Exam: GENERAL: No acute distress, morbidly obese HEENT: Conjunctiva clear, nonicteric, moist mucous membranes, no JVD, midline trachea RESPIRATORY: Clear to auscultation bilaterally, no wheezes, no rhonchi CARDIAC: Regular rate and rhythm, no murmurs/gallops/rubs ABDOMEN: Soft, nondistended, nontender, positive bowel sounds, no rebound, no guarding EXTREMETIES: No edema, cyanosis, clubbing NEUROLOGIC: Awake, oriented to person/place/time, CN's grossly intact, no focal deficits SKIN: No rash, wounds PSYCH: Flat affect Results Laboratory Results: 12/09/16 04:52 12/09/16 04:52 Impressions: Chest X-Ray 12/07/16 06:00 IMPRESSION: NO ACUTE RADIOGRAPHIC FINDING IN THE CHEST. Qualifiers PATEINT BEING DISCHARGED WITH ANY OF THE FOLLOWING DIAGNOSIS?: No Plan Time Spent: Greater than 30 Minutes
[2016-12-12] MEDS ORDERED: METHOTREXATE SODIUM 2.5 MG TABLET PO SCH (10:00)
== END 2016-12-11 15:30 | disposition home health service (06) | DRG 91 ==
LOC: ER 14:28 → EH 18:05 → UNDOADMIN 18:08 → EH 18:08 → 3S 12-07 10:55
PROVIDERS: ADMIT Family Medicine; ATTEND Family Medicine
PROC: 5A09457 Assistance with Respiratory Ventilation, 24-96 Consecutive Hours, Continuous Positive Airway Pressure (ICD-10-PCS; principal; 2016-12-06)
PROC: 3E0F73Z Introduction of Anti-inflammatory into Respiratory Tract, Via Natural or Artificial Opening (ICD-10-PCS; 2016-12-07)
DX: G92 Toxic encephalopathy (principal); J96.02 Acute respiratory failure with hypercapnia; N17.9 Acute kidney failure, unspecified; E66.2 Morbid (severe) obesity with alveolar hypoventilation; Z68.43 Body mass index [BMI] 50.0-59.9, adult; I50.32 Chronic diastolic (congestive) heart failure; K50.90 Crohn's disease, unspecified, without complications; T40.605A Adverse effect of unspecified narcotics, initial encounter; T50.2X5A Adverse effect of carbonic-anhydrase inhibitors, benzothiadiazides and other diuretics, initial encounter; D64.9 Anemia, unspecified; I11.0 Hypertensive heart disease with heart failure; M06.9 Rheumatoid arthritis, unspecified; M79.7 Fibromyalgia; J44.9 Chronic obstructive pulmonary disease, unspecified; T50.901A Poisoning by unspecified drugs, medicaments and biological substances, accidental (unintentional), initial encounter; E78.5 Hyperlipidemia, unspecified; R01.1 Cardiac murmur, unspecified; I48.91 Unspecified atrial fibrillation; E11.51 Type 2 diabetes mellitus with diabetic peripheral angiopathy without gangrene; I25.10 Atherosclerotic heart disease of native coronary artery without angina pectoris; J45.909 Unspecified asthma, uncomplicated; K44.9 Diaphragmatic hernia without obstruction or gangrene; F32.9 Major depressive disorder, single episode, unspecified; F41.9 Anxiety disorder, unspecified; F60.9 Personality disorder, unspecified; I44.0 Atrioventricular block, first degree; G89.4 Chronic pain syndrome; E87.5 Hyperkalemia; I25.2 Old myocardial infarction; Z91.19 Patient's noncompliance with other medical treatment and regimen; Z79.891 Long term (current) use of opiate analgesic; Z79.899 Other long term (current) drug therapy; Z86.711 Personal history of pulmonary embolism; Z87.891 Personal history of nicotine dependence; Z90.710 Acquired absence of both cervix and uterus; Z88.6 Allergy status to analgesic agent; Z83.3 Family history of diabetes mellitus; Z82.49 Family history of ischemic heart disease and other diseases of the circulatory system
CPT/HCPCS: 36415; 36600; 51702; 71010; 80048; 80053; 81001; 82607; 82728; 82746; 82803; 82962; 83540; 83550; 83605; 83735; 84466; 85025; 85045; 93005; 93010; 94640; 94660; 96361; 96365; 96375; 99291; G8978-GP; G8979-GP; G8980-GP; J0610; J1644; J1815; J2310; J2405; J3490; J7030

== ENCOUNTER 2017-09-01 17:00 | Inpatient (IN) | payer MEDICARE, MEDICAID ==
--- NOTE | 2017-09-01 17:31 | RADIOLOGY REPORT (SQ) ---
EXAM DESCRIPTION: CT HEAD WITHOUT COMPLETED DATE/TIME: 09/01/2017 5:21 pm REASON FOR STUDY: stroke s/s COMPARISON: 11/10/2016. TECHNIQUE: Axial images acquired through the brain without intravenous contrast. Images reviewed wi th bone, brain and subdural windows. Additional sagittal and coronal reconstructions were generated. Images stored on PACS. All CT scanners at this facility use dose modulation, iterative reconstruction, and/or weight based d osing when appropriate to reduce radiation dose to as low as reasonably achievable (ALARA). [facility]: Dose Right [facility]: CareDose [facility]: Dose Right [facility]: Teradose 4D [facility]: Smart [employer]ora Mobile RADIATION DOSE: CT Rad equipment meets quality standard of care and radiation dose reduction techniq ues were employed. CTDIvol: 53.2 mGy. DLP: 1044 mGy-cm. mGy. LIMITATIONS: None. FINDINGS: VENTRICLES: Normal size and contour. CEREBRUM: No masses. No hemorrhage. No midline shift. No evidence for acute infarction. Normal gra y/white matter differentiation. No areas of low density in the white matter. CEREBELLUM: No masses. No hemorrhage. No alteration of density. No evidence for acute infarction. EXTRAAXIAL SPACES: No hemorrhage or mass. Mild atrophy. ORBITS AND GLOBE: No intra- or extraconal masses. Normal contour of globe without masses. CALVARIUM: No fracture. PARANASAL SINUSES: No fluid or mucosal thickening. SOFT TISSUES: No mass or hematoma. OTHER: No other significant finding. IMPRESSION: No acute intracranial abnormality. Pertinent positive or negative findings of the imaging study reported as a CRITICAL EXAM to ER PROVI RICARDO at17:25 on 09/01/2017. Category of Critical Exam: Stroke alert EVIDENCE OF ACUTE STROKE: NO. COMMENT: Quality ID # [id number]: Final reports with documentation of one or more dose reduction techniques (e.g., Automated exposure control, adjustment of the mA and/or kV according to patient size, use of iterative reconstruction technique) TECHNICAL DOCUMENTATION: JOB ID: [id number] [employer]- All Rights Reserved Reading location - IP/workstation name: [email or web address]
--- NOTE | 2017-09-01 17:48 | RADIOLOGY REPORT (SQ) ---
EXAM DESCRIPTION: CHEST SINGLE VIEW COMPLETED DATE/TIME: 09/01/2017 5:23 pm REASON FOR STUDY: stroke s/s COMPARISON: 12/07/2016 NUMBER OF VIEWS: One view. TECHNIQUE: Single frontal radiographic view of the chest acquired. LIMITATIONS: None. FINDINGS: LUNGS AND PLEURA: No opacities, masses or pneumothorax. No pleural effusion. MEDIASTINUM AND HILAR STRUCTURES: No masses. Contour normal. HEART AND VASCULAR STRUCTURES: Heart normal in size. Normal vasculature. BONES: No acute findings. HARDWARE: None in the chest. OTHER: No other significant finding. IMPRESSION: NO SIGNIFICANT RADIOGRAPHIC FINDING IN THE CHEST. TECHNICAL DOCUMENTATION: JOB ID: [id number] [employer]- All Rights Reserved Reading location - IP/workstation name: [email or web address]
[2017-09-01 18:03] LABS: ABSOLUTE BASOPHILS # (AUTO) 0.1 10^3/uL (0.0-0.2); ABSOLUTE LYMPHOCYTES (AUTO) 1.4 10^3/uL (0.5-4.7); ABSOLUTE MONOCYTES (AUTO) 0.4 10^3/uL (0.1-1.4); ABSOLUTE NEUT (AUTO) 7.1 10^3/uL (1.7-8.2); EOSINOPHILS % (AUTO) 0.1 % (0-6); HEMATOCRIT 37.4 % (36.0-47.0); HEMOGLOBIN 12.1 g/dL (12.0-15.5); LYMPHOCYTES % (AUTO) 15.4 % (13-45); MEAN CORPUSCULAR HEMOGLOBIN 24.7 pg (27.0-33.4); MEAN CORPUSCULAR HGB CONC 32.3 g/dL (32.0-36.0); MEAN CORPUSCULAR VOLUME 76 fl (80-97); MONOCYTES % (AUTO) 4.4 % (3-13); PLATELET COUNT 304 10^3/uL (150-450); RED CELL DISTRIBUTION WIDTH 17.7 % (11.5-14.0); SEGMENTED NEUTROPHILS % (AUTO) 79.1 % (42-78); TOTAL CELLS COUNTED % (AUTO) 100 %
[2017-09-01 18:05] LABS: INTERNATIONAL RATION (INR) 0.92; PARTIAL THROMBOPLASTIN TIME 23.9 SEC (23.5-35.8); PROTHROMBIN TIME 12.9 SEC (11.4-15.4)
[2017-09-01] MEDS ORDERED: ONDANSETRON HCL INJ/PF 4 MG/2 ML SDV IV ONE (18:08)
[2017-09-01] MEDS ORDERED: PROCHLORPERAZINE EDISYLATE INJ 10 MG/2 ML VIAL IV ONE (18:08)
[2017-09-01 18:27] LABS: ALANINE AMINOTRANSFERASE 35 U/L (9-52); ALBUMIN 4.2 g/dL (3.5-5.0); ALKALINE PHOSPHATASE 75 U/L (38-126); ANION GAP 9 (5-19); ASPARTATE AMINO TRANSFERASE 18 U/L (14-36); BILIRUBIN,DIRECT 0.1 mg/dL (0.0-0.4); BILIRUBIN,TOTAL 0.3 mg/dL (0.2-1.3); BLOOD UREA NITROGEN 14 mg/dL (7-20); CALCIUM 10.5 mg/dL (8.4-10.2); CARBON DIOXIDE 30 mmol/L (22-30); CHLORIDE 102 mmol/L (98-107); CREATINE KINASE 21 U/L (30-135); GLUCOSE 261 mg/dL (75-110); POTASSIUM 4.3 mmol/L (3.6-5.0); SODIUM 141.2 mmol/L (137-145)
[2017-09-01 18:38] LABS: CREATINE KINASE MB < 0.22 ng/mL (<4.55); TROPONIN I < 0.012 ng/mL
--- NOTE | 2017-09-01 19:38 | EKG REPORT ---
SEVERITY:- NORMAL ECG - SINUS RHYTHM : Confirmed by: Kolton Quinonez MD 01-Sep-2017 19:38:22
[2017-09-01 20:07] LABS: APPEARANCE,URINE SLIGHTLY-CLOUDY; BILIRUBIN,URINE NEGATIVE (NEGATIVE); COLOR,URINE YELLOW; GLUCOSE, URINE >=500 mg/dL (NEGATIVE); KETONES,URINE NEGATIVE (NEGATIVE); LEUKOCYTE ESTERASE,URINE TRACE (NEGATIVE); NITRITE,URINE NEGATIVE (NEGATIVE); PROTEIN,URINE NEGATIVE (NEGATIVE); URINE SPECIFIC GRAVITY 1.022; UROBILINOGEN,URINE NEGATIVE mg/dL (<2.0)
[2017-09-01 20:21] LABS: URINE AMPHETAMINES SCREEN NEGATIVE; URINE BARBITURATES SCREEN NEGATIVE; URINE BENZODIAZEPINES SCREEN NEGATIVE; URINE COCAINE SCREEN NEGATIVE; URINE MARIJUANA (THC) SCREEN NEGATIVE; URINE METHADONE SCREEN NEGATIVE; URINE PHENCYCLIDINE SCREEN NEGATIVE
[2017-09-01] MEDS ORDERED: OXYCODONE-ACETAMINOPHEN 5-325 MG TABLET PO PRN (20:27)
[2017-09-01] MEDS ORDERED: ONDANSETRON HCL INJ/PF 4 MG/2 ML SDV IV PRN (20:27)
[2017-09-01] MEDS ORDERED: PROMETHAZINE HCL 25 MG TABLET PO PRN (20:27)
[2017-09-01] MEDS ORDERED: IPRATROPIUM/ALBUTEROL 0.5-2.5 MG/3 ML AMPUL NEB PRN (20:37)
--- NOTE | 2017-09-01 20:58 | PDOC H&P ---
History of Present Illness Admission Date/PCP: DIANA NICHOLS PA-C History of Present Illness: BERT MOE is a 57 year old black female patient with multiple comorbidities including COPD, BRAN,, HTN, HLD, morbid obesity, fibromyalgia, diabetes mellitus , lupus and prior history of TIA/stroke, presented with chief complaint of weakness involving the left upper and lower extremities. Patient reports that she was in her baseline state of health up until one day when she starts to have :"Bad headache" followed by tingling sensation and numbness and inability to move her left upper and lower extremities. Her initial blood work, urine drug screen and CT of the head are unremarkable. When I examined the patient she is able to elevate her left upper and lower extremity against gravity. She does not have pronation drift. Patient denies chills, fever, chest pain, palpitation, diaphoresis, nausea, vomiting, diarrhea or any urinary complaints. Has headache but denies dizziness or blurring of vision. No seizure activities. No dyspnea or osteopenia. Past Medical History Cardiac Medical History: Reports: Hyperlipidema, Hypertension, Heart Murmur - 05/31 systolic murmur Denies: Atrial Fibrillation, Congestive Heart Failure, Coronary Artery Disease, Myocardial Infarction, Peripheral Vascular Disease, Pulmonary Embolism Pulmonary Medical History: Reports: Asthma, Bronchitis, Pneumonia, Sleep Apnea Denies: Chronic Obstructive Pulmonary Disease (COPD), Respiratory Failure, Tuberculosis Neurological Medical History: Denies: Seizures Endocrine Medical History: Reports: Diabetes Mellitus Type 2 Denies: Hyperthyroidism, Hypothyroidism Malignancy Medical History: Denies: Leukemia, Lung Cancer GI Medical History: Reports: Crohn's Disease, Hiatal Hernia Denies: Gastroesophageal Reflux Disease Musculoskeltal Medical History: Reports: Arthritis, Fibromyalgia Psychiatric Medical History: Reports: Depression, Personality Disorder Denies: Bipolar Disorder, Dementia, Post Traumatic Stress Disorder Hematology: Reports: Anemia Denies: Hemophilia, Sickle Cell Disease Infectious Medical History: Denies: HIV Past Surgical History Past Surgical History: Reports: Section, Hysterectomy Denies: Amputation, Appendectomy, Cholecystectomy, Colostomy, Coronary Artery Bypass Graft, Gastric Bypass Surgery, Herniorrhaphy, Mastectomy, Pacemaker, Tonsillectomy, Tubal Ligation Social History Smoking Status: Never Smoker Frequency of Alcohol Use: None Hx Recreational Drug Use: No Drugs: None Hx Prescription Drug Abuse: Yes - April 2016 Family History Family History: CAD, DM, Hypertension Parental Family History Reviewed: Yes Children Family History Reviewed: Yes Sibling(s) Family History Reviewed.: Yes Medication/Allergy Home Medications: Albuterol Sulfate [Ventolin Hfa] 2 puff IH Q6 12/06/16 Amlodipine Besylate [Norvasc 10 mg Tablet] 10 mg PO DAILY 12/06/16 Atorvastatin Calcium [Lipitor 20 mg Tablet] 20 mg PO QHS 12/06/16 Celecoxib [Celebrex 200 mg Capsule] 200 mg PO BIDPCBS 12/06/16 Cetirizine HCl [Zyrtec 10 mg Tablet] 10 mg PO DAILY 12/06/16 Cevimeline HCl [Evoxac] 30 mg PO Q8 12/06/16 Clopidogrel Bisulfate [Plavix 75 mg Tablet] 75 mg PO DAILY 12/06/16 Docusate Sodium [Dok] 100 mg PO Q12 12/06/16 Duloxetine HCl [Cymbalta] 60 mg PO Q12 12/06/16 Ergocalciferol (Vitamin D2) [Vitamin D2] 50,000 unit PO MO@1000 12/06/16 Famotidine [Pepcid 40 mg Tablet] 40 mg PO QHS 12/06/16 Fluticasone Propionate [Flonase Nasal [place] 50 Mcg/[place] 16 gm] 1 spray NASL Q12 12/06/16 Fluticasone/Salmeterol [Advair 250-50 Diskus 28 dose] 1 puff IH Q12 12/06/16 Folic Acid [Folvite 1 mg Tablet] 1 mg PO DAILY 12/06/16 Lisinopril [Zestril] 5 mg PO DAILY 12/06/16 Metformin HCl [Glucophage] 1,000 mg PO BIDBS 12/06/16 Methotrexate Sodium [Methotrexate] 15 mg PO TH@1000 12/06/16 Metoprolol Succinate [Toprol XL 100 mg Tablet] 100 mg PO Q12 12/06/16 Montelukast Sodium [Singulair 10 mg Tablet] 10 mg PO QPM 12/06/16 Morphine Sulfate [Morphine Ir 15 mg Tablet] 15 mg PO Q6HP PRN 12/06/16 Mupirocin 1 applic NASL ASDIR PRN 12/06/16 Pnv,Calcium 72/Iron/Folic Acid [Pnv Plus Multivit Tab] 1 tab PO DAILY 12/06/16 Pregabalin [Lyrica] 150 mg PO Q12 12/06/16 Spironolactone [Aldactone 25 mg Tablet] 25 mg PO DAILY 12/06/16 Sulfasalazine [Sulfazine] 500 mg PO MEALS 12/06/16 Furosemide [Lasix 80 mg Tablet] 40 mg PO DAILY #30 tablet 12/11/16 Allergies/Adverse Reactions: ibuprofen [Ibuprofen] Allergy (Severe, Verified 11/11/16 00:36) Chest pain Review of Systems Constitutional: PRESENT: as per HPI Eyes: PRESENT: as per HPI Cardiovascular: PRESENT: as per HPI Respiratory: PRESENT: as per HPI Gastrointestinal: PRESENT: as per HPI Musculoskeletal: PRESENT: as per HPI Integumentary: PRESENT: as per HPI Physical Exam Vital Signs: Temp Pulse Resp BP Pulse Ox 97.9 F 87 14 168/147 H 100 09/01/17 17:25 09/01/17 18:00 09/01/17 20:01 09/01/17 20:01 09/01/17 20:01 Intake & Output 08/31/17 09/01/17 09/02/17 06:59 06:59 06:59 Weight 142.8 kg General appearance: PRESENT: no acute distress, morbidly obese Head exam: PRESENT: atraumatic, normocephalic Eye exam: PRESENT: conjunctiva pink, EOMI, PERRLA. ABSENT: scleral icterus Respiratory exam: PRESENT: clear to auscultation chen. ABSENT: rales, rhonchi, wheezes Cardiovascular exam: PRESENT: RRR. ABSENT: diastolic murmur, rubs, systolic murmur Neurological exam: PRESENT: alert, CN II-XII grossly intact - Patient able to lift her upper and lower extremities on the left side against gravity, motor sensory deficit Results Laboratory Results: 09/01/17 17:50 09/01/17 17:50 09/01/17 09/01/17 09/01/17 17:50 17:50 19:50 WBC 9.0 RBC 4.90 Hgb 12.1 Hct 37.4 MCV 76 L MCH 24.7 L MCHC 32.3 RDW 17.7 H Plt Count 304 Seg Neutrophils % 79.1 H Lymphocytes % 15.4 Monocytes % 4.4 Eosinophils % 0.1 Basophils % 1.0 Absolute Neutrophils 7.1 Absolute Lymphocytes 1.4 Absolute Monocytes 0.4 Absolute Eosinophils 0.0 Absolute Basophils 0.1 Sodium 141.2 Potassium 4.3 Chloride 102 Carbon Dioxide 30 Anion Gap 9 BUN 14 Creatinine 0.66 Est GFR ( Amer) > 60 Est GFR (Non-Af Amer) > 60 Glucose 261 H Calcium 10.5 H Total Bilirubin 0.3 AST 18 ALT 35 Alkaline Phosphatase 75 Total Protein 7.0 Albumin 4.2 Urine Color YELLOW Urine Appearance SLIGHTLY-CLOUDY Urine pH 6.0 Ur Specific [place] 1.022 Urine Protein NEGATIVE Urine Glucose (UA) >=500 H Urine Ketones NEGATIVE Urine Blood NEGATIVE Urine Nitrite NEGATIVE Ur Leukocyte Esterase TRACE H Urine WBC (Auto) 2 Urine RBC (Auto) 1 09/01/17 09/01/17 17:50 17:50 Creatine Kinase 21 L CK-MB (CK-2) < 0.22 Troponin I < 0.012 Impressions: Chest X-Ray 09/01/17 17:09 IMPRESSION: NO SIGNIFICANT RADIOGRAPHIC FINDING IN THE CHEST. Head CT 09/01/17 17:09 IMPRESSION: No acute intracranial abnormality. Pertinent positive or negative findings of the imaging study reported as a CRITICAL EXAM to ER PROVIDER at17:25 on 09/01/2017. Category of Critical Exam: Stroke alert EVIDENCE OF ACUTE STROKE: NO. Assessment & Plan - Diagnosis (1) Stroke Qualifiers: CVA mechanism: unspecified Qualified Code(s): I63.9 - Cerebral infarction, unspecified Is this a current diagnosis for this admission?: Yes Plan: Since he has multiple risk factor for stroke will go ahead and request MRI of the brain and am. In the meantime we will put her on Plavix since patient is allergic to aspirin. And continue her metoprolol and other antihypertensive medications. We will allow permissive hypertension blood pressure of 220/120 (3) Hypertension Qualifiers: Hypertension type: essential hypertension Qualified Code(s): I10 - Essential (primary) hypertension Is this a current diagnosis for this admission?: Yes Plan: Continue her home medication. Monitor her blood pressure (4) Hyperlipidemia Qualifiers: Hyperlipidemia type: unspecified Qualified Code(s): E78.5 - Hyperlipidemia , unspecified Is this a current diagnosis for this admission?: Yes Plan: Increase the dose of her Lipitor to 40 mg p.o. nightly. (5) BRAN (obstructive sleep apnea) Is this a current diagnosis for this admission?: Yes Plan: We will put her on CPAP. (6) COPD (chronic obstructive pulmonary disease) Qualifiers: COPD type: unspecified COPD Qualified Code(s): J44.9 - Chronic obstructive pulmonary disease, unspecified Is this a current diagnosis for this admission?: Yes Plan: Patient is not shortness of breath or any wheezing. We will put her on as needed DuoNeb. - Time Critical Time spent with patient: 25-34 minutes Within: within 48 hours
[2017-09-01] MEDS ORDERED: ASPIRIN 325 MG TABLET PO ONE (21:30)
--- NOTE | 2017-09-01 23:43 | RADIOLOGY REPORT (SQ) ---
EXAM DESCRIPTION: MRI HEAD COMBO CLINICAL HISTORY: 57 years Female, stroke COMPARISON: None. TECHNIQUE: Conventional 20 mL MultiHance gadolinium contrast MRI. FINDINGS: Brain parenchyma appears unremarkable. No evidence of ischemia or infarct. No MRI evidence of hemorrhage. No restricted diffusion. No GRE artifact. No enhancement defect. No mass, mass effect, or midline shift. Extra-axial structures are unremarkable. IMPRESSION: Normal contrast MRI of the brain.
[2017-09-02] MEDS: ATORVASTATIN CALCIUM 40 MG TABLET PO SCH ×2 (00:05→21:17)
[2017-09-02] MEDS: ZOLPIDEM TARTRATE 5 MG TABLET PO SCH ×2 (00:05→21:18)
[2017-09-02] MEDS: HEPARIN SOD (PORCINE) 5,000 UNIT/ML 1 ML SYRINGE SUBCUT SCH ×4 (00:10→21:17)
--- NOTE | 2017-09-02 00:19 | ER Document Report ---
ED General - General Chief Complaint: Weakness Stated Complaint: LEFT SIDED WEAKNESS Time Seen by Provider: 09/01/17 17:25 TRAVEL OUTSIDE OF THE [place] IN LAST 30 DAYS: No - HPI Patient complains to provider of: Left upper extremity left lower extremity weakness Notes: Patient coming in for left upper left lower extremity weakness ongoing for greater than 24 hours. Was seen by PCP today and was told to come to the ER for further evaluation. Patient states she has had a history of CVA in the past along with hypertension diabetes. Patient states he normally walks with a walker however this was difficult days that she cannot bear any weight in the left leg. Patient resting comfortably upon my evaluation denies any chest pain hip pain dizziness nausea vomiting fevers or chills. - Related Data Allergies/Adverse Reactions: ibuprofen [Ibuprofen] Allergy (Severe, Verified 11/11/16 00:36) Chest pain Past Medical History - Social History Smoking Status: Never Smoker Chew tobacco use (# tins/day): No Frequency of alcohol use: None Drug Abuse: None Family History: CAD, DM, Hypertension Patient has suicidal ideation: No Patient has homicidal ideation: No - Past Medical History Cardiac Medical History: Reports: Hx Hypercholesterolemia, Hx Hypertension, Hx Heart Murmur - 05/31 systolic murmur Denies: Hx Atrial Fibrillation, Hx Congestive Heart Failure, Hx Coronary Artery Disease, Hx Heart Attack, Hx Peripheral Vascular Disease, Hx Pulmonary Embolism Pulmonary Medical History: Reports: Hx Asthma, Hx Bronchitis, Hx Pneumonia, Hx Sleep Apnea Denies: Hx COPD, Hx Respiratory Failure, Hx Tuberculosis Neurological Medical History: Reports: Hx Cerebrovascular Accident - 1992. Denies: Hx Seizures Endocrine Medical History: Reports: Hx Diabetes Mellitus Type 2. Denies: Hx Graves' Disease, Hx Hyperthyroidism, Hx Hypothyroidism Renal/ Medical History: Denies: Hx Peritoneal Dialysis Malignancy Medical History: Denies: Hx Leukemia, Hx Lung Cancer GI Medical History: Reports: Hx Crohn's Disease, Hx Hiatal Hernia, Hx Pancreatitis. Denies: Hx Gastroesophageal Reflux Disease, Hx Irritable Bowel, Hx Liver Failure, Hx Ulcer Musculoskeltal Medical History: Reports Hx Arthritis, Reports Hx Fibromyalgia, Denies Hx Multiple Sclerosis, Denies Hx Muscular Dystrophy Psychiatric Medical History: Reports: Hx Depression, Hx Personality Disorder Denies: Hx Bipolar Disorder, Hx Dementia, Hx Post Traumatic Stress Disorder, Hx Schizophrenia Traumatic Medical History: Denies: Hx Fractures Infectious Medical History: Denies: Hx HIV Past Surgical History: Reports: Hx Section, Hx Hysterectomy. Denies: Hx Appendectomy, Hx Bowel Surgery, Hx Cholecystectomy, Hx Colostomy, Hx Coronary Artery Bypass Graft, Hx Gastric Bypass Surgery, Hx Herniorrhaphy, Hx Mastectomy, Hx Pacemaker, Hx Tonsillectomy, Hx Tubal Ligation - Immunizations Immunizations up to date: Yes Hx Diphtheria, Pertussis, Tetanus Vaccination: Yes Hx Pneumococcal Vaccination: 01/25/08 Review of Systems - Review of Systems Constitutional: No symptoms reported EENT: No symptoms reported Cardiovascular: No symptoms reported Respiratory: No symptoms reported Gastrointestinal: No symptoms reported Genitourinary: No symptoms reported Female Genitourinary: No symptoms reported Musculoskeletal: No symptoms reported Skin: No symptoms reported Hematologic/Lymphatic: No symptoms reported Neurological/Psychological: Weakness Physical Exam - Vital signs Vitals: Pulse Ox 96 09/01/17 17:09 Interpretation: Normal - General General appearance: Appears well, Alert - HEENT Head: Normocephalic, Atraumatic Eyes: Normal Pupils: PERRL - Respiratory Respiratory status: No respiratory distress Chest status: Nontender Breath sounds: Normal Chest palpation: Normal - Cardiovascular Rhythm: Regular Heart sounds: Normal auscultation Murmur: No - Abdominal Inspection: Normal Distension: No distension Bowel sounds: Normal Tenderness: Nontender Organomegaly: No organomegaly - Back Back: Normal, Nontender - Extremities General upper extremity: Normal inspection, Nontender, Normal color, Normal ROM , Normal temperature General lower extremity: Normal inspection, Nontender, Normal color, Normal ROM , Normal temperature, Normal weight bearing. No: Abelino's sign - Neurological Neuro grossly intact: Yes Cognition: Normal Orientation: AAOx4 [place] Coma Scale Eye Opening: Spontaneous [place] Coma Scale Verbal: Oriented [place] Coma Scale Motor: Obeys Commands [place] Coma Scale Total: 15 Speech: Normal Motor strength normal: RUE, RLE. No: LUE, LLE Additional motor exam normals: No: Equal cloud subject matter expert - Right greater than left, Pronator drift - Right greater than left Sensory: Normal Notes: See NIH score - Psychological Associated symptoms: Normal affect, Normal mood - Skin Skin Temperature: Warm Skin Moisture: Dry Skin Color: Normal Course - Re-evaluation Re-evalutation: 09/02/17 00:17 Discussed with the patient as she would not be a candidate for any thrombolytic therapy TPA or mechanical is that her symptoms are well beyond time limit. CT scan of her head was otherwise negative. Patient symptoms are concerning for possible intracranial pathology. Did discuss with hospitalist will admit the patient for further evaluation. - Vital Signs Vital signs: Temp Pulse Resp BP Pulse Ox 97.9 F 88 17 120/85 100 09/01/17 17:25 09/01/17 21:00 09/01/17 21:31 09/01/17 21:31 09/01/17 21:31 - Laboratory Result Diagrams: 09/01/17 17:50 09/01/17 17:50 Laboratory results interpreted by me: 09/01/17 09/01/17 09/01/17 17:50 17:50 19:50 MCV 76 L MCH 24.7 L RDW 17.7 H Seg Neutrophils % 79.1 H Glucose 261 H Calcium 10.5 H Creatine Kinase 21 L Urine Glucose (UA) >=500 H Ur Leukocyte Esterase TRACE H Discharge - Discharge Clinical Impression: Morbid obesity with BMI of 50.0-59.9, adult, Left arm weakness, Left leg weakness HTN (hypertension) Qualifiers: Hypertension type: essential hypertension Qualified Code(s): I10 - Essential ( primary) hypertension Diabetes Qualifiers: Diabetes mellitus type: type 2 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 NIH scale should be completed with appropriate accompanying assessment tools. *: 2. The NIH should reflect what the patient is capable of doing and should not be coached by the clinician. 1a. Level of Consciousness: 0=Alert;keenly responsive -: 1=Drowsy -: 2=Obtunded -: 3=Coma/unresponsive or reflex to noxious stimuli. 1a. Responses: 0 1b. Orientation Questions: a. What month is it? -: b. How old are you? -: 0=Answers both questions correctly. -: 1=Answers one question correctly or patient is intubated or has orotracheal trauma. -: 2=Answers neither question correctly. 1b. Responses: 0 1c. Response to commands: a. Open and close eyes? -: b. Sourcing Specialist and release hand? -: Credit is given despite weakness. Demonstration of task is permitted. Substitute command if hands cannot be used. -: 0=Performs both tasks correctly -: 1=Performs one task correctly -: 2=Performs neither task correctly 1c. Responses: 0 2. Gaze: Establish eye contact and instruct patient to "Follow my finger" -: 0=Normal -: 1=Partial gaze palsy. Gaze is abnormal in one or both eyes, but where forced deviation or total gaze paresis is not present. -: 2=Forced deviation or total gaze paresis. 2. Responses: 0 3. Visual Dukes: Sees fingers in all four quadrants. -: 0=No visual loss. -: 1=Partial hemianopsia. -: 2=Complete hemianopsia. -: 3=Bilateral hemianopsia (including Cortical blindness) 3. Responses: 0 4. Facial Movement: Instruct patient to: -: a. Show me your teeth -: b. Raise your eyebrows -: c. Close your eyes -: d. Smile -: 0=Normal symmetrical movement -: 1=Minor paralysis (flattened nasolabial fold, asymmetry on smiling). -: 2=Partial paralysis (total or near total paralysis of lower face). -: 3=Complete paralysis of upper and lower face 4. Responses: 0 5. Motor functions (left arm): Alternate sides and extend each arm with palms down (90 degrees if sitting or 45 degrees for supine). -: 0=No drift;limb holds for full 10 seconds. -: 1=Drift; limb holds but drifts down before full 10 seconds, but does not hit bed. -: 2=Some effort against gravity; limb cannot get to or maintain position. -: 3=No effort against gravity; limb falls. -: 4=No movement. -: UN=Amputation, joint fusion, explain in comments. 5. Responses (left arm): 1 5. Motor Functions (right arm): Alternate sides and extend each arm with palms down (90 degrees if sitting or 45 degrees for supine). -: 0=No drift;limb holds for full 10 seconds. -: 1=Drift; limb holds but drifts down before full 10 seconds, but does not hit bed. -: 2=Some effort against gravity; limb cannot get to or maintain position. -: 3=No effort against gravity; limb falls. -: 4=No movement. -: UN=Amputation, joint fusion, explain in comments. 5. Responses (right arm): 0 6. Motor Functions (left leg): With patient lying supine, alternate sides and extend each leg (30 degrees always while supine). -: 0=No drift, leg holds position for full 5 seconds -: 1=Drift; leg falls before full 5 seconds but does not hit bed. -: 2=Some effort against gravity, leg falls to bed but some effort against gravity. -: 3=No effort against gravity, leg falls to bed immediately. -: 4=No movement. -: UN=Amputation, joint fusion; explain in comments. 6. Responses (left leg): 2 6. Motor Functions (right leg): With patient lying supine, alternate sides and extend each leg (30 degrees always while supine). -: 0=No drift, leg holds position for full 5 seconds -: 1=Drift; leg falls before full 5 seconds but does not hit bed. -: 2=Some effort against gravity, leg falls to bed but some effort against gravity. -: 3=No effort against gravity, leg falls to bed immediately. -: 4=No movement. -: UN=Amputation, joint fusion; explain in comments. 6. Responses (right leg): 0 7. Limb Ataxia: With eyes open instruct patient to: -: a. "Touch your finger to your nose". -: b. "Touch your heel to your richardson" -: 0=Absent -: 1=Present in one limb. -: 2=Present in two limbs. -: UN=Amputation or joint fusion; explain in comments. 7. Responses: 0 8. Sensory: Test sensation using pinprick or noxious stimuli. Test as many body parts as possible. -: 0=Normal;no sensory loss -: 1=Mile to moderate sensory loss (patient feels pin prick but is less sharp on affected side). -: 2=Severe or total sensory loss. 8. Responses: 0 9. Best Language: Instruct patient to: -: a. "Describe what you see in this picture." -: b. "Name the items in this picture." -: c. "Read these sentences." -: 0=No aphasia, normal -: 1=Mild to moderate aphasia. -: 2=Severe aphasia -: 3=Mute, global aphasia, no usable speech or auditory comprehension. 9. Responses: 0 10. Articulation, Dysarthia: Instruct patient to: -: "Read these words" or "Repeat these words" -: 0=Normal -: 1=Mild to moderate; patient may slur some words but can be understood without difficulty. -: 2=Severe; patients speech so slurred as to be unintelligible in the absence of dysphasia. -: UN=Intubated or other physical barrier, explain in comments. 10. Responses: 0 11. Extinction or inattention: 0=No abnormality -: 1= Visual, tactile, auditory, spatial, or personal inattention or extinction to bilateral simulation in one or the sensory modalities. -: 2=Profound pamela-inattention or pamela-inattention to more than one modality; does not recognize own hand. 11. Responses: 0 Total Score: 3
[2017-09-02] MEDS ORDERED: DEXTROSE 40% GEL 15 GM TUBE X 2 PO PRN (01:01)
[2017-09-02] MEDS ORDERED: GLUCAGON,HUMAN RECOMB 1 MG INJ IM PRN ×2 (01:01→18:04)
[2017-09-02] MEDS ORDERED: DEXTROSE 50%-WATER SYRINGE 25 GM/50 ML DOSE IV PRN (01:01)
[2017-09-02] MEDS ORDERED: DEXTROSE 50%-WATER SYRINGE 12.5 GM/25 ML DOSE IV PRN (01:01)
[2017-09-02] MEDS ORDERED: DEXTROSE 40% GEL 15 GM TUBE PO PRN ×3 (01:01→18:04)
[2017-09-02] MEDS: INSULIN LISPRO 100 UNIT/ML 3 ML VIAL SUBCUT PRN ×4 (01:33→22:37)
[2017-09-02] MEDS: LANSOPRAZOLE 15 MG TAB.RAP.DR PO SCH (05:47)
[2017-09-02 07:11] LABS: ANION GAP 6 (5-19); BLOOD UREA NITROGEN 13 mg/dL (7-20); CARBON DIOXIDE 32 mmol/L (22-30); CHLORIDE 104 mmol/L (98-107); GLUCOSE 176 mg/dL (75-110); POTASSIUM 3.9 mmol/L (3.6-5.0); SODIUM 141.9 mmol/L (137-145)
[2017-09-02 07:12] LABS: CALCIUM 9.6 mg/dL (8.4-10.2)
--- NOTE | 2017-09-02 07:27 | EKG REPORT ---
SEVERITY:- NORMAL ECG - SINUS RHYTHM : Confirmed by: Kolton Quinonez MD 02-Sep-2017 07:27:10
[2017-09-02] MEDS: METFORMIN HCL 500 MG TABLET PO SCH ×2 (08:04→15:46)
--- NOTE | 2017-09-02 08:49 | Physician Advisory Note ---
Physician Advisor ProgressNote .: Pursuant to the plan for [facility], I have reviewed the medical record for this patient. Physician Advisor Statement: Please consider documenting, IF you agree: 1. "Left hemiparesis, suspect due to " (cerebral ischemia of ____[location]? Acute cerebrovascular insufficiency? Reversible cerebrovascular vasoconstriction synd? TIA? "Acute Rt-sided thrombotic [or embolic, or other etiology] ___ artery* CVA with cerebral infarction, with Lt [dominant or nondominant] hemiparesis, [ resolved or improved or persistent]"?, ...) Status: If pt shows a clinical issue that requires ongoing hospitalization for at least a 2nd MN, please document it explicitly, &/or attending concerns, & may then consider change to Inpatient status. Thanks! CK
[2017-09-02] MEDS: CLOPIDOGREL BISULFATE 75 MG TABLET PO SCH (09:59)
[2017-09-02] MEDS: DOCUSATE SODIUM 100 MG CAPSULE PO SCH ×2 (09:59→17:35)
[2017-09-02] MEDS: CYCLOBENZAPRINE HCL 10 MG TABLET PO SCH ×2 (13:52→21:18)
--- NOTE | 2017-09-02 14:38 | RADIOLOGY REPORT (SQ) ---
EXAM DESCRIPTION: MRI LUMBAR SPINE WITHOUT COMPLETED DATE/TIME: 09/02/2017 1:42 pm REASON FOR STUDY: lower extremeties weakness COMPARISON: None. TECHNIQUE: Sagittal and Axial imaging includes T1, T2, STIR and gradient echo sequences. Coronal T2/ HASTE imaging. LIMITATIONS: None. FINDINGS: VISUALIZED UPPER ABDOMEN: Limited evaluation. No acute or suspicious findings suggested. SEGMENTATION: No transitional anatomy. The lowest well-developed disc space is labeled L5-S1. ALIGNMENT: Minimal grade 1 anterolisthesis of L4 over L5 VERTEBRAE: Intact. BONE MARROW: Normal. No marrow replacement or reactive changes. DISC SIGNAL: Diffuse decreased T2 weighted intervertebral disc signal throughout the lumbar spine POSTERIOR ELEMENTS: Generally intact. No pars defect evident. However, there are diffusely short p edicles, causing baseline mild central canal stenosis. HARDWARE: None in the spine. CORD AND CONUS: Normal in size and signal intensity. Conus at the L1-2 level. SOFT TISSUES: No aortic aneurysm seen. No bulky retroperitoneal adenopathy or mass. No paraspinal mas s or fluid. T12-L1: Unremarkable L1-L2: Broad diffuse posterior disc bulging and moderate bilateral facet and ligament hypertrophy. B orderline central canal narrowing. No foraminal stenosis. L2-L3: Broad diffuse posterior disc bulging and moderate bilateral facet and ligament hypertrophy are present. There is moderate central canal stenosis with effacement of the CSF around the lumbar nerv e roots best shown on axial T2 image 11. Mild bilateral inferior foraminal narrowing is present with out exiting L2 nerve root impingement. L3-L4: Broad diffuse posterior disc bulging and marked bilateral facet hypertrophy with ligamentum fl avum thickening causes moderate central canal stenosis with effacement of the CSF around the lumbar n erve roots. This is best shown on axial T2 image 17. There is mild to moderate bilateral foraminal narrowing without exiting L3 nerve root impingement. There is bilateral facet joint fluid and facet synovial cyst formation which does not impinge upon the spinal canal. L4-L5: Grade 1 anterolisthesis of L4 over L5, broad diffuse posterior disc bulge and marked bilateral facet and ligament hypertrophy cause mild central canal stenosis. There is moderate bilateral shola inal narrowing right greater than left. Partial effacement of fat around the exiting right L4 nerve root. There is right-sided facet joint fluid and synovial cyst formation which does not impinge upon the spinal canal L5-S1: Broad diffuse posterior disc bulge and bony spurring, moderate bilateral facet hypertrophy. D orsal epidural fat. Mild to moderate central canal stenosis with partial effacement of the CSF aroun d the lumbar nerve roots on axial T2 image 30. There is moderate right greater than left bilateral f oraminal narrowing. No definite exiting L5 nerve root impingement. There is bilateral facet joint s ynovial fluid and synovial cyst formation which does not impinge on the spinal canal. SACRUM: Visualized upper sacrum intact. OTHER: No other significant findings. IMPRESSION: Multilevel significant central stenosis and multilevel foraminal narrowing with facet ar thropathy as above TECHNICAL DOCUMENTATION: JOB ID: [id number] [employer]- All Rights Reserved Reading location - IP/workstation name: [email or web address]
--- NOTE | 2017-09-02 16:27 | RADIOLOGY REPORT (SQ) ---
EXAM DESCRIPTION: CAROTID DOPPLER COMPLETED DATE/TIME: 09/02/2017 3:58 pm REASON FOR STUDY: acute neurologic syndrome COMPARISON: Carotid Doppler 11/11/2016 CT brain 09/01/2017 MRI brain 09/01/2017 TECHNIQUE: Grayscale ultrasound, Doppler velocity and spectra, and color Doppler images acquired of the extra-cranial carotid and vertebral arteries. Images stored on PACS. LIMITATIONS: None. FINDINGS: RIGHT CAROTID CCA Velocities: Within normal limits. ICA Velocities Peak systolic 0.96 m/s. End diastolic 0.21 m/s. Proximal ICA/CCA peak systolic ratio 0.9. Spectra normal. No significant plaque. LEFT CAROTID CCA Velocities: Within normal limits. ICA Velocities Peak systolic 0.42 m/s. End diastolic 0.13 m/s. Proximal ICA/CCA peak systolic ratio 0.9. Spectra normal. No significant plaque. VERTEBRAL ARTERIES: Antegrade flow. Normal waveforms. SUBCLAVIAN ARTERIES: Not evaluated OTHER: No other significant finding. IMPRESSION: No flow significant stenosis at the carotid bifurcations. Antegrade pulsatile vertebral artery flow bilaterally COMMENT: Quality ID #[id number]: Velocity criteria are extrapolated from the diameter data as defined by t he Society of Radiologists in Ultrasound Consensus Conference. Radiology 2003: 229; 340-346. TECHNICAL DOCUMENTATION: JOB ID: [id number] [employer]- All Rights Reserved Reading location - IP/workstation name: [email or web address]
[2017-09-02] MEDS: BUTALB/ACETAMINOPHEN/CAFFEINE 1 TAB EACH PO PRN (17:36)
[2017-09-02] MEDS ORDERED: DEXTROSE 50%-WATER 25 GM/50 ML DISP.SYRIN IV PRN ×2 (18:04)
--- NOTE | 2017-09-02 18:09 | PDOC PROGRESS REPORT ---
Subjective Progress Note for:: 09/02/17 Subjective:: Patient complains of pain on his forehead and the back. Accordingly the headache started first and then began experiencing some weakness in the left side. Patient also reports that she suffers from back pain problems. She states that she feels better when compare but she wishes to get rid of the headache Review of systems All organ systems had been reviewed and are negative except as in subjective All significant laboratories and diagnostics have been reviewed Reason For Visit: LEFT UPPER AND LOWER EXTREMITY WEAKNESS Physical Exam Vital Signs: Temp Pulse Resp BP Pulse Ox 98.7 F 90 20 149/82 H 99 09/02/17 02:58 09/02/17 07:00 09/02/17 04:56 09/02/17 04:56 09/02/17 04:56 Intake & Output 09/01/17 09/02/17 09/03/17 06:59 06:59 06:59 Intake Total 128 Balance 128 Weight 133 kg General appearance: PRESENT: cooperative, morbidly obese Head exam: PRESENT: atraumatic, normocephalic Eye exam: PRESENT: conjunctiva pink, EOMI, PERRLA Ear exam: PRESENT: normal external ear exam Mouth exam: PRESENT: moist Neck exam: PRESENT: full ROM. ABSENT: JVD, lymphadenopathy, tenderness Respiratory exam: PRESENT: clear to auscultation chen Cardiovascular exam: PRESENT: RRR. ABSENT: diastolic murmur, systolic murmur Vascular exam: PRESENT: normal capillary refill GI/Abdominal exam: PRESENT: normal bowel sounds, soft. ABSENT: tenderness Extremities exam: PRESENT: full ROM. ABSENT: pedal edema Musculoskeletal exam: PRESENT: ambulatory Neurological exam: PRESENT: alert, awake, oriented to person, oriented to place , oriented to time, oriented to situation - left sided weakness Psychiatric exam: PRESENT: appropriate affect, normal mood Skin exam: PRESENT: intact, normal color Results Laboratory Results: 09/02/17 06:13 09/02/17 06:13 Sodium 141.9 Potassium 3.9 Chloride 104 Carbon Dioxide 32 H Anion Gap 6 BUN 13 Creatinine 0.63 Est GFR ( Amer) > 60 Est GFR (Non-Af Amer) > 60 Glucose 176 H Calcium 9.6 Impressions: Head MRI 09/01/17 00:00 IMPRESSION: Normal contrast MRI of the brain. Chest X-Ray 09/01/17 17:09 IMPRESSION: NO SIGNIFICANT RADIOGRAPHIC FINDING IN THE CHEST. Head CT 09/01/17 17:09 IMPRESSION: No acute intracranial abnormality. Pertinent positive or negative findings of the imaging study reported as a CRITICAL EXAM to ER PROVIDER at17:25 on 09/01/2017. Category of Critical Exam: Stroke alert EVIDENCE OF ACUTE STROKE: NO. Assessment & Plan - Diagnosis (1) Left-sided weakness Is this a current diagnosis for this admission?: Yes Plan: Order MRI of the lumbar spine. Patient does have a history of sciatica. Will add muscle relaxer (2) Diabetes Qualifiers: Diabetes mellitus type: type 2 Diabetes mellitus superintendent container terminal insulin use: without superintendent container terminal use Diabetes mellitus complication status: with unspecified complications Qualified Code(s): E11.8 - Type 2 diabetes mellitus with unspecified complications Is this a current diagnosis for this admission?: Yes Plan: Continue sliding-scale with Humalog (3) Hypertension Qualifiers: Hypertension type: essential hypertension Qualified Code(s): I10 - Essential (primary) hypertension Is this a current diagnosis for this admission?: Yes Plan: Add Norvasc and continue with lisinopril as outpatient (4) Headache Qualifiers: Headache chronicity pattern: acute headache Is this a current diagnosis for this admission?: Yes Plan: Order surveyed. Will order Fioricet and follow-up response - Time Time Spent with patient: 15-24 minutes Medications reviewed and adjusted accordingly: Yes Anticipated discharge: Home Within: within 48 hours - Inpatient Certification Based on my medical assessment, after consideration of the patient's comorbidities, presenting symptoms, or acuity I expect that the services needed warrant INPATIENT care.: Yes I certify that my determination is in accordance with my understanding of Medicare's requirements for reasonable and necessary INPATIENT services [42 CFR 412.3e].: Yes Medical Necessity: Significant Comorbidiites Make Outpatient Treatment Too Risky , Need Close Monitoring Due to Risk of Patient Decompensation, Need For Continuous Telemetry Monitoring
[2017-09-02] MEDS: AMLODIPINE BESYLATE 5 MG TABLET PO SCH (18:20)
[2017-09-02] MEDS ORDERED: METHYLPREDNISOLONE INJ 40 MG/1 ML SDV IV ONE (18:30)
[2017-09-02] MEDS ORDERED: CETIRIZINE 10 MG TABLET PO ONE (21:00)
[2017-09-02] MEDS: FLUTICASONE/SALMETEROL DISKUS 250-50 MCG/DOSE IH SCH (21:22)
[2017-09-02] MEDS ORDERED: ATORVASTATIN CALCIUM 20 MG TABLET PO SCH (22:00)
[2017-09-02] MEDS: INSULIN DETEMIR 100 UNIT/ML 3 ML PEN SUBCUT SCH (22:38)
[2017-09-03] MEDS: LANSOPRAZOLE 15 MG TAB.RAP.DR PO SCH (05:41)
[2017-09-03] MEDS: CYCLOBENZAPRINE HCL 10 MG TABLET PO SCH (05:41)
[2017-09-03] MEDS: HEPARIN SOD (PORCINE) 5,000 UNIT/ML 1 ML SYRINGE SUBCUT SCH ×3 (05:41→21:08)
[2017-09-03] MEDS ORDERED: METHYLPREDNISOLONE INJ 40 MG/1 ML SDV IV SCH ×2 (06:00→18:00)
[2017-09-03] MEDS: INSULIN LISPRO 100 UNIT/ML 3 ML VIAL SUBCUT PRN ×3 (08:29→21:10)
--- NOTE | 2017-09-03 08:46 | RADIOLOGY REPORT (SQ) ---
EXAM DESCRIPTION: MRI CERVICAL SPINE WITHOUT COMPLETED DATE/TIME: 09/03/2017 8:17 am REASON FOR STUDY: left sided weakness COMPARISON: None. TECHNIQUE: Sagittal and Axial imaging includes T1, T2, STIR and gradient echo sequences. LIMITATIONS: Mild motion. FINDINGS: ALIGNMENT: No subluxation. Mild reversal of the normal cervical curvature. VERTEBRAE: Intact. BONE MARROW: Normal. No marrow replacement or reactive changes. HARDWARE: None in the spine. CORD AND BASE OF BRAIN: Normal in size and signal intensity. SOFT TISSUES: No evidence of paraspinal mass or edema. Aberrent internal carotid arteries with media l deviation at the level of the oropharynx suggested. C1-C2: No significant spinal stenosis. C2-C3: Mild central disc protrusion without significant central stenosis or cord compression. C3-C4: Uncovertebral spurring with mild foraminal narrowing, particularly on the left. No central st enosis. C4-C5: Left uncovertebral spurring with at least moderate left foraminal stenosis. C5-C6: Small central annular fissure. Mild posterior ligament thickening at C5-6. Cord contact with out asher mass effect. Relatively patent neural foramina. C6-C7: No significant spinal stenosis or exit foraminal stenosis. C7-T1: No significant spinal stenosis or exit foraminal stenosis. UPPER THORACIC: Incompletely imaged. No significant spinal stenosis or exit foraminal stenosis. OTHER: No other significant finding. IMPRESSION: 1. Cervical spondylosis without evidence of significant central stenosis or cord redd araceli. At least moderate left foraminal narrowing at the C4-5 level. TECHNICAL DOCUMENTATION: JOB ID: [id number] [employer]- All Rights Reserved Reading location - IP/workstation name: [email or web address]
[2017-09-03] MEDS: CLOPIDOGREL BISULFATE 75 MG TABLET PO SCH (09:29)
[2017-09-03] MEDS: DOCUSATE SODIUM 100 MG CAPSULE PO SCH ×2 (09:29→17:30)
[2017-09-03] MEDS: SPIRONOLACTONE 25 MG TABLET PO SCH (09:30)
[2017-09-03] MEDS: LISINOPRIL 5 MG TABLET PO SCH (09:31)
[2017-09-03] MEDS: FUROSEMIDE 80 MG TABLET PO SCH (09:31)
[2017-09-03] MEDS: CYCLOSPORINE 0.05% OPH EMULSIO 0.4 ML DROPERETTE OU SCH ×2 (09:37→17:29)
[2017-09-03] MEDS: FLUTICASONE/SALMETEROL DISKUS 250-50 MCG/DOSE IH SCH ×2 (09:37→21:13)
[2017-09-03] MEDS ORDERED: CLOPIDOGREL BISULFATE 75 MG TABLET PO SCH (10:00)
[2017-09-03] MEDS ORDERED: NORMAL SALINE 500 ML IV PRN (11:23)
[2017-09-03] MEDS ORDERED: METOPROLOL SUCCINATE 50 MG TAB.SR.24H PO SCH (12:00)
[2017-09-03] MEDS ORDERED: INSULIN LISPRO 100 UNIT/ML 3 ML VIAL SUBCUT ONE (12:30)
[2017-09-03] MEDS: TIZANIDINE HCL 4 MG TABLET PO SCH ×2 (13:39→17:17)
--- NOTE | 2017-09-03 13:53 | EKG REPORT ---
SEVERITY:- ABNORMAL ECG - SINUS TACHYCARDIA NONSPECIFIC T ABNORMALITIES, LATERAL LEADS : Confirmed by: Kolton Quinonez MD 03-Sep-2017 13:53:17
[2017-09-03] MEDS: AMLODIPINE BESYLATE 5 MG TABLET PO SCH (17:17)
[2017-09-03] MEDS ORDERED: CETIRIZINE 10 MG TABLET PO SCH (18:00)
--- NOTE | 2017-09-03 18:14 | PDOC PROGRESS REPORT ---
Subjective Progress Note for:: 09/03/17 Subjective:: Patient complains of pain on his forehead and the back. Reports itchiness in her legs. Weakness resolved. Nurse reports tachycardia Review of systems All organ systems had been reviewed and are negative except as in subjective All significant laboratories and diagnostics have been reviewed Reason For Visit: LEFT UPPER AND LOWER EXTREMITY WEAKNESS Physical Exam Vital Signs: Temp Pulse Resp BP Pulse Ox 97.6 F 140 H 16 146/94 H 99 09/03/17 11:07 09/03/17 11:07 09/03/17 11:07 09/03/17 11:07 09/03/17 11:07 Intake & Output 09/02/17 09/03/17 09/04/17 06:59 06:59 06:59 Intake Total 128 1618 Balance 128 1618 Weight 133 kg 135.8 kg General appearance: PRESENT: cooperative, morbidly obese Head exam: PRESENT: atraumatic, normocephalic Eye exam: PRESENT: conjunctiva pink, EOMI, PERRLA Ear exam: PRESENT: normal external ear exam Neck exam: PRESENT: full ROM, tenderness. ABSENT: JVD, lymphadenopathy Respiratory exam: PRESENT: clear to auscultation chen Cardiovascular exam: PRESENT: RRR. ABSENT: diastolic murmur, systolic murmur Vascular exam: PRESENT: normal capillary refill GI/Abdominal exam: PRESENT: normal bowel sounds, soft. ABSENT: tenderness Extremities exam: PRESENT: full ROM, +1 edema Musculoskeletal exam: PRESENT: ambulatory Neurological exam: PRESENT: alert, awake, oriented to person, oriented to place , oriented to time, oriented to situation, other - left sided weakness resolved Skin exam: PRESENT: intact, normal color Results Laboratory Results: 09/02/17 06:13 Impressions: Head MRI 09/01/17 00:00 IMPRESSION: Normal contrast MRI of the brain. Chest X-Ray 09/01/17 17:09 IMPRESSION: NO SIGNIFICANT RADIOGRAPHIC FINDING IN THE CHEST. Head CT 09/01/17 17:09 IMPRESSION: No acute intracranial abnormality. Pertinent positive or negative findings of the imaging study reported as a CRITICAL EXAM to ER PROVIDER at17:25 on 09/01/2017. Category of Critical Exam: Stroke alert EVIDENCE OF ACUTE STROKE: NO. Lumbar Spine MRI 09/02/17 00:00 IMPRESSION: Multilevel significant central stenosis and multilevel foraminal narrowing with facet arthropathy as above Carotid Doppler Study 09/02/17 11:31 IMPRESSION: No flow significant stenosis at the carotid bifurcations. Antegrade pulsatile vertebral artery flow bilaterally Cervical Spine MRI 09/03/17 00:00 IMPRESSION: 1. Cervical spondylosis without evidence of significant central stenosis or cord compression. At least moderate left foraminal narrowing at the C4-5 level. Assessment & Plan - Diagnosis (1) Left-sided weakness Is this a current diagnosis for this admission?: Yes Plan: Significant spinal stenosis throughout her whole spine. Patient denies having problems urinating or with constipation. She was made aware that if this were to happen when having left-sided weakness and presented to emergency room she needed to be transferred to a tertiary center. Will decrease IV steroids which was started yesterday. (2) Diabetes Qualifiers: Diabetes mellitus type: type 2 Diabetes mellitus retirement insulin use: without retirement use Diabetes mellitus complication status: with unspecified complications Qualified Code(s): E11.8 - Type 2 diabetes mellitus with unspecified complications Is this a current diagnosis for this admission?: Yes Plan: Patient placed on long-acting and will continue sliding scale (3) Hypertension Qualifiers: Hypertension type: essential hypertension Qualified Code(s): I10 - Essential (primary) hypertension Is this a current diagnosis for this admission?: Yes Plan: Will change to Cardizem and Toprol. EKG obtained showed sinus tachycardia (4) Headache Qualifiers: Headache chronicity pattern: acute headache Is this a current diagnosis for this admission?: Yes Plan: Continue Fioricet and change to Zanaflex 3 times a day (5) Tachycardia Is this a current diagnosis for this admission?: Yes Plan: This is sinus tachycardia. To order 500 mL IV boluses likely may relate to hyperglycemia and start Toprol-XL (6) Spinal stenosis of lumbar region at multiple levels Is this a current diagnosis for this admission?: Yes Plan: Continue IV steroids and muscle relaxers. Patient will be referred to neurosurgeon as outpatient - Time Time Spent with patient: 15-24 minutes Medications reviewed and adjusted accordingly: Yes Anticipated discharge: Home Within: within 24 hours - Inpatient Certification Based on my medical assessment, after consideration of the patient's comorbidities, presenting symptoms, or acuity I expect that the services needed warrant INPATIENT care.: Yes I certify that my determination is in accordance with my understanding of Medicare's requirements for reasonable and necessary INPATIENT services [42 CFR 412.3e].: Yes Medical Necessity: Need Close Monitoring Due to Risk of Patient Decompensation
[2017-09-03] MEDS ORDERED: DILTIAZEM HCL 240 MG CAPSULE.CR PO ONE (19:00)
[2017-09-03] MEDS: METOPROLOL SUCCINATE 50 MG TAB.SR.24H PO SCH (21:07)
[2017-09-03] MEDS: ZOLPIDEM TARTRATE 5 MG TABLET PO SCH (21:08)
[2017-09-03] MEDS: ATORVASTATIN CALCIUM 40 MG TABLET PO SCH (21:09)
[2017-09-03] MEDS: INSULIN DETEMIR 100 UNIT/ML 3 ML PEN SUBCUT SCH (21:14)
[2017-09-03] MEDS: BUTALB/ACETAMINOPHEN/CAFFEINE 1 TAB EACH PO PRN (22:41)
[2017-09-04] MEDS ORDERED: METHYLPREDNISOLONE INJ 40 MG/1 ML SDV IV SCH (06:00)
[2017-09-04] MEDS: LANSOPRAZOLE 15 MG TAB.RAP.DR PO SCH (06:08)
[2017-09-04] MEDS: HEPARIN SOD (PORCINE) 5,000 UNIT/ML 1 ML SYRINGE SUBCUT SCH ×2 (06:08→13:23)
[2017-09-04 07:07] LABS: ANION GAP 13 (5-19); BLOOD UREA NITROGEN 21 mg/dL (7-20); CALCIUM 10.1 mg/dL (8.4-10.2); CARBON DIOXIDE 29 mmol/L (22-30); CHLORIDE 100 mmol/L (98-107); GLUCOSE 300 mg/dL (75-110); POTASSIUM 4.3 mmol/L (3.6-5.0); SODIUM 142.4 mmol/L (137-145)
[2017-09-04] MEDS: INSULIN LISPRO 100 UNIT/ML 3 ML VIAL SUBCUT PRN ×2 (09:00→12:06)
[2017-09-04] MEDS: CYCLOSPORINE 0.05% OPH EMULSIO 0.4 ML DROPERETTE OU SCH (09:55)
[2017-09-04] MEDS: FLUTICASONE/SALMETEROL DISKUS 250-50 MCG/DOSE IH SCH (09:55)
[2017-09-04] MEDS: SPIRONOLACTONE 25 MG TABLET PO SCH (09:56)
[2017-09-04] MEDS: METOPROLOL SUCCINATE 50 MG TAB.SR.24H PO SCH (09:56)
[2017-09-04] MEDS: CLOPIDOGREL BISULFATE 75 MG TABLET PO SCH (09:56)
[2017-09-04] MEDS: DOCUSATE SODIUM 100 MG CAPSULE PO SCH (09:56)
[2017-09-04] MEDS: TIZANIDINE HCL 4 MG TABLET PO SCH ×2 (09:57→13:23)
[2017-09-04] MEDS: FUROSEMIDE 80 MG TABLET PO SCH (09:57)
[2017-09-04] MEDS: LISINOPRIL 5 MG TABLET PO SCH (09:57)
[2017-09-04 12:51] VITALS: BP 133/76
--- NOTE | 2017-09-04 18:51 | PDOC DISCHARGE SUMMARY ---
General - Admit/Disc Date/PCP Admission Date/Primary Care Provider: 09/03/17 15:56 DIANA NICHOLS PA-C Discharge Date: 09/04/17 - Discharge Diagnosis (1) Atypical migraine Is this a current diagnosis for this admission?: Yes (2) Spinal stenosis of lumbar region at multiple levels Is this a current diagnosis for this admission?: Yes (3) Left-sided weakness Is this a current diagnosis for this admission?: Yes (4) Diabetes Is this a current diagnosis for this admission?: Yes (5) Hypertension Is this a current diagnosis for this admission?: Yes (6) Tachycardia Is this a current diagnosis for this admission?: Yes (7) Lupus Is this a current diagnosis for this admission?: Yes (8) BRAN (obstructive sleep apnea) Is this a current diagnosis for this admission?: Yes (9) Diabetes Is this a current diagnosis for this admission?: Yes (10) HTN (hypertension) Is this a current diagnosis for this admission?: Yes - Additional Information Resuscitation Status: Full Code Discharge Diet: Cardiac, Diabetic Discharge Activity: Activity As Tolerated Prescriptions: Butalb/Acetaminophen/Caffeine [Fioricet (50-325-40 mg) Tablet] 1 tab PO Q4HP PRN #30 each PRN Reason: Diltiazem HCl [Cardizem Cd 240 mg Capsule.cr] 240 mg PO QHS #30 capsule.cr Tizanidine HCl [Zanaflex 4 mg Tablet] 4 mg PO TID #90 tablet Home Medications: Albuterol Sulfate [Ventolin HFA MDI 18 GM] 2 puff IH Q6HP PRN 09/01/17 Atorvastatin Calcium [Lipitor 20 mg Tablet] 20 mg PO QHS 09/01/17 Celecoxib [Celebrex 200 mg Capsule] 200 mg PO BIDPCBS 09/01/17 Cetirizine HCl [Zyrtec 10 mg Tablet] 10 mg PO QPM 09/01/17 Cevimeline HCl [Evoxac] 30 mg PO TID 09/01/17 Clopidogrel Bisulfate [Plavix 75 mg Tablet] 75 mg PO DAILY 09/01/17 Cyclosporine 0.05% Oph Emulsio [Restasis 0.05% Oph Emulsion Pf 0.4 ml] 1 drop OU BID 09/01/17 Docusate Sodium [Colace 100 mg Capsule] 100 mg PO BID 09/01/17 Ergocalciferol (Vitamin D2) [Drisdol 50,000 unit (1.25MG) Capsule] 50,000 unit PO MO@0800 09/01/17 Etanercept [Enbrel] 50 mg SQ TU@1100 09/01/17 Famotidine [Pepcid 40 mg Tablet] 40 mg PO QHS 09/01/17 Fluticasone/Salmeterol [Advair 250-50 Diskus 14 Dose/Diskus] 1 puff IH Q12 09/01 Folic Acid [Folvite 1 mg Tablet] 1 mg PO DAILY 09/01/17 Furosemide [Lasix 80 mg Tablet] 80 mg PO DAILY 09/01/17 Ipratropium/Albuterol Sulfate [Combivent Respimat 4 gm Mdi] 1 puff IH Q6 Ketorolac Tromethamine [Toradol 10 mg Tablet] 10 mg PO HSP PRN 09/01/17 Lisinopril [Prinivil 5 mg Tablet] 5 mg PO DAILY 09/01/17 Metformin HCl [Glucophage] 1,000 mg PO BIDBS 09/01/17 Methotrexate Sodium [Methotrexate] 5 mg PO TH@2200 09/01/17 Metoprolol Succinate [Toprol XL 100 mg Tablet] 100 mg PO Q12 09/01/17 Montelukast Sodium [Singulair 10 mg Tablet] 10 mg PO QPM 09/01/17 Nystatin [Mycostatin Cream 15 gm] 1 applic TOP BID 09/01/17 Oxycodone HCl 15 mg PO Q6HP PRN 09/01/17 Prednisone [Deltasone 5 mg Tablet] 10 mg PO [id number] 09/01/17 Pregabalin [Lyrica] 150 mg PO Q12 09/01/17 Vit,Calc76/Iron/Folic [Prenatabs Rx Tablet] 1 tab PO DAILY 09/01/17 Spironolactone [Aldactone 25 mg Tablet] 25 mg PO DAILY 09/01/17 Butalb/Acetaminophen/Caffeine [Fioricet (50-325-40 mg) Tablet] 1 tab PO Q4HP PRN #30 each 09/04/17 Diltiazem HCl [Cardizem Cd 240 mg Capsule.cr] 240 mg PO QHS #30 capsule.cr 09/04 Tizanidine HCl [Zanaflex 4 mg Tablet] 4 mg PO TID #90 tablet 09/04/17 History of Present Illness History of Present Illness: BERT MOE is a 57 year old female patient with multiple comorbidities including COPD, BRAN,, HTN, HLD, morbid obesity, fibromyalgia, diabetes mellitus , lupus and prior history of TIA/stroke who presented with chief complaint of weakness involving the left upper and lower extremities. Patient reported that she was in her baseline state of health up until one day when she started to have :"Bad headache" followed by tingling sensation and numbness and inability to move her left upper and lower extremities. Her initial blood work, urine drug screen and CT of the head were unremarkable. When initially examined by hospitalist service examined the patient was able to elevate her left upper and lower extremity against gravity. She did not have pronation drift. Patient denied chills, fever, chest pain, palpitation, diaphoresis, nausea, vomiting, diarrhea or any urinary complaints. Had headache but denied dizziness or blurring of vision. No seizure activities. No dyspnea or osteopenia. Patient was admitted on the hospitalist service Hospital Course Hospital Course: Patient was admitted [place] [facility] [place] the purpose of evaluating patient for TIA. MRI of the brain was negative. Carotid dopplers were negative. Since her presentation was suggestive of an atypical migraine versus spinal stenosis, ordered an MRI of the cervical or lumbar spine. The MRI of the cervical spine showed cervical spondylosis with no compression. MRI of the lumbar spine was significant due to multilevel central spinal stenosis. Set rate was 21. Patient was placed on IV steroids and muscle relaxers. Symptoms abated within 24 hours of starting intervention. Patient though persisted with headache but improved. She was discharged on an increased dose of Zanaflex to 4 mg 3 times daily. She is currently on steroids orally and dose was to remain the same. The impression is that headache appears to be atypical in nature wiht left sided weakness presentation. This patient suffers from lupus and her presentation may relate to this issue. In addition patient suffers from spinal stenosis with no cord compression. She has been advised that if any urinary retention or constipation acutely she was to present to emergency room for further evaluation. Patient has also been advised to follow-up with her provider engagement executive. I strongly advise any providers that may engage in taking care of this patient in an emergency setting and if patient presenting under similar circumstances, to transfer patient due to her complicated history and need of further evaluation by provider engagement executive, neurologist and neurosurgeon. We placed patient on Cardizem CD for the management of her blood pressure. Patient is discharged under home health care and will continue PT at home. Since patient reported improvement and had achieved maximum benefit of hospitalization at this facility prompted to discharge. Physical Exam Vital Signs: Temp Pulse Resp BP Pulse Ox 98.1 F 91 19 140/83 H 98 09/04/17 07:36 09/04/17 11:23 09/04/17 11:23 09/04/17 08:00 09/04/17 11:23 Intake & Output 09/03/17 09/04/17 09/05/17 06:59 06:59 06:59 Intake Total 2187 Balance 2187 Weight 131.5 kg General appearance: PRESENT: no acute distress, cooperative, morbidly obese Head exam: PRESENT: atraumatic, normocephalic Eye exam: PRESENT: conjunctiva pink, EOMI, PERRLA Ear exam: PRESENT: normal external ear exam Mouth exam: PRESENT: moist Neck exam: PRESENT: full ROM. ABSENT: JVD, lymphadenopathy, tenderness Respiratory exam: PRESENT: clear to auscultation chen Cardiovascular exam: PRESENT: RRR. ABSENT: diastolic murmur, systolic murmur Vascular exam: PRESENT: normal capillary refill GI/Abdominal exam: PRESENT: normal bowel sounds, soft. ABSENT: tenderness Extremities exam: PRESENT: full ROM, +1 edema Musculoskeletal exam: PRESENT: ambulatory Neurological exam: PRESENT: alert, awake, oriented to person, oriented to place , oriented to time, oriented to situation, CN II-XII grossly intact Psychiatric exam: PRESENT: appropriate affect, normal mood Skin exam: PRESENT: intact, normal color Results Laboratory Results: 09/04/17 05:30 09/04/17 05:30 Sodium 142.4 Potassium 4.3 Chloride 100 Carbon Dioxide 29 Anion Gap 13 BUN 21 H Creatinine 0.77 Est GFR ( Amer) > 60 Est GFR (Non-Af Amer) > 60 Glucose 300 H Calcium 10.1 Magnesium 1.8 Impressions: Head MRI 09/01/17 00:00 IMPRESSION: Normal contrast MRI of the brain. Chest X-Ray 09/01/17 17:09 IMPRESSION: NO SIGNIFICANT RADIOGRAPHIC FINDING IN THE CHEST. Head CT 09/01/17 17:09 IMPRESSION: No acute intracranial abnormality. Pertinent positive or negative findings of the imaging study reported as a CRITICAL EXAM to ER PROVIDER at17:25 on 09/01/2017. Category of Critical Exam: Stroke alert EVIDENCE OF ACUTE STROKE: NO. Lumbar Spine MRI 09/02/17 00:00 IMPRESSION: Multilevel significant central stenosis and multilevel foraminal narrowing with facet arthropathy as above Carotid Doppler Study 09/02/17 11:31 IMPRESSION: No flow significant stenosis at the carotid bifurcations. Antegrade pulsatile vertebral artery flow bilaterally Cervical Spine MRI 09/03/17 00:00 IMPRESSION: 1. Cervical spondylosis without evidence of significant central stenosis or cord compression. At least moderate left foraminal narrowing at the C4-5 level. Qualifiers - * PATEINT BEING DISCHARGED WITH ANY OF THE FOLLOWING DIAGNOSIS?: No Plan Discharge Plan: Discharge on that home health. Patient has been advised to follow-up with PCP. An appointment has been made with neurosurgeon in [place]. Time Spent: Less than 30 Minutes
[2017-09-04] MEDS ORDERED: METHOTREXATE SODIUM 2.5 MG TABLET PO SCH (22:00)
[2017-09-04] MEDS ORDERED: DILTIAZEM HCL 240 MG CAPSULE.CR PO SCH (22:00)
== END 2017-09-04 16:05 | disposition home or self-care (01) | DRG 552 ==
LOC: ER 17:00 → EH 20:51 → 3S 09-02 00:50 → OBSVTOIN 09-03 15:56
PROVIDERS: ADMIT Internal Medicine; ATTEND Internal Medicine
DX: M48.061 Spinal stenosis, lumbar region without neurogenic claudication (principal); Z68.42 Body mass index [BMI] 45.0-49.9, adult; M48.02 Spinal stenosis, cervical region; G43.809 Other migraine, not intractable, without status migrainosus; M79.7 Fibromyalgia; R00.0 Tachycardia, unspecified; E11.9 Type 2 diabetes mellitus without complications; J44.9 Chronic obstructive pulmonary disease, unspecified; E66.01 Morbid (severe) obesity due to excess calories; M32.9 Systemic lupus erythematosus, unspecified; R20.0 Anesthesia of skin; R53.1 Weakness; I10 Essential (primary) hypertension; R51 Headache; G47.33 Obstructive sleep apnea (adult) (pediatric); Z79.84 Long term (current) use of oral hypoglycemic drugs; Z79.899 Other long term (current) drug therapy; Z86.73 Personal history of transient ischemic attack (TIA), and cerebral infarction without residual deficits; Z90.710 Acquired absence of both cervix and uterus
CPT/HCPCS: 36415; 70450; 70553; 71045; 72141; 72148; 80048; 80053; 80307; 81001; 82550; 82553; 82962; 83036; 83735; 84484; 85025; 85610; 85652; 85730; 93005; 93010; 93880; 96374; 96375; 99285; G0378; G8978-GP; G8979-GP; G8980-GP; J0780; J1644; J1815; J2405; J2920; J3490; J7040

== ENCOUNTER → 2018-01-08 | Outpatient (CLI) | payer MEDICARE, MEDICAID ==
--- NOTE | 2018-01-08 12:15 | RADIOLOGY REPORT (SQ) ---
EXAM DESCRIPTION: VENOUS BILATERAL LOWER COMPLETED DATE/TIME: 01/08/2018 12:03 pm REASON FOR STUDY: BLE PAIN M79.604 PAIN IN RIGHT LEG M79.605 PAIN IN LEFT LEG COMPARISON: Lower extremity venous Doppler 05/15/2016 TECHNIQUE: Dynamic and static meade scale and color images acquired of both lower extremity venous sy stems. Selected spectral images acquired with additional compression and augmentation maneuvers. Imag es stored on PACS. LIMITATIONS: None. FINDINGS: RIGHT LEG COMMON FEMORAL AND FEMORAL: Normal phasicity, compression and augmentation. No visualized echogenic m aterial on meade scale. No defects on color images. POPLITEAL: Normal compression and augmentation. No visualized echogenic material on meade scale. No de fects on color images. CALF VESSELS: Normal compression and augmentation. No visualized echogenic material on meade scale. No defects on color image. GSV AND SSV: Normal compression. No visualized echogenic material on meade scale. No defects on color images. ANY DEEP VENOUS INSUFFICIENCY: Not evaluated. ANY EVIDENCE OF POPLITEAL CYST: No. OTHER: No other significant finding. LEFT LEG COMMON FEMORAL AND FEMORAL: Normal phasicity, compression and augmentation. No visualized echogenic m aterial on meade scale. No defects on color images. POPLITEAL: Normal compression and augmentation. No visualized echogenic material on meade scale. No de fects on color images. CALF VESSELS: Normal compression and augmentation. No visualized echogenic material on meade scale. No defects on color images. GSV AND SSV: Normal compression. No visualized echogenic material on meade scale. No defects on color images. ANY DEEP VENOUS INSUFFICIENCY: Not evaluated. ANY EVIDENCE POPLITEAL CYST: No. OTHER: No other significant finding. IMPRESSION: NO EVIDENCE DVT OR SVT IN EITHER LEG. TECHNICAL DOCUMENTATION: JOB ID: [id number] [employer]- All Rights Reserved Reading location - IP/workstation name: [email or web address]
== END ==
LOC: SP 08:15
PROVIDERS: ATTEND Physician Assistant
DX: M79.604 Pain in right leg (principal); M79.605 Pain in left leg
CPT/HCPCS: 93970

== ENCOUNTER 2018-02-07 14:20 | Emergency (ER) | payer MEDICARE, MEDICAID ==
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
--- NOTE | 2018-02-07 15:51 | RADIOLOGY REPORT (SQ) ---
EXAM DESCRIPTION: CHEST 2 VIEWS COMPLETED DATE/TIME: 02/07/2018 3:35 pm REASON FOR STUDY: short of breath COMPARISON: Chest x-ray 11/10/2016, 09/01/2017. EXAM PARAMETERS: NUMBER OF VIEWS: two views TECHNIQUE: Digital Frontal and Lateral radiographic views of the chest acquired. RADIATION DOSE: NA LIMITATIONS: none FINDINGS: LUNGS AND PLEURA: No consolidation, pneumothorax or pleural effusion. MEDIASTINUM AND HILAR STRUCTURES: No masses or contour abnormalities. HEART AND VASCULAR STRUCTURES: Heart normal size. No evidence for failure. BONES: No acute findings. HARDWARE: None in the chest. IMPRESSION: NO ACUTE RADIOGRAPHIC FINDING IN THE CHEST. TECHNICAL DOCUMENTATION: JOB ID: [id number] [employer]- All Rights Reserved Reading location - IP/workstation name: [email or web address]
[2018-02-07 16:15] LABS: ABSOLUTE EOSINOPHILS # (AUTO) 0.1 10^3/uL (0.0-0.6); ABSOLUTE LYMPHOCYTES (AUTO) 0.9 10^3/uL (0.5-4.7); ABSOLUTE MONOCYTES (AUTO) 0.3 10^3/uL (0.1-1.4); ABSOLUTE NEUT (AUTO) 6.7 10^3/uL (1.7-8.2); BASOPHILS % (AUTO) 0.3 % (0-2); EOSINOPHILS % (AUTO) 1.2 % (0-6); HEMATOCRIT 39.1 % (36.0-47.0); HEMOGLOBIN 12.6 g/dL (12.0-15.5); LYMPHOCYTES % (AUTO) 11.6 % (13-45); MEAN CORPUSCULAR HEMOGLOBIN 24.9 pg (27.0-33.4); MEAN CORPUSCULAR HGB CONC 32.2 g/dL (32.0-36.0); MEAN CORPUSCULAR VOLUME 77 fl (80-97); MONOCYTES % (AUTO) 3.5 % (3-13); PLATELET COUNT 277 10^3/uL (150-450); RED BLOOD COUNT 5.06 10^6/uL (3.72-5.28); RED CELL DISTRIBUTION WIDTH 21.6 % (11.5-14.0); SEGMENTED NEUTROPHILS % (AUTO) 83.4 % (42-78); TOTAL CELLS COUNTED % (AUTO) 100 %; WHITE BLOOD COUNT 8.1 10^3/uL (4.0-10.5)
[2018-02-07 16:37] LABS: ALANINE AMINOTRANSFERASE 24 U/L (9-52); ALBUMIN 4.2 g/dL (3.5-5.0); ALKALINE PHOSPHATASE 61 U/L (38-126); ANION GAP 11 (5-19); ASPARTATE AMINO TRANSFERASE 40 U/L (14-36); BILIRUBIN,DIRECT 0.5 mg/dL (0.0-0.4); BILIRUBIN,TOTAL 0.7 mg/dL (0.2-1.3); BLOOD UREA NITROGEN 20 mg/dL (7-20); CALCIUM 9.9 mg/dL (8.4-10.2); CARBON DIOXIDE 23 mmol/L (22-30); CHLORIDE 105 mmol/L (98-107); GLUCOSE 353 mg/dL (75-110); POTASSIUM 5.4 mmol/L (3.6-5.0); SODIUM 138.6 mmol/L (137-145); TOTAL PROTEIN 7.4 g/dL (6.3-8.2)
[2018-02-07] MEDS ORDERED: IPRATROPIUM/ALBUTEROL 0.5-2.5 MG/3 ML AMPUL NEB ONE (19:09)
[2018-02-07] MEDS ORDERED: DEXAMETHASONE 4 MG TABLET PO ONE (19:09)
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
--- NOTE | 2018-02-07 21:10 | EKG REPORT ---
SEVERITY:- OTHERWISE NORMAL ECG - SINUS TACHYCARDIA : Confirmed by: Cullen Fritz 07-Feb-2018 21:10:05
[2018-02-07 21:34] VITALS: BP 114/69
== END 2018-02-07 21:35 | disposition home or self-care (01) ==
LOC: ER 14:20
DX: G47.33 Obstructive sleep apnea (adult) (pediatric) (principal); E66.01 Morbid (severe) obesity due to excess calories; Z68.43 Body mass index [BMI] 50.0-59.9, adult; R06.02 Shortness of breath; J44.9 Chronic obstructive pulmonary disease, unspecified; I10 Essential (primary) hypertension; E11.9 Type 2 diabetes mellitus without complications
CPT/HCPCS: 93005; 94640; 99285; 36415; 85025; 80053; 83880; 71046; 93010; A9270 ×2; J7620

== ENCOUNTER 2018-09-03 13:58 | Emergency (ER) | payer MEDICARE, MEDICAID ==
[2018-09-03 14:07] VITALS: BP 127/84
[2018-09-03] MEDS ORDERED: OXYCODONE-ACETAMINOPHEN 5-325 MG TABLET PO ONE (14:38)
--- NOTE | 2018-09-03 14:44 | ER Document Report ---
ED General Pain - General Chief Complaint: Flank Pain Stated Complaint: FLANK PAIN Time Seen by Provider: 09/03/18 14:20 Primary Care Provider: ADI SYED MD [Primary Care Provider] - Follow up as needed Mode of Arrival: Wheelchair Information source: Patient Notes: Patient is a 58-year-old female comes emergency room complaining of right hip and low back pain with radiation down the right thigh. Patient states started approximately 3 days ago when she was trying to get up out of the couch when she felt a little twinge and has had difficulty since then. Pain is increasingly got worse. Patient is currently being treated in pain management for lupus and currently takes 15 mg of oxycodone combined with tramadol. She is also on Zanaflex. She is an insulin-dependent diabetic and hypertensive patient. Patient denies any traumatic events and has not had no falls. TRAVEL OUTSIDE OF THE [place] IN LAST 30 DAYS: No - HPI Onset: Other Onset/Duration: Gradual - 3 days ago Quality of pain: Sharp, Stabbing, Throbbing Severity: Moderate Pain Level: 3 Context: Joint pain Typical of prior episodes of painful crisis: No Exacerbated by: Supine, Sitting, Standing, Movement, Walking Relieved by: Denies - Related Data Allergies/Adverse Reactions: ibuprofen [Ibuprofen] Allergy (Severe, Verified 11/11/16 00:36) Chest pain Penicillins Allergy (Verified 09/03/18 14:00) Past Medical History - General Information source: Patient, [facility] Records - Social History Smoking Status: Never Smoker Cigarette use (# per day): No Chew tobacco use (# tins/day): No Smoking Education Provided: No Frequency of alcohol use: None Drug Abuse: None Lives with: Family Family History: Reviewed & Not Pertinent, CAD, DM, Hypertension Patient has suicidal ideation: No Patient has homicidal ideation: No - Past Medical History Cardiac Medical History: Reports: Hx Hypercholesterolemia, Hx Hypertension, Hx Heart Murmur - 05/31 systolic murmur Denies: Hx Atrial Fibrillation, Hx Congestive Heart Failure, Hx Coronary Artery Disease, Hx Heart Attack, Hx Peripheral Vascular Disease, Hx Pulmonary Embolism Pulmonary Medical History: Reports: Hx Asthma, Hx Bronchitis, Hx Pneumonia, Hx Sleep Apnea Denies: Hx COPD, Hx Respiratory Failure, Hx Tuberculosis Neurological Medical History: Reports: Hx Cerebrovascular Accident - 1992. Denies: Hx Seizures Endocrine Medical History: Reports: Hx Diabetes Mellitus Type 2. Denies: Hx Graves' Disease, Hx Hyperthyroidism, Hx Hypothyroidism Renal/ Medical History: Denies: Hx Peritoneal Dialysis Malignancy Medical History: Denies: Hx Leukemia, Hx Lung Cancer GI Medical History: Reports: Hx Crohn's Disease, Hx Hiatal Hernia, Hx Pancreatitis. Denies: Hx Gastroesophageal Reflux Disease, Hx Irritable Bowel, Hx Liver Failure, Hx Ulcer Musculoskeletal Medical History: Reports Hx Arthritis, Reports Hx Fibromyalgia, Denies Hx Multiple Sclerosis, Denies Hx Muscular Dystrophy Psychiatric Medical History: Reports: Hx Depression, Hx Personality Disorder Denies: Hx Bipolar Disorder, Hx Dementia, Hx Post Traumatic Stress Disorder, Hx Schizophrenia Traumatic Medical History: Denies: Hx Fractures Infectious Medical History: Denies: Hx HIV Past Surgical History: Reports: Hx Section, Hx Hysterectomy. Denies: Hx Appendectomy, Hx Bowel Surgery, Hx Cholecystectomy, Hx Colostomy, Hx Coronary Artery Bypass Graft, Hx Gastric Bypass Surgery, Hx Herniorrhaphy, Hx Mastectomy, Hx Pacemaker, Hx Tonsillectomy, Hx Tubal Ligation - Immunizations Immunizations up to date: Yes Hx Diphtheria, Pertussis, Tetanus Vaccination: Yes Hx Pneumococcal Vaccination: 01/25/08 Review of Systems - Review of Systems Constitutional: No symptoms reported EENT: No symptoms reported Cardiovascular: No symptoms reported Respiratory: No symptoms reported Gastrointestinal: No symptoms reported Genitourinary: No symptoms reported Female Genitourinary: No symptoms reported Musculoskeletal: See HPI, Back pain, Joint pain, Muscle pain Skin: No symptoms reported Hematologic/Lymphatic: No symptoms reported Neurological/Psychological: No symptoms reported -: Yes All other systems reviewed and negative Physical Exam - Vital signs Vitals: Temp Pulse Resp BP Pulse Ox 98.1 F 114 H 16 127/84 H 96 09/03/18 14:04 09/03/18 14:04 09/03/18 14:04 09/03/18 14:04 09/03/18 14:04 Interpretation: Hypertensive, Tachycardic - Notes Notes: Patient is a well-nourished well-developed morbidly obese female who is in no apparent distress on physical exam today but does appear to be in somewhat moderate discomfort. PHYSICAL EXAMINATION: GENERAL: See above HEAD: Atraumatic, normocephalic. EYES: Pupils equal round and reactive to light, extraocular movements intact, conjunctiva are normal. ENT: Nares patent, oropharynx clear without exudates. Moist mucous membranes. NECK: Normal range of motion, supple without lymphadenopathy LUNGS: Breath sounds clear to auscultation bilaterally and equal. No wheezes rales or rhonchi. HEART: Regular rate and rhythm without murmurs ABDOMEN: Soft, nontender, nondistended abdomen. No guarding, no rebound. No masses appreciated. Female : deferred Musculoskeletal: Examination patient's area of concern is her low back down into her right buttocks and into the groin and upper thigh of the right side. Physical exam shows patient to be moderately tender to palpation in the LS spine around L4-L5. Tracking down into the right buttocks patient has moderate tenderness at the sciatic notch with deep ballottement. There is also some pain down into the right thigh and down to the knee. Patient displays good DTRs she has good feeling bilaterally in the lower extremities. Vascular exam also shows good popliteal pulses bilaterally and good dorsalis pedal pulses. Patient displays equal feeling bilaterally all the way up to the pelvis. No sign of saddle paresthesia. NEUROLOGICAL: Normal speech, normal gait. Normal sensory, motor exams PSYCH: Normal mood, normal affect. SKIN: Warm, Dry, normal turgor, no rashes or lesions noted. Course - Re-evaluation Re-evalutation: 09/03/18 16:00 Patient had a little bit of relief with the Toradol injection. X-ray showed that she has a little bit newer area of degeneration at L3-L4 which may be causing this new discomfort. Is definitely a sciatic presentation. Patient sees pain management [facility] I believe in [place]. I have instructed her to contact them for also additional help possibly for some epidural injections which may prove beneficial for her. And plus she also probably needs an MRI outpatient to further narrow down the area of involvement. We will place patient on a low-dose steroid taper and I have instructed her to watch her sugars if he gets over 325 350 for more than 24 hours to come back into the ER. Also to place her on some gabapentin 300 mg at night before bed. I have instructed her to do stretches as well and ice down the area - Vital Signs Vital signs: Temp Pulse Resp BP Pulse Ox 98.1 F 114 H 16 127/84 H 96 09/03/18 14:04 09/03/18 14:04 09/03/18 14:04 09/03/18 14:04 09/03/18 14:04 Discharge - Discharge Clinical Impression: Right-sided low back pain with sciatica Qualifiers: Chronicity: acute Sciatica laterality: sciatica of right side Qualified Code(s): M54.41 - Lumbago with sciatica, right side Condition: Good Disposition: HOME, SELF-CARE Instructions: Sciatica ([facility]) Additional Instructions: Home and rest. Medication as prescribed. Continue your current medications also for pain. Ice to the areas that hurt 3 times a day. You will need to see a pain management doctor that she already see a [facility] for possible intervention. The possibility also will need an MRI to narrow down the area of the causative problem. Should you have any loss of urine or stool also return to ER at once for reexamination. Prescriptions: Gabapentin 300 mg PO HSP #30 ml Prednisone 5 mg PO ASDIR PRN 6 Days #21 tab PRN Reason: Forms: Elevated Blood Pressure Referrals: ADI SYED MD [Primary Care Provider] - Follow up as needed
--- NOTE | 2018-09-03 15:33 | RADIOLOGY REPORT (SQ) ---
EXAM DESCRIPTION: HIP RIGHT AP/LATERAL COMPLETED DATE/TIME: 09/03/2018 3:19 pm REASON FOR STUDY: Hip pain/sciatica COMPARISON: None. NUMBER OF VIEWS: Two views. TECHNIQUE: AP pelvis and additional frog-leg view of the right hip. LIMITATIONS: None. FINDINGS: MINERALIZATION: Normal. RIGHT HIP: No fracture or dislocation. No worrisome bone lesions. No contour deformity. No joint sp [place] narrowing. LEFT HIP: No fracture or dislocation. No worrisome bone lesions. PUBIS AND ISCHIUM: No fracture. PELVIS: No fracture. SACRUM: No fracture or dislocation. No worrisome bone lesions. LOWER LUMBAR SPINE: No fracture or dislocation. No worrisome bone lesions. No significant disc disea se. SOFT TISSUES: No findings. OTHER: No other significant finding. IMPRESSION: NEGATIVE STUDY OF THE RIGHT HIP. NO EXPLANATION FOR PAIN. TECHNICAL DOCUMENTATION: JOB ID: [id number] [employer]- All Rights Reserved Reading location - IP/workstation name: [email or web address]
--- NOTE | 2018-09-03 15:33 | RADIOLOGY REPORT (SQ) ---
EXAM DESCRIPTION: L SPINE WHOLE COMPLETED DATE/TIME: 09/03/2018 3:19 pm REASON FOR STUDY: Low back pain COMPARISON: 01/01/2010 NUMBER OF VIEWS: Five views including obliques. TECHNIQUE: AP, lateral, oblique, and sacral radiographic images acquired of the lumbar spine. LIMITATIONS: None. FINDINGS: MINERALIZATION: Normal. SEGMENTATION: Normal. No transitional anatomy. ALIGNMENT: Mild stable scoliosis convex to the left. Minimal anterolisthesis L4 with respect L5 unch anged. VERTEBRAE: Maintained height. No fracture or worrisome bone lesion. DISCS: Moderate disc degeneration anteriorly L3-L4 not present on the older study of 2009. POSTERIOR ELEMENTS: Pedicles and facets are intact. No pars defect or posterior arch defects. HARDWARE: None in the spine. PARASPINAL SOFT TISSUES: Normal. PELVIS: Intact as visualized. No fractures or worrisome bone lesions. SI joints intact. OTHER: No other significant finding. IMPRESSION: Minimal anterolisthesis L4-L5 and mild scoliosis stable since 2009. Moderate disc degen eration anteriorly at L3-L4 which was not present on the older study. TECHNICAL DOCUMENTATION: JOB ID: [id number] [employer]- All Rights Reserved Reading location - IP/workstation name: [email or web address]
== END 2018-09-03 18:40 | disposition home or self-care (01) ==
LOC: ER 13:58
DX: M54.41 Lumbago with sciatica, right side (principal); R10.9 Unspecified abdominal pain; M25.551 Pain in right hip; M79.651 Pain in right thigh; Z79.899 Other long term (current) drug therapy; E11.9 Type 2 diabetes mellitus without complications; Z79.4 Long term (current) use of insulin; I10 Essential (primary) hypertension; J45.909 Unspecified asthma, uncomplicated
CPT/HCPCS: 99284; 73502; 72110; A9270

== ENCOUNTER → 2018-09-03 | Outpatient (CLI) | payer MEDICARE, MEDICAID ==
--- NOTE | 2018-09-04 16:09 | XCELERA REPORT ---
[address] [place] [facility] [address] Lower Extremity Venous Evaluation Procedure: Color flow and duplex imaging of the veins of the left lower extremity as well as the right Common Femoral vein. Right Sided Venous Evaluation The right common femoral vein is fully compressible. Spontaneous and phasic flow is present in the right common femoral vein. Left Sided Venous Evaluation Normal vessel filling wall to wall, compression and augmentation as well as Colour flow down to the infrageniculate veins. Interpretation Summary No duplex evidence of DVT or obstruction in the left lower extremity nor in the right Common Femoral vein. Name: BERT MOE Age: 58 yrs Gender: Female : 1960 Patient Status: Outpatient Patient Location: [facility] Study Date: 09/03/2018 01:31 PM Reason For Study: LLE LOCALIZED EDEMA Ordering Physician: ADI SYED Performed By: Pedro Dash : ADI SYED > Jeyson Jin
== END ==
LOC: RAD 12:24
PROVIDERS: ATTEND Pain Medicine Interventional Pain Medicine
DX: R60.0 Localized edema (principal)
CPT/HCPCS: 93971

== ENCOUNTER 2018-12-03 13:17 | Emergency (ER) | payer MEDICARE, MEDICAID ==
--- NOTE | 2018-12-03 14:38 | ER Document Report ---
ED Medical Screen (RME) - General Chief Complaint: Leg Pain Stated Complaint: FOOT PAIN Time Seen by Provider: 12/03/18 14:37 Primary Care Provider: ADI SYED MD [Primary Care Provider] - Follow up as needed Mode of Arrival: Wheelchair Information source: Patient Notes: 58-year-old female presents to ED for complaint of increase in her chronic pain to both legs. She states the swelling is getting worse in both legs and that she is dragging her legs. She does have a history of multiple autoimmune diseases to include lupus Sjogren's fibromyalgia. She states she also has burning with her urination. She states the pain is been there for a long time is just worse. She is on chronic pain management of tramadol Zanaflex and oxycodone. She states she has been compliant with her pain medicines. Patient is alert oriented respirations regular and unlabored speaking in full sentences. I have greeted and performed a rapid initial assessment of this patient. A comprehensive ED assessment and evaluation of the patient, analysis of test results and completion of medical decision making process will be conducted by an additional ED providers. Dictation of this chart was performed using voice recognition software; therefore, there may be some unintended grammatical errors. TRAVEL OUTSIDE OF THE [place] IN LAST 30 DAYS: No - Related Data Allergies/Adverse Reactions: ibuprofen [Ibuprofen] Allergy (Severe, Verified 11/11/16 00:36) Chest pain Penicillins Allergy (Verified 09/03/18 14:00) Past Medical History - Past Medical History Cardiac Medical History: Reports: Hx Hypercholesterolemia, Hx Hypertension, Hx Heart Murmur - 1/6 systolic murmur Denies: Hx Atrial Fibrillation, Hx Congestive Heart Failure, Hx Coronary Artery Disease, Hx Heart Attack, Hx Peripheral Vascular Disease, Hx Pulmonary Embolism Pulmonary Medical History: Reports: Hx Asthma, Hx Bronchitis, Hx Pneumonia, Hx Sleep Apnea Denies: Hx COPD, Hx Respiratory Failure, Hx Tuberculosis Neurological Medical History: Reports: Hx Cerebrovascular Accident - 1992. Denies: Hx Seizures Endocrine Medical History: Reports: Hx Diabetes Mellitus Type 2. Denies: Hx Graves' Disease, Hx Hyperthyroidism, Hx Hypothyroidism Renal/ Medical History: Denies: Hx Peritoneal Dialysis Malignancy Medical History: Denies: Hx Leukemia, Hx Lung Cancer GI Medical History: Reports: Hx Crohn's Disease, Hx Hiatal Hernia, Hx Pancreatitis. Denies: Hx Gastroesophageal Reflux Disease, Hx Irritable Bowel, Hx Liver Failure, Hx Ulcer Musculoskeltal Medical History: Reports Hx Arthritis, Reports Hx Fibromyalgia, Denies Hx Multiple Sclerosis, Denies Hx Muscular Dystrophy, Reports Hx Systemic Lupus Erythematosus Psychiatric Medical History: Reports: Hx Depression, Hx Personality Disorder Denies: Hx Bipolar Disorder, Hx Dementia, Hx Post Traumatic Stress Disorder, Hx Schizophrenia Traumatic Medical History: Denies: Hx Fractures Infectious Medical History: Denies: Hx HIV Past Surgical History: Reports: Hx Section, Hx Hysterectomy. Denies: Hx Appendectomy, Hx Bowel Surgery, Hx Cholecystectomy, Hx Colostomy, Hx Coronary Artery Bypass Graft, Hx Gastric Bypass Surgery, Hx Herniorrhaphy, Hx Mastectomy, Hx Pacemaker, Hx Tonsillectomy, Hx Tubal Ligation - Immunizations Immunizations up to date: Yes Hx Diphtheria, Pertussis, Tetanus Vaccination: Yes History of Influenza Vaccine for 02/2017 - 07/2017 Season: Yes Influenza Administration Date for 02/2017 - 07/2017 Season: 04/10/17 Physical Exam - Vital signs Vitals: Temp Pulse Resp BP Pulse Ox 98 F 94 18 131/75 H 94 12/03/18 13:30 12/03/18 13:30 12/03/18 13:30 12/03/18 13:30 12/03/18 13:30 Course - Vital Signs Vital signs: Temp Pulse Resp BP Pulse Ox 98 F 94 18 131/75 H 94 12/03/18 13:30 12/03/18 13:30 12/03/18 13:30 12/03/18 13:30 12/03/18 13:30 Doctor's Discharge - Discharge Referrals: ADI SYED MD [Primary Care Provider] - Follow up as needed
[2018-12-03 15:09] LABS: ABSOLUTE BASOPHILS # (AUTO) 0.1 10^3/uL (0.0-0.2); ABSOLUTE EOSINOPHILS # (AUTO) 0.1 10^3/uL (0.0-0.6); ABSOLUTE LYMPHOCYTES (AUTO) 1.1 10^3/uL (0.5-4.7); ABSOLUTE MONOCYTES (AUTO) 0.7 10^3/uL (0.1-1.4); ABSOLUTE NEUT (AUTO) 5.5 10^3/uL (1.7-8.2); BASOPHILS % (AUTO) 1.2 % (0-2); EOSINOPHILS % (AUTO) 1.2 % (0-6); HEMATOCRIT 35.7 % (36.0-47.0); HEMOGLOBIN 11.2 g/dL (12.0-15.5); LYMPHOCYTES % (AUTO) 14.9 % (13-45); MEAN CORPUSCULAR HEMOGLOBIN 23.9 pg (27.0-33.4); MEAN CORPUSCULAR HGB CONC 31.3 g/dL (32.0-36.0); MEAN CORPUSCULAR VOLUME 77 fl (80-97); MONOCYTES % (AUTO) 9.5 % (3-13); PLATELET COUNT 252 10^3/uL (150-450); RED BLOOD COUNT 4.67 10^6/uL (3.72-5.28); SEGMENTED NEUTROPHILS % (AUTO) 73.2 % (42-78); TOTAL CELLS COUNTED % (AUTO) 100 %; WHITE BLOOD COUNT 7.6 10^3/uL (4.0-10.5)
[2018-12-03 15:31] LABS: ALANINE AMINOTRANSFERASE 23 U/L (9-52); ALBUMIN 4.1 g/dL (3.5-5.0); ALKALINE PHOSPHATASE 68 U/L (38-126); ANION GAP 8 (5-19); ASPARTATE AMINO TRANSFERASE 25 U/L (14-36); BILIRUBIN,DIRECT 0.3 mg/dL (0.0-0.4); BILIRUBIN,TOTAL 0.3 mg/dL (0.2-1.3); BLOOD UREA NITROGEN 15 mg/dL (7-20); CALCIUM 9.7 mg/dL (8.4-10.2); CARBON DIOXIDE 27 mmol/L (22-30); CHLORIDE 107 mmol/L (98-107); GLUCOSE 154 mg/dL (75-110); POTASSIUM 4.4 mmol/L (3.6-5.0); SODIUM 141.9 mmol/L (137-145); TOTAL PROTEIN 7.1 g/dL (6.3-8.2)
--- NOTE | 2018-12-03 15:36 | RADIOLOGY REPORT (SQ) ---
EXAM DESCRIPTION: CHEST 2 VIEWS COMPLETED DATE/TIME: 12/03/2018 3:23 pm REASON FOR STUDY: Bilateral pedal edema COMPARISON: 02/07/2018 EXAM PARAMETERS: NUMBER OF VIEWS: two views TECHNIQUE: Digital Frontal and Lateral radiographic views of the chest acquired. RADIATION DOSE: NA LIMITATIONS: none FINDINGS: LUNGS AND PLEURA: No opacities, masses or pneumothorax. No pleural effusion. MEDIASTINUM AND HILAR STRUCTURES: No masses or contour abnormalities. HEART AND VASCULAR STRUCTURES: Heart normal size. No evidence for failure. BONES: No acute findings. HARDWARE: None in the chest. OTHER: No other significant finding. IMPRESSION: NO ACUTE RADIOGRAPHIC FINDING IN THE CHEST. TECHNICAL DOCUMENTATION: JOB ID: [id number] [employer]- All Rights Reserved Reading location - IP/workstation name: [email or web address]
--- NOTE | 2018-12-03 17:42 | ER Document Report ---
ED General - General Chief Complaint: Leg Pain Stated Complaint: FOOT PAIN Time Seen by Provider: 12/03/18 14:37 Primary Care Provider: ADI SYED MD [ACTIVE STAFF] - Follow up as needed Mode of Arrival: Wheelchair Notes: RME provider: 58-year-old female presents to ED for complaint of increase in her chronic pain to both legs. She states the swelling is getting worse in both legs and that she is dragging her legs. She does have a history of multiple autoimmune diseases to include lupus Sjogren's fibromyalgia. She states she also has burning with her urination. She states the pain is been there for a long time is just worse. She is on chronic pain management of tramadol Zanaflex and oxycodone. She states she has been compliant with her pain medicines. Patient is alert oriented respirations regular and unlabored speaking in full sentences. 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 States she is being referred to a specialist as "no one knows how to handle it." Patient's complaint to me is that her left lower extremity is more swollen than normal with increased pain. Patient's denying any increased swelling or pain in her right lower extremity. Patient states this pain is been ongoing for the last couple of weeks, but this morning she also noticed some dysuria which is why she decided to present to the emergency room. TRAVEL OUTSIDE OF THE [place] IN LAST 30 DAYS: No - Related Data Allergies/Adverse Reactions: ibuprofen [Ibuprofen] Allergy (Severe, Verified 11/11/16 00:36) Chest pain Penicillins Allergy (Verified 09/03/18 14:00) Past Medical History - General Information source: Patient - Social History Smoking Status: Never Smoker Frequency of alcohol use: None Drug Abuse: None Family History: Reviewed & Not Pertinent, CAD, DM, Hypertension Patient has suicidal ideation: No Patient has homicidal ideation: No - Past Medical History Cardiac Medical History: Reports: Hx Hypercholesterolemia, Hx Hypertension, Hx Heart Murmur - 05/31 systolic murmur Denies: Hx Atrial Fibrillation, Hx Congestive Heart Failure, Hx Coronary Artery Disease, Hx Heart Attack, Hx Peripheral Vascular Disease, Hx Pulmonary Embolism Pulmonary Medical History: Reports: Hx Asthma, Hx Bronchitis, Hx Pneumonia, Hx Sleep Apnea Denies: Hx COPD, Hx Respiratory Failure, Hx Tuberculosis Neurological Medical History: Reports: Hx Cerebrovascular Accident - 1992. Denies: Hx Seizures Endocrine Medical History: Reports: Hx Diabetes Mellitus Type 2. Denies: Hx Graves' Disease, Hx Hyperthyroidism, Hx Hypothyroidism Renal/ Medical History: Denies: Hx Peritoneal Dialysis Malignancy Medical History: Denies: Hx Leukemia, Hx Lung Cancer GI Medical History: Reports: Hx Crohn's Disease, Hx Hiatal Hernia, Hx Pancreatitis. Denies: Hx Gastroesophageal Reflux Disease, Hx Irritable Bowel, Hx Liver Failure, Hx Ulcer Musculoskeletal Medical History: Reports Hx Arthritis, Reports Hx Fibromyalgia, Denies Hx Multiple Sclerosis, Denies Hx Muscular Dystrophy, Reports Hx Systemic Lupus Erythematosus Psychiatric Medical History: Reports: Hx Depression, Hx Personality Disorder Denies: Hx Bipolar Disorder, Hx Dementia, Hx Post Traumatic Stress Disorder, Hx Schizophrenia Traumatic Medical History: Denies: Hx Fractures Infectious Medical History: Denies: Hx HIV Past Surgical History: Reports: Hx Section, Hx Hysterectomy. Denies: Hx Appendectomy, Hx Bowel Surgery, Hx Cholecystectomy, Hx Colostomy, Hx Coronary Artery Bypass Graft, Hx Gastric Bypass Surgery, Hx Herniorrhaphy, Hx Mastectomy, Hx Pacemaker, Hx Tonsillectomy, Hx Tubal Ligation - Immunizations Immunizations up to date: Yes Hx Diphtheria, Pertussis, Tetanus Vaccination: Yes Hx Pneumococcal Vaccination: 01/25/08 Review of Systems - Review of Systems Constitutional: denies: Fever, Weakness EENT: No symptoms reported Cardiovascular: No symptoms reported Respiratory: No symptoms reported Gastrointestinal: No symptoms reported Genitourinary: See HPI Female Genitourinary: No symptoms reported Musculoskeletal: See HPI Skin: See HPI Hematologic/Lymphatic: See HPI Neurological/Psychological: No symptoms reported Physical Exam - Vital signs Vitals: Temp Pulse Resp BP Pulse Ox 98 F 94 18 131/75 H 94 12/03/18 13:30 12/03/18 13:30 12/03/18 13:30 12/03/18 13:30 12/03/18 13:30 - Notes Notes: GENERAL: Alert, interacts well. No acute distress. HEAD: Normocephalic, atraumatic. EYES: Pupils equal, round, and reactive to light. Extraocular movements intact. ENT: Oral mucosa moist, tongue midline. NECK: Full range of motion. Supple. Trachea midline. LUNGS: Clear to auscultation bilaterally, no wheezes, rales, or rhonchi. No respiratory distress. HEART: Regular rate and rhythm. No murmur ABDOMEN: Soft, non-tender. Non-distended. Bowel sounds present in all 4 quadrants. EXTREMITIES: Moves all 4 extremities spontaneously. normal radial and dorsalis pedis pulses bilaterally. Generalized nonpitting edema noted bilateral lower extremities up to her thighs, more so on the left than the right. PMS present and equal BL. BACK: no cervical, thoracic, lumbar midline tenderness. No saddle anesthesia, normal distal neurovascular exam. NEUROLOGICAL: Alert and oriented x3. Normal speech. cranial nerves II through XII grossly intact PSYCH: Normal affect, normal mood. SKIN: Warm, dry, normal turgor. No rashes or lesions noted. Course - Re-evaluation Re-evalutation: 12/03/18 19:46 Laboratory 12/03/18 12/03/18 12/03/18 14:44 14:44 14:44 WBC 7.6 RBC 4.67 Hgb 11.2 L Hct 35.7 L MCV 77 L MCH 23.9 L MCHC 31.3 L RDW 19.0 H Plt Count 252 Seg Neutrophils % 73.2 Lymphocytes % 14.9 Monocytes % 9.5 Eosinophils % 1.2 Basophils % 1.2 Absolute Neutrophils 5.5 Absolute Lymphocytes 1.1 Absolute Monocytes 0.7 Absolute Eosinophils 0.1 Absolute Basophils 0.1 Sodium 141.9 Potassium 4.4 Chloride 107 Carbon Dioxide 27 Anion Gap 8 BUN 15 Creatinine 0.83 Est GFR ( Amer) > 60 Est GFR (Non-Af Amer) > 60 Glucose 154 H Calcium 9.7 Total Bilirubin 0.3 Direct Bilirubin 0.3 Neonat Total Bilirubin Not Reportable Neonat Direct Bilirubin Not Reportable Neonat Indirect Bili Not Reportable AST 25 ALT 23 Alkaline Phosphatase 68 NT-Pro-B Natriuret Pep 49 Total Protein 7.1 Albumin 4.1 Urine Color Urine Appearance Urine pH Ur Specific [place] Urine Protein Urine Glucose (UA) Urine Ketones Urine Blood Urine Nitrite Urine Bilirubin Urine Urobilinogen Ur Leukocyte Esterase Urine WBC (Auto) Urine RBC (Auto) Squamous Epi Cells Auto Urine Mucus (Auto) Urine Ascorbic Acid 12/03/18 14:44 WBC RBC Hgb Hct MCV MCH MCHC RDW Plt Count Seg Neutrophils % Lymphocytes % Monocytes % Eosinophils % Basophils % Absolute Neutrophils Absolute Lymphocytes Absolute Monocytes Absolute Eosinophils Absolute Basophils Sodium Potassium Chloride Carbon Dioxide Anion Gap BUN Creatinine Est GFR ( Amer) Est GFR (Non-Af Amer) Glucose Calcium Total Bilirubin Direct Bilirubin Neonat Total Bilirubin Neonat Direct Bilirubin Neonat Indirect Bili AST ALT Alkaline Phosphatase NT-Pro-B Natriuret Pep Total Protein Albumin Urine Color JEREMIAS Urine Appearance SLIGHTLY-CLOUDY Urine pH 5.0 Ur Specific [place] 1.023 Urine Protein NEGATIVE Urine Glucose (UA) NEGATIVE Urine Ketones NEGATIVE Urine Blood NEGATIVE Urine Nitrite NEGATIVE Urine Bilirubin NEGATIVE Urine Urobilinogen NEGATIVE Ur Leukocyte Esterase NEGATIVE Urine WBC (Auto) 1 Urine RBC (Auto) 0 Squamous Epi Cells Auto 5 Urine Mucus (Auto) RARE Urine Ascorbic Acid NEGATIVE Upon re-examination the Pt. is on her cell phone laughing. Preliminary venous Doppler shows no DVT. Patient's labs show no signs of urinary tract infection. Patient's declining a genitalia exam at this time. States "there is no rash I will be fine." Patient stable for discharge. This medical record was dictated with voice recognizing software. There may be grammatical, syntax errors that are unintended. - Vital Signs Vital signs: Temp Pulse Resp BP Pulse Ox 98 F 94 18 131/75 H 94 12/03/18 13:30 12/03/18 13:30 12/03/18 13:30 12/03/18 13:30 12/03/18 13:30 - Laboratory Result Diagrams: 12/03/18 14:44 12/03/18 14:44 Laboratory results interpreted by me: 12/03/18 12/03/18 14:44 14:44 Hgb 11.2 L Hct 35.7 L MCV 77 L MCH 23.9 L MCHC 31.3 L RDW 19.0 H Glucose 154 H Discharge - Discharge Clinical Impression: Swelling of lower leg, Morbid obesity with BMI of 50.0-59.9, adult Condition: Stable Disposition: HOME, SELF-CARE Additional Instructions: As we discussed you have been seen and treated in the emergency department for left lower leg swelling. Your ultrasound reveals no of blood clots. The swelling is likely due to her diagnosis of lipedema. Please make sure he continue to take your pain medications as prescribed. Please also make sure he follow-up with your primary care provider for continued care. Please return to the emergency room for any concerns. Referrals: ADI SYED MD [ACTIVE STAFF] - Follow up as needed
[2018-12-03 17:48] LABS: APPEARANCE,URINE SLIGHTLY-CLOUDY; BILIRUBIN,URINE NEGATIVE (NEGATIVE); COLOR,URINE AMBER; GLUCOSE, URINE NEGATIVE (NEGATIVE); KETONES,URINE NEGATIVE (NEGATIVE); LEUKOCYTE ESTERASE,URINE NEGATIVE (NEGATIVE); NITRITE,URINE NEGATIVE (NEGATIVE); PROTEIN,URINE NEGATIVE (NEGATIVE); URINE SPECIFIC GRAVITY 1.023; UROBILINOGEN,URINE NEGATIVE mg/dL (<2.0)
[2018-12-03 20:31] VITALS: BP 115/61
--- NOTE | 2018-12-03 21:53 | RADIOLOGY REPORT (SQ) ---
EXAM DESCRIPTION: US EXTREMITY VEINS UNILATERAL COMPLETED DATE/TME: 12/03/2018 17:31 CLINICAL HISTORY: 58 years, Female, left lower EXAM DESCRIPTION: CLINICAL HISTORY: 58 years Female left lower COMPARISON: None. TECHNIQUE: Duplex and color Doppler imaging performed to evaluate the extremity deep venous structures. Compression imaging and augmentation imaging performed. FINDINGS: Swelling below the left knee precludes evaluation inferior to the knee. No thrombus is identified in the deep venous structures imaged. There is normal flow, compressibility, and augmentation throughout. IMPRESSION: Limited exam. No DVT is identified.
== END 2018-12-03 20:49 | disposition home or self-care (01) ==
LOC: ER 13:17
DX: M79.89 Other specified soft tissue disorders (principal); E66.01 Morbid (severe) obesity due to excess calories; Z68.43 Body mass index [BMI] 50.0-59.9, adult; R30.0 Dysuria; R60.0 Localized edema; M79.604 Pain in right leg; M79.605 Pain in left leg; G89.29 Other chronic pain; Z79.891 Long term (current) use of opiate analgesic; Z79.899 Other long term (current) drug therapy; I10 Essential (primary) hypertension; J45.909 Unspecified asthma, uncomplicated; E11.9 Type 2 diabetes mellitus without complications; Z88.8 Allergy status to other drugs, medicaments and biological substances; Z88.0 Allergy status to penicillin
CPT/HCPCS: 36415; 71046; 80053; 81001; 83880; 85025; 87086; 93971; 99284

== ENCOUNTER → 2019-01-06 | Outpatient (CLI) | payer MEDICARE, MEDICAID ==
--- NOTE | 2019-01-06 13:49 | RADIOLOGY REPORT (SQ) ---
EXAM DESCRIPTION: U/S NON-OB PELVIS W/O DOP COMPLETED DATE/TIME: 01/06/2019 10:21 am REASON FOR STUDY: PELVIC AND PERINEAL PAIN R10.2 PELVIC AND PERINEAL PAIN COMPARISON: None. TECHNIQUE: Dynamic and static grayscale images acquired of the pelvis via transabdominal approach an d recorded on PACS. Additional selected color Doppler and spectral images recorded. LIMITATIONS: None. FINDINGS: UTERUS: Surgically absent RIGHT OVARY AND DOPPLER: Ovary not visualized. LEFT OVARY AND DOPPLER: Ovary not visualized. FREE FLUID: None noted. OTHER: There is no focal finding in the right lower quadrant. IMPRESSION: Uterus surgically absent. Ovaries not identified. No finding in the right lower quadrant. TECHNICAL DOCUMENTATION: JOB ID: [id number] [employer]- All Rights Reserved Reading location - IP/workstation name: [email or web address]
== END ==
LOC: RAD 09:33
PROVIDERS: ATTEND Physician Assistant
DX: R10.2 Pelvic and perineal pain (principal)
CPT/HCPCS: 76856

== ENCOUNTER 2019-12-01 00:05 | Emergency (ER) | payer MEDICARE, MEDICAID ==
[2019-12-01 01:26] LABS: HEMATOCRIT 34.9 % (36.0-47.0); HEMOGLOBIN 11.2 g/dL (12.0-15.5); MEAN CORPUSCULAR HEMOGLOBIN 24.4 pg (27.0-33.4); MEAN CORPUSCULAR HGB CONC 32.1 g/dL (32.0-36.0); MEAN CORPUSCULAR VOLUME 76 fl (80-97); PLATELET COUNT 204 10^3/uL (150-450); RED BLOOD COUNT 4.58 10^6/uL (3.72-5.28); RED CELL DISTRIBUTION WIDTH 21.8 % (11.5-14.0); WHITE BLOOD COUNT 9.1 10^3/uL (4.0-10.5)
[2019-12-01 01:34] LABS: CREATINE KINASE MB 0.31 ng/mL (<4.55); TROPONIN I < 0.012 ng/mL
[2019-12-01 01:41] LABS: ALKALINE PHOSPHATASE 75 U/L (38-126); ANION GAP 9 (5-19); ASPARTATE AMINO TRANSFERASE 31 U/L (14-36); BILIRUBIN,DIRECT 0.4 mg/dL (0.0-0.4); BILIRUBIN,TOTAL 0.4 mg/dL (0.2-1.3); BLOOD UREA NITROGEN 31 mg/dL (7-20); CALCIUM 9.3 mg/dL (8.4-10.2); CARBON DIOXIDE 27 mmol/L (22-30); CHLORIDE 102 mmol/L (98-107); CREATINE KINASE 34 U/L (30-135); GLUCOSE 166 mg/dL (75-110); POTASSIUM 4.8 mmol/L (3.6-5.0)
[2019-12-01 01:51] LABS: ABSOLUTE LYMPHOCYTES# (MANUAL) 3.6 10^3/uL (0.5-4.7); ABSOLUTE MONOCYTES # (MANUAL) 0.4 10^3/uL (0.1-1.4); BASOPHILS % (MANUAL) 1 % (0-2); EOSINOPHILS % (MANUAL) 0 % (0-6); LYMPHOCYTES % (MANUAL) 39 % (13-45); MONOCYTES % (MANUAL) 4 % (3-13); NUCLEATED RED BLOOD CELLS 2 /100 WBC (0); SEGMENTED NEUTROPHILS % (MAN) 55 % (42-78); TOTAL CELLS COUNTED 100
[2019-12-01 01:54] LABS: ANISOCYTOSIS 3+; HYPOCHROMASIA 1+; OVALOCYTES 1+; POIKILOCYTOSIS 1+; TARGET CELLS SLIGHT; TEAR DROP CELLS SLIGHT
[2019-12-01 01:55] LABS: PLATELET COMMENT ADEQUATE; POLYCHROMASIA 1+
[2019-12-01] MEDS ORDERED: NORMAL SALINE 500 ML IV ONE (02:29)
[2019-12-01] MEDS ORDERED: FENTANYL CITRATE INJ/PF 100 MCG/2 ML AMPUL IV ONE (02:29)
--- NOTE | 2019-12-01 02:31 | ER Document Report ---
ED General - General Chief Complaint: Chest Pain Stated Complaint: CHEST PAIN Time Seen by Provider: 12/01/19 02:13 Notes: Patient is a 59-year-old female that comes emergency department for chief complaint of a cough for the past 2 days, pain across the top and front of both sides of her chest, and she states tonight after she went to bed the pain and the shortness of breath became worse so she came in for evaluation. Patient states she did take albuterol just prior to arrival and she did feel better afterwards. She reports a history of COPD, asthma, CHF, CVA on Plavix and aspirin, hypertension, rheumatoid arthritis, lupus, fibromyalgia. She is on methotrexate. She denies fever, nausea, vomiting, werner pain, flank pain, headache. She denies any recent travel or sick exposures. TRAVEL OUTSIDE OF THE [place] IN LAST 30 DAYS: No - Related Data Allergies/Adverse Reactions: ibuprofen [Ibuprofen] Allergy (Severe, Verified 11/11/16 00:36) Chest pain Penicillins Allergy (Verified 09/03/18 14:00) Past Medical History - General Information source: Patient - Social History Smoking Status: Never Smoker Chew tobacco use (# tins/day): No Frequency of alcohol use: None Drug Abuse: None Lives with: Family Family History: Reviewed & Not Pertinent, CAD, DM, Hypertension - Past Medical History Cardiac Medical History: Reports: Hx Hypercholesterolemia, Hx Hypertension, Hx Heart Murmur - / systolic murmur Denies: Hx Atrial Fibrillation, Hx Congestive Heart Failure, Hx Coronary Artery Disease, Hx Heart Attack, Hx Peripheral Vascular Disease, Hx Pulmonary Embolism Pulmonary Medical History: Reports: Hx Asthma, Hx Bronchitis, Hx Pneumonia, Hx Sleep Apnea Denies: Hx COPD, Hx Respiratory Failure, Hx Tuberculosis Neurological Medical History: Reports: Hx Cerebrovascular Accident - 1992. Denies: Hx Seizures, Hx Parkinson's Disease Endocrine Medical History: Reports: Hx Diabetes Mellitus Type 2. Denies: Hx Graves' Disease, Hx Hyperthyroidism, Hx Hypothyroidism Renal/ Medical History: Denies: Hx Peritoneal Dialysis Malignancy Medical History: Denies: Hx Leukemia, Hx Lung Cancer GI Medical History: Reports: Hx Crohn's Disease, Hx Hiatal Hernia, Hx Pancreatitis. Denies: Hx Gastroesophageal Reflux Disease, Hx Irritable Bowel, Hx Liver Failure, Hx Ulcer Musculoskeletal Medical History: Reports Hx Arthritis, Reports Hx Fibromyalgia, Denies Hx Multiple Sclerosis, Denies Hx Muscular Dystrophy, Reports Hx Systemic Lupus Erythematosus Psychiatric Medical History: Reports: Hx Depression, Hx Personality Disorder Denies: Hx Bipolar Disorder, Hx Dementia, Hx Post Traumatic Stress Disorder, Hx Schizophrenia Traumatic Medical History: Denies: Hx Fractures Infectious Medical History: Denies: Hx HIV Past Surgical History: Reports: Hx Section, Hx Hysterectomy. Denies: Hx Appendectomy, Hx Bowel Surgery, Hx Cholecystectomy, Hx Colostomy, Hx Coronary Artery Bypass Graft, Hx Gastric Bypass Surgery, Hx Herniorrhaphy, Hx Mastectomy, Hx Pacemaker, Hx Tonsillectomy, Hx Tubal Ligation - Immunizations Immunizations up to date: Yes Hx Diphtheria, Pertussis, Tetanus Vaccination: Yes Hx Pneumococcal Vaccination: 01/25/08 Review of Systems - Review of Systems Constitutional: No symptoms reported EENT: No symptoms reported Cardiovascular: See HPI Respiratory: See HPI Gastrointestinal: No symptoms reported Genitourinary: No symptoms reported Female Genitourinary: No symptoms reported Musculoskeletal: No symptoms reported Skin: No symptoms reported Hematologic/Lymphatic: No symptoms reported Neurological/Psychological: No symptoms reported Physical Exam - Vital signs Vitals: Pulse Ox 97 12/01/19 00:07 - Notes Notes: GENERAL: Alert, interacts well. No acute distress. Talkative, talking on her cell phone, no signs of distress HEAD: Normocephalic, atraumatic. EYES: Pupils equal, round, and reactive to light. Extraocular movements intact. ENT: Oral mucosa moist, tongue midline. Oropharynx unremarkable. Airway patent. NECK: Full range of motion. Supple. Trachea midline. No lymphadenopathy. LUNGS: Clear to auscultation bilaterally, no wheezes, rales, or rhonchi. No re spiratory distress. Patient does have specific and reproducible chest wall tenderness in her mid chest bilaterally. No erythema, crepitus, or signs of trauma. No severe tenderness. HEART: Borderline tachycardia, normal rhythm, no murmur ABDOMEN: Soft, non-tender. Non-distended. EXTREMITIES: Moves all 4 extremities spontaneously. No edema, normal radial and dorsalis pedis pulses bilaterally. No cyanosis. BACK: no cervical, thoracic, lumbar midline tenderness. No saddle anesthesia, normal distal neurovascular exam. Moves all extremities in full range of motion. NEUROLOGICAL: Alert and oriented x3. Normal speech. Cranial nerves II through XII grossly intact. Strength 5/5 in all extremities. PSYCH: Normal affect, normal mood. SKIN: Warm, dry, normal turgor. No rashes or lesions noted. Course - Re-evaluation Re-evalutation: Patient is well-appearing on exam. She is alert, conversational, talking on her cell phone. She does have very specific and reproducible chest wall tenderness which is mild. She does have tachycardia, she is not hypoxic, lungs are clear. She has had a cough for couple of days now, she is a mild cough on exam. Chest x-ray unremarkable, CBC unremarkable, chemistry unremarkable, troponin is not elevated. On reevaluation patient continues to be tachycardic, she tells me that she is supposed to have a CT of the chest with her primary provider because she had an "abnormal appearance of the left lung" on her chest x-ray. Decision was made to proceed with CTA to rule out pulmonary emboli given patient's tachycardia, shortness of breath, chest pain, and autoimmune condition. CT of the chest is unremarkable. Troponin cycled and negative. Discussed with patient. Patient is very happy with these results, she is requesting a CD of her report and discharge. Because of her immunocompromise condition patient will be tested for coronavirus as well after discussion of options. Very low suspicion of ACS given patient's symptoms, patient stable for discharge with return precautions which were discussed. Patient states understanding and agreement. Stable and well-appearing at time of discharge, patient is not tachycardic after 500 cc fluid bolus earlier. - Vital Signs Vital signs: Temp Pulse Resp BP Pulse Ox 16 122/80 97 12/01/19 07:01 12/01/19 07:01 12/01/19 07:01 - Laboratory Result Diagrams: 12/01/19 00:20 12/01/19 00:20 Laboratory results interpreted by me: 12/01/19 12/01/19 00:20 00:20 Hgb 11.2 L Hct 34.9 L MCV 76 L MCH 24.4 L RDW 21.8 H BUN 31 H Creatinine 1.35 H Est GFR ( Amer) 49 L Est GFR (MDRD) Non-Af 40 L Glucose 166 H - EKG Interpretation by Me Additional EKG results interpreted by me: EKG shows sinus tachycardia at a rate of 113, PVCs are present, QTC of 467, CO interval of 184. No T wave inversions or ST segment changes in consecutive leads. Discharge - Discharge Clinical Impression: Cough, Shortness of breath, Chest wall pain Chest pain Qualifiers: Chest pain type: unspecified Qualified Code(s): R07.9 - Chest pain, unspecified Condition: Stable Disposition: HOME, SELF-CARE Additional Instructions: Your work-up tonight is reassuring, no pneumonia, blood clot, or other concerning finding is seen. Please follow-up with your provider, bring the copy of your CTA (CAT scan of the chest with contrast). You have been tested for the coronavirus as well, you will be contacted with the results and additional instructions, see additional instructions below. Return if you worsen including severe worsening pain, spiking fevers, difficulty breathing, or any other concerning symptoms. As a person under investigation for COVID-19, the [place] Department of Health and Human Services (division on public health) advises you to adhere to the following guidance until your test results are reported to you. If your test result is positive, you will receive additional information from your provider and your local health department at that time. Remain at home until you are cleared by the health provider or public health authorities. Keep a log of visitors to your home, notify any visitors to your home of your isolation status. If you plan to move to a new address or leave the county, notify the local health department in your County. Call your Doctor or seek care if you have an urgent medical need. Before seeking medical care, call him to get instructions from the provider before arriving at the medical office, clinic, or hospital. Notify them that you are being tested for the virus (COVID-19) so that arrangements can be made, as necessary, to prevent transmission to others in the healthcare setting. Next, notify the local health department in your county. If a medical emergency arises and you need to call 911, inform the first responders that you are being tested for the virus that causes COVID-19. Next, notify the local health department in your county.
--- NOTE | 2019-12-01 03:00 | RADIOLOGY REPORT (SQ) ---
EXAM DESCRIPTION: XR CHEST 1 VIEW COMPLETED DATE/TME: 12/01/2019 02:17 CLINICAL HISTORY: chest pain COMPARISON: None. FINDINGS: Single frontal view of the chest. Cardiomediastinal silhouette: Normal size and contour. Lungs: No consolidation, pneumothorax, or pleural effusion. Low lung volumes. Leads overlie the chest. Bones: No acute osseous abnormality. Upper abdomen: No abnormality identified. IMPRESSION: 1. No acute pulmonary process identified.
--- NOTE | 2019-12-01 06:43 | RADIOLOGY REPORT (SQ) ---
CT ANGIOGRAM CHEST WITH IV CONTRAST: 12/01/2019 5:39 AM CDT HISTORY: 59-year old patient with tachycardia, dyspnea, chest pain. TECHNIQUE: Postcontrast CT through the chest was performed per protocol for CT angiography. 3D Multiplanar reformations were performed at the workstation. Reconstructed sagittal and coronal images were also obtained through the chest. This exam was performed according to our departmental dose-optimization program, which includes automated exposure control, adjustment of the mA and/or KV according to the patient's size and/or use of iterative reconstruction technique. COMPARISON: None available FINDINGS: The heart size is within normal limits of size. No significant mediastinal, supraclavicular, or axillary lymphadenopathy is seen. The thoracic aorta is within normal limits of size. No filling defects are seen within the pulmonary arteries to suggest a pulmonary artery embolism. The main pulmonary artery is within normal limits of size. The thyroid gland is unremarkable. The central tracheobronchial tree is patent. There is no evidence of a focal consolidative airspace opacity. The lung bases were not fully included on this examination. There is no evidence of pleural effusions or a pneumothorax. The bones demonstrate no suspicious lytic or blastic lesion. The visualized hepatic parenchyma is diffusely low in attenuation, suggesting hepatic steatosis. IMPRESSION: No acute airspace opacities are seen. No filling defect is seen to suggest a pulmonary artery embolism. Hepatic steatosis
--- NOTE | 2019-12-01 07:31 | EKG REPORT ---
SEVERITY:- BORDERLINE ECG - SINUS TACHYCARDIA : Confirmed by: Kolton Quinonez MD 01-Dec-2019 07:30:48
[2019-12-01 08:47] VITALS: BP 126/64
== END 2019-12-01 08:17 | disposition home or self-care (01) ==
LOC: ER 00:05
DX: R07.89 Other chest pain (principal); R05 Cough; R06.02 Shortness of breath; E78.00 Pure hypercholesterolemia, unspecified; I10 Essential (primary) hypertension; J44.9 Chronic obstructive pulmonary disease, unspecified; Z88.6 Allergy status to analgesic agent; Z88.0 Allergy status to penicillin; Z86.73 Personal history of transient ischemic attack (TIA), and cerebral infarction without residual deficits; Z79.02 Long term (current) use of antithrombotics/antiplatelets; Z20.828 Contact with and (suspected) exposure to other viral communicable diseases
CPT/HCPCS: 93005; 99285; 96361; 96374; 36415; 82553; 82550; 85025; 80053; 84484; 71045; 71275; 93010; U0003; J3010; J7040; C9803; 87635

== ENCOUNTER 2020-01-11 14:26 | Emergency (ER) | payer MEDICARE, MEDICAID ==
[2020-01-11] MEDS ORDERED: FENTANYL CITRATE INJ/PF 100 MCG/2 ML AMPUL IV ONE ×2 (15:32→18:31)
[2020-01-11] MEDS ORDERED: ONDANSETRON HCL INJ/PF 4 MG/2 ML SDV IV ONE (15:32)
--- NOTE | 2020-01-11 15:32 | ER Document Report ---
ED Respiratory Problem - General Chief Complaint: Shortness Of Breath Stated Complaint: SHORTNESS OF BREATH Time Seen by Provider: 01/11/20 15:11 Primary Care Provider: DIANA NICHOLS PA-C [Primary Care Provider] - Follow up as needed JANAK EVANS MD [ACTIVE STAFF] - Follow up tomorrow Information source: Patient Notes: Patient presents complaining of shortness of breath for the past week with a cough. Patient complains of nausea without any vomiting. Patient states she had diarrhea a few days ago but none today. Patient states that she has had chest discomfort for the past week. Patient reports a history of CHF but denies any significant fluid retention. Patient states that she does take Ecotrin and Plavix daily. Patient has a history of rheumatoid arthritis and lupus as well. TRAVEL OUTSIDE OF THE [place] IN LAST 30 DAYS: No - HPI Patient complains to provider of: Chest pain, Cough, Short of breath Duration: Continuous Pain Level: 5 Context: Hx asthma, Hx CHF. denies: Smoker Short of Breath: Mild Cough: Nonproductive Associated symptoms: Chest pain/discomfort, Cough, Short of breath. denies: Congestion, Fever, Wheezing Similar symptoms previously: Yes Recently seen / treated by doctor: No - Related Data Allergies/Adverse Reactions: ibuprofen [Ibuprofen] Allergy (Severe, Verified 11/11/16 00:36) Chest pain Penicillins Allergy (Verified 09/03/18 14:00) Past Medical History - General Information source: Patient - Social History Smoking Status: Never Smoker Frequency of alcohol use: None Drug Abuse: None Occupation: None Lives with: Family Family History: Reviewed & Not Pertinent, CAD, DM, Hypertension - Past Medical History Cardiac Medical History: Reports: Hx Congestive Heart Failure, Hx Hypercholesterolemia, Hx Hypertension, Hx Heart Murmur - 05/31 systolic murmur Pulmonary Medical History: Reports: Hx Asthma, Hx Bronchitis, Hx Pneumonia, Hx Sleep Apnea Denies: Hx COPD, Hx Respiratory Failure, Hx Tuberculosis Neurological Medical History: Reports: Hx Cerebrovascular Accident - 1992. Denies: Hx Seizures, Hx Parkinson's Disease Endocrine Medical History: Reports: Hx Diabetes Mellitus Type 2 Renal/ Medical History: Denies: Hx Peritoneal Dialysis GI Medical History: Reports: Hx Crohn's Disease, Hx Hiatal Hernia, Hx Pancreatitis. Denies: Hx Gastroesophageal Reflux Disease, Hx Irritable Bowel, Hx Liver Failure, Hx Ulcer Musculoskeletal Medical History: Reports Hx Arthritis, Reports Hx Fibromyalgia, Denies Hx Multiple Sclerosis, Denies Hx Muscular Dystrophy, Reports Hx Systemic Lupus Erythematosus, Reports Other - Rheumatoid arthritis Psychiatric Medical History: Reports: Hx Depression, Hx Personality Disorder Traumatic Medical History: Denies: Hx Fractures Infectious Medical History: Denies: Hx HIV Past Surgical History: Reports: Hx Section, Hx Hysterectomy - Immunizations Immunizations up to date: Yes Hx Diphtheria, Pertussis, Tetanus Vaccination: Yes Hx Pneumococcal Vaccination: 01/25/08 Review of Systems - Review of Systems Constitutional: No symptoms reported. denies: Fever, Recent illness EENT: No symptoms reported Cardiovascular: Chest pain Respiratory: Cough, Short of breath Gastrointestinal: Nausea. denies: Abdominal pain, Vomiting Genitourinary: No symptoms reported Female Genitourinary: No symptoms reported Musculoskeletal: Back pain - Lateral side back pain Skin: No symptoms reported Hematologic/Lymphatic: No symptoms reported Neurological/Psychological: No symptoms reported Physical Exam - Vital signs Vitals: Temp Pulse Resp BP Pulse Ox 97.9 F 109 H 22 H 131/88 H 98 01/11/20 14:44 01/11/20 14:44 01/11/20 14:44 01/11/20 14:44 01/11/20 14:44 - General General appearance: Appears well, Alert In distress: None - HEENT Head: Normocephalic, Atraumatic Eyes: Normal Conjunctiva: Normal Nasal: Normal Mouth/Lips: Normal Mucous membranes: Normal Neck: Normal, Supple. No: Lymphadenopathy - Respiratory Respiratory status: No respiratory distress Chest status: Tender, Pain on movement, Pain with cough, Pain with deep breathing Breath sounds: Normal Chest palpation: Tender - Cardiovascular Rhythm: Tachycardia Heart sounds: S1 appreciated, S2 appreciated - Abdominal Inspection: Morbidly Obese Distension: No distension Bowel sounds: Normal Tenderness: Nontender Organomegaly: No organomegaly - Back Back: Normal, Nontender. No: CVA tenderness - Extremities General lower extremity: Edema - 1+ - Neurological Neuro grossly intact: Yes Cognition: Normal [place] Coma Scale Eye Opening: Spontaneous [place] Coma Scale Verbal: Oriented [place] Coma Scale Motor: Obeys Commands [place] Coma Scale Total: 15 - Psychological Associated symptoms: Normal affect, Normal mood - Skin Skin Temperature: Warm Skin Moisture: Dry Skin Color: Normal Course - Re-evaluation Re-evalutation: 01/11/20 21:16 Patient states that her pain symptoms are persisting at this time. Patient complains of pain all areas of the anterior and lateral chest bilaterally. Pain is reproducible with palpation and movement of the trunk. Patient with no acute ischemic changes on EKG and no dynamic changes as compared to prior. Patient with no elevation in troponin or delta troponin. Patient without any PE noted on CTA. Consulted with director of vocational training Dr. Evans regarding patient presentation and concern regarding her multiple comorbidities. He does not recommend inpatient stress testing patient at this time and recommends having her follow-up on an outpatient basis. He states that his office will contact her tomorrow to set up an appointment for outpatient follow-up. Dr. Evans does not feel that she has a cardiac source to her pain symptoms as they are reproducible and involve the entire chest area bilaterally. Patient does have a history of lupus and rheumatoid arthritis and he does have concerns about possible rheumatoid flare. 01/11/20 21:20 Presentation of chest pain in an otherwise well appearing patient. Low clinical suspicion for ACS given clinical history, exam, EKG without ST elevations or depressions, and negative initial and delta troponin. No PE on CTA. CXR without evidence of pneumothorax or pneumonia. No widened mediastinum. Chest pain in a patient without evidence of cardiac or other serious etiology on workup today. I discussed with patient that, based on their age, risk factors and emergency department testing today, the likelihood that their symptoms are related to a heart attack is very low. The patient demonstrates decision making capacity and has verbalized an understanding of these risks to me. Based on this, the patient has chosen to follow-up as an outpatient. Usual chest pain return precautions reviewed. The patient states understanding and agreement with this plan. - Vital Signs Vital signs: Temp Pulse Resp BP Pulse Ox 98.1 F 109 H 15 105/70 99 01/11/20 21:37 01/11/20 14:44 01/11/20 21:37 01/11/20 21:37 01/11/20 21:36 - Laboratory Result Diagrams: 01/11/20 16:06 01/11/20 16:06 Laboratory results interpreted by me: 01/11/20 01/11/20 01/11/20 16:06 16:06 16:06 MCV 79 L MCH 25.0 L MCHC 31.8 L RDW 22.1 H Seg Neuts % (Manual) 85 H Lymphocytes % (Manual) 5 L Abs Lymphs (Manual) 0.4 L D-Dimer 0.55 H Chloride 94 L Est GFR (MDRD) Non-Af 53 L Glucose 376 H POC Glucose Total Protein 8.8 H Albumin 5.1 H 01/11/20 21:03 MCV MCH MCHC RDW Seg Neuts % (Manual) Lymphocytes % (Manual) Abs Lymphs (Manual) D-Dimer Chloride Est GFR (MDRD) Non-Af Glucose POC Glucose 226 H Total Protein Albumin Labs- All tests 24 hr 01/11/20 01/11/20 01/11/20 16:06 16:06 16:06 WBC 8.5 RBC 5.28 Hgb 13.2 Hct 41.5 MCV 79 L MCH 25.0 L MCHC 31.8 L RDW 22.1 H Plt Count 339 Lymph % (Auto) Not Reportable Bracken % (Auto) Not Reportable Eos % (Auto) Not Reportable Baso % (Auto) Not Reportable Absolute Neuts (auto) Not Reportable Absolute Lymphs (auto) Not Reportable Absolute Monos (auto) Not Reportable Absolute Eos (auto) Not Reportable Absolute Basos (auto) Not Reportable Total Counted 100 Seg Neutrophils % Not Reportable Seg Neuts % (Manual) 85 H Lymphocytes % (Manual) 5 L Monocytes % (Manual) 9 Eosinophils % (Manual) 1 Basophils % (Manual) 0 Abs Neuts (Manual) 7.2 Abs Lymphs (Manual) 0.4 L Abs Monocytes (Manual) 0.8 Absolute Eos (Manual) 0.1 Abs Basophils (Manual) 0.0 Nucleated RBCs 2 Toxic Vacuolation PRESENT Clumped Platelets PRESENT Platelet Comment ADEQUATE Polychromasia SLIGHT Hypochromasia SLIGHT Poikilocytosis 2+ Anisocytosis 3+ Microcytosis SLIGHT Target Cells 1+ Tear Drop Cells SLIGHT Ovalocytes SLIGHT Schistocytes SLIGHT D-Dimer 0.55 H Sodium 138.1 Potassium 3.9 Chloride 94 L Carbon Dioxide 28 Anion Gap 16 BUN 20 Creatinine 1.06 Est GFR ( Amer) > 60 Est GFR (MDRD) Non-Af 53 L Glucose 376 H POC Glucose Calcium 10.1 Magnesium 1.7 Total Bilirubin 0.6 Direct Bilirubin Not Reportable Neonat Total Bilirubin Not Reportable Neonat Direct Bilirubin Not Reportable Neonat Indirect Bili Not Reportable AST 33 ALT 21 Alkaline Phosphatase 99 Troponin I NT-Pro-B Natriuret Pep Total Protein 8.8 H Albumin 5.1 H 01/11/20 01/11/20 01/11/20 16:06 19:57 21:03 WBC RBC Hgb Hct MCV MCH MCHC RDW Plt Count Lymph % (Auto) [place] % (Auto) Eos % (Auto) Baso % (Auto) Absolute Neuts (auto) Absolute Lymphs (auto) Absolute Monos (auto) Absolute Eos (auto) Absolute Basos (auto) Total Counted Seg Neutrophils % Seg Neuts % (Manual) Lymphocytes % (Manual) Monocytes % (Manual) Eosinophils % (Manual) Basophils % (Manual) Abs Neuts (Manual) Abs Lymphs (Manual) Abs Monocytes (Manual) Absolute Eos (Manual) Abs Basophils (Manual) Nucleated RBCs Toxic Vacuolation Clumped Platelets Platelet Comment Polychromasia Hypochromasia Poikilocytosis Anisocytosis Microcytosis Target Cells Tear Drop Cells Ovalocytes Schistocytes D-Dimer Sodium Potassium Chloride Carbon Dioxide Anion Gap BUN Creatinine Est GFR ( Amer) Est GFR (MDRD) Non-Af Glucose POC Glucose 226 H Calcium Magnesium Total Bilirubin Direct Bilirubin Neonat Total Bilirubin Neonat Direct Bilirubin Neonat Indirect Bili AST ALT Alkaline Phosphatase Troponin I < 0.012 < 0.012 NT-Pro-B Natriuret Pep 60 Total Protein Albumin - Diagnostic Test Radiology reviewed: Reports reviewed - EKG Interpretation by Me EKG shows normal: Sinus rhythm Rate: Tachycardia Rhythm: NSR When compared to previous EKG there are: No significant change Additional EKG results interpreted by me: 01/11/20 15:48 Sinus tachycardia with a rate of 106, QTc 463, no acute ischemic changes, no significant changes as compared to prior Discharge - Discharge Clinical Impression: Chest pain Qualifiers: Chest pain type: unspecified Qualified Code(s): R07.9 - Chest pain, unspecified Rheumatoid arthritis Qualifiers: Rheumatoid arthritis location: unspecified site Rheumatoid factor presence: unspecified presence Qualified Code(s): M06.9 - Rheumatoid arthritis, unspecified Lupus Qualifiers: Lupus erythematosus form: unspecified Qualified Code(s): L93.0 - Discoid lupus erythematosus Condition: Stable Disposition: HOME, SELF-CARE Instructions: Chest Pain of Unclear Cause ([facility]) Additional Instructions: Return immediately for any new or worsening symptoms Followup with your primary care provider, call tomorrow to make a followup appointment Revenue Inspector, Dr. Janak Evans, will have his office staff contact you tomorrow to make a follow-up appointment for outpatient follow-up. You were seen today for chest pain. The exact cause of your pain is unclear. However, based on your cardiac enzyme testing, chest x-ray, and EKG it does not appear that it is from an immediately life-threatening cause at this time. Although your testing here is normal is critical that you follow-up with your primary care physician for continued evaluation of this chest pain and possible stress testing. I recommended you see your physician within the next 24-48 hours to be evaluated for consideration of a stress test. Please return to emergency department immediately if you have worsening of your chest pain, shortness of breath, vomiting, become unable to exert yourself due to pain or difficulty breathing, you pass out, or have any pain that radiates into your arms, jaw, or back. Please also return if you have any additional symptoms that are concerning to you. Referrals: DIANA NICHOLS PA-C [Primary Care Provider] - Follow up as needed JANAK EVANS MD [ACTIVE STAFF] - Follow up tomorrow
--- NOTE | 2020-01-11 16:09 | RADIOLOGY REPORT (SQ) ---
EXAM DESCRIPTION: CHEST SINGLE VIEW IMAGES COMPLETED DATE/TIME: 01/11/2020 3:54 pm REASON FOR STUDY: april hudson COMPARISON: 12/01/2019 EXAM PARAMETERS: NUMBER OF VIEWS: One view. TECHNIQUE: Single frontal radiographic view of the chest acquired. RADIATION DOSE: NA LIMITATIONS: None. FINDINGS: LUNGS AND PLEURA: No opacities, masses or pneumothorax. No pleural effusion. MEDIASTINUM AND HILAR STRUCTURES: No masses. Contour normal. HEART AND VASCULAR STRUCTURES: Heart normal in size. Normal vasculature. BONES: No acute findings. HARDWARE: None in the chest. OTHER: No other significant finding. IMPRESSION: NO ACUTE RADIOGRAPHIC FINDING IN THE CHEST. TECHNICAL DOCUMENTATION: JOB ID: [id number] 2010 [employer]- All Rights Reserved Reading location - IP/workstation name: [email or web address]
[2020-01-11] MEDS ORDERED: NORMAL SALINE 500 ML IV ONE (16:32)
[2020-01-11 16:46] LABS: ALBUMIN 5.1 g/dL (3.5-5.0); ALKALINE PHOSPHATASE 99 U/L (38-126); ANION GAP 16 (5-19); ASPARTATE AMINO TRANSFERASE 33 U/L (14-36); BILIRUBIN,TOTAL 0.6 mg/dL (0.2-1.3); BLOOD UREA NITROGEN 20 mg/dL (7-20); CALCIUM 10.1 mg/dL (8.4-10.2); CARBON DIOXIDE 28 mmol/L (22-30); CHLORIDE 94 mmol/L (98-107); GLUCOSE 376 mg/dL (75-110); POTASSIUM 3.9 mmol/L (3.6-5.0); TOTAL PROTEIN 8.8 g/dL (6.3-8.2)
[2020-01-11 16:54] LABS: HEMATOCRIT 41.5 % (36.0-47.0); HEMOGLOBIN 13.2 g/dL (12.0-15.5); MEAN CORPUSCULAR HGB CONC 31.8 g/dL (32.0-36.0); MEAN CORPUSCULAR VOLUME 79 fl (80-97); RED BLOOD COUNT 5.28 10^6/uL (3.72-5.28); RED CELL DISTRIBUTION WIDTH 22.1 % (11.5-14.0); WHITE BLOOD COUNT 8.5 10^3/uL (4.0-10.5)
[2020-01-11 16:58] LABS: NT PRO BNP 60 pg/mL (<125)
[2020-01-11 17:02] LABS: TROPONIN I < 0.012 ng/mL
[2020-01-11 17:24] LABS: PLATELET COUNT 339 10^3/uL (150-450)
[2020-01-11 17:25] LABS: ABSOLUTE LYMPHOCYTES# (MANUAL) 0.4 10^3/uL (0.5-4.7); ABSOLUTE MONOCYTES # (MANUAL) 0.8 10^3/uL (0.1-1.4); ANISOCYTOSIS 3+; BASOPHILS % (MANUAL) 0 % (0-2); EOSINOPHILS % (MANUAL) 1 % (0-6); HYPOCHROMASIA SLIGHT; LYMPHOCYTES % (MANUAL) 5 % (13-45); MONOCYTES % (MANUAL) 9 % (3-13); NUCLEATED RED BLOOD CELLS 2 /100 WBC (0); OVALOCYTES SLIGHT; POIKILOCYTOSIS 2+; POLYCHROMASIA SLIGHT; SCHISTOCYTES SLIGHT; SEGMENTED NEUTROPHILS % (MAN) 85 % (42-78); TEAR DROP CELLS SLIGHT; TOTAL CELLS COUNTED 100; TOXIC VACUOLATION PRESENT
[2020-01-11 17:26] LABS: PLATELET CLUMPS PRESENT; PLATELET COMMENT ADEQUATE; TARGET CELLS 1+
[2020-01-11] MEDS ORDERED: INSULIN REG, HUMAN 100 UNIT/ML 3 ML VIAL (PYX) SUBCUT ONE (17:32)
--- NOTE | 2020-01-11 19:09 | RADIOLOGY REPORT (SQ) ---
EXAM DESCRIPTION: CTA CHEST IMAGES COMPLETED DATE/TIME: 01/11/2020 6:52 pm REASON FOR STUDY: cp, elevated dimer COMPARISON: 12/01/2019 TECHNIQUE: CT scan of the chest performed using helical scanning technique with dynamic intravenous contrast injection. Images reviewed with lung, soft tissue and bone windows. Reconstructed coronal and sagittal MPR images reviewed. Additional 3 dimensional post-processing performed to develop Maximal Intensity Projection images (HI P). All images stored on PACS. All CT scanners at this facility use dose modulation, iterative reconstruction, and/or weight based d osing when appropriate to reduce radiation dose to as low as reasonably achievable (ALARA). [facility]: Dose Right [facility]: CareDose [facility]: Dose Right [facility]: Teradose 4D [facility]: ManageIQ CONTRAST TYPE AND DOSE: contrast/concentration: Isovue 350.00 mmol/ml; Total Contrast Delivered: 75. 0 ml; Total Saline Delivered: 38.2 ml Contrast bolus adequate for pulmonary arteries and aorta. RENAL FUNCTION: BUN 20 creatinine 1.06 RADIATION DOSE: CT Rad equipment meets quality standard of care and radiation dose reduction techniq ues were employed. CTDIvol: 13.2 - 40.0 mGy. DLP: 1388 mGy-cm. . LIMITATIONS: None. FINDINGS: LUNGS AND PLEURA: No masses, infiltrates, or pneumothorax. No pleural effusions or pleura l calcifications. AORTA AND GREAT VESSELS: No aneurysm. No dissection. HEART: No pericardial effusion. No significant coronary artery calcifications. PULMONARY ARTERIES: No emboli visualized in the main pulmonary arteries or the segmental branches. HILAR AND MEDIASTINAL STRUCTURES: No identified masses or abnormal nodes. HARDWARE: None in the chest. UPPER ABDOMEN: No significant findings. Limited exam. THYROID AND OTHER SOFT TISSUES: No masses. No adenopathy. BONES: No acute or significant finding. 3D MIPS: Confirm above findings. OTHER: No other significant finding. IMPRESSION: There are no pulmonary emboli. There is no aortic aneurysm or dissection. No acute fin dings in the thorax. COMMENT: Quality ID # [id number]: Final reports with documentation of one or more dose reduction techniques (e.g., Automated exposure control, adjustment of the mA and/or kV according to patient size, use of iterative reconstruction technique) TECHNICAL DOCUMENTATION: JOB ID: [id number] 2010 [employer]- All Rights Reserved Reading location - IP/workstation name: [email or web address]
--- NOTE | 2020-01-11 19:29 | EKG REPORT ---
SEVERITY:- OTHERWISE NORMAL ECG - SINUS TACHYCARDIA : Confirmed by: Cullen Fritz 11-Jan-2020 19:28:55
[2020-01-11] MEDS ORDERED: HYDROCODONE/ACETAMINOPHEN 5-325 MG (6 TAB/ER DISP) PO PRN (21:25)
[2020-01-11 21:41] VITALS: BP 105/70
== END 2020-01-11 21:50 | disposition home or self-care (01) ==
LOC: ER 14:26
DX: M06.9 Rheumatoid arthritis, unspecified (principal); L93.0 Discoid lupus erythematosus; R07.9 Chest pain, unspecified; R06.02 Shortness of breath; R05 Cough; R11.0 Nausea; Z79.899 Other long term (current) drug therapy; Z79.02 Long term (current) use of antithrombotics/antiplatelets; I11.0 Hypertensive heart disease with heart failure; I50.9 Heart failure, unspecified; E11.9 Type 2 diabetes mellitus without complications; J45.909 Unspecified asthma, uncomplicated; Z88.0 Allergy status to penicillin; Z88.8 Allergy status to other drugs, medicaments and biological substances
CPT/HCPCS: 93005; 96376; 99285; 96361; 96374; 96375; 36415; 82962; 83735; 85025; 80053; 84484; 85379; 83880; 71045; 71275; 93010; J3010; A9270 ×2; J2405; J7040; J1815

== ENCOUNTER 2020-01-13 16:14 | Emergency (ER) | payer MEDICARE, MEDICAID ==
--- NOTE | 2020-01-13 17:28 | ER Document Report ---
ED Medical Screen (RME) - General Stated Complaint: BLOOD SUGAR PROBLEMS Time Seen by Provider: 01/13/20 17:23 Primary Care Provider: DIANA NICHOLS PA-C [Primary Care Provider] - Follow up as needed Mode of Arrival: Wheelchair Information source: Patient Notes: Patient is a 59-year-old female states she was sent here by Dr. Meier who is her pain management doctor because her blood sugars were in excess of 600. Patient states for the past week she has been feeling very lousy. She is been getting increasing shortness of breath. She states she checks her sugars and they have not been that high. She denies having changed her diet. She is also having chest pain with this. Patient is an insulin-dependent diabetic has a history of lupus. Patient was also seen here on 01/11/2020 with a complaint of shortness of breath was worked up and discharged home. Her sugars at that time were 386 on arrival and down to 200+ on departure. Physical examination. Patient is a well-nourished well-developed morbidly obese 59-year-old female no apparent distress on examination. Patient is a little upset because we were not informed ahead of time that she was coming. She states Dr. Meier's office was supposed to call but she was thinking she was going to be directly admitted. Cardiac: Patient slightly tachycardic at 111 beats a minute. Lungs: Bilateral breath sounds decreased throughout no rhonchi rales or wheeze are heard Abdomen: Bowel sounds are present all 4 quads unable to palpate any tenderness to the abdominal area secondary to body habitus and sitting position in a wheel chair. I have greeted and performed a rapid initial assessment of this patient. A comprehensive ED assessment and evaluation of the patient, analysis of test results and completion of the medical decision making process will be conducted by additional ED providers. Dictation of this chart was performed using voice recognition software; therefore, there may be some unintended grammatical errors. TRAVEL OUTSIDE OF THE [place] IN LAST 30 DAYS: No - Related Data Allergies/Adverse Reactions: ibuprofen [Ibuprofen] Allergy (Severe, Verified 11/11/16 00:36) Chest pain Penicillins Allergy (Verified 09/03/18 14:00) Past Medical History - Past Medical History Cardiac Medical History: Reports: Hx Congestive Heart Failure, Hx Hypercholesterolemia, Hx Hypertension, Hx Heart Murmur - 05/31 systolic murmur Denies: Hx Atrial Fibrillation, Hx Coronary Artery Disease, Hx Heart Attack, Hx Peripheral Vascular Disease, Hx Pulmonary Embolism Pulmonary Medical History: Reports: Hx Asthma, Hx Bronchitis, Hx Pneumonia, Hx Sleep Apnea Denies: Hx COPD, Hx Respiratory Failure, Hx Tuberculosis Neurological Medical History: Reports: Hx Cerebrovascular Accident - 1992. Denies: Hx Seizures, Hx Parkinson's Disease Endocrine Medical History: Reports: Hx Diabetes Mellitus Type 2. Denies: Hx Graves' Disease, Hx Hyperthyroidism, Hx Hypothyroidism Renal/ Medical History: Denies: Hx Peritoneal Dialysis Malignancy Medical History: Denies: Hx Leukemia, Hx Lung Cancer GI Medical History: Reports: Hx Crohn's Disease, Hx Hiatal Hernia, Hx Pancreatitis. Denies: Hx Gastroesophageal Reflux Disease, Hx Irritable Bowel, Hx Liver Failure, Hx Ulcer Musculoskeltal Medical History: Reports Hx Arthritis, Reports Hx Fibromyalgia, Denies Hx Multiple Sclerosis, Denies Hx Muscular Dystrophy, Reports Hx Systemic Lupus Erythematosus Psychiatric Medical History: Reports: Hx Depression, Hx Personality Disorder Denies: Hx Bipolar Disorder, Hx Dementia, Hx Post Traumatic Stress Disorder, Hx Schizophrenia Traumatic Medical History: Denies: Hx Fractures Infectious Medical History: Denies: Hx HIV Past Surgical History: Reports: Hx Section, Hx Hysterectomy. Denies: Hx Appendectomy, Hx Bowel Surgery, Hx Cholecystectomy, Hx Colostomy, Hx Coronary Artery Bypass Graft, Hx Gastric Bypass Surgery, Hx Herniorrhaphy, Hx Mastectomy, Hx Pacemaker, Hx Tonsillectomy, Hx Tubal Ligation - Immunizations Immunizations up to date: Yes Hx Diphtheria, Pertussis, Tetanus Vaccination: Yes Physical Exam - Vital signs Vitals: Temp Pulse Resp BP Pulse Ox 98.5 F 111 H 18 143/79 H 97 01/13/20 16:27 01/13/20 16:27 01/13/20 16:27 01/13/20 16:27 01/13/20 16:27 Course - Vital Signs Vital signs: Temp Pulse Resp BP Pulse Ox 98.5 F 111 H 18 143/79 H 97 01/13/20 16:27 01/13/20 16:27 01/13/20 16:27 01/13/20 16:27 01/13/20 16:27 - Laboratory Laboratory results interpreted by me: 01/13/20 17:28 POC Glucose 474 H* Doctor's Discharge - Discharge Referrals: DIANA NICHOLS PA-C [Primary Care Provider] - Follow up as needed
--- NOTE | 2020-01-13 18:31 | RADIOLOGY REPORT (SQ) ---
EXAM DESCRIPTION: CHEST SINGLE VIEW IMAGES COMPLETED DATE/TIME: 01/13/2020 5:09 pm REASON FOR STUDY: Short of breath COMPARISON: 01/11/2020 EXAM PARAMETERS: NUMBER OF VIEWS: One view. TECHNIQUE: Single frontal radiographic view of the chest acquired. RADIATION DOSE: NA LIMITATIONS: None. FINDINGS: LUNGS AND PLEURA: No opacities, masses or pneumothorax. No pleural effusion. MEDIASTINUM AND HILAR STRUCTURES: No masses. Contour normal. HEART AND VASCULAR STRUCTURES: Heart normal in size. Normal vasculature. BONES: No acute findings. HARDWARE: None in the chest. OTHER: No other significant finding. IMPRESSION: NO ACUTE RADIOGRAPHIC FINDING IN THE CHEST. TECHNICAL DOCUMENTATION: JOB ID: [id number] 2010 [employer]- All Rights Reserved Reading location - IP/workstation name: [email or web address]
[2020-01-13 18:33] LABS: HEMATOCRIT 35.3 % (36.0-47.0); HEMOGLOBIN 11.5 g/dL (12.0-15.5); MEAN CORPUSCULAR HEMOGLOBIN 25.4 pg (27.0-33.4); MEAN CORPUSCULAR HGB CONC 32.5 g/dL (32.0-36.0); MEAN CORPUSCULAR VOLUME 78 fl (80-97); PLATELET COUNT 297 10^3/uL (150-450); RED BLOOD COUNT 4.52 10^6/uL (3.72-5.28); RED CELL DISTRIBUTION WIDTH 21.9 % (11.5-14.0); WHITE BLOOD COUNT 7.6 10^3/uL (4.0-10.5)
--- NOTE | 2020-01-13 18:36 | EKG REPORT ---
SEVERITY:- OTHERWISE NORMAL ECG - SINUS TACHYCARDIA : Confirmed by: Cullen Fritz 13-Jan-2020 18:36:20
[2020-01-13 18:45] LABS: ALBUMIN 4.4 g/dL (3.5-5.0); ALKALINE PHOSPHATASE 91 U/L (38-126); ANION GAP 14 (5-19); ASPARTATE AMINO TRANSFERASE 23 U/L (14-36); BILIRUBIN,TOTAL 0.3 mg/dL (0.2-1.3); BLOOD UREA NITROGEN 22 mg/dL (7-20); CALCIUM 9.3 mg/dL (8.4-10.2); CARBON DIOXIDE 27 mmol/L (22-30); CHLORIDE 96 mmol/L (98-107); POTASSIUM 3.9 mmol/L (3.6-5.0); TOTAL PROTEIN 7.4 g/dL (6.3-8.2)
[2020-01-13 18:49] LABS: ABSOLUTE LYMPHOCYTES# (MANUAL) 1.1 10^3/uL (0.5-4.7); ABSOLUTE MONOCYTES # (MANUAL) 0.5 10^3/uL (0.1-1.4); BAND NEUTROPHILS % (MANUAL) 1 % (3-5); BASOPHILS % (MANUAL) 0 % (0-2); EOSINOPHILS % (MANUAL) 0 % (0-6); LYMPHOCYTES % (MANUAL) 13 % (13-45); MONOCYTES % (MANUAL) 7 % (3-13); NUCLEATED RED BLOOD CELLS 1 /100 WBC (0); SEGMENTED NEUTROPHILS % (MAN) 77 % (42-78); TOTAL CELLS COUNTED 100
[2020-01-13 18:50] LABS: ANISOCYTOSIS 3+; HYPOCHROMASIA 2+; OVALOCYTES 1+; PLATELET COMMENT ADEQUATE; POIKILOCYTOSIS 1+; POLYCHROMASIA SLIGHT; TARGET CELLS 1+; TEAR DROP CELLS 1+
[2020-01-13 19:01] LABS: GLUCOSE 464 mg/dL (75-110)
[2020-01-13] MEDS ORDERED: INSULIN REG, HUMAN 100 UNIT/ML 3 ML VIAL (PYX) SUBCUT ONE (19:26)
[2020-01-14] MEDS ORDERED: TRAMADOL HCL 50 MG TABLET PO ONE (00:03)
[2020-01-14] MEDS ORDERED: INSULIN REG, HUMAN 100 UNIT/ML 3 ML VIAL (PYX) SUBCUT ONE (00:03)
--- NOTE | 2020-01-14 00:06 | ER Document Report ---
Entered by BERKLEY DORSEY SCRIBE 01/13/20 [id number] Acting as scribe for:STEF PRATT DO ED Blood Sugar Problem - General Chief Complaint: High Blood Sugar Stated Complaint: BLOOD SUGAR PROBLEMS Time Seen by Provider: 01/13/20 17:23 Primary Care Provider: DIANA NICHOLS PA-C [Primary Care Provider] - Follow up as needed Mode of Arrival: Wheelchair Information source: Patient Notes: This 59 year old female patient with a history of diabetes presents to the ED today with complaints of elevated blood sugar readings. Patient states that she was at her pain management clinic today and her BGL there was over 600, so she was sent to the ED for evaluation. Patient also reports shortness of breath and chest pain similar to her last visit x2 days ago. She mentions foul-smelling urine, but denies any other urinary symptoms. Denies fever or cough. TRAVEL OUTSIDE OF THE [place] IN LAST 30 DAYS: No - Related Data Allergies/Adverse Reactions: ibuprofen [Ibuprofen] Allergy (Severe, Verified 11/11/16 00:36) Chest pain Penicillins Allergy (Verified 09/03/18 14:00) Home Medications: Enbrel, Atorvastatin, Clopidogrel, Famotidine, Lantus, Lisinoprile, Metformin, Metoprolol, Proair, Trazadone Past Medical History - General Information source: Patient, [facility] Records - Social History Smoking Status: Unknown if Ever Smoked Smoking Education Provided: No Family History: Reviewed & Not Pertinent, CAD, DM, Hypertension Patient has suicidal ideation: No Patient has homicidal ideation: No - Past Medical History Cardiac Medical History: Reports: Hx Congestive Heart Failure, Hx Hypercholesterolemia, Hx Hypertension, Hx Heart Murmur - 05/31 systolic murmur Pulmonary Medical History: Reports: Hx Asthma, Hx Bronchitis, Hx Pneumonia, Hx Sleep Apnea Neurological Medical History: Reports: Hx Cerebrovascular Accident - 1992 Endocrine Medical History: Reports: Hx Diabetes Mellitus Type 2 GI Medical History: Reports: Hx Crohn's Disease, Hx Hiatal Hernia, Hx Pancreatitis Musculoskeletal Medical History: Reports Hx Arthritis, Reports Hx Fibromyalgia, Reports Hx Systemic Lupus Erythematosus Psychiatric Medical History: Reports: Hx Depression, Hx Personality Disorder Past Surgical History: Reports: Hx Section, Hx Hysterectomy - Immunizations Immunizations up to date: Yes Hx Diphtheria, Pertussis, Tetanus Vaccination: Yes Hx Pneumococcal Vaccination: 01/25/08 Review of Systems - Review of Systems Constitutional: See HPI, Other - elevated bgl. denies: Fever EENT: No symptoms reported Cardiovascular: See HPI, Chest pain Respiratory: See HPI, Short of breath. denies: Cough Gastrointestinal: No symptoms reported Genitourinary: See HPI, Other - Foul-smelling urine. denies: Burning, Dysuria, Hematuria Female Genitourinary: No symptoms reported Musculoskeletal: No symptoms reported Skin: No symptoms reported Hematologic/Lymphatic: No symptoms reported Neurological/Psychological: No symptoms reported -: Yes All other systems reviewed and negative Physical Exam - Vital signs Vitals: Temp Pulse Resp BP Pulse Ox 98.5 F 111 H 18 143/79 H 97 01/13/20 16:27 01/13/20 16:27 01/13/20 16:27 01/13/20 16:27 01/13/20 16:27 - General General appearance: Alert In distress: None - HEENT Head: Normocephalic, Atraumatic Eyes: Normal Pupils: PERRL - Respiratory Respiratory status: No respiratory distress Chest status: Nontender Breath sounds: Normal Chest palpation: Normal - Cardiovascular Rhythm: Regular Heart sounds: Normal auscultation Murmur: No Friction rub: No Gallop: None auscultated - Abdominal Inspection: Morbidly Obese Distension: No distension Bowel sounds: Normal Tenderness: Tender - Mild generalized tenderness to palpation, Other - Abdomen soft Organomegaly: No organomegaly - Back Back: Normal, Nontender - Extremities General upper extremity: Normal inspection General lower extremity: Edema - Trace peripheral edema bilaterally - Neurological Neuro grossly intact: Yes Cognition: Normal Orientation: AAOx4 [place] Coma Scale Eye Opening: Spontaneous [place] Coma Scale Verbal: Oriented [place] Coma Scale Motor: Obeys Commands [place] Coma Scale Total: 15 Speech: Normal Motor strength normal: LUE, RUE, LLE, RLE Sensory: Normal - Psychological Associated symptoms: Normal affect, Normal mood - Skin Skin Temperature: Warm Skin Moisture: Dry Skin Color: Normal Course - Re-evaluation Re-evalutation: 01/14/20 01:37 MDM 59 year old female - morbidly obese with DM and chronic pain - PCP is Bundle - is here due to being referred from pain management due to FSBS over 600 there. FSBS 300's when I see her. Playing game on phone and watching tv and nontoxic. Hurts everywhere a bit but not severely and looks nontoxic - Vital Signs Vital signs: Temp Pulse Resp BP Pulse Ox 98.5 F 111 H 18 143/79 H 97 01/13/20 16:27 01/13/20 16:27 01/13/20 16:27 01/13/20 16:27 01/13/20 16:27 - Laboratory Result Diagrams: 01/13/20 17:50 01/13/20 17:50 Laboratory results interpreted by me: 01/13/20 01/13/20 01/13/20 17:28 17:50 17:50 Hgb 11.5 L Hct 35.3 L MCV 78 L MCH 25.4 L RDW 21.9 H Band Neutrophils % 1 L Chloride 96 L BUN 22 H Est GFR ( Amer) 58 L Est GFR (MDRD) Non-Af 48 L Glucose 464 H* POC Glucose 474 H* Urine Glucose (UA) Urine Nitrite Ur Leukocyte Esterase 01/13/20 01/14/20 23:13 02:11 Hgb Hct MCV MCH RDW Band Neutrophils % Chloride BUN Est GFR ( Amer) Est GFR (MDRD) Non-Af Glucose POC Glucose 354 H Urine Glucose (UA) >=500 H Urine Nitrite POSITIVE H Ur Leukocyte Esterase LARGE H - EKG Interpretation by Me EKG shows normal: Sinus rhythm Rate: Tachycardia Rhythm: NSR - Sinus Tachy 109 BPM [address]l axis No st elevation or depression repolarization abnormality Discharge - Discharge Clinical Impression: Chronic pain Qualifiers: Chronic pain type: chronic pain syndrome Qualified Code(s): G89.4 - Chronic pain syndrome Diabetes mellitus Qualifiers: Diabetes mellitus type: type 2 Diabetes mellitus longterm insulin use: unspecified longterm insulin use status Diabetes mellitus complication status: with other specified complication Qualified Code(s): E11.69 - Type 2 diabetes mellitus with other specified complication UTI (urinary tract infection) Qualifiers: Urinary tract infection type: site unspecified Hematuria presence: with hematuria Qualified Code(s): N39.0 - Urinary tract infection, site not specified Condition: Stable Disposition: HOME, SELF-CARE Instructions: Diabetes ([facility]), Control of Diabetes During Illness ([facility]) Additional Instructions: Call Dr. Sam lemos today for follow up. Take your medicine as directed. Return here for chest pain, shortness of breath or any other problems or concerns. [facility] Prescriptions: Cephalexin Monohydrate [Keflex 500 mg Capsule] 500 mg PO TID #30 capsule Referrals: DIANA NICHOLS PA-C [Primary Care Provider] - Follow up as needed I personally performed the services described in the documentation, reviewed and edited the documentation which was dictated to the scribe in my presence, and it accurately records my words and actions.
[2020-01-14 02:26] LABS: APPEARANCE,URINE SLIGHTLY-CLOUDY; BILIRUBIN,URINE NEGATIVE (NEGATIVE); COLOR,URINE YELLOW; GLUCOSE, URINE >=500 mg/dL (NEGATIVE); KETONES,URINE NEGATIVE (NEGATIVE); LEUKOCYTE ESTERASE,URINE LARGE (NEGATIVE); NITRITE,URINE POSITIVE (NEGATIVE); PROTEIN,URINE NEGATIVE (NEGATIVE); URINE SPECIFIC GRAVITY 1.018; UROBILINOGEN,URINE NEGATIVE mg/dL (<2.0)
[2020-01-14] MEDS ORDERED: CEPHALEXIN 500 MG CAPSULE PO ONE (02:44)
[2020-01-14 03:09] VITALS: BP 141/83
== END 2020-01-14 03:08 | disposition home or self-care (01) ==
LOC: ER 16:14
DX: N39.0 Urinary tract infection, site not specified (principal); E11.65 Type 2 diabetes mellitus with hyperglycemia; G89.4 Chronic pain syndrome; R06.02 Shortness of breath; Z88.0 Allergy status to penicillin; Z88.8 Allergy status to other drugs, medicaments and biological substances; Z79.899 Other long term (current) drug therapy; I50.9 Heart failure, unspecified; I11.0 Hypertensive heart disease with heart failure; J45.909 Unspecified asthma, uncomplicated
CPT/HCPCS: 93005; 99285; 36415; 82962; 85025; 80053; 81001; 84484; 71045; 93010; A9270 ×3; J1815

== ENCOUNTER → 2020-05-12 | Outpatient (CLI) | payer MEDICARE, MEDICAID ==
--- NOTE | 2020-05-12 11:08 | RADIOLOGY REPORT (SQ) ---
EXAM DESCRIPTION: CT ABD/PELVIS COMBO IMAGES COMPLETED DATE/TIME: 05/12/2020 10:39 am REASON FOR STUDY: (R10.30)LOWER ABDOMINAL PAIN, UNSPECIFIED R10.30 LOWER ABDOMINAL PAIN, UNSPECIFIE D COMPARISON: None. TECHNIQUE: CT scan of the abdomen and pelvis performed with and without intravenous contrast, and wi thout oral contrast. Contrasted imaging performed helical scanning technique and dynamic intravenous contrast injection. Images reviewed with lung, soft tissue, and bone windows. Reconstructed coronal a nd sagittal MPR images reviewed. Delayed images for evaluation of the urinary system also acquired. A ll images stored on PACS. All CT scanners at this facility use dose modulation, iterative reconstruction, and/or weight based d osing when appropriate to reduce radiation dose to as low as reasonably achievable (ALARA). [facility]: Dose Right [facility]: CareDose [facility]: Dose Right [facility]: Teradose 4D [facility]: Inkvite CONTRAST TYPE AND DOSE: contrast/concentration: Isovue 350.00 mmol/ml; Total Contrast Delivered: 100 .0 ml; Total Saline Delivered: 37.0 ml RENAL FUNCTION: Creatinine 1.5 RADIATION DOSE: CT Rad equipment meets quality standard of care and radiation dose reduction techniq ues were employed. CTDIvol: 26.4 - 30.6 mGy. DLP: 4965 mGy-cm. . LIMITATIONS: None. FINDINGS: NON-CONTRASTED IMAGING: As below POST-CONTRASTED IMAGING: LOWER CHEST: No significant findings. No nodules or infiltrates. LIVER: Normal size. No masses. No dilated ducts. Decreased attenuation of the hepatic parenchyma co mpatible with steatosis. SPLEEN: Normal size. No focal lesions. PANCREAS: No masses. No significant calcifications. No adjacent inflammation or peripancreatic fluid collections. Pancreatic duct not dilated. GALLBLADDER: No identified stones by CT criteria. No inflammatory changes to suggest cholecystitis. ADRENAL GLANDS: No significant masses or asymmetry. RIGHT KIDNEY AND URETER: No solid masses. No significant calcifications. No hydronephrosis or hyd roureter. LEFT KIDNEY AND URETER: No solid masses. No significant calcifications. No hydronephrosis or hydr oureter. AORTA AND VESSELS: No aneurysm. No dissection. Renal arteries, SMA, celiac without stenosis. RETROPERITONEUM: No retroperitoneal adenopathy, hemorrhage or masses. BOWEL AND PERITONEAL CAVITY: No evidence of intestinal obstruction. No focal bowel wall thickening. Few scattered colonic diverticular. Stool throughout the colon. APPENDIX: Incompletely visualized. PELVIS: Decompressed urinary bladder. No pelvic free fluid, adenopathy or mass. ABDOMINAL WALL: No mass. No hernia. Obesity. BONES: No acute bony abnormality. No suspicious lytic or blastic osseous lesions. Lower lumbar face t arthropathy. Vacuum disc phenomenon at L3-4. OTHER: No other significant finding. IMPRESSION: Hepatic steatosis. No evidence of acute intra-abdominal/pelvic process. TECHNICAL DOCUMENTATION: JOB ID: [id number] Quality ID # [id number]: Final reports with documentation of one or more dose reduction techniques (e.g., Au tomated exposure control, adjustment of the mA and/or kV according to patient size, use of iterative reconstruction technique) 2010 [employer]- All Rights Reserved Reading location - IP/workstation name: [email or web address]
== END ==
LOC: RAD 10:04
PROVIDERS: ATTEND Physician Assistant
DX: K76.0 Fatty (change of) liver, not elsewhere classified (principal); R10.30 Lower abdominal pain, unspecified
CPT/HCPCS: 74178